=== PATIENT | male | born 1955 | race Caucasian/White ===

== ENCOUNTER 2019-11-08 21:25 | Emergency (ER) | payer MEDICARE, SELFPAY ==
--- NOTE | ~2019-11-08 | XR_ITS ---
EXAMINATION: XR chest 2V EXAM DATE: 11/08/2019 22:19 INDICATION: Cough, chest tightness. TECHNIQUE: Frontal and lateral projections of the chest obtained and reviewed. There is no prior larissa dy for comparison. FINDINGS: The lungs are clear. There are no pleural effusions. The cardiomediastinal silhouette is within normal limits. There is no pneumothorax suspected. The bones and soft tissues are unremarkab le. IMPRESSION: No acute cardiopulmonary findings. Reviewed, dictated and finalized at location A. FIC TECHNICIAN
[2019-11-08 21:45] VITALS: BP 116/72; PULSE 75; RESP 16; TEMP 36.3; O2SAT 95
[2019-11-08 21:51] VITALS: PULSE 75
--- NOTE | 2019-11-08 22:01 | ECG_ITS ---
Measurements Intervals [place] Rate: 62 P: 50 PA: 164 QRS: 27 QRSD: 79 T: 51 QT: 375 QTc: 381 Interpretive Statements SINUS RHYTHM RSR' IN V1 OR V2, PROBABLY NORMAL VARIANT BASELINE ARTIFACT- I, II, III, AVR, AVL, AVF BORDERLINE ECG Electronically Signed On 11-09-2019 7:05:02 SKATE MAKER by Tru Wood D.O.
--- NOTE | 2019-11-08 22:06 | ED.GENADULT ---
HPI - General Adult General Chief complaint: Chest Pain Stated complaint: tightness in chest and back Source: patient and family () Mode of arrival: ambulatory Limitations: no limitations History of Present Illness HPI narrative: CC: wants a CXR. All day has felt a moderate pressure sensation in his anterior chest, sternal and left parasternal area assoc. with achiness of his shoulders and back. The chest pain does not radiate. He has checked his blood pressure readings throughout the day which has shown pulse readings between 30 and 60. No obvious correlation between pulse and other symptoms. He has had minor SOB but denies wheezing. Today he has also felt clammy with no appetite. He does not use albuterol, but his does and has a nebulizer). He was treated by his PCP 10 days ago for a cold with an IM steroid followed by a tapering dose of prednisone x 5 days along with azithromycin x 5 days. Marko states his body and lungs felt much better on that regimen, which stopped 2 days before the onset of his current symptoms. He continues to have nasal congestion and minor sore throat residual from his previous cold symptoms. His states he was coughing a lot last PM. Relieving factors: none Exacerbating factors: none Related Data Home Medications Medication Instructions Recorded Confirmed amlodipine 10 mg PO DAILY 09/13/19 11/08/19 losartan 50 mg PO DAILY 09/13/19 11/08/19 omeprazole 40 mg PO DAILY 09/13/19 11/08/19 pregabalin [Lyrica] 150 mg PO TID 09/13/19 11/08/19 buspirone 15 mg tablet 15 mg PO BID 10/13/19 11/08/19 oxycodone-acetaminophen 10 mg-325 1 tablet PO QID PRN tablet 10/13/19 11/08/19 mg tablet Allergies Allergy/AdvReac Type Severity Reaction Status Date / Time No Known Allergies Allergy Unverified 10/13/19 13:36 Review of Systems Constitutional: Constitutional: Reports no additional constitutional complaints ENT: Reports system reviewed and no additional complaints, except as documented Cardiovascular: Cardiovascular: Reports no additional cardiovascular complaints Respiratory: Respiratory: Reports no additional respiratory complaints Gastrointestinal: Gastrointestinal: Denies no additional gastrointestinal complaints and Denies diarrhea Genitourinary: Genitourinary: Denies dysuria Musculoskeletal: Musculoskeletal: Reports myalgias and Reports joint swelling Integumentary/Breasts: Skin/Breast: Denies erythema Hematologic/Lymphatic: Hematologic/Lymphatic: Denies easy bleeding PMFSH Past Medical History Medical History Anxiety Appendicitis Arthritis Bladder malignancy Degenerative disc disease, cervical Degenerative disc disease, lumbar Depression Encephalitis Hx of hepatitis C Hyperlipidemia Hypertension Leg fracture, right repaired Migraine headache Surgical History Surgical History History of lumbar spinal fusion Social History Social History Smoking packs per day: 0.75 Smoking cigarettes per day: 15.0 Years smoked: 50 Smoking pack-years: 37.50 Smoking status: Current every day smoker Alcohol intake: never Exam Const: General: no acute distress Orientation/consciousness: patient oriented x3 HENMT: Head: normal to inspection Face and sinus: sinuses nontender Mouth: Yes moist mucous membranes Throat: posterior oropharynx normal Eyes: Conjunctivae: conjunctivae normal Neck: Neck: no lymphadenopathy Chest: Chest palpation & inspection: normal inspection of the chest Other: No chest wall tenderness. Resp: Auscultation: no rales, wheezes and diminished lung sounds Cardio: Rate: regular rate and not bradycardic Rhythm: regular rhythm GI: Inspection: non-distended GI Palp: Yes Soft to palpation, No Tenderness to palpation present (GI) and No Palpable mass present
[2019-11-08 22:20] VITALS: PULSE 71; RESP 15
[2019-11-08] MEDS: predniSONE 20 MG TABLET 60 MG PO (22:26)
[2019-11-08] MEDS: IPRATROPIUM 0.5 MG/ALBUTEROL SULFATE 2.5 MG AMPUL.NEB 3 ML INHALATION (22:26)
[2019-11-08 22:30] VITALS: PULSE 70; RESP 15
[2019-11-08 22:46] LABS: Anion Gap 13.3 mmol/L (7-16); Blood Urea Nitrogen 15 mg/dL (7-18); Calcium 8.5 mg/dL (8.5-10.1); Carbon Dioxide 28 mmol/L (21-32); Chloride 101 mmol/L (98-108); Estimated CRCL calculation 95 ml/min; Estimated Glomerular Filt Rate > 60; Glucose 96 mg/dL (70-99); Magnesium 2.2 mg/dL (1.8-2.4); Osmolality Calculated 286 mOsm/kg (285-295); Potassium 4.3 mmol/L (3.5-5.1); Sodium 138 mmol/L (136-145)
[2019-11-08 22:53] LABS: Troponin I < 0.02 ng/mL (0.00-0.056)
--- NOTE | 2019-11-08 22:58 | PC.NURSE ---
REPORT PROVIDED TO PERLA DOS SANTOS
[2019-11-08 23:40] VITALS: BP 106/67; PULSE 67; RESP 18; O2SAT 97
== END 2019-11-08 23:48 | disposition home or self-care (01) ==
PROVIDERS: Emergency Provider Family Medicine; PCP Nurse Practitioner Family
DX: R06.2 Wheezing (principal); J06.9 Acute upper respiratory infection, unspecified; F17.200 Nicotine dependence, unspecified, uncomplicated; E78.5 Hyperlipidemia, unspecified; I10 Essential (primary) hypertension
CPT/HCPCS: 36415; 71046; 80048; 83735; 84484; 93005; 94640; 99284; J7512

== ENCOUNTER 2020-06-18 10:25 | Outpatient (CLI) | payer MEDICARE, SELFPAY ==
--- NOTE | ~2020-06-18 | CT_ITS ---
EXAMINATION: CT lung screening DATE: 06/18/2020 11:15 INDICATION: Personal history of tobacco dependence, current smoker with 45 pack year history TECHNIQUE: Computed tomography (CT) of the chest was performed without intravenous contrast. The dose -length product (DLP) was 160.68 mGy-cm. Automated exposure control and iterative reconstruction tech [employer] were employed. COMPARISON: 08/09/2018 FINDINGS: There is mild emphysema. There is a 3 mm pleural-based nodule of the right upper lobe on im age 55. The lungs are free of acute opacities. There is no pleural effusion or pneumothorax. No patho logically enlarged thoracic lymph nodes are identified. The heart size is normal. Unchanged calcified nodules of the thyroid measure up to 12 mm on the left. Calcified coronary artery atherosclerosis is noted. Bilateral calcified hilar lymph nodes are consistent with old granulomatous disease. There is moderate thoracic spondylosis. IMPRESSION: 1. Lung-RADS category 2: Benign appearance or behavior. Continue annual screening with noncontrast lo w-dose chest CT in 12 months. Reviewed, dictated and finalized at location A. IMPRESSION: 1. Lung-RADS category 2: Benign appearance or behavior. Continue annual screeni ng with noncontrast low-dose chest CT in 12 months.
--- NOTE | ~2020-06-18 | CT_ITS ---
EXAMINATION: CT soft tissue neck w con DATE: 06/18/2020 11:15 INDICATION: Right-sided neck pain. TECHNIQUE: Computed tomography (CT) of the neck was performed with 75 mL Omnipaque-350 intravenous co ntrast. Automated exposure control and iterative reconstruction technique were employed. The dose-matt gth product was 452.49 mGy-cm. COMPARISON: Neck CT 03/28/2019 FINDINGS: There is plaque in the proximal internal carotid arteries with 0% stenosis relative to norm al distal artery lumen diameters. Left vertebral artery is enlarged. At C5, there is enlargement of f oramen transversarium. There is a group of vessels in this area with an enlarged draining vein with e ermias contrast opacification, consistent with an arteriovenous malformation. There are no pathological ly enlarged lymph nodes. There are nodules in the thyroid measuring up to 12 mm, likely not clinicall y significant. There is moderate cervical spondylosis. IMPRESSION: 1. 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 Reviewed, dictated and finalized at location A.
[2020-06-18 10:49] LABS: Estimated Glomerular Filt Rate > 60
== END 2020-06-18 10:26 | disposition home or self-care (01) ==
PROVIDERS: PCP Internal Medicine; Visit Provider Internal Medicine
DX: R07.0 Pain in throat (principal); R13.10 Dysphagia, unspecified; Z12.2 Encounter for screening for malignant neoplasm of respiratory organs; Z87.891 Personal history of nicotine dependence
CPT/HCPCS: 70491; G0297; Q9965

== ENCOUNTER 2020-11-12 13:50 | Outpatient (CLI) | payer MEDICARE, SELFPAY | END 2020-11-12 13:51 | disposition home or self-care (01) | LOC: ANHCOVIDVC 13:50 | PROVIDERS: PCP Internal Medicine; Visit Provider Internal Medicine | DX: Z23 Encounter for immunization (principal) | CPT/HCPCS: 0001A; 91300 ==

== ENCOUNTER 2020-11-15 08:58 | Outpatient (CLI) | payer MEDICARE, SELFPAY ==
--- NOTE | ~2020-11-15 | CT_ITS ---
EXAMINATION: CT abdomen pelvis w con EXAM DATE: 11/15/2020 09:56 INDICATION: Chronic abdominal pain, weight loss. Epigastric pain x1yr with N/D/C. TECHNIQUE: Spiral CT of the abdomen and pelvis was performed following intravenous injection of 100 m L Omnipaque 350. Axial, coronal and sagittal images were reviewed. The dose-length product (DLP) fo r this examination was 1086.87 mGy-cm. The exposure was tailored according to patient size (auto mA exposure control), and iterative reconstruction (ASIR) was used as additional dose reduction techniqu e. Comparison is made to prior examination from 08/09/2018. FINDINGS: Nodular cirrhotic liver. Spleen, adrenal glands, pancreas are unremarkable. There are gall stones within an otherwise unremarkable gallbladder. No evidence of obstructive biliary disease. Po rtal and splenic veins are patent. Kidneys enhance symmetrically. There is no hydronephrosis. The prostate is unremarkable. Mild diffuse bladder wall thickening anteriorly without focal nodularity. There is no retroperitoneal or pelvic lymphadenopathy. There is mild scattered arteriosclerotic d isease. Small umbilical fat-containing hernia. There are no findings to suggest appendicitis. The stomach and small bowel are unremarkable. There is expected amount of colonic stool. No free intraperitoneal gas. The heart is normal in size. T here are no pericardial or pleural effusions. The lung bases are unremarkable. There are no osteobl astic or osteolytic lesions identified. Posterior and interbody fusion L4-S1. L4 laminotomies, L5 martinez inectomies. IMPRESSION: 1. No acute intra-abdominal findings. 2. Mild bladder wall thickening, could indicate chronic cystitis. 3. Cirrhosis. 4. Cholelithiasis. Reviewed, dictated and finalized at location B. ER FEEDER
--- NOTE | ~2020-11-15 | XR_ITS ---
EXAMINATION: XR hand RT min 3V INDICATION: Right hand pain TECHNIQUE: Three views of the right hand are obtained. COMPARISON: 07/10/2017 FINDINGS: There is no acute fracture, dislocation, or subluxation. An old ulnar styloid fracture with nonunion is noted. There is mild osteoarthritis of the triscaphe and first carpometacarpal joint as well as in multiple interphalangeal joints. The soft tissues are unremarkable. IMPRESSION: 1. No acute osseous abnormality. 2. Chronic ulnar styloid fracture with nonunion. Reviewed, dictated and finalized at location A. AND [employer]INE F[employer]ER FR[employer]OPS
--- NOTE | ~2020-11-15 | XR_ITS ---
EXAMINATION: XR hand LT min 3V INDICATION: Left hand pain TECHNIQUE: Three views of the left hand are obtained. COMPARISON: 07/10/2017 FINDINGS: There is no fracture. Bone alignment is normal. The soft tissues are unremarkable. There is mild osteoarthritis at the triscaphe and first metacarpal joint as well as in multiple interphalange al joints. IMPRESSION: 1. Polyarticular osteoarthritis without acute findings. Reviewed, dictated and finalized at location A. NISTRATIVE ASSOCIATE
--- NOTE | ~2020-11-15 | XR_ITS ---
EXAMINATION: XR knee LT 3V DATE: 11/15/2020 09:46 INDICATION: Left knee pain. TECHNIQUE: 3 views of left knee were obtained. COMPARISON: None. FINDINGS: Bone alignment is normal. No fracture. There is mild osteoarthritis of medial and patellofe moral compartments characterized by tiny marginal osteophytes. No knee joint effusion. IMPRESSION: 1. Mild left knee osteoarthritis. Reviewed, dictated and finalized at location A. EAR MEDICINE CHIEF TECHNOLOGIST
--- NOTE | ~2020-11-15 | XR_ITS ---
EXAMINATION: XR knee RT 3V DATE: 11/15/2020 09:46 INDICATION: Right knee pain. TECHNIQUE: 3 views of right knee were obtained. COMPARISON: Right knee radiographs 07/09/2015 FINDINGS: Bone alignment is normal. No fracture. There is avila and screw fixation of the tibia. There is mild osteoarthritis of medial and patellofemoral compartments characterized by tiny marginal osteo phytes. No knee joint effusion. IMPRESSION: 1. Mild right knee osteoarthritis. Reviewed, dictated and finalized at location A. AL ASSISTED THERAPIST
[2020-11-15 09:32] LABS: Estimated Glomerular Filt Rate > 60
== END 2020-11-15 08:59 | disposition home or self-care (01) ==
LOC: CHSIMG 09:00
PROVIDERS: PCP Internal Medicine; Visit Provider Internal Medicine
DX: R10.9 Unspecified abdominal pain (principal); R63.4 Abnormal weight loss; M79.642 Pain in left hand; M79.641 Pain in right hand; M25.562 Pain in left knee; M25.561 Pain in right knee
CPT/HCPCS: 73130; 73562; 74177; Q9967

== ENCOUNTER 2020-12-03 13:42 | Outpatient (CLI) | payer MEDICARE, SELFPAY | END 2020-12-03 13:43 | disposition home or self-care (01) | LOC: ANHCOVIDVC 13:42 | PROVIDERS: PCP Internal Medicine; Visit Provider Internal Medicine | DX: Z23 Encounter for immunization (principal) | CPT/HCPCS: 0002A; 91300 ==

== ENCOUNTER 2021-05-27 15:35 | Outpatient (CLI) | payer MEDICARE, SELFPAY ==
[2021-05-27 16:38] LABS: SARS-CoV-2 RNA PCR Positive (Negative)
== END 2021-05-27 15:36 | disposition home or self-care (01) ==
LOC: CHSLAB 15:37
PROVIDERS: PCP Internal Medicine; Visit Provider Internal Medicine
DX: U07.1 COVID-19 (principal)
CPT/HCPCS: C9803; U0003; U0005

== ENCOUNTER 2021-05-29 09:59 | Outpatient (CLI) | payer MEDICARE, SELFPAY ==
--- NOTE | 2021-05-29 10:25 | PC.NURSE ---
Patient here for infusion of Casirivimab and Imdevimab. IV started in right hand. Patient tolerated well. Vital signs stable. Resting in bed with hob. Provided with call light and water. Denies any needs at this time.
[2021-05-29] MEDS: diphenhydrAMINE HCl CAP 25 MG CAPSULE PO (10:27)
[2021-05-29] MEDS: ACETAMINOPHEN 325 MG TABLET 650 MG PO (10:27)
[2021-05-29] MEDS: FAMOTIDINE 20 MG TABLET PO (10:28)
[2021-05-29 10:30] VITALS: BP 129/51; PULSE 58; RESP 18; TEMP 36.5; O2SAT 96
--- NOTE | 2021-05-29 11:40 | PC.NURSE ---
Patient tolerated infusion well. No s/s of adverse reactions noted. Patient resting in bed. Call light at side. Will cont. to observe patient for 1 hr.
[2021-05-29 11:45] VITALS: BP 156/81; PULSE 58; RESP 18; TEMP 36.1; O2SAT 96
--- NOTE | 2021-05-29 12:40 | PC.NURSE ---
Patient cont. to show no s/s of adverse reactions. Provided with information about infusion. Patient states understanding. IV site removed, tip intact. Dressing applied to site. Patient denies any questions at this time. Patient accompanied to front door by this nurse, patient left ambulatory.
== END 2021-05-29 10:00 | disposition home or self-care (01) ==
PROVIDERS: PCP Internal Medicine; Visit Provider Internal Medicine
DX: Z23 Encounter for immunization (principal); U07.1 COVID-19
CPT/HCPCS: 96365; A9270; J7050; M0243

== ENCOUNTER 2021-06-12 08:14 | Outpatient (CLI) | payer MEDICARE, SELFPAY ==
--- NOTE | ~2021-06-12 | MR_ITS ---
EXAMINATION: MR lumbar spine wo con DATE: 06/12/2021 09:06 INDICATION: Lumbar radiculopathy with low back pain radiating down both legs. TECHNIQUE: Magnetic resonance imaging (MRI) of the lumbar spine was performed without intravenous con trast. Sequences included sagittal T2-weighted FSE, sagittal T2-weighted FS FSE, sagittal fluid sensi tive FSE STIR, sagittal T1-weighted FSE, and axial T2-weighted FSE. COMPARISON: CT abdomen and pelvis dated 11/15/[address] dated 06/25/2017 FINDINGS: Again seen are postoperative change of L5 laminectomy and partial L4 laminectomy and combined anterio r and posterior spinal fusion at L4-S1 with interbody bone graft cages and bilateral vertical avila and pedicle screw fixations. Fibroma retrolisthesis L3 on L4. Vertebral body heights are normal. Normal marrow signal. Mild disc desiccation, annular fissure and mild disc height loss at L3-L4. T11-T12 th rough L2-L3 discs are normal. The conus medullaris terminates at L1. There is normal signal in the ca udal spinal cord. Bilateral T2 hyperintense renal cysts the largest measuring 1.5 cm at the left kidn ey. Fatty atrophy of the paraspinal musculature of the abdomen below the level of the postoperative c hanges. The following disc levels are specifically discussed: T12-L1: The disc does not extend beyond the endplate margin. There is mild right and mild to moderate left facet joint osteoarthritis. There is no neural foraminal stenosis. There is no central canal st enosis. L1-L2: The disc does not extend beyond the endplate margin. There is moderate bilateral facet joint o steoarthritis. There is mild bilateral neural foraminal stenosis. There is no central canal stenosis. L2-L3: Mild disc protrusions at the bilateral foraminal zones. There is mild hypertrophy of the ligam entum flavum. There is mild left and mild to moderate right facet joint osteoarthritis. There is mild to moderate bilateral neural foraminal stenosis. There is mild central canal stenosis. L3-L4: Annular fissure with broad-based disc extrusion extending from foraminal zone to foraminal zon e with disc material extending up to 3 mm caudal to the level of the superior endplate of L4. There i s mild hypertrophy of the ligamentum flavum. There is mild bilateral facet joint osteoarthritis. The re is moderate to severe bilateral neural foraminal stenosis. There is severe central canal stenosis which measures 5 mm AP in the mid sagittal plane. L4-L5: Instrumented anterior and posterior spinal fusion. There is mild left and minimal right neural foraminal stenosis. Posterior decompression with no central canal stenosis. L5-S1: The submitted anterior and posterior spinal fusion. There is mild bilateral neural foraminal s tenosis. Posterior decompression with no central canal stenosis. IMPRESSION: 1. 5 mm retrolisthesis L3 on L4 and associated annular fissure and disc extrusion which contributes t o moderate to severe bilateral neural foraminal and severe central canal stenosis at this level. 2. Otherwise mild lumbar spondylosis with change of prior laminectomies and its mid anterior and post erior spinal fusion at L4-L5 and L5-S1. Reviewed, dictated and finalized at location B. IMPRESSION: 1. 5 mm retrolisthesis L3 on L4 and associated annular fissure and disc extrusi on which contributes to moderate to severe bilateral neural foraminal and sever e central canal stenosis at this level. 2. Otherwise mild lumbar spondylosis with change of prior laminectomies and its mid anterior and posterior spinal fusion at L4-L5 and L5-S1.
== END 2021-06-12 08:15 | disposition home or self-care (01) ==
LOC: CHSIMG 08:16
PROVIDERS: PCP Internal Medicine; Visit Provider Internal Medicine
DX: M54.16 Radiculopathy, lumbar region (principal); M48.061 Spinal stenosis, lumbar region without neurogenic claudication
CPT/HCPCS: 72148

== ENCOUNTER 2021-06-26 10:48 | Outpatient (CLI) | payer MEDICARE, SELFPAY ==
--- NOTE | ~2021-06-26 | CT_ITS ---
EXAMINATION: CT lung screening DATE: 06/26/2021 11:02 INDICATION: Personal history of tobacco dependent TECHNIQUE: Computed tomography (CT) of the chest was performed without intravenous contrast. The dose -length product was 127.42 mGy-cm. Automated exposure control and iterative reconstruction technique were employed. COMPARISON: CT dated 06/18/2020 FINDINGS: Heart size is normal. No significant pleural or pericardial effusion. No thoracic lymphaden opathy. The upper abdomen is unremarkable. Stable pleural-based 3 mm right upper lobe nodule. Calcifi ed granuloma left upper lobe. No new pulmonary nodules or masses. No acute osseous abnormality. Mild thoracic spondylosis with accentuated kyphosis IMPRESSION: 1. Lung-RADS category 2: Benign appearance or behavior. Continue annual screening with noncontrast lo w-dose chest CT in 12 months. Reviewed, dictated and finalized at location B. IMPRESSION: 1. Lung-RADS category 2: Benign appearance or behavior. Continue annual screeni ng with noncontrast low-dose chest CT in 12 months.
== END 2021-06-26 10:49 | disposition home or self-care (01) ==
LOC: CHSIMG 10:50
PROVIDERS: PCP Internal Medicine; Visit Provider Internal Medicine
DX: Z12.2 Encounter for screening for malignant neoplasm of respiratory organs (principal); Z87.891 Personal history of nicotine dependence
CPT/HCPCS: 71271

== ENCOUNTER 2021-08-29 13:40 | Outpatient (CLI) | payer MEDICARE, SELFPAY ==
--- NOTE | ~2021-08-29 | XR_ITS ---
XR ankle RT min 3V DATE: 08/29/2021 14:03 INDICATION: Right ankle pain. 1998 surgery after accident. TECHNIQUE: 4 views COMPARISON: 07/09/2015 right ankle FINDINGS: Intramedullary pin is noted in the tibial shaft with 2 distal transverse interlocking screw s. There are old healed fracture deformities of the mid to distal tibial and fibular shafts. Normal alignment at the ankle joint. No recent fracture or dislocation of the ankle or disruption of the ankle mortise is detected. IMPRESSION: . Old healed fibular and internally fixated tibial shaft fractures Reviewed, dictated and finalized at location B. L ARMS REPAIRER
== END 2021-08-29 13:41 | disposition home or self-care (01) ==
PROVIDERS: PCP Internal Medicine; Visit Provider Nurse Practitioner Family
DX: M25.571 Pain in right ankle and joints of right foot (principal)
CPT/HCPCS: 73610

== ENCOUNTER 2021-09-23 14:12 | Outpatient (CLI) | payer MEDICARE, SELFPAY ==
--- NOTE | ~2021-09-23 | US_ITS ---
EXAMINATION: US venous doppler LE RT DATE: 09/23/2021 14:43 INDICATION: Right lower limb swelling TECHNIQUE: Grayscale ultrasound images without and with compression and Doppler ultrasound images of the right lower extremity veins were obtained. COMPARISON: None. FINDINGS: The visualized portions of right common femoral vein, profunda (deep) femoral vein, femoral vein, pop liteal vein, posterior tibial veins, peroneal veins, gastrocnemius vein and greater saphenous vein ou tflow are patent. IMPRESSION: 1. No deep venous thrombosis in the right lower limb. Reviewed, dictated and finalized at location A. SANDER OFFBEARER
--- NOTE | ~2021-09-23 | XR_ITS ---
XR ankle RT min 3V DATE: 09/23/2021 14:51 INDICATION: Pain and swelling of ankle TECHNIQUE: 4 views COMPARISON: 08/29/2021 right ankle FINDINGS: Again noted are old healed distal fibular shaft fracture and internally fixated mid to dist al tibial shaft fracture. No recent fracture or dislocation of the ankle or disruption of the ankle mortise is detected. Ankle joint space appears well preserved. No periosteal reaction or bone destruction is evident. There is slight plantar and posterior calcaneal enthesopathy. IMPRESSION: Old healed fibular and internally fixated tibial shaft fractures Reviewed, dictated and finalized at location A. E FABRICATOR
[2021-09-23 14:32] LABS: Hematocrit 36.5 % (40.0-54.0); Hemoglobin 12.1 g/dL (14.0-18.0); Mean Corpuscular HGB Conc 33.2 g/dL (32.0-36.0); Mean Corpuscular Volume 93.6 fL (78.0-102.0); Mean Platelet Volume 8.6 fl (8.7-11.0); Platelet Count Result 272 K/mm3 (150-420); Red Cell Distribution Width 12.8 % (11.6-14.4); White Blood Count 3.6 K/mm3 (4.8-10.8)
[2021-09-23 15:13] LABS: Alanine Aminotransferase 23 U/L (16-63); Alkaline Phosphatase 69 U/L (46-116); Anion Gap 7 mmol/L (8-16); Aspartate Amino Transferase 24 U/L (15-37); Bilirubin,Total 0.5 mg/dL (0.00-1.00); Blood Urea Nitrogen 8 mg/dL (7-18); CRP < 0.2 mg/dL (0.0-0.9); Calcium 8.9 mg/dL (8.5-10.1); Carbon Dioxide 32 mmol/L (21-32); Chloride 94 mmol/L (98-108); Estimated Glomerular Filt Rate > 60; Glucose 85 mg/dL (70-99); Osmolality Calculated 273 mOsm/kg (285-295); Potassium 4.7 mmol/L (3.5-5.1); Sodium 133 mmol/L (136-145); Total Protein 7.1 g/dL (6.4-8.2); Uric Acid 3.7 mg/dL (3.5-7.2)
[2021-09-23 15:25] LABS: Band Neutrophils Percent 0 % (0-6); Basophils Absolute Manual 0.03 K/mm3 (0-0.1); Basophils Percent Manual 1 % (0-1); Eosinophils Absolute Manual 0.03 K/mm3 (0.02-0.5); Eosinophils Percent Manual 1 % (1-6); Lymphocytes Absolute Manual 1.22 K/mm3 (1.1-4.5); Lymphocytes Percent Manual 34 % (18-44); Monocytes Absolute Manual 0.21 K/mm3 (0.1-0.90); Monocytes Percent Manual 6 % (3-9); Neutrophils Absolute Manual 2.08 K/mm3 (1.3-6.7); Neutrophils Percent Manual 58 % (46-73); Platelet Estimate Adequate (Adequate); Total Cells Counted 100
[2021-09-23 15:42] LABS: Erythrocyte Sedimentation Rate 19 mm/hr (0-20)
== END 2021-09-23 14:13 | disposition home or self-care (01) ==
PROVIDERS: PCP Internal Medicine; Visit Provider Internal Medicine
DX: M79.89 Other specified soft tissue disorders (principal); M25.571 Pain in right ankle and joints of right foot
CPT/HCPCS: 36415; 73610; 80053; 84550; 85025; 85652; 86140; 93971

== ENCOUNTER 2021-10-23 08:20 | Outpatient (CLI) | payer MEDICARE, SELFPAY ==
[2021-10-23 08:43] LABS: Basophils Absolute Auto 0.03 K/mm3 (0.00-0.10); Basophils Percent Auto 0.6 % (0.0-1.0); Eosinophils Absolute Auto 0.06 K/mm3 (0.02-0.50); Eosinophils Percent Auto 1.2 % (1.0-6.0); Hemoglobin 13.9 g/dL (14.0-18.0); Immature Granulocyte Absolute 0.01 K/mm3 (0.00-0.00); Immature Granulocyte Percent A 0.2 % (0.0-0.0); Lymphocytes Absolute Auto 1.06 K/mm3 (1.10-4.50); Lymphocytes Percent Auto 21.8 % (18.0-42.0); Mean Corpuscular HGB Conc 33.9 g/dL (32.0-36.0); Mean Corpuscular Volume 91.5 fL (78.0-102.0); Mean Platelet Volume 8.7 fl (8.7-11.0); Monocytes Absolute Auto 0.62 K/mm3 (0.10-0.90); Monocytes Percent Auto 12.7 % (2.0-11.0); Neutrophils Absolute Auto 3.1 K/mm3 (1.7-7.2); Neutrophils Percent Auto 63.5 % (50.0-70.0); Platelet Count Result 249 K/mm3 (150-420); Red Blood Count 4.48 M/mm3 (4.70-6.10); Red Cell Distribution Width 12.4 % (11.6-14.4); White Blood Count 4.9 K/mm3 (4.8-10.8)
[2021-10-23 08:44] LABS: Add Urine Microscopic? NO; Appearance Urine Clear (Clear); Bilirubin Urine Negative (Negative); Blood Urine Negative (Negative); Color Urine Yellow (Yellow); Glucose Urine UA Negative (Negative); Ketones Urine Negative (Negative); Leukocyte Esterase Ur Negative LEU/UL (Negative); Nitrate Urine Negative (Negative); Protein Urine Negative (Negative)
[2021-10-23 08:50] LABS: Hemoglobin A1C 5.4 % (<5.7)
[2021-10-23 09:08] LABS: Creatinine Urine 162.05 mg/dL (40-278); MALB Creatinine Ratio 8.8 mg/g (0-30); Microalbumin Urine Random 14.4 mg/L
[2021-10-23 11:14] LABS: Alanine Aminotransferase 23 U/L (16-63); Albumin Level 4.5 g/dL (3.4-5.0); Alkaline Phosphatase 79 U/L (46-116); Anion Gap 15 mmol/L (8-16); Aspartate Amino Transferase 24 U/L (15-37); Bilirubin,Total 0.8 mg/dL (0.00-1.00); Blood Urea Nitrogen 9 mg/dL (7-18); Calcium 9.2 mg/dL (8.5-10.1); Carbon Dioxide 25 mmol/L (21-32); Chloride 95 mmol/L (98-108); Cholesterol 182 mg/dL (0-200); Creatine Kinase 257 U/L (39-308); Estimated Glomerular Filt Rate > 60; Glucose 101 mg/dL (70-99); HDL Direct 73 mg/dL (40-60); LDL Cholesterol Calculated 98 mg/dL (<130); Osmolality Calculated 278 mOsm/kg (285-295); Potassium 4.6 mmol/L (3.5-5.1); Prostate Specific Antigen 0.6 ng/mL (< OR = 4.0); Sodium 135 mmol/L (136-145); Total Protein 7.5 g/dL (6.4-8.2); Triglycerides 55 mg/dL (0-150)
== END 2021-10-23 08:21 | disposition home or self-care (01) ==
LOC: CHSLAB 08:22
PROVIDERS: PCP Internal Medicine; Visit Provider Internal Medicine
DX: E78.2 Mixed hyperlipidemia (principal); I10 Essential (primary) hypertension; R73.01 Impaired fasting glucose; Z12.5 Encounter for screening for malignant neoplasm of prostate
CPT/HCPCS: 36415; 80053; 80061; 81003; 82043; 82550; 83036; 84153; 85025; G0103

== ENCOUNTER 2021-11-06 07:10 | Outpatient (CLI) | payer MEDICARE, SELFPAY ==
--- NOTE | ~2021-11-06 | CT_ITS ---
EXAMINATION: CT abdomen w con DATE: 11/06/2021 08:17 INDICATION: Cirrhosis of liver TECHNIQUE: Computed tomography (CT) of the abdomen was performed with 100 CC Omnipaque 350 intravenou s contrast. Automated exposure control and iterative reconstruction technique were employed. Exam dos e: 810.31 mGy-cm total exam DLP. COMPARISON: 11/15/2020 CT abdomen pelvis FINDINGS: The lung bases are clear. Normal heart size. No pericardial or pleural effusion. Multiple stones are noted are noted in the dependent aspect of the gallbladder. No gallbladder wall t hickening or pericholecystic fluid or fat stranding. There is surface nodularity of the liver consistent with report of cirrhosis. The liver, spleen, panc reas, bile ducts and pancreatic duct are resolving is otherwise unremarkable. Splenic size is within normal range. Normal morphology of the adrenal glands. 1 cm lower pole right renal cyst. 1.8 cm exophytic medial upper pole left renal cyst. There is posterior and interbody spinal fusion in the mid to lower lumbar area. Diffuse idiopathic skeletal hyperostosis of the thoracic spine. IMPRESSION: Hepatic surface nodularity consistent with clinical report of cirrhosis Cholelithiasis Renal cysts Reviewed, dictated and finalized at Location A. Reviewed, dictated and finalized at location A. BOTOMY SERVICES REPRESENTATIVE IMPRESSION: Hepatic surface nodularity consistent with clinical report of cirr hosis Cholelithiasis Renal cysts
== END 2021-11-06 07:11 | disposition home or self-care (01) ==
LOC: CHSIMG 07:11
PROVIDERS: PCP Internal Medicine; Visit Provider Internal Medicine
DX: K74.60 Unspecified cirrhosis of liver (principal)
CPT/HCPCS: 74160; Q9967

== ENCOUNTER 2021-11-22 14:57 | Outpatient (CLI) | payer MEDICARE, SELFPAY ==
--- NOTE | ~2021-11-22 | US_ITS ---
EXAMINATION: US venous doppler [facility] DATE: 11/22/2021 15:48 INDICATION: Lower limb pain and swelling TECHNIQUE: Grayscale ultrasound images without and with compression and Doppler ultrasound images of the bilateral lower extremity veins were obtained. COMPARISON: None. FINDINGS: The visualized portions of right common femoral vein, profunda (deep) femoral vein, femoral vein, pop liteal vein, posterior tibial veins, peroneal veins, gastrocnemius vein and greater saphenous vein ou tflow are patent. The visualized portions of left common femoral vein, profunda femoral vein, femoral vein, popliteal v ein, posterior tibial veins, peroneal veins, gastrocnemius vein and greater saphenous vein outflow ar e patent. IMPRESSION: 1. No deep venous thrombosis in either lower limb. Reviewed, dictated and finalized at location A.
--- NOTE | ~2021-11-22 | US_ITS ---
EXAMINATION: Additional imaging US EXAM DATE: 11/26/2021 09:55 INDICATION: Leg edema. TECHNIQUE: Additional ultrasound imaging of the lower extremity veins. Correlation is made to previo us exam from 11/12/2021. FINDINGS: Right Standing Venous Mapping: reflux seconds duration; vein size. Greater saphenous origin: 0 seconds; 5 mm. Greater saphenous mid thigh:------ 0 seconds; 4 mm. Greater saphenous below knee:--- 5 seconds; 3 mm. Lesser saphenous proximally:------ 0 seconds; 5 mm. Lesser saphenous distally: 0 seconds; 2 mm. Left Standing Venous Mapping: reflux seconds duration; vein size. Greater saphenous origin: 0 seconds; 5 mm. Greater saphenous mid thigh:------ 0 seconds; 4 mm. Greater saphenous below knee:--- 0 seconds; 3 mm. Lesser saphenous proximally:------ 0 seconds; 6 mm. Lesser saphenous distally: 0 seconds; 4 mm. IMPRESSION: Right leg below-knee greater saphenous venous reflux. Reviewed, dictated and finalized at location .
== END 2021-11-22 14:58 | disposition home or self-care (01) ==
LOC: ANHIMG 15:01
PROVIDERS: PCP Internal Medicine; Visit Provider Orthopaedic Surgery
DX: R60.0 Localized edema (principal)
CPT/HCPCS: 93970

== ENCOUNTER 2022-03-18 08:00 | Outpatient (CLI) | payer MEDICARE, SELFPAY ==
--- NOTE | ~2022-03-18 | MR_ITS ---
EXAMINATION: MR thoracic spine wo con DATE: 03/18/2022 09:19 INDICATION: Mid back pain. TECHNIQUE: Magnetic resonance imaging (MRI) of the thoracic spine was performed without intravenous c ontrast. Sagittal localizer T1-weighted FSE of the cervical spine was obtained. Thoracic spine sequen sadi included sagittal T2-weighted FSE, sagittal T1-weighted FSE, sagittal T2-weighted FS FSE, and axi al T2-weighted FSE. COMPARISON: Chest CT 06/26/2021 FINDINGS: There is 3 degrees dextrocurvature of thoracic spine. There is kyphosis of thoracic spine. The director of pharmacy images demonstrate severe cervical spondylosis. There is mild chronic height loss of T5-T9 vertebral bodies. There is mildly decreased disc height from T3-T4 through T10-T11. At T5-T6, there i s a central extrusion with mild central canal stenosis. At T7-T8, there is a right central extrusion with mild central canal stenosis. At T10-T11, there is a left foraminal protrusion. There is multilev el mild facet joint osteoarthritis. On the left, there is mild neural foraminal stenosis at T10-T11. The spinal cord signal intensity is normal. IMPRESSION: 1. Mild thoracic spondylosis. 2. Severe cervical spondylosis noted on the director of pharmacy images. Reviewed, dictated and finalized at location A.
== END 2022-03-18 08:01 | disposition home or self-care (01) ==
LOC: CHSIMG 08:04
PROVIDERS: PCP Internal Medicine; Visit Provider Orthopaedic Surgery Orthopaedic Surgery of the Spine
DX: Z98.1 Arthrodesis status (principal); M54.9 Dorsalgia, unspecified
CPT/HCPCS: 72146

== ENCOUNTER 2022-06-11 13:06 | Outpatient (RCR) | payer MEDICARE, SELFPAY ==
--- NOTE | 2022-06-11 12:47 | PTOPEVAL1 ---
Assessment and note entered by JT File, PT Evaluation Information Assessment Status Evaluation Diagnosis lumbar and mid back spine pain, new fusion and old hardware replacement Subjective Information patient reports he had a new fusion and old hardware replacement in the lower back in august of 2021. he reports he is now having middle/upper back pain. he reports it feel slike someone is stabbing. he reports he had xray and mri of the thoracic spine. he reports he has tried animal care provider with no alf relief. he reports he has increased pain in the back throughout the day. he reports sometimes it is brought on by shoulder and neck symptoms first. he reports he has neuropahty in his arms/hands. he reports he has ntb in throughout his entire arms/ hands and legs/feet. he reports it constantly feels like he is walking on rocks. Reported Pain Level Pain Score 4: Self Report Assessment PT Clinical Summary mr. woods presents to skilled PT services for evaluation and treatment of mid back pain. he presents this date with pain in the upper/middle thoracic spine that is increased with progressed time spent performing activities. he presents with decreased core and scapular strength, as well as some postrual deficits leading to increased pain. he would do well to attend and participate in skilled PT to improve his objective/functional deficits and progress towards a return to his prior level functional activity performance/ quality ol life. Plan of Care Treatment Frequency and 2x weekly for 8 visits Duration These treatments will address the objective and functional deficits as defined above. The patient will be advanced safely and appropriately in order for the patient to progress towards his/her prior level of function. Additional exercises will be introduced and as well as a comprehensive home exercise program upon discharge, if needed, ?to ensure carryover of functional gains achieved in the clinic. This treatment plan has been reviewed and agreement upon by the patient.
--- NOTE | 2022-07-01 13:44 | PCPTNOTE ---
patient called and left to cancel visit today and all visits going forward. follow up VM left at 13:36.
--- NOTE | 2022-09-29 13:23 | PCPTNOTE ---
Mr. Marti attended a total of 2 treatment sessions. He has failed to return to the clinic and will be discharged from our care at this time.
== END 2022-06-12 23:59 | disposition home or self-care (01) ==
LOC: CHSPT 13:06
PROVIDERS: PCP Internal Medicine; Visit Provider Orthopaedic Surgery Orthopaedic Surgery of the Spine
DX: M54.9 Dorsalgia, unspecified (principal); M54.50 Low back pain, unspecified
CPT/HCPCS: 97014; 97110; 97140; 97161; G0283

== ENCOUNTER 2022-08-19 08:44 | Outpatient (CLI) | payer MEDICARE, SELFPAY ==
[2022-08-19 08:59] LABS: Basophils Absolute Auto 0.02 K/mm3 (0.00-0.10); Basophils Percent Auto 0.4 % (0.0-1.0); Eosinophils Absolute Auto 0.14 K/mm3 (0.02-0.50); Eosinophils Percent Auto 3.1 % (1.0-6.0); Hemoglobin 13.1 g/dL (12.4-15.3); Immature Granulocyte Absolute 0.01 K/mm3 (0.00-0.00); Immature Granulocyte Percent A 0.2 % (0.0-0.0); Lymphocytes Absolute Auto 1.28 K/mm3 (1.10-4.50); Lymphocytes Percent Auto 28.2 % (18.0-42.0); Mean Corpuscular HGB Conc 35.4 g/dL (32.0-36.0); Mean Corpuscular Hemoglobin 31.6 pg (27.0-31.0); Mean Corpuscular Volume 89.2 fL (78.0-102.0); Mean Platelet Volume 8.5 fl (8.7-11.0); Monocytes Absolute Auto 0.54 K/mm3 (0.10-0.90); Monocytes Percent Auto 11.9 % (2.0-11.0); Neutrophils Absolute Auto 2.6 K/mm3 (1.7-7.2); Neutrophils Percent Auto 56.2 % (50.0-70.0); Platelet Count Result 192 K/mm3 (150-420); Red Blood Count 4.15 M/mm3 (4.70-6.10); Red Cell Distribution Width 12.5 % (11.6-14.4); White Blood Count 4.5 K/mm3 (4.8-10.8)
[2022-08-19 09:04] LABS: Add Urine Microscopic? NO; Appearance Urine Clear (Clear); Bilirubin Urine Negative (Negative); Blood Urine Negative (Negative); Color Urine Light Yellow (Yellow); Glucose Urine UA Negative (Negative); Ketones Urine Negative (Negative); Leukocyte Esterase Ur Negative (Negative); Nitrate Urine Negative (Negative); Protein Urine Negative (Negative); Specific Grav Ur <= 1.005 (1.010-1.020); Urobilinogen Urine 0.2 mg/dL (0.2-1.0)
[2022-08-19 09:36] LABS: Hemoglobin A1C 5.6 % (<5.7)
[2022-08-19 10:17] LABS: Alanine Aminotransferase 29 U/L (16-63); Alkaline Phosphatase 54 U/L (46-116); Anion Gap 5 mmol/L (8-16); Aspartate Amino Transferase 41 U/L (15-37); Bilirubin,Total 0.3 mg/dL (0.00-1.00); Blood Urea Nitrogen 12 mg/dL (7-18); Calcium 8.4 mg/dL (8.5-10.1); Carbon Dioxide 30 mmol/L (21-32); Chloride 95 mmol/L (98-108); Cholesterol 167 mg/dL (0-200); Creatine Kinase 1041 U/L (39-308); Estimated Glomerular Filt Rate > 60; Free T4 Free Thyroxine 0.79 ng/dL (0.76-1.46); Glucose 89 mg/dL (70-99); HDL Direct 58 mg/dL (40-60); LDL Cholesterol Calculated 85 mg/dL (<130); Osmolality Calculated 268 mOsm/kg (285-295); Potassium 4.8 mmol/L (3.5-5.1); Sodium 130 mmol/L (136-145); Thyroid Stimulating Hormone 0.84 uIU/mL (0.36-3.74); Total Protein 6.8 g/dL (6.4-8.2); Triglycerides 120 mg/dL (0-150); Vitamin B12 424 pg/mL (193-986)
== END 2022-08-19 08:45 | disposition home or self-care (01) ==
LOC: CHSLAB 08:47
PROVIDERS: PCP Internal Medicine; Visit Provider Internal Medicine
DX: R73.01 Impaired fasting glucose (principal); E78.2 Mixed hyperlipidemia; I10 Essential (primary) hypertension; G60.3 Idiopathic progressive neuropathy; K74.60 Unspecified cirrhosis of liver
CPT/HCPCS: 36415; 80053; 80061; 81003; 82550; 82607; 83036; 84439; 84443; 84481; 85025

== ENCOUNTER 2022-10-27 09:55 | Outpatient (CLI) | payer MEDICARE, SELFPAY ==
[2022-10-27 10:53] LABS: Creatine Kinase 443 U/L (39-308); Prostate Specific Antigen 1.1 ng/mL (< OR = 4.0)
[2022-10-27 15:02] LABS: Anion Gap 7 mmol/L (8-16); Blood Urea Nitrogen 8 mg/dL (7-18); Calcium 8.5 mg/dL (8.5-10.1); Carbon Dioxide 30 mmol/L (21-32); Chloride 97 mmol/L (98-108); Estimated Glomerular Filt Rate > 60; Glucose 86 mg/dL (70-99); Osmolality Calculated 275 mOsm/kg (285-295); Potassium 4.3 mmol/L (3.5-5.1); Sodium 134 mmol/L (136-145)
== END 2022-10-27 09:56 | disposition home or self-care (01) ==
LOC: CHSLAB 09:57
PROVIDERS: PCP Internal Medicine; Visit Provider Internal Medicine
DX: R79.89 Other specified abnormal findings of blood chemistry (principal); M60.9 Myositis, unspecified; Z12.5 Encounter for screening for malignant neoplasm of prostate
CPT/HCPCS: 36415; 80048; 82550; 84153; G0103

== ENCOUNTER 2023-01-01 08:21 | Outpatient (CLI) | payer MEDICARE, SELFPAY ==
--- NOTE | ~2023-01-01 | CT_ITS ---
EXAMINATION: CT abdomen w con INDICATION: Liver cirrhosis TECHNIQUE: Computed tomographic images of the abdomen were obtained after the administration of 100 c c of Omnipaque 350 intravenous contrast in the arterial and portal venous phases. The dose-length pro duct (DLP) was 1680.66 mGy-cm. Automated exposure control and iterative reconstruction technique were employed. COMPARISON: 11/06/2021, 11/15/2020, 08/09/2018 FINDINGS: The lung bases are clear. The heart size is normal. There is nodularity of the liver surfac e. No abnormal liver mass is identified. There is a stable, chronic area of low-attenuation in liver segment VIII which likely represents fibrosis. The spleen, pancreas,, and adrenal glands are normal. A stone is present in the nondistended gallbladder. Cysts of the kidneys measure up to 9 mm on the ri ght. There are no pathologically enlarged abdominal lymph nodes. No free intraperitoneal gas or evide nce of bowel obstruction. Surgical changes are noted in the lumbar spine. IMPRESSION: 1. Cirrhosis without suspicious liver mass identified. 2. Cholelithiasis. Reviewed, dictated and finalized at location L.
[2023-01-01 08:42] LABS: Estimated Glomerular Filt Rate > 60
== END 2023-01-01 08:22 | disposition home or self-care (01) ==
LOC: CHSIMG 08:23
PROVIDERS: PCP Internal Medicine; Visit Provider Internal Medicine
DX: K74.60 Unspecified cirrhosis of liver (principal); K80.50 Calculus of bile duct without cholangitis or cholecystitis without obstruction
CPT/HCPCS: 74160; Q9967

== ENCOUNTER 2023-01-28 08:22 | Outpatient (CLI) | payer MEDICARE, SELFPAY ==
[2023-01-28 09:26] LABS: Creatine Kinase 504 U/L (39-308)
== END 2023-01-28 08:23 | disposition home or self-care (01) ==
LOC: CHSLAB 08:24
PROVIDERS: PCP Internal Medicine; Visit Provider Internal Medicine
DX: R79.89 Other specified abnormal findings of blood chemistry (principal)
CPT/HCPCS: 36415; 82550

== ENCOUNTER 2023-02-17 07:01 | Outpatient (CLI) | payer MEDICARE, SELFPAY ==
[2023-02-17 07:20] LABS: Basophils Absolute Auto 0.03 K/mm3 (0.00-0.10); Basophils Percent Auto 0.7 % (0.0-1.0); Eosinophils Absolute Auto 0.14 K/mm3 (0.02-0.50); Eosinophils Percent Auto 3.4 % (1.0-6.0); Hematocrit 38.1 % (37.0-46.0); Hemoglobin 12.7 g/dL (12.4-15.3); Lymphocytes Percent Auto 29.3 % (18.0-42.0); Mean Corpuscular HGB Conc 33.3 g/dL (32.0-36.0); Mean Corpuscular Hemoglobin 30.5 pg (27.0-31.0); Mean Corpuscular Volume 91.6 fL (78.0-102.0); Mean Platelet Volume 9.1 fl (8.7-11.0); Monocytes Percent Auto 9.8 % (2.0-11.0); Neutrophils Absolute Auto 2.3 K/mm3 (1.7-7.2); Neutrophils Percent Auto 56.8 % (50.0-70.0); Platelet Count Result 202 K/mm3 (150-420); Red Blood Count 4.16 M/mm3 (4.70-6.10); Red Cell Distribution Width 12.6 % (11.6-14.4); White Blood Count 4.1 K/mm3 (4.8-10.8)
[2023-02-17 07:21] LABS: Appearance Urine Clear (Clear); Bilirubin Urine Negative (Negative); Blood Urine Negative (Negative); Color Urine Light Yellow (Yellow); Glucose Urine UA Negative (Negative); Ketones Urine Negative (Negative); Leukocyte Esterase Ur Negative LEU/UL (Negative); Nitrate Urine Negative (Negative); Protein Urine Negative (Negative); Specific Grav Ur <= 1.005 (1.010-1.020); Urobilinogen Urine 0.2 mg/dL (0.2-1.0)
[2023-02-17 07:46] LABS: Creatinine Urine 45.89 mg/dL (40-278); MALB Creatinine Ratio 28.3 mg/g (0-30); Microalbumin Urine Random < 13.0 mg/L
[2023-02-17 07:48] LABS: Hemoglobin A1C 5.3 % (<5.7)
[2023-02-17 07:55] LABS: Add Urine Microscopic? NO
[2023-02-17 08:36] LABS: Alanine Aminotransferase 26 U/L (16-63); Albumin Level 3.8 g/dL (3.4-5.0); Alkaline Phosphatase 58 U/L (46-116); Anion Gap 9 mmol/L (8-16); Aspartate Amino Transferase 30 U/L (15-37); Bilirubin,Total 0.6 mg/dL (0.00-1.00); Blood Urea Nitrogen 7 mg/dL (7-18); Calcium 8.6 mg/dL (8.5-10.1); Carbon Dioxide 26 mmol/L (21-32); Chloride 100 mmol/L (98-108); Cholesterol 165 mg/dL (0-200); Creatine Kinase 457 U/L (39-308); Estimated Glomerular Filt Rate > 60; Glucose 143 mg/dL (70-99); HDL Direct 54 mg/dL (40-60); LDL Cholesterol Calculated 93 mg/dL (<130); Osmolality Calculated 280 mOsm/kg (285-295); Potassium 4.6 mmol/L (3.5-5.1); Sodium 135 mmol/L (136-145); Total Protein 6.5 g/dL (6.4-8.2); Triglycerides 89 mg/dL (0-150)
== END 2023-02-17 07:02 | disposition home or self-care (01) ==
LOC: CHSLAB 07:03
PROVIDERS: PCP Internal Medicine; Visit Provider Internal Medicine
DX: I10 Essential (primary) hypertension (principal); E78.2 Mixed hyperlipidemia; R73.01 Impaired fasting glucose
CPT/HCPCS: 36415; 80053; 80061; 81003; 82043; 82550; 83036; 85025

== ENCOUNTER 2023-03-06 14:09 | Emergency (ER) | payer MEDICARE, SELFPAY ==
--- NOTE | ~2023-03-06 | XR_ITS ---
EXAM: XR hip LT 2V w AP pelvis DATE: 03/06/2023 17:22 HISTORY: Nontraumatic pain . COMPARISON: 08/03/2018. FINDINGS: Partially visualized lumbar fusion hardware. Normal mineralization. No fracture or dislocat ion. No lytic or blastic lesion. Mild bilateral hip osteoarthritis. No erosion or periosteal change. Soft tissues within normal limits. IMPRESSION: No acute osseous finding in the pelvis or left hip. Reviewed, dictated and finalized at location K.
--- NOTE | ~2023-03-06 | CT_ITS ---
EXAMINATION: CT lumbar spine wo con DATE: 03/06/2023 17:16 INDICATION: Chronic pain, flareup status post lumbar surgery 1 . TECHNIQUE: Computed tomography (CT) of the lumbar spine was performed without intravenous contrast. A utomated exposure control and iterative reconstruction technique were employed. The dose-length produ ct was 1540.59 mGy-cm. COMPARISON: 06/25/2017; MR lumbar spine 06/12/2021. FINDINGS: 5 nonrib-bearing lumbar-type vertebral bodies. Posterior fusion spanning L3-S1. Grade 1 ret rolisthesis at L3-4. Uncomplicated appearing fusion hardware. Interbody devices at L4-5 and L5-S1, in good position. L3-L5 laminectomies. Moderate bilateral neural foraminal narrowing at L3-4. Moderate central canal stenosis at L3, noting that the spinal canal is partially obscured by metal artifact. IMPRESSION: No acute fracture or traumatic malalignment in the lumbar spine. Reviewed, dictated and finalized at location K.
--- NOTE | ~2023-03-06 | XR_ITS ---
EXAMINATION: XR knee LT 3V DATE: 03/06/2023 17:22 INDICATION: Medial sided left knee pain TECHNIQUE: Anteroposterior, oblique and crosstable lateral views of the left knee were obtained COMPARISON: None FINDINGS: Alignment is normal. No fracture. Joint spaces appear normal on nonweightbearing imaging. No joint e ffusion/layering lipohemarthrosis. Soft tissues are unremarkable. IMPRESSION: 1. Negative left knee radiographs. Reviewed, dictated and finalized at location A.
[2023-03-06 14:14] VITALS: BP 133/68; PULSE 66; RESP 18; TEMP 36.1; O2SAT 98
--- NOTE | 2023-03-06 16:14 | ED.GENADULT ---
HPI - General Adult General Chief complaint: Unspecified Stated complaint: RLS- not sleeping, N/V, lethargic Time Seen by Provider: 03/06/23 16:09 Source: patient and family Mode of arrival: ambulatory Limitations: no limitations History of Present Illness HPI narrative: 68 years old white female came to the emergency room because had nausea and frequent vomiting for 30 minutes last night and was not able to sleep because his legs hurting. Patient was seen by his family physician 3 days ago, history of restless leg syndrome, and peripheral neuropathy bilaterally secondary to lower back surgery 1-1/2-year ago. The family physician increased his gabapentin and stopped ropinirole. called the family physician today and was told to go to the emergency room. Currently patient is a symptomatic, he denies any pain, fever, chills, nausea, vomiting, chest pain, shortness of breath, headache. He reports chronic lower back pain and left hip pain and left knee pain for over 1-1/2 years ago. Patient smokes marijuana daily Related Data Home Medications Medication Instructions Recorded Confirmed amlodipine 10 mg tablet 10 mg PO DAILY 09/13/19 12/16/21 losartan 50 mg tablet 50 mg PO DAILY 09/13/19 12/16/21 omeprazole 40 mg capsule,delayed 40 mg PO DAILY 09/13/19 12/16/21 release pregabalin 150 mg capsule (Lyrica) 150 mg PO TID 09/13/19 12/16/21 oxycodone-acetaminophen 10 mg-325 1 tablet PO QID PRN Pain 10/13/19 12/16/21 mg tablet Allergies Allergy/AdvReac Type Severity Reaction Status Date / Time No Known Allergies Allergy Verified 12/16/21 09:19 Review of Systems Review of Systems: All systems reviewed & are unremarkable except as noted in HPI and below PMFSH Past Medical History Medical History Anxiety Appendicitis Arthritis Bladder malignancy Degenerative disc disease, cervical Degenerative disc disease, lumbar Depression Encephalitis GERD (gastroesophageal reflux disease) Hearing loss Hx of hepatitis C Hyperlipidemia Hypertension Leg fracture, right repaired Migraine headache Painful orthopaedic hardware Peripheral neuropathy Traumatic arthritis of right ankle Urinary hesitancy Venous reflux Surgical History Surgical History History of lumbar spinal fusion 12/28/21 per patient questionnaire. Social History Social History Alcohol intake: former Substance use: current Substance use type: marijuana Occupation/Education: retired Gender identity (if verbalized by the patient): Male Exam Narrative: General appearance: Well-developed, well-nourished Skin: Normal color Head: Normocephalic, nontraumatic Eyes: Clear conjunctiva ENT: Oropharynx normal, ears normal, nose normal Neck: Supple, nontender Chest and respiratory: Airway patent, no respiratory distress, no accessory muscle use Heart: Regular rate/rhythm Abdomen: Soft, nontender, no organomegaly, quiet bowel sounds Vascular: Normal peripheral pulses, normal capillary refill. Slight limited range of motion of left hip and left knee, slight diffuse tenderness across the lumbar area, no bruises, no swelling or rash. The hip and knee exam showed no swelling, no rash, no warmth, no deformity. Musculoskeletal: Normal range of motion, nontender back Neurologic: Alert and oriented ?3, [employer] DEVELOPER is normal as tested, no gross motor deficit Course Vital Signs Vital signs: Vital Signs Temperature 36.1 C L 03/06/23 14:14 Pulse Rate 66 03/06/23 14:14 Respiratory Rate 18 03/06/23 14:14 Blood Pressu
--- NOTE | 2023-03-06 16:15 | ECG_ITS ---
Measurements Intervals [place] Rate: 53 P: 56 DC: 209 QRS: 37 QRSD: 88 T: 52 QT: 425 QTc: 401 Interpretive Statements SINUS BRADYCARDIA OTHERWISE NORMAL ECG COMPARED TO ECG 11/08/2019 22:09:33 HEART RATE REDUCED NO OTHER DIFFERENCE Electronically Signed On 03-06-2023 17:25:19 CDT by Benito Larson M.D.
[2023-03-06] MEDS: SODIUM CHLORIDE 0.9% IV 1,000 ML 999 ML IV CONT (16:44)
[2023-03-06] MEDS: KETOROLAC 30 MG/ML VIAL (*BKC) IV PUSH (16:51)
[2023-03-06 16:55] LABS: Basophils Percent Auto 0.2 % (0.2-1.2); Eosinophils Absolute Auto 0.1 K/mm3 (0-0.3); Eosinophils Percent Auto 1.4 % (0-4.4); Hematocrit 38.3 % (42.0-52.0); Hemoglobin 13.3 g/dL (14.0-18.0); Immature Granulocyte Absolute 0.01 K/mm3 (0.00-0.031); Immature Granulocyte Percent A 0.2 % (0-0.5); Lymphocytes Absolute Auto 0.85 K/mm3 (0.9-3.2); Lymphocytes Percent Auto 19.6 % (18.3-44.2); Mean Corpuscular HGB Conc 34.7 g/dl (32-36); Mean Corpuscular Hemoglobin 30.6 pg (26-34); Mean Corpuscular Volume 88.2 fl (80-100); Mean Platelet Volume 8.9 fl (7.4-10.4); Monocytes Absolute Auto 0.5 K/mm3 (0.1-0.6); Monocytes Percent Auto 10.6 % (2.6-8.5); Platelet Count Result 188 k/mm3 (150-375); Red Blood Count 4.34 M/mm3 (4.6-6.20); Red Cell Distribution Width 12.3 % (11.5-14.5); White Blood Count 4.3 K/mm3 (4.5-10.0)
[2023-03-06 17:06] LABS: Alanine Aminotransferase 23 U/L (6-50); Alkaline Phosphatase 55 U/L (38-126); Anion Gap 3 mmol/L (8-16); Aspartate Amino Transferase 40 U/L (17-59); Bilirubin,Total 0.7 mg/dL (0.2-1.3); Blood Urea Nitrogen 7 mg/dL (9-20); Calcium 8.1 mg/dL (8.4-10.2); Carbon Dioxide 29 mmol/L (22-30); Chloride 98 mmol/L (98-107); Estimated CRCL calculation 135 ml/min; Estimated Glomerular Filt Rate > 60; Glucose 105 mg/dL (65-110); Lipase 167 U/L (23-300); Potassium 4.2 mmol/L (3.4-5.0); Sodium 130 mmol/L (137-145)
[2023-03-06 17:17] LABS: Troponin I < 0.012 ng/mL (0.000-0.034)
[2023-03-06 17:41] LABS: Appearance Urine Clear (Clear); Bilirubin Urine Negative (Negative); Blood Urine Negative (Negative); Color Urine Yellow (Yellow); Glucose Urine UA Negative (Negative); Ketones Urine Negative (Negative); Leukocyte Esterase Ur Negative LEU/UL (Negative); Nitrate Urine Negative (Negative); Protein Urine Negative (Negative); Specific Grav Ur 1.006 (1.001-1.035)
[2023-03-06 17:44] LABS: Add Urine Microscopic? NO
== END 2023-03-06 18:36 | disposition home or self-care (01) ==
PROVIDERS: Emergency Provider Emergency Medicine; PCP Internal Medicine
DX: E87.1 Hypo-osmolality and hyponatremia (principal); G25.81 Restless legs syndrome; G62.9 Polyneuropathy, unspecified; M54.50 Low back pain, unspecified; E78.5 Hyperlipidemia, unspecified; I10 Essential (primary) hypertension
CPT/HCPCS: 36415; 72131; 73502; 73562; 80053; 81003; 83690; 84484; 85025; 93005; 96361; 96374; 99284; J1885; J7030

== ENCOUNTER 2023-07-13 12:59 | Outpatient (CLI) | payer MEDICARE, SELFPAY ==
--- NOTE | ~2023-07-13 | XR_ITS ---
Right Knee Technique: AP, lateral, and sunrise views were obtained. Clinical History: Pain Findings: No fracture or dislocation is seen. Osseous alignment is anatomic. Tibial intramedullary ro d partially imaged. Joint spaces are preserved without degenerative or erosive change. Soft tissues a re unremarkable. No joint effusion is seen. Impression: No significant abnormality seen. Reviewed, dictated and finalized at location . HANT BANKER Impression: No significant abnormality seen.
--- NOTE | ~2023-07-13 | XR_ITS ---
EXAM: XR ankle RT min 3V, XR tibia fibula RT 2V DATE: 07/13/2023 13:42 HISTORY: RIGHT LEG PAIN . COMPARISON: 09/23/2021. FINDINGS: Old fractures of the distal right tibia and fibula, healed in mild deformity. Uncomplicate d appearing intramedullary avila and interlocking screws in the tibia. Mild degenerative change at the tibiotalar joint. Achilles and plantar enthesopathy. Os cuboidium. IMPRESSION: No acute osseous finding in the right tibia, fibula, or ankle. No radiographic evidence o f hardware related complication. Mild degenerative change in the right ankle joint. Reviewed, dictated and finalized at location K. E MANAGER IMPRESSION: No acute osseous finding in the right tibia, fibula, or ankle. No r adiographic evidence of hardware related complication. Mild degenerative change in the right ankle joint.
--- NOTE | ~2023-07-13 | CT_ITS ---
CT Scan of the Chest without Contrast: Clinical Indication: Lung cancer screening, smoking history Technique: Contiguous sections were acquired throughout the chest without intravenous contrast. Dose reduction technique was used on this scan by utilizing automated exposure control and iterative recon struction technique. The dose-length product (DLP) was 140.36 mGy-cm. COMPARISON: 06/26/2021, 06/18/2020 Findings: There is no evidence of any significant mediastinal, hilar or axillary lymphadenopathy. Coronary dave ry calcifications are present. There is no evidence of pleural or pericardial effusion. The lungs are clear. No pulmonary nodules or infiltrates are noted. Images through the upper abdomen reveal no abnormalities. Impression: Lung RADS 1: Negative. 12 month follow-up screening CT advised. Reviewed, dictated and finalized at location . NER Impression: Lung RADS 1: Negative. 12 month follow-up screening CT advised.
== END 2023-07-13 13:00 | disposition home or self-care (01) ==
LOC: CHSIMG 13:00
PROVIDERS: PCP Internal Medicine; Visit Provider Internal Medicine
DX: M79.604 Pain in right leg (principal); Z12.2 Encounter for screening for malignant neoplasm of respiratory organs; Z87.891 Personal history of nicotine dependence
CPT/HCPCS: 71271; 73562; 73590; 73610

== ENCOUNTER 2023-08-17 07:50 | Outpatient (CLI) | payer MEDICARE, SELFPAY ==
[2023-08-17 08:09] LABS: Appearance Urine Clear (Clear); Basophils Absolute Auto 0.04 K/mm3 (0.00-0.10); Basophils Percent Auto 0.7 % (0.0-1.0); Bilirubin Urine Negative (Negative); Blood Urine Negative (Negative); Color Urine Light Yellow (Yellow); Eosinophils Absolute Auto 0.12 K/mm3 (0.02-0.50); Eosinophils Percent Auto 2.2 % (1.0-6.0); Glucose Urine UA Negative (Negative); Hematocrit 42.5 % (37.0-46.0); Hemoglobin 14.3 g/dL (12.4-15.3); Immature Granulocyte Absolute 0.01 K/mm3 (0.00-0.00); Immature Granulocyte Percent A 0.2 % (0.0-0.0); Ketones Urine Negative (Negative); Leukocyte Esterase Ur Negative (Negative); Lymphocytes Absolute Auto 1.26 K/mm3 (1.10-4.50); Lymphocytes Percent Auto 23.2 % (18.0-42.0); Mean Corpuscular HGB Conc 33.6 g/dL (32.0-36.0); Mean Corpuscular Hemoglobin 31.2 pg (27.0-31.0); Mean Corpuscular Volume 92.8 fL (78.0-102.0); Mean Platelet Volume 8.6 fl (8.7-11.0); Monocytes Absolute Auto 0.53 K/mm3 (0.10-0.90); Monocytes Percent Auto 9.8 % (2.0-11.0); Neutrophils Absolute Auto 3.5 K/mm3 (1.7-7.2); Neutrophils Percent Auto 63.9 % (50.0-70.0); Nitrate Urine Negative (Negative); Platelet Count Result 214 K/mm3 (150-420); Protein Urine Negative (Negative); Red Blood Count 4.58 M/mm3 (4.70-6.10); Red Cell Distribution Width 12.5 % (11.6-14.4); Urobilinogen Urine 0.2 mg/dL (0.2-1.0); White Blood Count 5.4 K/mm3 (4.8-10.8); pH Urine 7.5 (5.0-8.0)
[2023-08-17 08:14] LABS: Add Urine Microscopic? NO
[2023-08-17 08:20] LABS: Hemoglobin A1C 5.3 % (<5.7)
[2023-08-17 08:53] LABS: Alanine Aminotransferase 31 U/L (16-63); Alkaline Phosphatase 58 U/L (46-116); Anion Gap 5 mmol/L (8-16); Aspartate Amino Transferase 21 U/L (15-37); Bilirubin,Total 0.5 mg/dL (0.00-1.00); Blood Urea Nitrogen 8 mg/dL (7-18); Calcium 8.5 mg/dL (8.5-10.1); Carbon Dioxide 31 mmol/L (21-32); Chloride 98 mmol/L (98-108); Cholesterol 182 mg/dL (0-200); Creatine Kinase 258 U/L (39-308); Estimated Glomerular Filt Rate > 60; Free T4 Free Thyroxine 0.82 ng/dL (0.76-1.46); Glucose 121 mg/dL (70-99); HDL Direct 62 mg/dL (40-60); LDL Cholesterol Calculated 103 mg/dL (<130); Osmolality Calculated 277 mOsm/kg (285-295); Potassium 4.4 mmol/L (3.5-5.1); Sodium 134 mmol/L (136-145); Thyroid Stimulating Hormone 1.25 uIU/mL (0.36-3.74); Total Protein 6.7 g/dL (6.4-8.2); Triglycerides 83 mg/dL (0-150)
== END 2023-08-17 07:51 | disposition home or self-care (01) ==
LOC: CHSLAB 07:52
PROVIDERS: PCP Internal Medicine; Visit Provider Internal Medicine
DX: I10 Essential (primary) hypertension (principal); E78.2 Mixed hyperlipidemia; G60.3 Idiopathic progressive neuropathy; R73.01 Impaired fasting glucose; M60.9 Myositis, unspecified
CPT/HCPCS: 36415; 80053; 80061; 81003; 82550; 83036; 84439; 84443; 85025

== ENCOUNTER 2024-02-15 07:31 | Outpatient (CLI) | payer MEDICARE, SELFPAY ==
[2024-02-15 07:50] LABS: Basophils Absolute Auto 0.02 K/mm3 (0.00-0.10); Basophils Percent Auto 0.4 % (0.0-1.0); Eosinophils Absolute Auto 0.11 K/mm3 (0.02-0.50); Eosinophils Percent Auto 2.4 % (1.0-6.0); Hematocrit 41.9 % (37.0-46.0); Hemoglobin 13.8 g/dL (12.4-15.3); Immature Granulocyte Absolute 0.01 K/mm3 (0.00-0.00); Immature Granulocyte Percent A 0.2 % (0.0-0.0); Lymphocytes Absolute Auto 1.23 K/mm3 (1.10-4.50); Lymphocytes Percent Auto 26.9 % (18.0-42.0); Mean Corpuscular HGB Conc 32.9 g/dL (32-36); Mean Corpuscular Hemoglobin 30.5 pg (27.0-31.0); Mean Corpuscular Volume 92.5 fL (78.0-102.0); Mean Platelet Volume 8.8 fl (8.7-11.0); Monocytes Absolute Auto 0.49 K/mm3 (0.10-0.90); Monocytes Percent Auto 10.7 % (2.0-11.0); Neutrophils Absolute Auto 2.72 K/mm3 (1.70-7.20); Neutrophils Percent Auto 59.4 % (50.0-70.0); Platelet Count Result 208 K/mm3 (150-420); Red Blood Count 4.53 M/mm3 (4.70-6.10); Red Cell Distribution Width 12.7 % (11.6-14.4); White Blood Count 4.6 K/mm3 (4.8-10.8)
[2024-02-15 07:54] LABS: Appearance Urine Clear (Clear); Bilirubin Urine Negative (Negative); Blood Urine Negative (Negative); Color Urine Light Yellow (Yellow); Glucose Urine UA Negative (Negative); Ketones Urine Negative (Negative); Leukocyte Esterase Ur 1+ (Negative); Nitrate Urine Negative (Negative); Protein Urine Negative (Negative); Urobilinogen Urine 0.2 mg/dL (0.2-1.0); pH Urine 6.5 (5.0-8.0)
[2024-02-15 08:18] LABS: Add Urine Microscopic? YES; RBC Urine None seen /hpf (0-2)
[2024-02-15 08:19] LABS: Mucus Urine Few /lpf; Squamous Epithelial Cell Urine Few /hpf (Few); WBC Urine 0-3 /hpf (0-3)
[2024-02-15 08:51] LABS: Alanine Aminotransferase 31 U/L (16-63); Albumin Level 3.8 g/dL (3.4-5.0); Alkaline Phosphatase 57 U/L (46-116); Anion Gap 9 mmol/L (4-12); Aspartate Amino Transferase 38 U/L (15-37); Bilirubin,Total 0.4 mg/dL (0.00-1.00); Blood Urea Nitrogen 11 mg/dL (7-18); Calcium 8.6 mg/dL (8.5-10.1); Carbon Dioxide 28 mmol/L (21-32); Chloride 102 mmol/L (98-108); Cholesterol 178 mg/dL (0-200); Creatine Kinase 481 U/L (39-308); Estimated Glomerular Filt Rate > 60; Free T4 Free Thyroxine 0.82 ng/dL (0.76-1.46); Glucose 103 mg/dL (70-99); HDL Direct 67 mg/dL (40-60); LDL Cholesterol Calculated 98 mg/dL (<130); Osmolality Calculated 287 mOsm/kg (285-295); Potassium 4.6 mmol/L (3.5-5.1); Prostate Specific Antigen 0.6 ng/mL (< OR = 4.0); Sodium 139 mmol/L (136-145); Thyroid Stimulating Hormone 1.31 uIU/mL (0.36-3.74); Total Protein 6.7 g/dL (6.4-8.2); Triglycerides 64 mg/dL (0-150); Vitamin B12 380 pg/mL (193-986)
== END 2024-02-15 07:32 | disposition home or self-care (01) ==
LOC: CHSLAB 07:33
PROVIDERS: PCP Internal Medicine; Visit Provider Internal Medicine
DX: I10 Essential (primary) hypertension (principal); E78.2 Mixed hyperlipidemia; M60.9 Myositis, unspecified; G60.3 Idiopathic progressive neuropathy; Z12.5 Encounter for screening for malignant neoplasm of prostate
CPT/HCPCS: 36415; 80053; 80061; 81001; 82550; 82607; 84153; 84439; 84443; 85025; G0103

== ENCOUNTER 2024-04-05 12:12 | Outpatient (CLI) | payer MEDICARE, SELFPAY ==
--- NOTE | ~2024-04-05 | US_ITS ---
Procedure: Duplex Doppler examination of the bilateral carotids. Indication: Bilateral carotid bruits Technique: Real time, color-flow and pulse wave Doppler examination of the bilateral carotids was performed. Findings: León scale ultrasonography of the right neck demonstrated no significant plaque. There was demonstrat ion of normal color-flow and Doppler waveforms within the right common, internal and external carotid arteries. The peak systolic velocities in the right common, internal and external carotid arteries w ere demonstrated to be 142 cm/sec, 67 cm/sec and 105 cm/sec respectively. The right ICA/CCA ratio was 0.5.The proximal right internal carotid artery demonstrates 0% stenosis relative to the normal dista l artery lumen diameter. León scale sonography of the left neck demonstrated small to moderate calcified plaques in the left i nternal carotid artery. There was demonstration of normal color-flow and wave forms within the left c ommon, internal and external carotid arteries. The peak systolic velocities in the left common, inter nal and external carotid arteries were demonstrated to be 154cm/sec, 63 cm/sec and 119 cm/sec respect ively. The left ICA/CCA ratio was 0.4. The proximal left internal carotid artery demonstrates 0% sten osis relative to the normal distal artery lumen diameter. There is a 3.6 cm lobulated vascular lesion, which appears to extend from the region of the left vert ebral artery, with apparent to and fro flow on color imaging, suggestive of possible large pseudoaneu rysm versus other vascular lesion. Impression: No hemodynamically significant stenosis of the bilateral internal carotid arteries. 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 CT angiogram of the neck recommended for further evaluation. Case discussed with Dr. Lewis at the time of this reading. Note: The methodology used is an indirect measurement validated against a direct method (such as the NASCET criteria) that compares diameters at the stenosis to the distal ICA. Reviewed, dictated and finalized at location . Impression: No hemodynamically significant stenosis of the bilateral internal carotid arter ies. 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 CT angiogram of the neck recommende d for further evaluation. Case discussed with Dr. Lewis at the time of this reading. Note: The methodology used is an indirect measurement validated against a direct meth od (such as the NASCET criteria) that compares diameters at the stenosis to the distal ICA.
== END 2024-04-05 12:13 | disposition home or self-care (01) ==
LOC: CHSIMG 12:14
PROVIDERS: PCP Internal Medicine; Visit Provider Internal Medicine
DX: R09.89 Other specified symptoms and signs involving the circulatory and respiratory systems (principal)
CPT/HCPCS: 93880

== ENCOUNTER 2024-04-15 07:05 | Outpatient (CLI) | payer MEDICARE, SELFPAY ==
--- NOTE | ~2024-04-15 | CT_ITS ---
EXAMINATION: CTA brain carotid DATE: 04/15/2024 08:26 INDICATION: Vertebral artery aneurysm. Subclavian bruits. TECHNIQUE: Computed tomographic angiography (CTA) of the head was performed without and with 100 mL O mnipaque-350 intravenous contrast. CTA of the neck was performed with intravenous contrast. Automated exposure control and iterative reconstruction technique were employed. The dose-length product was 1 838.45 mGy-cm. Maximum intensity projection and volume rendered 3D-reconstructions were created by crow watkins technologist on a separate workstation. COMPARISON: Head CT 09/13/2019, neck CT 06/18/2020 FINDINGS: HEAD CTA: There is no intracranial hemorrhage, acute infarction, or abnormal intracranial mass lesion . The ventricles are normal in size. There is mild mucosal thickening in the paranasal sinuses. There are old healed blowout fractures of the medial perry of the orbits. The mastoid air cells are normal . Right vertebral artery is dominant. There is no significant stenosis of basilar artery or the poste rior cerebral arteries. There is no significant stenosis of the intracranial internal carotid arterie s or anterior or middle cerebral arteries. The posterior communicating arteries are normal. Anterior communicating artery is normal. There is no aneurysm. NECK CTA: There are nodules in the thyroid measuring up to 12 mm, likely not clinically significant. There are no pathologically enlarged lymph nodes. There is a 2.2 cm arteriovenous malformation of lef t vertebral artery at C5. There is plaque in the proximal internal carotid arteries. There is 0% sten osis of the proximal right internal carotid artery relative to normal distal artery lumen diameter (N ASCET criteria). There is 0% stenosis of the proximal left internal carotid artery relative to normal distal artery lumen diameter. There is severe spondylosis at C5-C6 and mild spondylosis at other lev els. IMPRESSION: 1. Normal brain. No aneurysm or significant intracranial arterial stenosis. 2. 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 3. 0% stenosis of the proximal internal carotid arteries relative to normal distal artery lumen diame ters (NASCET criteria). Reviewed, dictated and finalized at location A. IMPRESSION: 1. Normal brain. No aneurysm or significant intracranial arterial stenosis. 2. 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 3. 0% stenosis of the proximal internal carotid arteries relative to normal dis jason artery lumen diameters (NASCET criteria).
[2024-04-15 07:34] LABS: Estimated Glomerular Filt Rate > 60
== END 2024-04-15 07:06 | disposition home or self-care (01) ==
LOC: CHSIMG 07:07
PROVIDERS: PCP Internal Medicine; Visit Provider Internal Medicine
DX: I72.6 Aneurysm of vertebral artery (principal)
CPT/HCPCS: 70496; 70498; Q9967

== ENCOUNTER 2024-06-21 00:53 | Day surgery (SDC) | payer MEDICARE, SELFPAY ==
[2024-06-02 10:21] VITALS: BMI 29.5
[2024-06-21 07:27] VITALS: BP 124/77; PULSE 56; RESP 16; TEMP 36.1; O2SAT 95
[2024-06-21] MEDS: LACTATED RINGERS 1,000 ML 150 ML IV CONT (07:31)
--- NOTE | 2024-06-21 07:40 | WPDANESEPPF ---
Anes - Initial Pre Proc Eval Procedure: Operation Date: 06/21/24 08:30 Proposed Procedures p Screening Colonoscopy - Peter Garcia DO Date/Time: 06/21/24 07:40 Surgeon: Peter Garcia DO Pre Op Diagnosis: Screening for malignant neoplasm of colon Patient Data Age: 69 Gender: M Height: 1.88 m Weight: 106.7 kg Last Vital Signs Temp 36.1 C L 06/21/24 07:27 Pulse 56 L 06/21/24 07:27 Resp 16 06/21/24 07:27 BP 124/77 06/21/24 07:27 Pulse Ox 95 06/21/24 07:27 O2 Del Method Room Air 06/21/24 07:27 Allergies Allergy/AdvReac Type Severity Reaction Status Date / Time No Known Allergies Allergy Verified 06/21/24 07:15 Home Medications Medication Instructions Recorded Confirmed Type amlodipine 10 mg tablet 10 mg PO DAILY 09/13/19 06/21/24 History losartan 50 mg tablet 50 mg PO DAILY 09/13/19 06/21/24 History omeprazole 40 mg capsule,delayed 40 mg PO DAILY 09/13/19 06/21/24 History release citalopram 10 mg tablet 10 mg PO DAILY #90 tabs 08/07/20 06/21/24 Rx Claritin 10 mg PO DAILY 06/21/24 06/21/24 History bupropion HCl 300 mg 24 hr tablet, 300 mg PO DAILY 06/21/24 06/21/24 History extended release clonazepam 1 mg tablet 1 mg PO DAILY 06/21/24 06/21/24 History gabapentin 300 mg capsule 300 mg PO DAILY 06/21/24 06/21/24 History ropinirole 4 mg tablet 4 mg PO BID 06/21/24 06/21/24 History tamsulosin 0.4 mg capsule 0.4 mg PO DAILY 06/21/24 06/21/24 History Patient hx anesthesia problems: none Family hx anesthesia problems: none Results Review: All pre-operative results and documents have been reviewed as part of the pre-operative evaluation. COUNT INCLUDES THE [facility] Past Medical History Medical History Anxiety Appendicitis Arthritis Bladder malignancy Degenerative disc disease, cervical Degenerative disc disease, lumbar Depression Encephalitis GERD (gastroesophageal reflux disease) Hearing loss Hx of hepatitis C Hyperlipidemia Hypertension Leg fracture, right repaired Migraine headache Painful orthopaedic hardware Peripheral neuropathy Traumatic arthritis of right ankle Urinary hesitancy Venous reflux Surgical History Surgical History History of lumbar spinal fusion 09/03/21 per patient questionnaire. Social History Social History Smoking packs per day: 1 Smoking cigarettes per day: 20.0 Years smoked: 55 Smoking pack-years: 55.00 Smoking status: Former smoker Tobacco type: cigarettes Alcohol intake: former Substance use: current Substance use type: marijuana Other substance usage details: daily use, medical use Living arrangements: with family Occupation/Education: retired Gender identity (if verbalized by the patient): Male Spiritual care concerns: No Anes - Eval Final PreProcedure Day of Procedure 06/21/24 07:40 Patient weight: obese Heart: regular rate and rhythm Lungs: clear to auscultation Airway: Mallampati scale class II Neurological: alert and oriented Last oral intake: >/= 8 hours ASA classification: III Emergent: no Anesthetic plan: proceed Anesthesia type and monitoring: general GIVS and standard monitoring Results Review: All pre-operative results and documents have been reviewed as part of the pre-operative evaluation. Informed Consent: The patient's anesthetic plan and its attendant risks and benefits were discussed with the patient/family/POA. Questions were solicited and answers provided to the satisfaction of the patient/family/POA.
--- NOTE | 2024-06-21 08:15 | PM.IMHP ---
H&P: HPI History of Present Illness Date/Time: 06/21/24 08:15 Chief Complaint: screening for colorectal cancer Narrative: this is a 69-year-old man who presents for colonoscopy. His last colonoscopy was 11 years ago. He denies any hematochezia or melena. He denies any family history of colon cancer. Review of Systems Review of Systems: All systems reviewed & are unremarkable except as noted in HPI and below Constitutional: Constitutional: Denies chills, Denies fever(s), Denies headache(s) and Denies weight loss Eyes: Eyes: Denies change in vision ENT: Denies dizziness, Denies headache(s), Denies neck mass and Denies throat swelling Cardiovascular: Cardiovascular: Denies chest pain, Denies lightheadedness and Denies dyspnea Respiratory: Respiratory: Denies cough, Denies dyspnea and Denies wheezing Gastrointestinal: Gastrointestinal: Denies abdominal pain, Denies change in bowel habits, Denies nausea and Denies vomiting Genitourinary: Genitourinary: Denies hematuria and Denies dysuria Musculoskeletal: Musculoskeletal: Reports as per HPI Integumentary/Breasts: Skin/Breast: Reports as per HPI Neurologic: Denies dizziness and Denies headache(s) Allergic/Immunologic: Allergic/Immunologic: Denies throat swelling and Denies wheezing PMF Past Medical History Medical History Anxiety Appendicitis Arthritis Bladder malignancy Degenerative disc disease, cervical Degenerative disc disease, lumbar Depression Encephalitis GERD (gastroesophageal reflux disease) Hearing loss Hx of hepatitis C Hyperlipidemia Hypertension Leg fracture, right repaired Migraine headache Painful orthopaedic hardware Peripheral neuropathy Traumatic arthritis of right ankle Urinary hesitancy Venous reflux Surgical History Surgical History History of lumbar spinal fusion 09/03/21 per patient questionnaire. Social History Social History Smoking packs per day: 1 Smoking cigarettes per day: 20.0 Years smoked: 55 Smoking pack-years: 55.00 Smoking status: Former smoker Tobacco type: cigarettes Alcohol intake: former Substance use: current Substance use type: marijuana Other substance usage details: daily use, medical use Living arrangements: with family Occupation/Education: retired Gender identity (if verbalized by the patient): Male Spiritual care concerns: No Meds Home Medications and Allergies Home Medications Medication Instructions Recorded Confirmed Type amlodipine 10 mg tablet 10 mg PO DAILY 09/13/19 06/21/24 History losartan 50 mg tablet 50 mg PO DAILY 09/13/19 06/21/24 History omeprazole 40 mg capsule,delayed 40 mg PO DAILY 09/13/19 06/21/24 History release citalopram 10 mg tablet 10 mg PO DAILY #90 tabs 08/07/20 06/21/24 Rx Claritin 10 mg PO DAILY 06/21/24 06/21/24 History bupropion HCl 300 mg 24 hr tablet, 300 mg PO DAILY 06/21/24 06/21/24 History extended release clonazepam 1 mg tablet 1 mg PO DAILY 06/21/24 06/21/24 History gabapentin 300 mg capsule 300 mg PO DAILY 06/21/24 06/21/24 History ropinirole 4 mg tablet 4 mg PO BID 06/21/24 06/21/24 History tamsulosin 0.4 mg capsule 0.4 mg PO DAILY 06/21/24 06/21/24 History Allergies Allergy/AdvReac Type Severity Reaction Status Date / Time No Known Allergies Allergy Verified 06/21/24 07:15 Vital Signs Vital Signs - 24 hr 06/21/24 07:27 Temperature 97 F L Pulse Rate 56 L Respiratory Rate 16 Blood Pressure 124/77 Pulse Oximetry 95 Oxygen Delivery Room Air Exam Const: General: no acute distress and alert Orientation/consciousness: patient oriented x3 HENMT: Head: normocephalic and atraumatic Ears: hearing grossly normal bilaterally Face/Nose/Sinus: Normal nares present Mouth: Yes Normal oral and palatal mucosa present Eyes: Periorbital: perio
[2024-06-21 08:50] VITALS: BP 125/72; PULSE 51; RESP 18; O2SAT 96
[2024-06-21 09:00] VITALS: BP 126/75; PULSE 52; RESP 18; O2SAT 98
[2024-06-21 09:10] VITALS: BP 139/91; PULSE 52; RESP 18; O2SAT 100
== END 2024-06-21 09:18 | disposition home or self-care (01) ==
PROVIDERS: PCP Internal Medicine; Visit Provider Surgery
PROC: 0DJD8ZZ Inspection of Lower Intestinal Tract, Via Natural or Artificial Opening Endoscopic (ICD-10-PCS; CPT 45378; principal; 2024-06-21 08:30)
DX: Z12.11 Encounter for screening for malignant neoplasm of colon (principal); E78.5 Hyperlipidemia, unspecified; I10 Essential (primary) hypertension; K21.9 Gastro-esophageal reflux disease without esophagitis; F32.A Depression, unspecified; F41.9 Anxiety disorder, unspecified; M50.30 Other cervical disc degeneration, unspecified cervical region; M51.369 Other intervertebral disc degeneration, lumbar region without mention of lumbar back pain or lower extremity pain; R39.11 Hesitancy of micturition; M19.071 Primary osteoarthritis, right ankle and foot; F12.90 Cannabis use, unspecified, uncomplicated; E66.9 Obesity, unspecified; Z68.30 Body mass index [BMI] 30.0-30.9, adult; Z98.890 Other specified postprocedural states; Z98.1 Arthrodesis status; Z87.891 Personal history of nicotine dependence; Z85.51 Personal history of malignant neoplasm of bladder
CPT/HCPCS: G0105; J2003; J2704; J7120

== ENCOUNTER 2024-07-13 15:54 | Outpatient (CLI) | payer MEDICARE, SELFPAY ==
--- NOTE | ~2024-07-13 | CT_ITS ---
EXAMINATION: CT lumbar spine wo con DATE: 07/13/2024 16:21 INDICATION: Lumbar spine fusion follow-up. TECHNIQUE: Computed tomography (CT) of the lumbar spine was performed without intravenous contrast. A utomated exposure control and iterative reconstruction technique were employed. The dose-length produ ct was 1253.15 mGy-cm. COMPARISON: CT lumbar spine 03/06/2023 FINDINGS: Alignment is normal. There are changes of anterior fusion procedures at L4-L5 and L5-S1 wit h interbody devices. There are changes of posterior fusion procedure from L3 to S1 with pedicle screw s. Vertebral body heights are normal. There is mildly decreased disc height at L2-L3 and moderately d ecreased disc height at L3-L4. The following disc levels are specifically discussed: L1-L2: The disc is bulging. There is mild bilateral facet joint osteoarthritis. There is mild bilater al neural foraminal stenosis. There is mild central canal stenosis. L2-L3: The disc is bulging. There is moderate bilateral facet joint osteoarthritis. There is moderate bilateral neural foraminal stenosis. There is moderate central canal stenosis. L3-L4: The disc is bulging. There is mild bilateral facet joint hypertrophy. There is moderate bilate ral neural foraminal stenosis. There is mild central canal stenosis with posterior decompression. L4-L5: There is mild bilateral facet joint hypertrophy. There is mild bilateral neural foraminal sten osis. There is mild central canal stenosis with posterior decompression. L5-S1: There is moderate bilateral facet joint hypertrophy. There is mild bilateral neural foraminal stenosis. There is mild central canal stenosis with posterior hypertrophy. IMPRESSION: 1. Moderate lumbar spondylosis, stable from 03/06/2023. 2. Anterior fusion procedures from L4 to S1 and posterior fusion procedure from L3 to S1. Reviewed, dictated and finalized at location A. [facility] [employer]
== END 2024-07-13 15:55 | disposition home or self-care (01) ==
PROVIDERS: PCP Internal Medicine; Visit Provider Orthopaedic Surgery Orthopaedic Surgery of the Spine
DX: Z98.1 Arthrodesis status (principal); Z09 Encounter for follow-up examination after completed treatment for conditions other than malignant neoplasm
CPT/HCPCS: 72131

== ENCOUNTER 2024-08-08 13:11 | Outpatient (CLI) | payer MEDICARE, SELFPAY ==
--- NOTE | ~2024-08-08 | US_ITS ---
EXAMINATION: US venous doppler LE RT DATE: 08/08/2024 13:43 INDICATION: Right lower limb swelling. Palpable lump. TECHNIQUE: Grayscale ultrasound images without and with compression and Doppler ultrasound images of the right lower extremity veins were obtained. COMPARISON: None. FINDINGS: The visualized portions of right common femoral vein, profunda (deep) femoral vein, femoral vein, pop liteal vein, peroneal trunk, posterior tibial veins, peroneal veins, gastrocnemius vein and greater s aphenous vein outflow are patent. 6.3 x 3.6 x 2.2 cm anechoic Farrell's cyst at the right popliteal fos sa. There is a 3.2 x 2.2 x 1.3 cm complex cystic lesion in the subcutaneous tissues overlying the rig ht tibia at the region of the palpable abnormality. The lesion is predominantly anechoic internal ech ogenic foci which appear to represent partially visualized internal septations. No evident internal v ascular flow or surrounding hyperemia on color Doppler. IMPRESSION: 1. No deep venous thrombosis in the right lower limb. 2. 6.3 x 3.6 x 2.2 cm Farrell's cyst at the right popliteal fossa. 3. Nonspecific 3.2 cm complex cystic lesion at the region of concern at the right johnson. Differential would include epidermoid/sebaceous cyst, hematoma or abscess in the appropriate clinical setting. Reviewed, dictated and finalized at location A. ET MANAGER IMPRESSION: 1. No deep venous thrombosis in the right lower limb. 2. 6.3 x 3.6 x 2.2 cm Farrell's cyst at the right popliteal fossa. 3. Nonspecific 3.2 cm complex cystic lesion at the region of concern at the rig ht johnson. Differential would include epidermoid/sebaceous cyst, hematoma or absc ess in the appropriate clinical setting.
== END 2024-08-08 13:12 | disposition home or self-care (01) ==
LOC: CHSIMG 13:12
PROVIDERS: PCP Internal Medicine; Visit Provider Internal Medicine
DX: M79.89 Other specified soft tissue disorders (principal)
CPT/HCPCS: 93971

== ENCOUNTER 2024-08-10 12:26 | Outpatient (CLI) | payer MEDICARE, SELFPAY ==
--- NOTE | ~2024-08-10 | US_ITS ---
EXAMINATION: US arterial ankle brachial ind DATE: 08/10/2024 12:59 INDICATION: Peripheral arterial occlusive disease to bilateral lower limbs with claudication TECHNIQUE: Segmental pressures and plethysmographic and Doppler waveforms of the brachial and lower e xtremity arteries were obtained. COMPARISON: None. FINDINGS: Right and left brachial artery pressures of 133 mm Hg and 134 mm Hg, respectively, are concordant (no rmal difference <= 30 mmHg). The right ankle-brachial index (JAKI) is 1.34 (normal >= 0.9-1.0). The right great toe-brachial index (TBI) is 1.06 (normal >= 0.65). Arterial Doppler waveforms are triphasic with brisk systolic upstroke s at both right posterior tibial and dorsalis pedis arteries. The left JAKI is 1.43. The left TBI is 1.19. Arterial Doppler waveforms are triphasic with brisk systo lic upstrokes at both left posterior tibial and dorsalis pedis arteries. IMPRESSION: 1. No significant arterial occlusive disease with normal bilateral ABIs and TBIs. Reviewed, dictated and finalized at location A. OBIOLOGY LAB MANAGER IMPRESSION: 1. No significant arterial occlusive disease with normal bilateral ABIs and TBI s.
== END 2024-08-10 12:27 | disposition home or self-care (01) ==
LOC: CHSIMG 12:28
PROVIDERS: PCP Internal Medicine; Visit Provider Internal Medicine
DX: M79.89 Other specified soft tissue disorders (principal); I73.9 Peripheral vascular disease, unspecified
CPT/HCPCS: 93922

== ENCOUNTER 2024-10-14 08:53 | Outpatient (CLI) | payer MEDICARE, SELFPAY ==
[2024-10-14 09:46] LABS: Add Urine Microscopic? NO; Appearance Urine Clear (Clear); Bilirubin Urine Negative (Negative); Blood Urine Negative (Negative); Color Urine Light Yellow (Yellow); Glucose Urine UA Negative (Negative); Hematocrit 41.9 % (37.0-46.0); Ketones Urine Negative (Negative); Leukocyte Esterase Ur Negative (Negative); Mean Corpuscular HGB Conc 33.4 g/dL (32-36); Mean Corpuscular Hemoglobin 30.4 pg (27.0-31.0); Mean Corpuscular Volume 90.9 fL (78.0-102.0); Mean Platelet Volume 9.1 fl (8.7-11.0); Nitrate Urine Negative (Negative); Platelet Count Result 210 K/mm3 (150-420); Protein Urine Negative (Negative); Red Blood Count 4.61 M/mm3 (4.70-6.10)
[2024-10-14 09:55] LABS: Hemoglobin A1C 5.5 % (<5.7)
[2024-10-14 10:40] LABS: Alanine Aminotransferase 37 U/L (16-63); Albumin Level 4.3 g/dL (3.4-5.0); Alkaline Phosphatase 51 U/L (46-116); Anion Gap 9 mmol/L (4-12); Aspartate Amino Transferase 33 U/L (15-37); Bilirubin,Total 0.8 mg/dL (0.00-1.00); Blood Urea Nitrogen 8 mg/dL (7-18); Calcium 8.9 mg/dL (8.5-10.1); Carbon Dioxide 29 mmol/L (21-32); Chloride 101 mmol/L (98-108); Cholesterol 194 mg/dL (0-200); Creatine Kinase 647 U/L (39-308); Estimated Glomerular Filt Rate > 60; Free T4 Free Thyroxine 0.97 ng/dL (0.76-1.46); Glucose 112 mg/dL (70-99); HDL Direct 83 mg/dL (40-60); LDL Cholesterol Calculated 99 mg/dL (<130); Osmolality Calculated 287 mOsm/kg (285-295); Potassium 4.3 mmol/L (3.5-5.1); Sodium 139 mmol/L (136-145); Thyroid Stimulating Hormone 1.14 uIU/mL (0.36-3.74); Triglycerides 58 mg/dL (0-150); Vitamin B12 667 pg/mL (193-986)
== END 2024-10-14 08:54 | disposition home or self-care (01) ==
LOC: CHSLAB 08:55
PROVIDERS: PCP Internal Medicine; Visit Provider Internal Medicine
DX: E78.2 Mixed hyperlipidemia (principal); I10 Essential (primary) hypertension; R73.01 Impaired fasting glucose; G60.3 Idiopathic progressive neuropathy
CPT/HCPCS: 36415; 80053; 80061; 81003; 82550; 82607; 83036; 84439; 84443; 85027

== ENCOUNTER 2024-10-25 08:50 | Outpatient (CLI) | payer MEDICARE, SELFPAY ==
--- NOTE | ~2024-10-25 | CT_ITS ---
EXAMINATION:CT lung screening DATE: 10/25/2024 09:40 INDICATION: Personal history of nicotine dependence. Smoker who quit 3 years ago with 45 pack year hi story. TECHNIQUE: Computed tomography (CT) of the chest was performed without intravenous contrast. Automate d exposure control and iterative reconstruction technique were employed. The dose-length product (DLP ) was 154.08 mGy-cm. COMPARISON: Chest CT 07/13/2023, abdomen CT 01/01/2023 FINDINGS: There is mild emphysema. There is a 2 mm nodule in left upper lobe. A calcified left lung n odule and calcified left hilar lymph node are consistent with old granulomatous disease. No pleural e ffusion. There are nodules in the thyroid measuring up to 12 mm, likely not clinically significant. T he heart size is normal. There are coronary artery calcifications. No pericardial effusion. There is bilateral gynecomastia. The liver demonstrates surface nodularity, consistent with cirrhosis. There a re gallstones in the gallbladder, which is normal in size. There is a 2.0 cm mass hemorrhagic cyst in left kidney. There is mild thoracic spondylosis. IMPRESSION: 1. Lung-RADS category 2S: Benign appearance or behavior. Continue annual screening with noncontrast l ow-dose chest CT in 12 months. 2. Cirrhosis of the liver. Reviewed, dictated and finalized at location A. SUPERVISOR IMPRESSION: 1. Lung-RADS category 2S: Benign appearance or behavior. Continue annual screen ing with noncontrast low-dose chest CT in 12 months. 2. Cirrhosis of the liver.
--- NOTE | ~2024-10-25 | CT_ITS ---
EXAMINATION: CT abdomen pelvis w con DATE: 10/25/2024 09:41 INDICATION: Cirrhosis of the liver. TECHNIQUE: Computed tomography (CT) of the abdomen and pelvis was performed with 100 mL Omnipaque 350 intravenous contrast. Automated exposure control and iterative reconstruction technique were employe d. The dose-length product was 1530.57 mGy-cm. COMPARISON: CT abdomen 01/01/2023 FINDINGS: The visualized portions of the lung bases are clear without pneumonia or pleural effusion. The heart size is normal. No pericardial effusion. The liver demonstrates surface nodularity, consist ent with cirrhosis. There are gallstones in the gallbladder which is normal in size. The spleen is no rmal in size. The pancreas and adrenal glands are normal. There is a 2.2 cm hemorrhagic cyst in left kidney. There are simple cysts in the kidneys measuring up to 8 mm on the right. The prostate is mild ly enlarged. There are no dilated loops of bowel. There are changes of partial appendectomy. There ar e no pathologically enlarged lymph nodes. There is no free intraperitoneal fluid. There is a 7 mm sub cutaneous radiopaque foreign body in right anterior abdominal wall. There are changes of anterior fus ion procedures at L4-L5 and L5-S1 and posterior fusion procedure from L3 to S1. There is mild thoraci c and lumbar spondylosis. IMPRESSION: 1. Cirrhosis of the liver. 2. Cholelithiasis. Reviewed, dictated and finalized at location A. NGUAL ADMINISTRATIVE ASSISTANT
--- OUTSIDE RECORDS SUMMARY | 2024-10-25 08:57 | XMS_ITS | Clinical Summary ---
Author Organization [facility] Address [address] [place] [address] Phone Care Team Providers Care Auto Service Writer Name Role Phone Rico Lewis MD Primary Care Provider + Allergies No known active allergies Medications omeprazole (PriLOSEC) 40 mg Capsule, Delayed Release(E.C.) Take 40 mg by mouth. 01/07/2018 Active tamsulosin (FLOMAX) 0.4 mg capsule Take 0.4 mg by mouth. Active amLODIPine (NORVASC) 10 mg tablet Take 10 mg by mouth. Active losartan (COZAAR) 50 mg tablet Take 50 mg by mouth. Active pregabalin (LYRICA) 150 mg Capsule Take 150 mg by mouth. 08/10/2019 Active POTASSIUM ORAL Take by mouth daily. Active citalopram (CeleXA) 10 mg tablet Take 10 mg by mouth daily. Active Active Problems No known active problems Family History Medical History Relation Name Comments Colon Cancer Neg Hx Social History Tobacco Use Types Packs/Day Years Used Date Smoking Tobacco: Every Day Cigarettes Smokeless Tobacco: Never Alcohol Use Standard Drinks/Week Comments Not Currently 0 (1 standard drink = 0.6 oz pur e alcohol) Sex and Gender Information Value Date Recorded Sex Assigned at Not on file Legal Sex Male 10:11 PM CDT Gender Identity Not on file Sexual Orientation Not on file Last Filed Vital Signs Vital Sign Reading Time Taken Comments Blood Pressure 110/66 09/14/2020 10:37 AM SOCIAL WORKER AIDE Pulse 60 09/14/2020 10:37 AM SOCIAL WORKER AIDE Temperature 36.1 C (97 F) 08/06/2020 9:00 AM SOCIAL WORKER AIDE Respiratory Rate 14 08/06/2020 9:15 AM SOCIAL WORKER AIDE Oxygen Saturation 98% 08/06/2020 9:15 AM SOCIAL WORKER AIDE Inhaled Oxygen Concentration - - Weight 100.2 kg (221 lb) 09/14/2020 10:37 AM SOCIAL WORKER AIDE Height 188 cm (6' 2 ) 09/14/2020 10:37 AM SOCIAL WORKER AIDE Body Mass Index 28.37 09/14/2020 10:37 AM SOCIAL WORKER AIDE Plan of Treatment Health Maintenance Due Date Last Done Comments DTAP/TDAP/TD VACCINES (1 - Tdap) 01/16/1976 PNEUMOCOCCAL VACCINE 65+ YEA RS (1 of 2 - PCV) 01/16/1976 FIT-DNA Q 3 years 2002 FIT/FOBT Q 1 year 2002 Flex Sig/CT Colonography Q 5 years 2002 ZOSTER VACCINE (1 of 2) 2007 RSV VACCINE (60+ or ) (1 - Risk 60-74 years 1-dose series) 2017 UPPER GI ENDOSCOPY 08/06/2023 08/06/2020 INFLUENZA VACCINE (#1) 2024 COLORECTAL SCREENING 08/06/2027 08/06/2020, 08/06/20 20 Colorectal Cancer Screening 08/06/2027 Procedures Procedure Name Priority Date/Time Associated Diagnosis Comments COLONOSCOPY REPORT 08/06/2020 9: 12 AM SOCIAL WORKER AIDE from Last 3 Months or Most Recently Relevant to Health Maintenance Results * COLONOSCOPY REPORT (08/06/2020 9:12 AM SOCIAL WORKER AIDE) Narrative Procedure Note Benito Pablo MD - 08/06/2020 9:11 AM CST [facility] Endoscopy Patient Name: Marko Marti Procedure Date: 08/06/2020 Date of : 1955 Admit Type: Outpatient Attending MD: Benito Pablo MD Procedure: Colonoscopy Indications: Screening for colorectal malignant neoplasm, Last colonoscopy greater than 10 years ago Patient Profile: Patient with recent weight loss. No bowel symptoms. Providers: Benito Pablo MD Referring MD: Rico Lewis MD Medicines: Monitored Anesthesia Care Complications: No immediate complications. Procedure: Informed consent was obtained for the procedure, including moderate sedation after risks were discussed. Based on the pre-procedure assessment, including review of the patient's medical history, medications, allergies, and review of systems, the patient was deemed to be an appropriate candidate for sedation. A timeout was performed. Continuous ECG monitoring, pulse oximetry, blood pressure monitoring, and direct observation were performed. The Colonoscope was introduced through the anus and advanced to the terminal ileum. The quality of the bowel preparation was excellent. Estimated Blood Loss: Estimated blood loss: none. Findings: A 4 mm polyp was found in the ascending colon. The polyp was sessile. The polyp was removed with a cold snare. Resection and retrieval were complete. Scattered small-mouthed diverticula were found in the sigmoid colon. Moderate external and mild internal hemorrhoids were found during retroflexion and during perianal exam. The terminal ileum appeared normal. Impression: - One 4 mm polyp in the ascending colon, removed with a cold snare. Resected and retrieved. - Diverticulosis in the sigmoid colon. - External and internal hemorrhoids. - The examined portion of the ileum was normal. Recommendation: - Await pathology results. - Repeat colonoscopy in 7-10 years for surveillance if polyp adenoma or 10 years if hyperplastic. - See diverticulosis and hemorrhoid handouts. - Complete CT scan. - Check hepatitis labs, b12, folate and iron. Benito Pablo MD 08/06/2020 9:11:12 AM This report has been signed electronically. Number of Addenda: [address]; [place] [address] Benito Pablo MD GI PROCEDURE ORDERABLES Final Result from Last 3 Months or Most Recently Relevant to Health Maintenance Insurance [facility] [id number] Care Teams Auto Service Writer Relationship Specialty Start Date End Date Rico Lewis MD [address] [place] [address] PCP - General Internal Medicine 06/21/20
--- OUTSIDE RECORDS SUMMARY | 2024-10-25 08:57 | XMS_ITS | Referral Summary ---
Author Organization [facility] Address [address] [place] [address] Care Team Providers Care Retail Merchandiser Name Role Phone Rico Lewis MD Primary Care Provider [phone] Source Comments [facility],non-owned Affiliates and Associated Physician Practices is amultiple site organization consisting of ambulatory clinics and hospital sitesin [place] and [place]. This disclosure is being madepursuant to the Care Everywhere program and may not contain all information available regarding this patient. Last updated 18.[email or web address] [facility] Allergies No known active allergies Medications * Be aware that medications may not be up to date on this document. Alwaysverify current medications with the patient. Medication Sig Dispensed Refills Start Date End Date Status LOSARTAN POTASSIUM PO Take 50 mg by mouth every morning Active SUMAtriptan (IMITREX) 25 MG tablet Take 25 mg by mouth daily as needed - may repeat one time Maximum daily dose: 200 mg/24 hours Active omeprazole (PRILOSEC) 40 MG capsule Take 40 mg by mouth at bedtime Active traZODone (DESYREL) 100 MG tablet Take 100 mg by mouth at bedtime Active tamsulosin (FLOMAX) 0.4 MG capsule Take 0.4 mg by mouth at bedtime At the same time every day after a meal. Active amLODIPine (NORVASC) 10 MG tablet Take 10 mg by mouth every morning Active FLUoxetine (PROZAC) 40 MG capsule Take 40 mg by mouth every morning Active pregabalin (LYRICA) 150 MG capsule Take 150 mg by mouth 3 times daily Active cyclobenzaprine (FLEXERIL) 10 MG tablet Take 10 mg by mouth 3 times daily as needed for Muscle Spasms Active acetaminophen (TYLENOL) 500 MG tablet Take 1,000 mg by mouth as needed for Fever or Pain Maximum allowable Acetaminophen amount = 4 Grams (4000 mg) / 24 hours. Active oxyCODONE-acetamin ophen (PERCOCET) 10-325 MG tablet Take 1 tablet by mouth every 6 hours as needed for Pain Earliest Fill Date: 03/21/19 60 tablet 03/21/2019 Active Social History Tobacco Use Types Packs/Day Years Used Date Smoking Tobacco: Every Day Cigarettes Smokeless Tobacco: Never Tobacco Cessation:Ready to Q uit: No; Counseling Given: No Comments:5-10 cigarettes per day now Alcohol Use Standard Drinks/Week Comments Yes 0 (1 standard drink = 0.6 oz pur e alcohol) rarely Sex and Gender Information Value Date Recorded Sex Assigned at Not on file Gender Identity Not on file Sexual Orientation Not on file Last Filed Vital Signs Vital Sign Reading Time Taken Comments Blood Pressure 106/65 03/30/2019 9:27 AM CDT Pulse 67 03/30/2019 9:27 AM CDT Temperature 36 C (96.8 F) 03/21/2019 9:25 AM CDT Respiratory Rate 13 03/21/2019 10:30 AM CDT Oxygen Saturation 93% 03/21/2019 10:30 AM CDT Inhaled Oxygen Concentration - - Weight 107 kg (236 lb) 03/30/2019 9:27 AM CDT Height 188 cm (6' 2 ) 03/30/2019 9:27 AM CDT Body Mass Index 30.3 03/30/2019 9:27 AM CDT Functional Status Functional Status Response Date of Assess ment Is person deaf or have serious hearing difficult y? No 03/21/2019 Is person blind or have serious difficulty seein g? No 03/21/2019 Does person have serious dif ficulty walking/climbing stairs? No 03/21/2019 Does person have difficulty dressing/bathing? No 03/21/2019 Does person have difficulty doing errands alone? No 03/21/2019 Cognitive Status Response Date of Assessm ent Does person have difficulty concentrating/remembering/making decisions? No 03/21/2019 Plan of Treatment Not on file Procedures Procedure Name Priority Date/Time Associated Diagnosis Comments BASIC METABOLIC PANEL (CALCIUM TOTAL) Routine 02/28/2019 10:42 AM CDT Pre-op testing from Last 3 Months or Most Recently Relevant to Health Maintenance Results * BASIC METABOLIC PANEL (CALCIUM TOTAL) (02/28/2019 10:42 AM CDT) BUN 9 7 - 26 mg/dL 02/28/2019 11:20 AM [facility] Creatinine 1.0 0.6 - 1.2 mg/dL 02/28/2019 11:20 AM [facility] Sodium 136 136 - 145 mmol/L 02/28/2019 11:20 AM [facility] Potassium 4.5 3.5 - 4.5 mmol/L 02/28/2019 11:20 AM [facility] Chloride 100 98 - 107 mmol/L 02/28/2019 11:20 AM [facility] CO2 25 22 - 29 mmol/L 02/28/2019 11:20 AM [facility] Glucose 85 70 - 115 mg/dL 02/28/2019 11:20 AM [facility] Calcium 9.4 8.4 - 10.2 mg/dL 02/28/2019 11:20 AM [facility] Anion Gap 16 8 - 18 02/28/2019 11:20 AM [facility] BUN/Creatinine Ratio 9 7 - 23 02/28/2019 11:20 AM [facility] Osmolality Calculated 280 270 - 300 mOsm/kg 02/28/2019 11:20 AM [facility] eGFR >60 >60 mL/min/1.7 3 m2 02/28/2019 11:20 AM [facility] Blood BLOOD SPECIMEN / Unknown Lab Venipuncture / Unknown 02/28/2019 10:42 AM CDT 02/28/2019 11:03 AM T Jacob Zaidi MD LAB - CHEMISTRY SULEIMAN GRAY [facility] Organization Address City/State/ZIP Co de Phone Number [facility] [address] [place] [address] from Last 3 Months or Most Recently Relevant to Health Maintenance Care Teams Retail Merchandiser Relationship Specialty Start Date End Date Rico Lewis MD PCP - General 12/15/18
--- OUTSIDE RECORDS SUMMARY | 2024-10-25 08:57 | XMS_ITS | Referral Summary ---
Author Organization [facility] Medical Office Building [address] Address [address] [place] [address] Care Team Providers Care Pipeline Inspector Name Role Phone Rico Lewis MD Primary Care Provider [phone] Winter Sanchez RN Unavailable Jv Agrawal MD Unavailable [phone] Encounters Date Type Department Care Team Description 10/14/[address] [facility] Orthopaedic Surgery [address] [place] [address] Office Building [address] [place] [phone] Erich Kern MD 10/03/[address] [facility] Orthopaedic Surgery [address] [place] [address] [address] [place] [phone] Erich Kern MD 09/28/2024 7:13 PM MOBILE LOUNGE DRIVER - 09/28/2024 11:59 PM MOBILE LOUNGE DRIVER Hospital Encounter [facility] [address] [place] [address] Discharge Disposition: Discharge to home or self care 09/28/2024 12:40 PM MOBILE LOUNGE DRIVER Lab [facility] [address] [address] [place] [address] Degeneration of intervertebral disc of lumbar region with discogenic back pain and lower extremity pain; Spinal stenosis, lumbar region, with neurogenic claudication; Other abnormal glucose; Vitamin D deficiency 09/28/2024 1:00 PM MOBILE LOUNGE DRIVER Pre-Admission Testing [facility] Pre-Anesthesia Testing [address] [address] [place] [address] Preoperative testing (Primary Dx) 09/28/2024 5:15 AM MOBILE LOUNGE DRIVER - 09/28/2024 11:59 PM MOBILE LOUNGE DRIVER Hospital Encounter [address] [address] Preoperative testing Discharge Disposition: Discharge to home or self care 09/16/[address] [facility] Orthopaedic Surgery [address] [facility] Medical Office Building 4 [address] [place] [phone] Erich Kern MD 09/05/[address] [facility] Orthopaedic Surgery [address] [facility] 6th [place] [address] [place] [phone] Erich Kern MD 09/02/[address] [facility] Orthopaedic Surgery [address] [place] [address] 6th [place] [address] [place] [phone] rEich Kern MD 08/22/2024 11:57 AM MOBILE LOUNGE DRIVER - 08/22/2024 11:59 PM MOBILE LOUNGE DRIVER Hospital Encounter [facility] [address] [place] [address] S/P spinal fusion Discharge Disposition: Discharge to home or self care 08/22/2024 11:57 AM MOBILE LOUNGE DRIVER - 08/22/2024 11:59 PM MOBILE LOUNGE DRIVER Hospital Encounter [facility] [address] [place] [phone] Benito Garvey MD Degenerative cervical spinal stenosis; Other spondylosis with radiculopathy, cervical region Discharge Disposition: Discharge to home or self care 08/08/[address] [facility] Orthopaedic Surgery [address] [place] [phone] Erich Kern MD S/P spinal fusion 08/03/2024 12:10 PM MOBILE LOUNGE DRIVER Office Visit [facility] Orthopaedic Surgery [address] [facility] Medical Office Building [address] [place] [phone] Erich Kern MD S/P spinal fusion (Primary Dx); Degenerative cervical spinal stenosis; Other spondylosis with radiculopathy, cervical region from Last 3 Months Allergies No known active allergies Medications tamsulosin (FLOMAX) 0.4 mg extended release capsuleIndications :benign prostatic hyperplasia with lower urinary tract sx Take 2 capsules (0.8 mg total) by mouth every morning Active omeprazole (PriLOSEC) 40 mg capsuleIndications :Treatment of Non-Bleeding Gastric Disorder Take 1 capsule (40 mg total) by mouth every morning 01/08/20 18 Active buPROPion XL (WELLBUTRIN XL) 300 mg 24 hr tabletIndications: Anxiety with Depression Take 1 tablet (300 mg total) by mouth every morning 06/07/20 21 Active citalopram (CeleXA) 20 mg tabletIndications: Anxiety with Depression Take 1 tablet (20 mg total) by mouth every morning 08/18/20 22 Active losartan (COZAAR) 100 mg tabletIndications: hypertension Take 1 tablet (100 mg total) by mouth every morning 09/15/19 23 Active gabapentin (NEURONTIN) 300 mg capsule TAKE ONE CAPSULE BY MOUTH EVERY MORNING, ONE CAPSULE AT NOON, AND TAKE TWO CAPSULES AT NIGHT 120 capsule 1 10/17/19 23 Active Additional Information Patient taking differently: 300 mg oral 2 times daily, (No instructions reported), Indications: Restless Legs Syndrome, Informant: Self, Reported on 09/28/2024 clonazePAM (KlonoPIN) 1 mg tabletIndications: anxiety Take 1 tablet (1 mg total) by mouth as needed for anxiety 07/19/20 23 Active amLODIPine (NORVASC) 5 mg tabletIndications: hypertension Take 1 tablet (5 mg total) by mouth every morning 08/04/20 23 Active rOPINIRole (REQUIP) 4 mg tabletIndications: Restless Legs Syndrome Take 1 tablet (4 mg total) by mouth 2 (two) times a day 03/09/20 24 Active coenzyme Q10 100 mg capsuleIndications :supplement Take 1 capsule (100 mg total) by mouth every morning Active fexofenadine (ANDREW) 180 mg tabletIndications: Allergic Rhinitis Take 1 tablet (180 mg total) by mouth every morning Active cyanocobalamin (Vitamin B-12) 500 mcg tabletIndications: Prevention of Vitamin B12 Deficiency Take 1 tablet (500 mcg total) by mouth every morning Active nystatin powder Apply 1 Application topically as needed (rash) 04/19/20 24 Active acetaminophen (TYLENOL) 500 mg tablet Take 1 tablet (500 mg total) by mouth every 6 (six) hours as needed for pain Active ibuprofen 200 mg tab/cap Take 1 tablet/capsule (200 mg total) by mouth every 6 (six) hours as needed for pain Active cholecalciferol, vitamin D3, 1,000 unit tablet,chewableInd ications:Vitamin D Deficiency Take 1 tablet/chew tab by mouth every morning Active mupirocin (BACTROBAN) 2 % ointmentIndication s:Degeneration of intervertebral disc of lumbar region with discogenic back pain and lower extremity pain Apply topically 2 (two) times a day for 5 days APPLY TO NOSTRILS TWICE A DAY FOR 5 DAYS PRIOR TO SURGERY. 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 12/07 DDD (degenerative disc disease), lumbar 01/04/20 20 Degenerative lumbar spinal stenosis 01/04/2020 Insomnia secondary to chronic pain 01/04/2020 Fibromyalgia 08/10/2019 Cervical radiculopathy - Left 10/14/2018 Degenerative disc disease, cervical 10/14/2018 Degenerative cervical spinal stenosis 10/14/2018 Chronic bilateral low back p ain with left-sided sciatica-L3/L4 distribution 08/11/2018 Cervicalgia 06/22/2018 Numbness and tingling 06/01/2018 Lumbar post-laminectomy synd roque-L4,L5,sacrum pedicle fusion with L4-5 and L5-S1disc spacers 05/14/2018 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 07/09/2017 Polyneuropathy 07/09/2017 Biceps tendinitis 07/09/2017 Immunizations Immunization Administration Dates Next Due Influenza, Quadrivalent, Spl it, Intramuscular 06/29/2015 Influenza, Quadrivalent, Spl it, Preservative Free, Intramuscular 04/25/2021,06/13/2020,09/02/2019,05/19,05/29/2017 Influenza, Unspecified 07/08/2021 Pneumococcal Conjugate PCV 13 06/29/2015 Pneumococcal Polysaccharide PPV23 09/02/2019 Social History Tobacco Use Types Packs/Day Years Used Date Smoking Tobacco: Former Cigarettes 0 01/03/1971 - 01/03/2021 Smokeless Tobacco: Never Tobacco Cessation:Counseling Given: Not Answered Alcohol Use Standard Drinks/Week Comments No 0 (1 standard drink = 0.6 oz pur e alcohol) AUDIT-C Answer Date Recorded Q1: How often do you have a drink containing alcohol? Never 09/28/2024 Q2: How many drinks containi ng alcohol do you have on a typical day when you are drinking? Patient does not drink Q3: How often do you have si x or more drinks on one occasion? Never 09/28/2024 PHQ-2 Answer Date Recorded PHQ-2 Total Score (If total score is 3 or more points, staff should administer the PHQ-9) 2 01/21/2023 Personal Safety Answer Date Recorded Have you ever been in or are you currently in a harmful physical or emotional relationship or is someone making you feel afraid or unsafe? Denies 09/28/2024 Sex and Gender Information Value Date Recorded Sex Assigned at Not on file Legal Sex Male 11:10 PM MOBILE LOUNGE DRIVER Gender Identity Male 01/23/2021 2:22 PM CDT Sexual Orientation Straight 01/23/2021 2: 22 PM CDT Occupation Industry Job Start Date Job End Date disability Not on file Not on file Not on file Last Filed Vital Signs Vital Sign Reading Time Taken Comments Blood Pressure 132/73 09/28/2024 12:58 PM MOBILE LOUNGE DRIVER Pulse 73 09/28/2024 12:55 PM MOBILE LOUNGE DRIVER Temperature 36.8 C (98.3 F) 09/15/2023 12:42 PM MOBILE LOUNGE DRIVER Respiratory Rate 18 09/28/2024 12:55 PM MOBILE LOUNGE DRIVER Oxygen Saturation 99% 09/28/2024 12:55 PM MOBILE LOUNGE DRIVER Inhaled Oxygen Concentration - - Weight 104.8 kg (231 lb) 09/28/2024 12:54 PM MOBILE LOUNGE DRIVER Height 188 cm (6' 2 ) 09/28/2024 12:54 PM MOBILE LOUNGE DRIVER Body Mass Index 29.66 09/28/2024 12:54 PM MOBILE LOUNGE DRIVER Plan of Treatment Upcoming Encounters Date Type Department Care Team (Latest Contact Info) Description 11/22/2024 7:30 AM CDT Hospital Encounter [facility] Operating Room [address] [place] [phone] Erich Kern MD [address] [place] [address] 11/22/2024 7:30 AM CDT Anesthesia Event [facility] Operating Room [address] [place] [address] Buddy Jordan NP [phone] [place] [address] 11/22/2024 7:30 AM CDT - 11/22/2024 1:45 PM CDT Surgery [facility] Operating Room [address] [place] [address] Erich Kern MD [address] [place] [address] FUSION DECOMPRESSION LAMINECTOMY WITH INSTRUMENTATION - [employer]TRON[employer] SOLERA, L2-3 posterior decompression laminectomy/foraminoto my with posterior spinal instrumented fusion,revision posterior instrumentation L2-S1, allograft, autograft, spinal cord monitoring, bone morphogenetic protein, cut to close: 240 mins. 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 Author [facility] Worsening( 2:10 PM CDT) No Zuleika George, RN Note: Patient will establish a comfort-function goal and identify the pain level that will allow the patient to perform desired activities and achieve an acceptable quality of life. <enter goal here> General On track( 019 1:14 PM MOBILE LOUNGE DRIVER) Yes Vivian De La Vega, RAYA Note: Fishing Walking dogs Working around house Medical Devices Implanted Type Area Rn Plastic Surgery Device Identifier Shelf Expiration Date Model / Serial / Lot Hardware Right: Leg Medtronic Inc [id number] Cd Horizon 6mm 500mm Line Straight Diego Spinal Titanium Nonsterile - [id number] Implanted:Qty: 1 on 09/03/2021 by Erich Kern MD at [facility] N/A: Spine Lumbar Medtronic Inc [id number] / / Allosource [id number] Crushed Chip Frozen Graft 30ml Bone Cancellous - [id number] Implanted:Qty: 1 on 09/03/2021 by Erich Kern MD at [facility] N/A: Spine Lumbar Allosource 05/10/2026 [id number] / / [id number] Allosource [id number] Crushed Chip Frozen Graft 30ml Bone Cancellous - [id number] Implanted:Qty: 1 on 09/03/2021 by Erich Kern MD at [facility] N/A: Spine Lumbar Allosource 05/11/2026 [id number] / / [id number] Medtronic Sofamor Danek [id number] Infuse 20ga 2x1in Vial Absorbable Syringe Needle Medium Graft 5.6 - [id number] Implanted:Qty: 1 on 09/03/2021 by Erich Kern MD at [facility] N/A: Spine Lumbar Medtronic Inc [id number] / / Medtronic Sofamor Danek [id number] Solera Cd Horizon 7.5mm 50mm Multiaxial Spine Screw Bone Cocr - [id number] Implanted:Qty: 2 on 09/03/2021 by Erich Kern MD at [facility] N/A: Spine Lumbar Medtronic Inc [id number] / / Medtronic Sofamor Danek [id number] Solera Cd Horizon 7.5mm 55mm Multiaxial Spine Screw Bone Cocr - [id number] Implanted:Qty: 4 on 09/03/2021 by Erich Kern MD at [facility] N/A: Spine Lumbar Medtronic Inc [id number] / / Medtronic Sofamor Danek [id number] Solera Cd Horizon 7.5mm 60mm Multiaxial Spine Screw Bone Cocr - [id number] Implanted:Qty: 2 on 09/03/2021 by Erich Kern MD at [facility] N/A: Spine Lumbar Medtronic Inc [id number] / / Medtronic Sofamor Danek [id number] Cd Horizon Break Off Spinal Screw Set Titanium Nonsterile 5.5 Mm - [id number] Implanted:Qty: 8 on 09/03/2021 by Erich Kern MD at [facility] N/A: Spine Lumbar Medtronic Inc [id number] / / Explanted Type Area Rn Plastic Surgery Device Identifier Shelf Expiration Date Model / Serial / Lot Spinal Cord Stimulator-2007 Implanted:2007 (Quantity not on file) Explanted:2018 by Unknown, Notinfile (Quantity not on file) Back [id number] / [id number] / Description:Explanted by Dr. Jaime Wick Implanted by Heather Staples DO Physician's phone number [phone] ID Number [id number] ANS [facility] Procedures Procedure Name Priority Date/Time Associated Diagnosis Comments US OUTSIDE CONSULT Routine 09/28/2024 7: 13 PM MOBILE LOUNGE DRIVER EGFR Routine 09/28/2024 1:54 PM MOBILE LOUNGE DRIVER Degeneration of intervertebral disc of lumbar region with discogenic back pain and lower extremity pain Spinal stenosis, lumbar region, with neurogenic claudication DIFFERENTIAL AUTO Routine 09/28/2024 1:5 4 PM MOBILE LOUNGE DRIVER Degeneration of intervertebral disc of lumbar region with discogenic back pain and lower extremity pain Spinal stenosis, lumbar region, with neurogenic claudication TYPE AND SCREEN 14 DAY Routine 09/28/2024 1:54 PM MOBILE LOUNGE DRIVER Preoperative testing NICOTINE METABOLITE SCREEN, URINE Routine 09/28/2024 1:54 PM MOBILE LOUNGE DRIVER Degeneration of intervertebral disc of lumbar region with discogenic back pain and lower extremity pain Spinal stenosis, lumbar region, with neurogenic claudication ERYTHROCYTE SEDIMENTATION RATE Routine 09/28/2024 1:54 PM MOBILE LOUNGE DRIVER Degeneration of intervertebral disc of lumbar region with discogenic back pain and lower extremity pain Spinal stenosis, lumbar region, with neurogenic claudication VITAMIN D 25 HYDROXY Routine 09/28/2024 1:54 PM MOBILE LOUNGE DRIVER Degeneration of intervertebral disc of lumbar region with discogenic back pain and lower extremity pain Spinal stenosis, lumbar region, with neurogenic claudication Vitamin D deficiency HEMOGLOBIN A1C Routine 09/28/2024 1:54 PM MOBILE LOUNGE DRIVER Degeneration of intervertebral disc of lumbar region with discogenic back pain and lower extremity pain Spinal stenosis, lumbar region, with neurogenic claudication Other abnormal glucose CRP (ACUTE PHASE) Routine 09/28/2024 1:5 4 PM MOBILE LOUNGE DRIVER Degeneration of intervertebral disc of lumbar region with discogenic back pain and lower extremity pain Spinal stenosis, lumbar region, with neurogenic claudication CBC WITH AUTO DIFFERENTIAL Routine 09/28/2024 1:54 PM MOBILE LOUNGE DRIVER Degeneration of intervertebral disc of lumbar region with discogenic back pain and lower extremity pain Spinal stenosis, lumbar region, with neurogenic claudication COMPREHENSIVE METABOLIC PANEL Routine 09/28/2024 1:54 PM MOBILE LOUNGE DRIVER Degeneration of intervertebral disc of lumbar region with discogenic back pain and lower extremity pain Spinal stenosis, lumbar region, with neurogenic claudication URINALYSIS AND REFLEX TO MICROSCOPIC AND CULTURE Routine 09/28/2024 1:54 PM MOBILE LOUNGE DRIVER Degeneration of intervertebral disc of lumbar region with discogenic back pain and lower extremity pain Spinal stenosis, lumbar region, with neurogenic claudication IR EPIDURAL INJECTION CERVICAL W GUIDANCE Schedule Routine, Read Routine (OP Routine) 08/22/2024 1:55 PM MOBILE LOUNGE DRIVER Degenerative cervical spinal stenosis Other spondylosis with radiculopathy, cervical region MRI LUMBAR SPINE WO CONTRAST Schedule Routine, Read Routine (OP Routine) 08/22/2024 12:58 PM MOBILE LOUNGE DRIVER S/P spinal fusion CT LUMBAR SPINE WO CONTRAST Schedule Routine, Read Routine (OP Routine) 08/08/2024 1:51 PM MOBILE LOUNGE DRIVER S/P spinal fusion from Last 3 Months Results * US Outside Consult (09/28/2024 7:13 PM MOBILE LOUNGE DRIVER) Anatomical Region Laterality Modality Ultrasound 09/29/2024 6:47 AM MOBILE LOUNGE DRIVER Impressions 09/29/2024 6:47 AM MOBILE LOUNGE DRIVER 1. No demonstrated deep vein thrombosis. 2. Popliteal fossa cyst of unclear etiology given lack of localizing information. If indicated, dedicated ultrasound evaluation of this lesion could be performed for further evaluation. 3. Palpable lesion in the johnson corresponds to a complex fluid collection. This is nonspecific but most likely a hematoma. Recommend clinical correlation for helpful history, such as prior trauma . The findings and impression are based on the available images, which may not be workforce services representative of the entire organ or disease entity. Also note that ultrasound image acquisition is sewing machine operator dependent, and that the study was performed outside our facility with no control over image acquisition. In addition, the provided images may or may not represent the [place] source data set and thus may contain changes that may lower the accuracy of this second-opinion interpretation. The findings, conclusions and recommendations within this report do not replace the initial findings, conclusions and recommendations made at the facility where the study was performed based upon the imaging and clinical condition at that time. Comparison with the prior report and clinical history is necessary. Electronically signed by: Darrion Bean M.D. Narrative 09/29/2024 6:47 AM MOBILE LOUNGE DRIVER EXAMINATION: RADIOLOGY CONSULTATION ON OUTSIDE IMAGING STUDY STUDY INITIALLY PERFORMED: 08/08/2024 at institution name [facility]. TYPE OF STUDY: Multiple ultrasound images with cine clip of the right lower extremity veins are provided at the time of this interpretation. TYPE OF CONSULTATION: Consult on outside imaging study with images submitted through Outside Image Sharing Service DATE OF CONSULTATION: 09/29/2024 6:42 AM HISTORY: None provided COMPARISON: None available. FINDINGS: The veins of the right lower extremity are normally compressible and where it evaluated augment normally. There is a cystic lesion documented in the popliteal fossa that is measured at a maximum diameter of 6.3 cm. There is also a complex cystic lesion in the area of palpable abnormality in the right johnson measuring a maximum of 3.2 cm. Procedure Note Darrion Bean MD - 09/29/2024 EXAMINATION: RADIOLOGY CONSULTATION ON OUTSIDE IMAGING STUDY STUDY INITIALLY PERFORMED: 08/08/2024 at institution name [facility]. TYPE OF STUDY: Multiple ultrasound images with cine clip of the right lower extremity veins are provided at the time of this interpretation. TYPE OF CONSULTATION: Consult on outside imaging study with images submitted through Outside Image Sharing Service DATE OF CONSULTATION: 09/29/2024 6:42 AM HISTORY: None provided COMPARISON: None available. FINDINGS: The veins of the right lower extremity are normally compressible and where it evaluated augment normally. There is a cystic lesion documented in the popliteal fossa that is measured at a maximum diameter of 6.3 cm. There is also a complex cystic lesion in the area of palpable abnormality in the right johnson measuring a maximum of 3.2 cm. IMPRESSION: 1. No demonstrated deep vein thrombosis. 2. Popliteal fossa cyst of unclear etiology given lack of localizing information. If indicated, dedicated ultrasound evaluation of this lesion could be performed for further evaluation. 3. Palpable lesion in the johnson corresponds to a complex fluid collection. This is nonspecific but most likely a hematoma. Recommend clinical correlation for helpful history, such as prior trauma . The findings and impression are based on the available images, which may not be workforce services representative of the entire organ or disease entity. Also note that ultrasound image acquisition is sewing machine operator dependent, and that the study was performed outside our facility with no control over image acquisition. In addition, the provided images may or may not represent the [place] source data set and thus may contain changes that may lower the accuracy of this second-opinion interpretation. The findings, conclusions and recommendations within this report do not replace the initial findings, conclusions and recommendations made at the facility where the study was performed based upon the imaging and clinical condition at that time. Comparison with the prior report and clinical history is necessary. Electronically signed by: Darrion Bean M.D. Erich Kern MD IMG US PROCEDURES Fi nal Result * TYPE AND SCREEN 14 DAY (09/28/2024 1:54 PM MOBILE LOUNGE DRIVER) Davi, indirect Negative ABO Rh A Negative [facility] Blood 09/28/2024 1:54 PM MOBILE LOUNGE DRIVER 09/28/2024 6:53 PM MOBILE LOUNGE DRIVER Narrative [facility] - 09/28/2024 8:00 PM MOBILE LOUNGE DRIVER Is this test being ordered in advance for a procedure?->Yes Expected date of procedure:->10/18/24 Has the patient been transfused in the past 3 months?->No us Buddy Jordan TOOLING MECHANIC LAB BLOOD BANK TEST ORDE MARINA Final Result [facility] [place] [address] * eGFR (09/28/2024 1:54 PM MOBILE LOUNGE DRIVER) eGFR >90 >=60 mL/min/1. 73 m2 Comment: Interpretive Data Reference Interval Normal >/= 90 mL/min/1.73m2 Mildly decreased* 60 - 89 mL/min/1.73m2 Mildly to moderately decreased 45 - 59 mL/min/1.73m2 Moderately to severely decreased 30 - 44 mL/min/1.73m2 Severely decreased 15 - 29 mL/min/1.73m2 Kidney Failure < 15 mL/min/1.73m2 *Relative to young adult level Estimated glomerular filtration rate is determined by the 2020 CKD-EPI equation recommended by the National Kidney Foundation (A Unifying Approach to GFR Estimation: Recommendations of the NKF-ASK Task Force on Reassessing the Inclusion of Race in Diagnosing Kidney Disease, JASN 2020). The CKD-EPI equation should not be used for patients with unstable renal function and has not been validated in children and those over 70. Current interpretive data was last reviewed 2021. Blood 09/28/2024 1:54 PM MOBILE LOUNGE DRIVER 09/28/2024 2:51 PM MOBILE LOUNGE DRIVER us Erich Kern MD LAB BLOOD ORDERABLES Final Result [facility] [id number] [facility]. [place] [address] * Differential, auto (09/28/2024 1:54 PM MOBILE LOUNGE DRIVER) Neutrophil abs 2.7 1.5 - 6.5 K/cumm Imm gran abs 0.0 0.0 - 0.1 K/cumm [facility] Lymphocyte abs 1.4 0.8 - 3.3 K/cumm [facility] Monocyte abs 0.5 0.2 - 0.8 K/cumm [facility] Eosinophil abs 0.1 0.0 - 0.5 K/cumm [facility] Basophil abs 0.0 0.0 - 0.1 K/cumm [facility] Neutrophil pct 57.8 % [facility] Comment: Interpretive Data Percent cell count reference ranges are not reported, since discordance with absolute values may lead to misinterpretation of CBC data. Current Interpretive Data was last revised on 2017. Imm gran pct 0.2 % [facility] Comment: Interpretive Data Percent cell count reference ranges are not reported, since discordance with absolute values may lead to misinterpretation of CBC data. Current Interpretive Data was last revised on 2017. Lymphocyte pct 29.2 % [facility] Comment: Interpretive Data Percent cell count reference ranges are not reported, since discordance with absolute values may lead to misinterpretation of CBC data. Current Interpretive Data was last revised on 2017. Monocyte pct 10.8 % [facility] Comment: Interpretive Data Percent cell count reference ranges are not reported, since discordance with absolute values may lead to misinterpretation of CBC data. Current Interpretive Data was last revised on 2017. Eosinophil pct 1.1 % [facility] Comment: Interpretive Data Percent cell count reference ranges are not reported, since discordance with absolute values may lead to misinterpretation of CBC data. Current Interpretive Data was last revised on 2017. Basophil pct 0.9 % [facility] Comment: Interpretive Data Percent cell count reference ranges are not reported, since discordance with absolute values may lead to misinterpretation of CBC data. Current Interpretive Data was last revised on 2017. Blood 09/28/2024 1:54 PM MOBILE LOUNGE DRIVER 09/28/2024 2:51 PM MOBILE LOUNGE DRIVER us Erich Kern MD LAB BLOOD ORDERABLES Final Result [facility] [id number] [facility]. Department of [facility] [place] [address] * Urinalysis reflex to microscopic and culture Urine, clean voided (09/28/2024 1:54 PM MOBILE LOUNGE DRIVER) Color, ur Straw Yellow Clarity, ur Clear Clear [facility] Specific gravity, ur 1.007 1.003 - 1.030 [facility] pH, urine 7.0 [facility] Comment: Interpretive Data U rine pH is affected by diet, medications, systemic acid-base disturbances, and renal tubular function. pH may affect urinary stone formation. For example, urine pH below 6.0 may help reduce the tendency for calcium phosphate stones and pH greater than 6.0 may reduce the tendency for uric acid stone formation. Source: [facility] Current Interpretive Data was last revised on 2017 Protein, ur ql Negative Negative [facility] Glucose, ur ql Negative Negative [facility] Ketones, ur Negative Negative [facility] Bilirubin, ur Negative Negative [facility] Blood, ur Negative Negative [facility] Urobilinogen, ur <2.0 <2.0 mg/dL [facility] Nitrite, ur Negative Negative [facility] Leukocyte esterase, ur Negative Negative [facility] UA reflex comment Reflex conditions for microscopic UA and culture not met. [facility] Urine, clean voided 09/28/2024 1:54 PM MOBILE LOUNGE DRIVER 09/28/2024 2:52 PM MOBILE LOUNGE DRIVER Erich Kern MD LAB MICROBIOLOGY - G ENERAL ORDERABLES Final Result Performing Organization Address City/[facility]/ZIP Co de Phone Number [facility] MARKS [address] [employer] [place], [place] [id number] * CBC with auto differential (09/28/2024 1:54 PM MOBILE LOUNGE DRIVER) WBC 4.6 3.8 - 9.9 K/cumm Hgb 14.5 13.0 - 17.5 g/dL [facility] Hct 42.7 38.9 - 50.3 % [facility] Plt 188 150 - 400 K/cumm [facility] MPV 9.3 9.1 - 12.3 fL [facility] RBC 4.64 4.30 - 5.80 M/cumm [facility] MCV 92.0 81.3 - 96.4 fL [facility] MCH 31.3 27.1 - 33.3 pg [facility] MCHC 34.0 32.3 - 35.7 g/dL [facility] RDW CV 13.2 11.1 - 14.9 % [facility] RDW SD 45.0 35.7 - 48.1 fL [facility] NRBC abs 0.00 0.00 - 0.01 K/cumm [facility] Blood 09/28/2024 1:54 PM MOBILE LOUNGE DRIVER 09/28/2024 2:51 PM MOBILE LOUNGE DRIVER Erich Kren MD LAB BLOOD ORDERABLES Final Result [facility] [address] [facility] [employer] [place], [place] [id number] * (ABNORMAL) Nicotine metabolite screen, urine (09/28/2024 1:54 PM MOBILE LOUNGE DRIVER) [facility] Nicotine, ur <5.0 <5.0 ng/mL [facility] Cotinine, ur 44(H) <5.0 ng/mL [facility] Anabasine ur <2.0 <2.0 ng/mL [facility] Comment: ADDITIONAL INFORMATION This test was developed and its performance characteristics determined by [facility] in a manner consistent with CLIA requirements. This test has not been cleared or approved by the U.S. Food and Drug Administration. Test Performed by: [facility] [place] [address] Wheel Loader Operator: Mohamud Shelby Ph.D.; CLIA# [id number] Nornicotine, ur <2.0 <2.0 ng/mL [facility] Urine 09/28/2024 1:54 PM MOBILE LOUNGE DRIVER 09/28/2024 2:52 PM MOBILE LOUNGE DRIVER Erich Kern MD LAB URINE ORDERABLES Final Result Performing Organization Address City/[facility] Co de Phone Number [facility] [address] [employer] [place], [place] [id number] [facility] * (ABNORMAL) Vitamin D 25 hydroxy (09/28/2024 1:54 PM MOBILE LOUNGE DRIVER) [facility] Vitamin D 25-OH 29(L) 30 - 80 ng/mL Blood 09/28/2024 1:54 PM MOBILE LOUNGE DRIVER 09/28/2024 2:51 PM MOBILE LOUNGE DRIVER Erich Kern MD LAB BLOOD ORDERABLES Final Result Performing Organization Address [facility] Co de Phone Number [facility] [address] [facility] [employer] [place], [place] [phone] * Erythrocyte sedimentation rate (09/28/2024 1:54 PM MOBILE LOUNGE DRIVER) [facility] Erythrocyte sedimentation rate 8 1 - 20 mm/hr Blood 09/28/2024 1:54 PM MOBILE LOUNGE DRIVER 09/28/2024 2:51 PM MOBILE LOUNGE DRIVER Result [facility] Erich Kern MD LAB BLOOD ORDERABLES Final Result Performing Organization Address [facility] Phone Number [facility] [address] [employer] [facility] [place] [address] * CRP (acute phase) (09/28/2024 1:54 PM MOBILE LOUNGE DRIVER) [facility] CRP <3.0 <=10.0 mg/L Blood 09/28/2024 1:54 PM MOBILE LOUNGE DRIVER 09/28/2024 2:51 PM MOBILE LOUNGE DRIVER Result [facility] Erich Kern MD LAB BLOOD ORDERABLES Final Result Performing Organization Address [facility] Phone Number [facility] [address] [employer]. [facility] [place] [address] * Hemoglobin A1c (09/28/2024 1:54 PM MOBILE LOUNGE DRIVER) [facility] Hgb A1C 5.2 4.0 - 5.6 % Estimated Average Glucose 103 mg/dL [facility] Comment: The ADA recommends reporting an estimated Average Glucose (eAG) with all Hemoglobin A1c results using the equation derived from a study of 507 normal and diabetic adults. Minority populations were underrepresented and children were not included. (Diabetes Care 31:0540-5179, 2008). The eAG is not equivalent to a fasting glucose. Blood 09/28/2024 1:54 PM MOBILE LOUNGE DRIVER 09/28/2024 2:51 PM MOBILE LOUNGE DRIVER Result [facility] Erich Kern MD LAB BLOOD ORDERABLES Final Result Performing Organization Address [facility] Phone Number [facility] [address] [employer] [facility] [place] [address] * (ABNORMAL) Comprehensive metabolic panel (09/28/2024 1:54 PM MOBILE LOUNGE DRIVER) Sodium 137 135 - 145 mmol/L Potassium, pl 4.5 3.3 - 4.9 mmol/L [facility] Chloride 97 97 - 110 mmol/L [facility] CO2 28 22 - 32 mmol/L [facility] Anion gap 12 2 - 15 mmol/L [facility] BUN 9 6 - 25 mg/dL [facility] Creatinine 0.78(L) 0.80 - 1.30 mg/dL [facility] Glucose 101 70 - 199 mg/dL [facility] Comment: Interpretive Data Fasting glucose >/= 126 mg/dl is diagnostic for diabetes. Fasting is defined as no caloric intake for at least 8 hours. Fasting glucose between 100 mg/dl to 125 mg/dl is diagnostic of prediabetes. In a patient with classic symptoms of hyperglycemia or hyperglycemic crisis, a random glucose >/= 200 mg/dl is diagnostic for diabetes. In the absence of unequivocal hyperglycemia, results should be confirmed by repeat testing. The classification and Diagnosis of Diabetes Diabetes Care 2021; 46: S19-S40. Current interpretive data was last revised 2022. Calcium 9.3 8.5 - 10.3 mg/dL [facility] Bilirubin, total 0.5 0.1 - 1.2 mg/dL [facility] Protein, pl 7.2 6.5 - 8.5 g/dL [facility] Albumin 4.3 3.5 - 5.0 g/dL [facility] Alk phos 55 40 - 130 Units/L [facility] ALT 24 7 - 55 Units/L [facility] AST 33 10 - 50 Units/L [facility] Blood 09/28/2024 1:54 PM MOBILE LOUNGE DRIVER 09/28/2024 2:51 PM MOBILE LOUNGE DRIVER us Erich Kern MD LAB BLOOD ORDERABLES Final Result [facility] [address] [facility]. [facility] [place] [facility] [place] [address] * IR Epidural Injection Cervical W Guidance (Interlaminar) (08/22/2024 1:55 PM MOBILE LOUNGE DRIVER) Narrative [facility] - 08/22/2024 1:55 PM MOBILE LOUNGE DRIVER The images from this study are not interpreted by Radiology. Please refer to the physician's procedure / OR operative note. us Erich Kern MD IMG IR PROCEDURES Fi nal Result [facility] * MRI Lumbar Spine WO Contrast (08/22/2024 12:58 PM MOBILE LOUNGE DRIVER) Anatomical Region Laterality Modality Spine N/A Magnetic Resonan ce 08/22/2024 1:22 PM MOBILE LOUNGE DRIVER Impressions 08/22/2024 4:30 PM MOBILE LOUNGE DRIVER 1. Posterior instrumented fusion and decompression from L3-S1 with L4-S1 interbody fusion. 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 2. Unchanged chronic adhesive arachnoiditis at L4-L5. 3. 2.7 cm fluid collection in the left L3-L4 decompression space most likely chronic seroma. Dictated by: Erich Thao M.D. The radiology attending physician has personally reviewed this study, and had reviewed and/or edited this written report and agrees with it. Electronically signed by: Radha Corado M.D. Narrative 08/22/2024 4:30 PM MOBILE LOUNGE DRIVER EXAMINATION: Magnetic resonance imaging (MRI) of the lumbar spine without contrast HISTORY: Back pain TECHNIQUE: Multiplanar multi-weighted MRI of the lumbar spine was performed without intravenous contrast using the standard protocol. COMPARISON: 07/13/2024, 11/15/2019 FINDINGS: Trace retrolisthesis L2 on L3 and L3 on L4. The lumbar vertebral body heights are normal without compression fracture. Schmorl's node changes present in the T12 superior endplate with trace degenerative endplate center edema in the L3 anterior superior endplate. Conus medullaris terminates at L1. Posterior spinal fusion and decompression from L3-S1 with L4-S1 interbody fusion. Edema within the posterior decompression space and a 2.7 cm fluid collection seen series 4 image 10, most likely chronic seroma. Severe lower lumbar paraspinal muscle atrophy. No significant soft tissue abnormality in the imaged retroperitoneum or pelvis. Empty thecal sac is present at L4-L5 seen series 10 image 19, unchanged since 2020. L1-L2: The disc is normal in configuration. There is mild bilateral facet arthropathy. There is no neuroforaminal stenosis. There is no spinal canal stenosis. L2-L3: Diffuse disc bulge. There is moderate bilateral facet arthropathy with ligamentum flavum hypertrophy. There is severe left and moderate right neuroforaminal stenosis. There is severe spinal canal stenosis. This level has progressed since 2020. L3-L4: Posterior instrumented fusion and decompression. Diffuse disc bulge which narrows the lateral recesses bilaterally and contributes to severe left and moderate right neural foraminal stenosis. Severe bilateral facet arthropathy. Spinal canal is decompressed. L4-L5: Combined anterior and posterior instrumented fusion. No spinal canal stenosis. Mild left neural foraminal stenosis. L5-S1: Combined anterior and posterior instrumented fusion. No spinal canal stenosis. Mild left neural foraminal stenosis. Procedure Note VoRadha MD - 08/22/2024 EXAMINATION: Magnetic resonance imaging (MRI) of the lumbar spine without contrast HISTORY: Back pain TECHNIQUE: Multiplanar multi-weighted MRI of the lumbar spine was performed without intravenous contrast using the standard protocol. COMPARISON: 07/13/2024, 11/15/2019 FINDINGS: Trace retrolisthesis L2 on L3 and L3 on L4. The lumbar vertebral body heights are normal without compression fracture. Schmorl's node changes present in the T12 superior endplate with trace degenerative endplate center edema in the L3 anterior superior endplate. Conus medullaris terminates at L1. Posterior spinal fusion and decompression from L3-S1 with L4-S1 interbody fusion. Edema within the posterior decompression space and a 2.7 cm fluid collection seen series 4 image 10, most likely chronic seroma. Severe lower lumbar paraspinal muscle atrophy. No significant soft tissue abnormality in the imaged retroperitoneum or pelvis. Empty thecal sac is present at L4-L5 seen series 10 image 19, unchanged since 2020. L1-L2: The disc is normal in configuration. There is mild bilateral facet arthropathy. There is no neuroforaminal stenosis. There is no spinal canal stenosis. L2-L3: Diffuse disc bulge. There is moderate bilateral facet arthropathy with ligamentum flavum hypertrophy. There is severe left and moderate right neuroforaminal stenosis. There is severe spinal canal stenosis. This level has progressed since 2020. L3-L4: Posterior instrumented fusion and decompression. Diffuse disc bulge which narrows the lateral recesses bilaterally and contributes to severe left and moderate right neural foraminal stenosis. Severe bilateral facet arthropathy. Spinal canal is decompressed. L4-L5: Combined anterior and posterior instrumented fusion. No spinal canal stenosis. Mild left neural foraminal stenosis. L5-S1: Combined anterior and posterior instrumented fusion. No spinal canal stenosis. Mild left neural foraminal stenosis. IMPRESSION: 1. Posterior instrumented fusion and decompression from L3-S1 with L4-S1 interbody fusion. 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 2. Unchanged chronic adhesive arachnoiditis at L4-L5. 3. 2.7 cm fluid collection in the left L3-L4 decompression space most likely chronic seroma. Dictated by: Erich Thao M.D. The radiology attending physician has personally reviewed this study, and had reviewed and/or edited this written report and agrees with it. Electronically signed by: Radha Corado M.D. Erich Kern MD IMG MRI PROCEDURES F inal Result * CT Lumbar Spine WO Contrast (08/08/2024 1:51 PM MOBILE LOUNGE DRIVER) Anatomical Region Laterality Modality Spine N/A Computed Tomogra phy Erich Kern MD IMG CT PROCEDURES Fi nal Result from Last 3 Months Insurance MEDICARE MEDICARE [employer] MEDICARE [employer] MED[employer] Advance Directives For more information, please contact: [phone] * Full Code (Latest Code Status on File) Date Activated Date Inactivated Comments 09/03/2021 6:51 PM 09/06/2021 5:05 PM * Full Code Date Activated Date Inactivated Comments 12/29/2017 10:54 AM 12/30/2017 2:41 AM Care Teams Pipeline Inspector Relationship Specialty Start Date End Date Rico Lewis MD [address] [place] [address] PCP - General 02/09/18 Winter Sanchez, RN Registered Nurse 02/10/18 Jv Mathis MD [address] [place] [address] [address] Anesthesiologist Pain Management 07/17/22
--- OUTSIDE RECORDS SUMMARY | 2024-10-25 08:57 | XMS_ITS | Encounter Summary ---
Author Organization [facility] Address [address] [place] [address] Phone Care Team Providers Care Supervisor Border Department Name Role Phone Rico Lewis MD Primary Care Provider [phone] Winter Sanchez RN Unavailable [facility] Jv Bowden MD Unavailable [phone] Encounter Details Date Type Department Care Team (Latest Contact Info) Description 05/16/2022 Orders Only [facility] Scanning, Provider Social History Tobacco Use Types Packs/Day Years Used Date Smoking Tobacco: Former Cigarettes 0 01/03/1971 - 01/03/2021 Smokeless Tobacco: Never Alcohol Use Standard Drinks/Week Comments No 0 (1 standard drink = 0.6 oz pur e alcohol) AUDIT-C Answer Date Recorded Q1: How often do you have a drink containing alc ohol? Never 08/15/2021 Average Number of Drinks Not on file 021 Q3: How often do you have si x or more drinks on one occasion? Never 08/15/2021 PHQ-2 Answer Date Recorded PHQ-2 Total Score (If total score is 3 or more points, staff should administer the PHQ-9) 1 05/14/2022 Sex and Gender Information Value Date Recorded Sex Assigned at Not on file Legal Sex Male 11:10 PM PARCEL POST ORDER CLERK Gender Identity Male 01/23/2021 2:22 PM CDT Sexual Orientation Straight 01/23/2021 2: 22 PM CDT Occupation Industry Job Start Date Job End Date disability Not on file Not on file Not on file documented as of this encounter Plan of Treatment Upcoming Encounters Date Type Department Care Team (Latest Contact Info) Description 11/22/2024 7:30 AM CDT Hospital Encounter [facility] [address] [place] [address] Erich Kern MD [address] [place] [address] 11/22/2024 7:30 AM CDT Anesthesia Event [facility] [address] [place] [address] Buddy Jordan NP [phone] [place] [address] 11/22/2024 7:30 AM CDT - 11/22/2024 1:45 PM CDT Surgery [facility] Operating [address] [place] [address] Erich Kern MD [address] [place] [address] FUSION DECOMPRESSION LAMINECTOMY WITH INSTRUMENTATION - [employer] [...] with neurogenic claudication 11/22/2024 7:30 AM CDT documented as of this encounter Goals Goal Patient Goal Type Associated Problems Recent Progress Patient-Stated? Author BH-Pain Behavioral Health Worsening( 2:10 PM CDT) No Zuleika George, RN Note: Patient will establish a comfort-function goal and identify the pain level that will allow the patient to perform desired activities and achieve an acceptable quality of life. <enter goal here> General On track( 019 1:14 PM PARCEL POST ORDER CLERK) Yes Vivian De La Vega, RAYA Note: Fishing Walking dogs Working around house documented as of this encounter Procedures Procedure Name Priority Date/Time Associated Diagnosis Comments SCAN - RADIOLOGY/IMAGING 05/16/2022 documented in this encounter Results * SCAN - RADIOLOGY/IMAGING (05/16/2022) Anatomical Region Laterality Modality Other us Provider Scanning Edited Result - Final documented in this encounter Visit Diagnoses Not on filedocumented in this encounter Care Teams Supervisor Border Department Relationship Specialty Start Date End Date Rico Lewis MD [address] [place] [address] PCP - General 02/09/18 Winter Sanchez, RAYA Registered Nurse 02/10/18 Jv Mathis MD [address] [place] [address] [address] Anesthesiologist Pain Management 07/17/22 documented as of this encounter
--- OUTSIDE RECORDS SUMMARY | 2024-10-25 08:57 | XMS_ITS | Patient Health Summary ---
Author Organization [facility] [employer] Address [address] [place] [address] Care Team Providers Care Copy Reader Name Role Phone Rico Lewis MD Primary Care Provider [phone] Note from [facility],non-owned Affiliates and Associated Physician Practices is amultiple site organization consisting of ambulatory clinics and hospital sitesin [place], [place], [place] and [place]. This disclosure is being madepursuant to the Care Everywhere program and may not contain all information available regarding this patient. Last updated 18.[facility] [employer] Allergies No known active allergies Medications * Be aware that medications may not be up to date on this document. Alwaysverify current medications with the patient. * LOSARTAN POTASSIUM PO Take 50 mg by mouth every morning * SUMAtriptan (IMITREX) 25 MG tablet Take 25 mg by mouth daily as needed - may repeat one time Maximum daily dose: 200 mg/24 hours * omeprazole (PRILOSEC) 40 MG capsule Take 40 mg by mouth at bedtime * traZODone (DESYREL) 100 MG tablet Take 100 mg by mouth at bedtime * tamsulosin (FLOMAX) 0.4 MG capsule Take 0.4 mg by mouth at bedtime At the same time every day after a meal. * amLODIPine (NORVASC) 10 MG tablet Take 10 mg by mouth every morning * FLUoxetine (PROZAC) 40 MG capsule Take 40 mg by mouth every morning * pregabalin (LYRICA) 150 MG capsule Take 150 mg by mouth 3 times daily * cyclobenzaprine (FLEXERIL) 10 MG tablet Take 10 mg by mouth 3 times daily as needed for Muscle Spasms * acetaminophen (TYLENOL) 500 MG tablet Take 1,000 mg by mouth as needed for Fever or Pain Maximum allowable Acetaminophen amount = 4 Grams(4000 mg) / 24 hours. * oxyCODONE-acetaminophen (PERCOCET) 10-325 MG tablet(Started 03/21/2019) Take 1 tablet by mouth every 6 hours as needed for Pain Earliest Fill Date: 03/21/19 Social History Tobacco Use Types Packs/Day Years [...] Mass Index 30.3 03/30/2019 9:27 AM CDT Procedures * CARDIAC EKG ORDER(Performed 04/07/2019) * CARDIAC EKG ORDER(Performed 03/22/2019) * FL DESIREE SURGERY LESS 60 MIN(Performed 03/21/2019) Performed for Low back pain, unspecified back pain laterality, unspecified chronicity, with sciatica presence unspecified * ENDOTRACHEAL TUBE NOTE(Performed 03/21/2019) * PATHOLOGY TISSUE(Performed 03/21/2019) Performed for Failure of spinal cord stimulator, initial encounter ([facility]) * REVISION/REMOVAL SPINAL CORD NEUROSTIMULATOR(Performed 03/21/2019) Performed for Failure of spinal cord stimulator, initial encounter ([facility]) * XR SPINE ENTIRE 2 OR 3VW(Performed 02/28/2019) Performed for Failure of spinal cord stimulator, initial encounter (HCC) * XR CHEST 2VW(Performed 02/28/2019) Performed for Pre-op testing * PT-INR [facility](Performed 02/28/2019) Performed for Pre-op testing * PTT [facility](Performed 02/28/2019) Performed for Pre-op testing * CBC W AUTO DIFFERENTIAL(Performed 02/28/2019) Performed for Pre-op testing * BASIC METABOLIC PANEL (CALCIUM TOTAL)(Performed 02/28/2019) Performed for Pre-op testing * EKG 12-LEAD(Performed 02/28/2019) Performed for Pre-op testing Results * CARDIAC EKG ORDER (04/07/2019 7:38 AM CDT) Only the most recent of2 resultswithin the time period is included. Narrative 04/07/2019 7:38 AM CDT Ordered by an unspecified provider. Scanned Document CARDIAC SERVICES ORD ERABLES * FL DESIREE SURGERY LESS 60 MIN (03/21/2019 8:30 AM CDT) Narrative [facility] - 03/21/2019 8:56 AM CDT Fluoroscopy was used for this exam in the OR. Please see the Operative report. 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 03/23/2019 8:03 PM [facility] PATH[facility] LAB Gross Description The requisition and specimen label(s) are identified with the patient name, Marko Marti Received fresh, specimen A, spinal nerve stimulator , is a foreign object measuring 5.8 x 5.5 x 1.6 cm. There are two wires protruding from the foreign object measuring 57 cm in length, with a diameter of 0.1 cm and 28 cm with a diameter of 0.1 cm. On the metal device it reads: 916 18 ION WITH [employer] S/N.[id number] ANS 3716. No sections are taken as the specimen is submitted for gross examination only. ED/met 03/23/2019 8:03 PM [facility] PATHOLOG[facility] Disclaimer The performance characteristics of all immunohistochemical and indirect immunofluorescence stains (if any) cited in this report were determined by the Histopathology Laboratory of [facility]. Some of these tests were developed by our own laboratory and have not been cleared or approved by the US Food and Drug Administration. The FDA does not require this test to go through premarket FDA review. These tests are used for clinical purposes. They should not be regarded as investigational or for research. This laboratory is certified under the Clinical Laboratory Improvement Amendments (CLIA) as qualified to perform high complexity clinical laboratory testing. This case has been personally reviewed and interpreted by the attending (teaching) pathologist. 03/23/2019 8:03 PM T [facility] PATHOLOGY LAB Embedded Images 03/23/2019 8:03 PM T [facility] PATHOLOG[facility] LAB Gross only MISCELLANEOUS SAMPLES / Unknown 03/21/2019 8:27 AM CDT 03/21/2019 12:14 PM CDT Jacob Zaidi MD LAB - PATHOLOGY/CYTO LOGY ORDERABLES [facility] LAB [address] [place] [address], [facility] [phone] * XR SPINE ENTIRE 2 OR 3VW (02/28/2019 11:14 AM CDT) Anatomical Region Laterality Modality Radiographic Jeanne ging 02/28/2019 3:09 PM CDT Impressions 02/28/2019 3:34 PM CDT Impression: 1. No significant scoliosis. Dictated by Ben Lazar MD (Resident) IDr. ERNST MD have personally reviewed and interpreted this examination/study. This report was electronically signed by ERNST KUMAR MD on 02/28/2019 3:34 PM . Narrative 02/28/2019 3:34 PM CDT Exam: XR SPINE ENTIRE kidneys Date: 02/28/2019 11:14 AM History: pre op for spinal cord stimulator removal Comparison: None. Findings: The images are not labeled with respect to laterality. There is no significant scoliosis. Postoperative appearance of instrumented fusion of the lumbar spine from L4 to S1 is present. A stimulator generator is present in the flank region. One lead is seen extending into the thoracic spinal canal. Another lead extends to the soft tissues at the posterior cervical region. There is no coronal plane imbalance. There is positive sagittal plane imbalance estimated about 3.5 cm. Degenerative changes are present. Procedure Note Ernst Kumar MD - 02/28/2019 Exam: XR SPINE ENTIRE kidneys Date: 02/28/2019 11:14 AM History: pre op for spinal cord stimulator removal Comparison: None. Findings: The images are not labeled with respect to laterality. There is no significant scoliosis. Postoperative appearance of instrumented fusionof the lumbar spine from L4 to S1 is present. A stimulator generator is present in the flank region. One lead is seen extending into thethoracic spinal canal. Another lead extends to the soft tissues at the posterior cervical region. There is no coronal plane imbalance. There is positive sagittal plane imbalance estimated about 3.5 cm. Degenerative changesare present. Impression: 1. No significant scoliosis. Dictated by Ben Lazar MD (Resident) Dr. ERNST De Paz MD have personally reviewed and interpreted this examination/study. This report was electronically signed by ERNST KUMAR MD on02/28/2019 3:34 PM . Jacob Zaidi MD DIAGNOSTIC IMAGING O RDERABLES * XR CHEST 2VW (02/28/2019 11:14 AM CDT) Anatomical Region Laterality Modality Chest Radiographic Jeanne ging 02/28/2019 11:2 7 AM CDT Impressions 02/28/2019 12:02 PM CDT IMPRESSION: No acute pulmonary process. Dictated by Catarina May MD (residential remodeling subcontractor). Dr. EUGENIO De Paz have personally reviewed and interpreted this examination/study. This report was electronically signed by EUGENIO SCHMITT on 02/28/2019 12:02 PM . Narrative 02/28/2019 12:02 PM CDT EXAMINATION: XR CHEST 2VW HISTORY: Z01.818: Pre-op testing COMPARISON: None FINDINGS: A dislodged spinal cord stimulator terminates in the soft tissues of the left neck. A second spinal minor overlies the thoracic spine. There is no focal consolidation, pleural effusion, or pneumothorax. The cardiomediastinal silhouette is normal. Degenerative changes are noted in the thoracic spine. Procedure Note Eugenio Schmitt MD - 02/28/2019 EXAMINATION: XR CHEST 2VW HISTORY: Z01.818: Pre-op testing COMPARISON: None FINDINGS: A dislodged spinal cord stimulator terminates in the soft tissues of the left neck. A second spinal minor overlies the thoracic spine. There is no focal consolidation, pleural effusion, or pneumothorax. The cardiomediastinal silhouette is normal. Degenerative changes are notedin the thoracic spine. IMPRESSION: No acute pulmonary process. Dictated by Catarina May MD (residential remodeling subcontractor). Dr. EUGENIO De Paz have personally reviewed and interpreted this examination/study. This report was electronically signed by EUGENIO SCHMITT on 02/28/201912:02 PM . Jacob Zaidi MD DIAGNOSTIC IMAGING O RDERABLES * PTT [facility] (02/28/2019 10:42 AM CDT) APTT 34.7 23.0 - 38.4 Seconds 02/28/2019 11:46 AM CDT [facility] Comment: * Please Note: New therapeutic range for heparin therapy. * Suggested therapeutic range for full dose I.V. heparin therapy for venous thromboembolism is 65 to 103 seconds. Blood BLOOD SPECIMEN / Unknown Lab Venipuncture / Unknown 02/28/2019 10:42 AM CDT 02/28/2019 11:03 AM CDT Jacob Zaidi MD LAB - COAGULATION OR DERABLES Performing Organization Address [facility] Co de Phone Number [address] [phone] * PT-INR [facility] (02/28/2019 10:42 AM CDT) PT 13.1 12.1 - 14.8 Seconds 02/28/2019 11:45 AM CDT [facility] INR 1.0 See Comment 02/28/2019 11:45 AM T [facility] Comment: The suggested therapeutic range for standard coumadin (warfarin) therapy is an INR of 2.0-3.0. For high-risk patients (Mechanical Mitral Valve Prosthesis, etc.), the suggested prophylactic therapeutic range is an INR of 2.5-3.5. Blood BLOOD SPECIMEN / Unknown Lab Venipuncture / Unknown 02/28/2019 10:42 AM CDT 02/28/2019 11:03 AM CDT Jacob Zaidi MD LAB - COAGULATION OR DERABLES Performing Organization Address [facility]/ZIP Co de Phone Number [address] [phone] * (ABNORMAL) CBC WITH DIFFERENTIAL (02/28/2019 10:42 AM CDT) WBC 6.8 3.5 - 10.5 10 3/uL 02/28/2019 11:07 AM [facility] RBC 4.97 4.30 - 5.70 10 6/uL 02/28/2019 11:07 AM [facility] Hemoglobin 15.1 13.5 - 17.5 g/dL 02/28/2019 11:07 AM [facility] Hematocrit 43.4 39.0 - 50.0 % 02/28/2019 11:07 AM [facility] MCV 87.3 81.0 - 97.0 fL 02/28/2019 11:07 AM [facility] MCH 30.4 28.0 - 34.0 pg 02/28/2019 11:07 AM [facility] MCHC 34.8 32.0 - 36.0 g/dL 02/28/2019 11:07 AM [facility] Platelet Count 235 150 - 400 10 3/uL 02/28/2019 11:07 AM [facility] RDW-SD 42.3 36.0 - 50.0 fL 02/28/2019 11:07 AM [facility] RDW-CV 13.1 11.2 - 14.8 % 02/28/2019 11:07 AM [facility] MPV 9.5 9.3 - 12.8 fL 02/28/2019 11:07 AM [facility] nRBC Absolute 0.00 0 10 3/uL 02/28/2019 11:07 AM [facility] nRBC Auto 0.0 0 /100 WBC 02/28/2019 11:07 AM [facility] Neutrophils % 52.0 35.0 - 70.0 % 02/28/2019 11:07 AM [facility] Lymphocytes % 34.6 19.7 - 55.1 % 02/28/2019 11:07 AM [facility] Monocytes % 11.4 3.0 - 15.0 % 02/28/2019 11:07 AM [facility] Eosinophils % 1.3 0.0 - 6.0 % 02/28/2019 11:07 AM [facility] Basophil % 0.6 0.0 - 1.5 % 02/28/2019 11:07 AM [facility] Neutrophils Absolute 3.6 1.6 - 7.0 10 3/uL 02/28/2019 11:07 AM [facility] Lymphocyte Absolute 2.4 0.8 - 2.9 10 3/uL 02/28/2019 11:07 AM [facility] Monocytes Absolute 0.78(H) 0.14 - 0.66 10 3/uL 02/28/2019 11:07 AM [facility] Eosinophils Absolute 0.09 0.00 - 0.45 10 3/uL 02/28/2019 11:07 AM [facility] Basophils Absolute 0.04 0.00 - 0.06 10 3/uL 02/28/2019 11:07 AM [facility] Immature Granulocytes % 0.1 0.0 - 1.0 % 02/28/2019 11:07 AM [facility] Blood BLOOD SPECIMEN / Unknown Lab Venipuncture / Unknown 02/28/2019 10:42 AM CDT 02/28/2019 11:03 AM T Jacob Zaidi MD LAB - HEMATOLOGY ORD ERABLES [address] [phone] * BASIC METABOLIC PANEL (CALCIUM TOTAL) (02/28/2019 10:42 AM CDT) BUN 9 7 - 26 mg/dL 02/28/2019 11:20 AM [facility] Creatinine 1.0 0.6 - 1.2 mg/dL 02/28/2019 11:20 AM [facility] Sodium 136 136 - 145 mmol/L 02/28/2019 11:20 AM [facility] Potassium 4.5 3.5 - 4.5 mmol/L 02/28/2019 11:20 AM [facility] Chloride 100 98 - 107 mmol/L 02/28/2019 11:20 AM [facility] CO2 25 22 - 29 mmol/L 02/28/2019 11:20 AM [facility] Glucose 85 70 - 115 mg/dL 02/28/2019 11:20 AM [facility] Calcium 9.4 8.4 - 10.2 mg/dL 02/28/2019 11:20 AM [facility] Anion Gap 16 8 - 18 02/28/2019 11:20 AM CDT [facility] BUN/Creatinine Ratio 9 7 - 23 02/28/2019 11:20 AM CDT [facility] Osmolality Calculated 280 270 - 300 mOsm/kg 02/28/2019 11:20 AM CDT [facility] eGFR >60 >60 mL/min/1.7 3 m2 02/28/2019 11:20 AM CDT [facility] Blood BLOOD SPECIMEN / Unknown Lab Venipuncture / Unknown 02/28/2019 10:42 AM CDT 02/28/2019 11:03 AM CDT Jacob Zaidi MD LAB - CHEMISTRY SULEIMAN GRAY Performing Organization Address City/[facility]/ZIP Co de Phone Number [address] [phone] * EKG 12-LEAD (02/28/2019 8:37 AM CDT) Ventricular Rate 61 BPM [facility] Atrial Rate 61 BPM [facility] P-R Interval 180 ms [facility] QRS Duration ms 86 ms [facility] Q-T Interval ms 400 ms [facility] QTC Calculation (Bezet) 402 ms [facility] Calculated P [place] 52 degrees [facility] Calculated R [place] 42 degrees [facility] Calculated T [place] 60 degrees [facility] Interpretation EKG NORMAL SINUS RHYTHM NORMAL ECG NO PREVIOUS ECGS AVAILABLE Confirmed by Karsten Amos, Steele ([id number]), news video editor HUGO VERNON ([id number]) on 03/09/2019 12:11:12 PM [facility] 02/28/2019 8:37 AM CDT 03/09/2019 12:11 PM CDT Jacob Zaidi MD ECG ORDERABLES [facility] Care Teams Copy Reader Relationship Specialty Start Date End Date Rico Lewis MD PCP - General 12/15/18
--- OUTSIDE RECORDS SUMMARY | 2024-10-25 08:57 | XMS_ITS | Encounter Summary ---
Author Organization [facility] Healthcare Address [address] [place] [address] Care Team Providers Care Blanking Press Operator Name Role Phone Rico Lewis MD Primary Care Provider [phone] Winter Sanchez RN Unavailable Unavailabl e Jv Mathis MD Unavailable [phone] Encounter Details Date Type Department Care Team (Late st Contact Info) Description 04/10/2020 Telephone [facility] [address] [facility] [address], [address] [place] [address] Jv Mathis MD [address] [place] [address] [address] [place] [address] Social History Tobacco Use Types Packs/Day Years Used Date Smoking Tobacco: Every Day Cigarettes Smokeless Tobacco: Former Alcohol Use Standard Drinks/Week Comments No 0 (1 standard drink = 0.6 oz pur e alcohol) PHQ-2 Answer Date Recorded PHQ-2 Score 2 01/04/2020 Sex and Gender Information Value Date Recorded Sex Assigned at Not on file Legal Sex Male 11:10 PM CUT OUT PRESS OPERATOR Gender Identity Male 01/23/2021 2:22 PM CDT Sexual Orientation Straight 01/23/2021 2: 22 PM CDT Occupation Industry Job Start Date Job End Date disability Not on file Not on file Not on file documented as of this encounter Plan of Treatment Upcoming Encounters Date Type Department Care Team (Latest Contact Info) Description 11/22/2024 7:30 AM CDT Hospital Encounter [facility] Operating Room [address] [place] [id number] Erich Kern MD [address] [place] [address] 11/22/2024 7:30 AM CDT Anesthesia Event [facility] Operating Room [address] [place] [address] Buddy Jordan NP [address] [facility] [phone] [place] [address] 11/22/2024 7:30 AM CDT - 11/22/2024 1:45 PM CDT Surgery [facility] Operating Room [address] [place] [phone] Erich Kern MD [address] [facility] [place] [address] FUSION DECOMPRESSION LAMINECTOMY WITH INSTRUMENTATION - MEDTRONIC [...] here> General On track( 019 1:14 PM CUT OUT PRESS OPERATOR) Yes Vivian De La Vega, RAYA Note: Fishing Walking dogs Working around house documented as of this encounter Visit Diagnoses Not on filedocumented in this encounter Additional Health Concerns Infection Onset Date Last Indicated Resolved Time COVID: Recovered Comment:Pt tested COVID+ 05/27/21. Pt has been afebrile off antipyretics >24hrs. Results in media section Mini Angela 08/20/2021 06/06/2021 08/20/2021 09/26/2021 3:[address] documented as of this encounter Care Teams Blanking Press Operator Relationship Specialty Start Date End Date Rico Lewis MD [address] [place] [address] PCP - General 02/09/18 Winter Sanchez, RN Registered Nurse 02/10/18 Jv Mathis MD [address] [place] [address] [address] Anesthesiologist Pain Management 07/17/22 documented as of this encounter
--- OUTSIDE RECORDS SUMMARY | 2024-10-25 08:57 | XMS_ITS | Clinical Summary ---
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 resonance imaging [...] it. Electronically signed by: Radha Corado M.D. us Erich Kern MD IMG MRI PROCEDURES F inal Result * CT Lumbar Spine WO Contrast (08/08/2024 1:51 PM SIENE MAKER) Anatomical Region Laterality Modality Spine N/A Computed Tomogra phy Erich Kern MD IMG CT PROCEDURES Fi nal Result from Last 3 Months Insurance MEDICARE MEDICARE [employer] [facility] MEDICARE Address: [address] [address] [place] [address] MEDICARE SOLUTIONS MEDICARE SOLUTIONS [facility] MEDICARE Address: [facility] [address] [place] [address] Advance Directives For more information, please contact: [phone] * Full Code (Latest Code Status on File) Date Activated Date Inactivated Comments 09/03/2021 6:51 PM 09/06/2021 5:05 PM * Full Code Date Activated Date Inactivated Comments 12/29/2017 10:54 AM 12/30/2017 2:41 AM Care Teams Fashion Artist Relationship Specialty Start Date End Date Rico Lewis MD [address] [place] [address] PCP - General 02/09/18 Winter Sanchez, RN Registered Nurse 02/10/18 Jv Mathis MD [address] [place] [address] DR ZUNIGA [address] [place] [address] Anesthesiologist Pain Management 07/17/22
--- OUTSIDE RECORDS SUMMARY | 2024-10-25 08:57 | XMS_ITS | Clinical Summary ---
Author Organization [facility] [employer] Address [address] [facility] [place] [address] Care Team Providers Care Educational Psychology Teacher Name Role Phone Rico Lewis MD Primary Care Provider [phone] Source Comments [facility] [employer],non-owned Affiliates and Associated Physician Practices is amultiple site organization consisting of ambulatory clinics and hospital sitesin [place], [place], [place] and [place]. This disclosure is being madepursuant to the Care Everywhere program and may not contain all information available regarding this patient. Last updated 18.[facility] Allergies No known active allergies Medications * [...] Mass Index 30.3 03/30/2019 9:27 AM CDT Plan of Treatment Health Maintenance Due Date Last Done Comments COLOGUARD (AGES 45-75) - COL ON CA SCREENING 1957 COLON MONITORING 1957 COLONOSCOPY - COLON CA SCREENING 1957 CT COLONOGRAPHY - COLON CA SCREENING 1957 Colorectal Cancer Screening 1957 FIT - COLON CA SCREENING 1957 FLEX SIG - COLON CA SCREENING 1957 LIPID TESTING 1957 MEDICARE AWV 12 MONTHS 1957 HEPATITIS C SCREENING 01/11/1975 DTAP/TDAP/TD VACCINES (1 - Tdap) 01/16/1976 PNEUMOCOCCAL VACCINE 50+ (1 of 2 - PCV) 01/16/1976 ZOSTER VACCINE (1 of 2) 2007 AAA SCREENING 2022 SCREENING FOR DIABETES 02/28/2022 02/28/2019 COVID-19 VACCINE (1 - 2023-2 5 season) 2024 INFLUENZA VACCINE (#1) 2024 DEPRESSION SCREENING 09/07/2024 Respiratory Syncytial Virus (RSV) Vaccine Pt: or over 60 yrs (1 - 1-dose 75+ series) 01/16/2032 HEPATITIS B VACCINE Aged Out No longe r eligible based on patient's age to complete this topic HIB VACCINE Aged Out No longer eligi ble based on patient's age to complete this topic HPV VACCINE Aged Out No longer eligi ble based on patient's age to complete this topic MENINGOCOCCAL (Group B) VACCINE Aged Out No longer eligible based on patient's age to complete this topic MENINGOCOCCAL VACCINE Aged Out No umberto nani eligible based on patient's age to complete this topic Procedures Procedure Name Priority Date/Time Associated Diagnosis Comments BASIC METABOLIC PANEL (CALCIUM TOTAL) Routine 02/28/2019 10:42 AM CDT Pre-op testing from Last 3 Months or Most Recently Relevant to Health Maintenance Results * BASIC METABOLIC PANEL (CALCIUM TOTAL) (02/28/2019 10:42 AM CDT) BUN 9 7 - 26 mg/dL 02/28/2019 11:20 AM [facility] Creatinine 1.0 0.6 - 1.2 mg/dL 02/28/2019 11:20 AM [facility] Sodium 136 136 - 145 mmol/L 02/28/2019 11:20 AM [facility] Potassium 4.5 3.5 - 4.5 mmol/L 02/28/2019 11:20 AM [facility] Chloride 100 98 - 107 mmol/L 02/28/2019 11:20 AM [facility] CO2 25 22 - 29 mmol/L 02/28/2019 11:20 AM [facility] Glucose 85 70 - 115 mg/dL 02/28/2019 11:20 AM [facility] Calcium 9.4 8.4 - 10.2 mg/dL 02/28/2019 11:20 AM [facility] Anion Gap 16 8 - 18 02/28/2019 11:20 AM [facility] BUN/Creatinine Ratio 9 7 - 23 02/28/2019 11:20 AM [facility] Osmolality Calculated 280 270 - 300 mOsm/kg 02/28/2019 11:20 AM [facility] eGFR >60 >60 mL/min/1.7 3 m2 02/28/2019 11:20 AM [facility] Blood BLOOD SPECIMEN / Unknown Lab Venipuncture / Unknown 02/28/2019 10:42 AM CDT 02/28/2019 11:03 AM T Jacob Zaidi MD LAB - CHEMISTRY SULEIMAN GRAY [facility] Organization Address City/State/ZIP Co de Phone Number [facility] [address] [phone] from Last 3 Months or Most Recently Relevant to Health Maintenance Care Teams Educational Psychology Teacher Relationship Specialty Start Date End Date Rico Lewis MD PCP - General 12/15/18
== END 2024-10-25 08:51 | disposition home or self-care (01) ==
LOC: CHSIMG 08:52
PROVIDERS: PCP Internal Medicine; Visit Provider Internal Medicine
DX: Z12.2 Encounter for screening for malignant neoplasm of respiratory organs (principal); Z87.891 Personal history of nicotine dependence; K74.60 Unspecified cirrhosis of liver; K80.20 Calculus of gallbladder without cholecystitis without obstruction
CPT/HCPCS: 71271; 74177; Q9967

== ENCOUNTER 2025-02-16 13:19 | Outpatient (CLI) | payer MEDICARE, SELFPAY ==
--- NOTE | ~2025-02-16 | MR_ITS ---
MRI of the cervical spine Clinical History: Spinal stenosis Technique: Axial T2-weighted and gradient images, and sagittal T1-weighted, T2-weighted, and STIR alvin ges were acquired. Findings: There is no fracture in the cervical spine. There is 3 mm retrolisthesis of C5 over C6. The re is type I Modic signal changes about the C6-C7 disc space. No suspicious bone marrow signal abnorm ality seen. At C2-C3, there is disc bulge with mild to moderate canal stenosis and mild flattening the ventral co rd. There is probable preservation of bilateral neural foramina. At C3-C4, there is disc osteophyte complex with moderate canal stenosis and mild ventral cord flatten ing. Probable minimal bilateral neural foraminal narrowing. At C4-C5, there is disc osteophyte complex with severe canal stenosis and moderate to severe cord com pression. There is advanced bilateral neural foraminal narrowing. At C5-C6, there is severe degenerative disc narrowing. There is mild disc ossify complexes with moder ate to severe canal stenosis and mild cord compression. There is severe bilateral neural foraminal na rrowing. At C6-C7, there is disc osteophyte complex with moderate to severe canal stenosis and moderate cord c ompression. There is severe bilateral neural foraminal narrowing. No abnormal signal evident in the spinal cord. Paravertebral soft tissues are unremarkable. Impression: Severe degenerative spondylosis, with multilevel significant canal stenosis and cord compression, as well as multilevel neural foraminal narrowing. Please see details above. Reviewed, dictated and finalized at [facility]. Impression: Severe degenerative spondylosis, with multilevel significant canal stenosis and cord compression, as well as multilevel neural foraminal narrowing. Please see details above.
--- OUTSIDE RECORDS SUMMARY | 2025-02-16 13:57 | XMS_ITS | Clinical Summary ---
Author Organization [facility] [employer] Address [address] [facility] [place] [address] Care Team Providers Care Product Demonstrator Name Role Phone Rico Lewis MD Primary Care Provider [phone] Source Comments [facility] [employer],non-owned Affiliates and Associated Physician Practices is amultiple site organization consisting of ambulatory clinics and hospital sitesin [place], [place], [place] and [place]. This disclosure is being madepursuant to the Care Everywhere program and may not contain all information available regarding this patient. Last updated 18.[facility] [employer] Allergies No known active allergies Medications * Be aware that medications may not be up to date on this document. Alwaysverify current medications with the patient. LOSARTAN POTASSIUM PO Take 50 mg by [...] mg by mouth 3 times daily Active cyclobenzaprin e (FLEXERIL) 10 MG tablet Take 10 mg by mouth 3 times daily as needed for Muscle Spasms Active acetaminophen (TYLENOL) 500 MG tablet Take 1,000 mg by mouth as needed for Fever or Pain Maximum allowable Acetaminophen amount = 4 Grams (4000 mg) / 24 hours. Active oxyCODONE-acet aminophen (PERCOCET) 10-325 MG tablet Take 1 tablet by mouth every 6 hours as needed for Pain Earliest Fill Date: 03/21/19 60 tablet 9 Active Social History Tobacco Use Types Packs/Day [...] at Not on file Legal Sex Male 9:36 AM CDT Gender Identity Not on file Sexual [...] 9:27 AM CDT Height 188 cm (6' 2) 03/30/2019 9:27 AM CDT Body Mass Index [...] COLON CA SCREENING 1957 LIPID TESTING 1957 HEPATITIS C SCREENING 01/11/1975 DTAP/TDAP/TD VACCINES (1 - Tdap) 01/16/1976 PNEUMOCOCCAL VACCINE 50+ (1 of 2 - PCV) 01/16/1976 ZOSTER VACCINE (1 of 2) 2007 AAA SCREENING 2022 SCREENING FOR DIABETES 02/28/2022 02/28/2019 COVID-19 VACCINE (1 - 2023-2 5 season) 2024 DEPRESSION SCREENING 09/07/2024 INFLUENZA VACCINE (Season Ended) 2025 Respiratory Syncytial Virus (RSV) Vaccine Pt: or [...] to complete this topic MENINGOCOCCAL (Group B) VACC INE SHARED DECISION-MAKING Aged Out No longer eligibl e based on patient's age to complete this topic MENINGOCOCCAL GROUPS A/C/Y/W VACCINE Aged Out No longer eligible b ased on patient's age to complete this topic Procedures Procedure Name Priority Date/Time Associated Diagnosis Comments BASIC METABOLIC PANEL (CALCIUM TOTAL) Routine 02/28/2019 10:42 AM CDT Pre-op testing from Last 3 Months or Most Recently Relevant to Health Maintenance Results * BASIC METABOLIC PANEL (CALCIUM TOTAL) (02/28/2019 10:42 AM CDT) BUN 9 7 - 26 mg/dL 02/28/2019 11:20 AM [facility] Creatinine 1.0 0.6 - 1.2 mg/dL 02/28/2019 11:20 AM [facility] Sodium 136 136 - 145 mmol/L 02/28/2019 11:20 AM [facility] Potassium 4.5 3.5 - 4.5 mmol/L 02/28/2019 11:20 AM [facility] Chloride 100 98 - 107 mmol/L 02/28/2019 11:20 AM [facility] CO2 25 22 - 29 mmol/L 02/28/2019 11:20 AM [facility] Glucose 85 70 - 115 mg/dL 02/28/2019 11:20 AM [facility] Calcium 9.4 8.4 - 10.2 mg/dL 02/28/2019 11:20 AM [facility] Anion Gap 16 8 - 18 02/28/2019 11:20 AM [facility] BUN/Creatinine Ratio 9 7 - 23 02/28/2019 11:20 AM [facility] Osmolality Calculated 280 270 - 300 mOsm/kg 02/28/2019 11:20 AM [facility] eGFR >60 >60 mL/min/1.7 3 m2 02/28/2019 11:20 AM [facility] Blood BLOOD SPECIMEN / Unknown Lab Venipuncture / Unknown 02/28/2019 10:42 AM CDT 02/28/2019 11:03 AM [facility] us Jacob Zaidi MD LAB - CHEMISTRY ORDERABLES F inal Result Performing Organization Address City/State/[facility] Co de Phone Number [address] [phone] from Last 3 Months or Most Recently Relevant to Health Maintenance Insurance MEDICARE MEDICARE Care Teams Product Demonstrator Relationship Specialty Start Date End Date Rico Lewis MD PCP - General 12/15/18
--- OUTSIDE RECORDS SUMMARY | 2025-02-16 13:57 | XMS_ITS | Encounter Summary ---
Author Organization [facility] Address [address] [place] [address] Care Team Providers Care Granite Sandblaster Apprentice Name Role Phone Rico Lewis MD Primary Care Provider [phone] Winter Sanchez RN Unavailable Unavailabl e Jv Mathis MD Unavailable [phone] Alea Wing RN Unavailable [phone] Encounter Details Date Type Department Care Team (Late st Contact Info) Description 04/10/2020 Telephone [facility] [address] [facility] A, [facility] [address] [place] [address] Jv Mathis MD [address] [place] [address] [address] [place] [address] Social History Tobacco Use Types Packs/Day Years Used Date Smoking Tobacco: Every Day Cigarettes Smokeless Tobacco: Former Alcohol Use Standard Drinks/Week Comments No 0 (1 standard drink = 0.6 oz pur e alcohol) PHQ-2 Answer Date Recorded PHQ-2 Score 2 01/04/2020 Sex and Gender Information Value Date Recorded Sex Assigned at Not on file Legal Sex Male 11:10 PM LASTING MACHINE OPERATOR BED Gender Identity Male 01/23/2021 2:22 PM CDT Sexual Orientation Straight 01/23/2021 2: 22 PM CDT Occupation Industry Job Start Date Job End Date disability Not on file Not on file Not on file documented as of this encounter Plan of Treatment Not on file documented as of this encounter Goals Goal [...] here> General On track( 019 1:14 PM LASTING MACHINE OPERATOR BED) Yes Vivian De La Vega, RAYA Note: Fishing Walking dogs Working around house documented as of this encounter Visit Diagnoses Not on filedocumented in this encounter Additional Health Concerns Infection Onset Date Last Indicated Resolved Time COVID: Recovered Comment:Pt tested COVID+ 05/27/21. Pt has been afebrile off antipyretics >24hrs. Results in media section Mini Miller 08/20/2021 06/06/2021 08/20/2021 09/26/2021 3:[address] documented as of this encounter Care Teams Granite Sandblaster Apprentice Relationship Specialty Start Date End Date Rico Lewis MD [address] [place] [address] PCP - General 02/09/18 Winter Sanchez, RN Registered Nurse 02/10/18 Jv Mathis MD [address] [place] [address] Anesthesiologist Pain Management 07/17/22 Alea Wing, RAYA [address] [facility] [address] [place] [address] [facility] Outpatient Fern Gatherer 11/28/24 12/08/24 documented as of this encounter
--- OUTSIDE RECORDS SUMMARY | 2025-02-16 13:57 | XMS_ITS | Encounter Summary ---
Author Organization [facility] Address [address] [place] [address] Phone Care Team Providers Care Classification Inspector Name Role Phone Rico Lewis MD Primary Care Provider [phone] Winter Sanchez RN Unavailable Unavailabl Jv Bowden MD Unavailable [phone] Alea Wing RN Unavailable [phone] Encounter Details Date Type Department Care Team [...] on file Legal Sex Male 11:10 PM EMERGENCY MEDICAL SERVICE COORDINATOR Gender Identity Male 01/23/2021 2:22 PM CDT [...] here> General On track( 019 1:14 PM EMERGENCY MEDICAL SERVICE COORDINATOR) Yes Vivian De La Vega, RAYA Note: [...] on filedocumented in this encounter Care Teams Classification Inspector Relationship Specialty Start Date End Date Rico Lewis MD [address] [place] [address] PCP - General 02/09/18 Winter Sanchez, RAYA Registered Nurse 02/10/18 Jv Mathis MD [address] [place] [address] [address] Anesthesiologist Pain Management 07/17/22 Alea Wing, RAYA [address] [facility] [address] [place] [address] SHOP Outpatient Fitter Type Bar And Segment 11/28/24 12/08/24 documented as of this encounter
--- OUTSIDE RECORDS SUMMARY | 2025-02-16 13:58 | XMS_ITS | Encounter Summary ---
Author Organization [facility] Healthcare Address [address] [place] [address] Care Team Providers Care Oil Plant Operator Name Role Phone Rico Lewis MD Primary Care Provider + [phone] Winter Sanchez RN Un[facility] Jv Bowden MD Unavailable [phone] Encounter Details Date Type Department Care Team (Latest Contact Info) Description 02/15/2025 11:00 AM CDT - 02/15/2025 11:59 PM CDT Hospital Encounter [id number] Radiology [address] [place] [address] S/P spinal fusion Discharge Disposition: Discharge to home or self care Social History Tobacco Use Types Packs/Day Years Used Date Smoking Tobacco: Former Cigarettes 0 01/03/1971 - 01/03/2021 Smokeless Tobacco: Never Alcohol Use Standard Drinks/Week Comments No 0 (1 standard drink = 0.6 oz pur e alcohol) [facility] Utilities Answer Date Recorded In the past 12 months has [employer], gas, oil, or water [employer] threatened to shut off services in your home? No 11/28/2024 Social Connection and Isolat ion Panel [NHANES] Answer Date Recorded In a typical week, how many times do you talk on the phone with family, friends, or neighbors? More than three times a week 11/28/2024 How often do you get togethe r with friends or relatives? More than three times a week 11/28/2024 How often do you attend chur or presybeterian services? Never 11/28/2024 Do you belong to any clubs o r organizations such as tenriism groups, unions, fraternal or athletic groups, or school groups? No 11/28/2024 How often do you attend meet ings of the clubs or organizations you belong to? Never 11/28/2024 Are you , , di vorced, , never , or living with a partner? 11/28/2024 AUDIT-C Answer Date Recorded Q1: How often do you have a drink containing alcohol? Never 09/28/2024 Q2: How many drinks containi ng alcohol do you have on a typical day when you are drinking? Patient does not drink Q3: How often do you have si x or more drinks on one occasion? Never 09/28/2024 Overall Financial Resource Strain (CARDIA) Answe r Date Recorded How hard is it for you to pa y for the very basics like food, housing, medical care, and heating? Not hard at all 11/28/2024 PHQ-2 Answer Date Recorded PHQ-2 Total Score (If total score is 3 or more points, staff should administer the PHQ-9) 2 01/21/2023 Hunger Vital Sign Answer Date Recorded Within the past 12 months, y ou worried that your food would run out before you got the money to buy more. Never true 11/29/19 25 Within the past 12 months, t he food you bought just didn't last and you didn't have money to get more. Never true 11/28/2024 PRAPARE - Transportation Answer Date Re corded In the past 12 months, has l ack of transportation kept you from medical appointments or from getting medications? No 11/06 In the past 12 months, has l ack of transportation kept you from meetings, work, or from getting things needed for daily living? No 11/28/2024 Housing Stability Vital Sign Answer Aravind e Recorded In the last 12 months, was t here a time when you were not able to pay the mortgage or rent on time? No 11/28/2024 In the past 12 months, how m any times have you moved where you were living? 0 11/28/2024 At any time in the past 12 m [facility], were you homeless or living in a jail (including now)? No 11/28/2024 Personal Safety Answer Date Recorded Have you ever been in or are you currently in a harmful physical or emotional relationship or is someone making you feel afraid or unsafe? Denies 11/22/2024 Sex and Gender Information Value Date Recorded Sex Assigned at Not on file Legal Sex Male 11:10 PM NUCLEAR MEDICINE SPECIALIST Gender Identity Male 01/23/2021 2:22 PM CDT Sexual Orientation Straight 01/23/2021 2: 22 PM CDT Occupation Industry Job Start Date Job End Date disability Not on file Not on file Not on file documented as of this encounter Medications at Time of Discharge acetaminophen (TYLENOL) 500 mg tablet Take 1 tablet (500 mg total) by mouth every 6 (six) hours as needed for pain amLODIPine (NORVASC) 5 mg tablet Take 1 tablet (5 mg total) by mouth every morning 08/04/2023 buPROPion XL (WELLBUTRIN XL) 300 mg 24 hr tablet Take 1 tablet (300 mg total) by mouth every morning 06/07/2021 cholecalciferol, vitamin D3, 1,000 unit tablet,chewable Take 1 tablet/chew tab by mouth every morning citalopram (CeleXA) 20 mg tablet Take 1 tablet (20 mg total) by mouth every morning 08/18/2022 clonazePAM (KlonoPIN) 1 mg tabletIndication s:anxiety Take 1 tablet (1 mg total) by mouth as needed for anxiety 07/19/2023 coenzyme Q10 100 mg capsule Take 1 capsule (100 mg total) by mouth every morning cyanocobalamin (Vitamin B-12) 500 mcg tablet Take 1 tablet (500 mcg total) by mouth every morning fexofenadine (ANDREW) 180 mg tablet Take 1 tablet (180 mg total) by mouth every morning gabapentin (NEURONTIN) 300 mg capsule TAKE ONE CAPSULE BY MOUTH EVERY MORNING, ONE CAPSULE AT NOON, AND TAKE TWO CAPSULES AT NIGHT 120 capsule 1 10/17/2022 losartan (COZAAR) 100 mg tablet Take 1 tablet (100 mg total) by mouth every morning 09/15/2022 nystatin powder Apply 1 Application topically as needed (rash) 04/19/2024 omeprazole (PriLOSEC) 40 mg capsule Take 1 capsule (40 mg total) by mouth every morning 01/07/2018 oxyCODONE (ROXICODONE) 5 mg immediate release tablet Take 1 tablet (5 mg total) by mouth every 6 (six) hours as needed for pain 28 tablet 02/15/2025 rOPINIRole (REQUIP) 4 mg tablet Take 1 tablet (4 mg total) by mouth 2 (two) times a day 03/09/2024 tamsulosin (FLOMAX) 0.4 mg extended release capsule Take 2 capsules (0.8 mg total) by mouth every morning documented as of this encounter Discharge Disposition Disposition Code Departure Means Destination Discharge to home or self care documented in this encounter Plan of Treatment Not on [...] here> General On track( 019 1:14 PM NUCLEAR MEDICINE SPECIALIST) Yes Vivian De La Vega, RAYA Note: Fishing Walking dogs Working around house documented as of this encounter Procedures Procedure Name Priority Date/Time Associated Diagnosis Comments XR SCOLIOSIS AP LAT Schedule Routine, Read Routine (OP Routine) 02/15/2025 11:23 AM CDT S/P spinal fusion documented in this encounter Results * XR Scoliosis Ap and Lateral (02/15/2025 11:23 AM CDT) Anatomical Region Laterality Modality Spine N/A Computed Radiogr aphy 02/15/2025 12:2 0 PM CDT Impressions 02/15/2025 12:20 PM CDT Posterior instrumented fusion L2-S1 combined anteriorly L4-S1. Electronically signed by: Jaret Caraballo M.D. Narrative 02/15/2025 12:20 PM CDT EXAMINATION: XR SCOLIOSIS AP AND LATERAL HISTORY: Back pain FINDINGS: AP and lateral standing images of the entire spine were performed with comparison made to 12/19/2024. Intramedullary nailing of the right tibia is noted. There is no significant scoliosis. There is no coronal imbalance or pelvic obliquity. There is no sagittal imbalance. There is posterior instrumented fusion L2-S1 combined anteriorly L4-S1. Instrumentation appears intact. Procedure Note Jaret Caraballo MD PhD - 02/15/2025 EXAMINATION: XR SCOLIOSIS AP AND LATERAL HISTORY: Back pain FINDINGS: AP and lateral standing images of the entire spine were performed with comparison made to 12/19/2024. Intramedullary nailing of the right tibia is noted. There is no significant scoliosis. There is no coronal imbalance or pelvic obliquity. There is no sagittal imbalance. There is posterior instrumented fusion L2-S1 combined anteriorly L4-S1. Instrumentation appears intact. IMPRESSION: Posterior instrumented fusion L2-S1 combined anteriorly L4-S1. Electronically signed by: Jaret Caraballo M.D. Erich Kern MD IMG XR PROCEDURES Fi nal Result documented in this encounter Visit Diagnoses Diagnosis S/P spinal fusion Arthrodesis status documented in this encounter Care Teams Oil Plant Operator Relationship Specialty Start Date End Date Rico Lewis MD [address] [place] [address] PCP - General 02/09/18 Winter Sanchez, RN Registered Nurse 02/10/18 Jv Mathis MD [address] [place] [address] [address] Anesthesiologist Pain Management 07/17/22 documented as of this encounter
--- OUTSIDE RECORDS SUMMARY | 2025-02-16 13:58 | XMS_ITS | Clinical Summary ---
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 2:43 PM CDT) Anatomical Region Laterality Modality Body, Abdomen N/A Computed Radiogr aphy 11/24/2024 2:51 PM CDT Impressions 11/24/2024 3:59 PM CDT Surgical drain overlies the lumbar spine. Postsurgical changes from instrumented lumbar spinal fusion. Mild gaseous distention of small bowel in the central abdomen suspicious for postoperative ileus. Dictated by: Sukumar Valenzuela MD The radiology attending physician has personally reviewed this study, and had reviewed and/or edited this written report and agrees with it. Electronically signed by: Geeta Nuñez M.D. Narrative 11/24/2024 3:59 PM CDT EXAMINATION: Abdomen, one view. HISTORY: Abdominal distension. Status post spinal fusion 11/22/2024 COMPARISON: None Procedure Note Geeta Nuñez MD - 11/24/2024 EXAMINATION: Abdomen, one view. HISTORY: Abdominal distension. Status post spinal fusion 11/22/2024 COMPARISON: None IMPRESSION: Surgical drain overlies the lumbar spine. Postsurgical changes from instrumented lumbar spinal fusion. Mild gaseous distention of small bowel in the central abdomen suspicious for postoperative ileus. Dictated by: Sukumar Valenzuela MD The radiology attending physician has personally reviewed this study, and had reviewed and/or edited this written report and agrees with it. Electronically signed by: Geeta Nuñez M.D. Britni Ricardo [employer] IMG XR PROCEDURES Final Result * eGFR (11/24/2024 4:33 AM CDT) eGFR 88 >=60 mL/min/1. 73 m2 Comment: Interpretive Data [...] interpretive data was last reviewed 2021. Blood 11/24/2024 4:33 AM CDT 11/24/2024 5:20 AM CDT us Heather Ricks NP LAB BLOOD ORDERABLES Enma scott Result [facility] [place] [address] * (ABNORMAL) CBC without differential (11/24/2024 4:33 AM CDT) WBC 8.4 3.8 - 9.9 K/cumm Hgb 10.5(L) 13.0 - 17.5 g/dL [facility] Hct 31.4(L) 38.9 - 50.3 % [facility] Plt 146(L) 150 - 400 K/cumm [facility] MPV 9.4 9.1 - 12.3 fL [facility] RBC 3.37(L) 4.30 - 5.80 M/cumm [facility] MCV 93.2 81.3 - 96.4 fL [facility] MCH 31.2 27.1 - 33.3 pg [facility] MCHC 33.4 32.3 - 35.7 g/dL [facility] RDW CV 13.5 11.1 - 14.9 % [facility] RDW SD 45.8 35.7 - 48.1 fL [facility] NRBC abs 0.00 0.00 - 0.01 K/cumm [facility] Blood 11/24/2024 4:33 AM CDT 11/24/2024 5:18 AM CDT us Heather Ricks [employer] LAB BLOOD ORDERABLES Enma l Result Performing Organization Address City/[facility] Co de Phone Number [facility] [place] [address] * Phosphorus (11/24/2024 4:33 AM CDT) Pathologist [facility] Phosphorus, pl 2.8 2.3 - 4.5 mg/dL Blood 11/24/2024 4:33 AM CDT 11/24/2024 5:20 AM CDT us Erich Kern MD LAB BLOOD ORDERABLES Final Result Performing Organization Address [facility] Co de Phone Number [facility] [place] [address] * Magnesium (11/24/2024 4:33 AM CDT) [facility] Magnesium 2.1 1.4 - 2.5 mg/dL Blood 11/24/2024 4:33 AM CDT 11/24/2024 5:20 AM CDT Erich Kern MD LAB BLOOD ORDERABLES Final Result Performing Organization Address [facility] Co de Phone Number [facility] Department [place] [address] * (ABNORMAL) Basic metabolic panel (11/24/2024 4:33 AM CDT) Pathologist [facility] Sodium 137 135 - 145 mmol/L Potassium, pl 4.5 3.3 - 4.9 mmol/L [facility] Chloride 104 97 - 110 mmol/L [facility] CO2 27 22 - 32 mmol/L [facility] Anion gap 6 2 - 15 mmol/L [facility] BUN 13 6 - 25 mg/dL [facility] Creatinine 0.95 0.80 - 1.30 mg/dL [facility] Glucose 119 70 - 199 mg/dL [facility] Comment: Interpretive Data Fasting glucose >/= 126 [...] classification and Diagnosis of Diabetes Diabetes Care 202; 46: S19-S40. Current interpretive data was last revised 2022. Calcium 8.1(L) 8.5 - 10.3 mg/dL [facility] Blood 11/24/2024 4:33 AM CDT 11/24/2024 5:20 AM CDT us Heather Ricks NP LAB BLOOD ORDERABLES Enma scott Result [facility] [place] [address] * eGFR (11/22/2024 10:33 PM CDT) eGFR 88 >=60 mL/min/1. 73 m2 Comment: Interpretive Data [...] interpretive data was last reviewed 2021. Blood 11/22/2024 10:3 3 PM CDT 11/22/2024 10:54 PM CDT Heather Nguyen [facility] LAB BLOOD ORDERABLES Enma l Result Performing Organization Address [facility] Co de Phone Number [facility] [place] [place] [address] * aPTT (11/22/2024 10:33 PM CDT) aPTT 33 28 - 38 sec Comment: Interpretive Data Heparin therapeutic range: 66.0 - 100.0 seconds. Range based on correlation with therapeutic heparin activity range of 0.3 - 0.7 Units/mL. Current interpretive data was last revised on 2023. Blood 11/22/2024 10:3 3 PM CDT 11/22/2024 10:57 PM CDT Result [facility] LAB BLOOD ORDERABLES Enma l Result Performing Organization Address [facility] de Phone Number [facility] [place] [place] [address] * Protime-INR (11/22/2024 10:33 PM CDT) PT 11.5 9.7 - 13.0 sec INR 1.06 0.90 - 1.20 [facility] Comment: Interpretive data Oral anticoagulant therapeutic ranges: Venous thromboembolism prophylaxis or treatment: 2.0-3.0 CARDIOLOGY Standard range: 2.0-3.0 High-intensity range: 2.5-3.5 Refer to indication-specific guidelines for appropriate target ranges for prosthetic heart valve replacement. Current interpretive data was last revised on 2019. Blood 11/22/2024 10:3 3 PM CDT 11/22/2024 10:57 PM CDT Result [facility] LAB BLOOD ORDERABLES Enma l Result Performing Organization Address [facility] de Phone Number [facility] Department [place] [address] * (ABNORMAL) CBC without differential (11/22/2024 10:33 PM CDT) [facility] WBC 7.4 3.8 - 9.9 K/cumm Hgb 10.8(L) 13.0 - 17.5 g/dL [facility] Hct 33.6(L) 38.9 - 50.3 % [facility] Plt 170 150 - 400 K/cumm [facility] MPV 9.1 9.1 - 12.3 fL [facility] RBC 3.50(L) 4.30 - 5.80 M/cumm [facility] MCV 96.0 81.3 - 96.4 fL [facility] MCH 30.9 27.1 - 33.3 pg [facility] MCHC 32.1(L) 32.3 - 35.7 g/dL [facility] RDW CV 13.9 11.1 - 14.9 % [facility] RDW SD 49.1(H) 35.7 - 48.1 fL [facility] NRBC abs 0.00 0.00 - 0.01 K/cumm [facility] Blood 11/22/2024 10:3 3 PM CDT 11/22/2024 10:54 PM CDT Heather Ricks [employer] LAB BLOOD ORDERABLES Enma l Result Performing Organization Address [facility] Co de Phone Number [facility] Department [place] [address] * (ABNORMAL) Basic metabolic panel (11/22/2024 10:33 PM CDT) [facility] Sodium 138 135 - 145 mmol/L Potassium, pl 4.7 3.3 - 4.9 mmol/L [facility] Chloride 104 97 - 110 mmol/L [facility] CO2 28 22 - 32 mmol/L [facility] Anion gap 6 2 - 15 mmol/L [facility] BUN 12 6 - 25 mg/dL [facility] Creatinine 0.95 0.80 - 1.30 mg/dL [facility] Glucose 117 70 - 199 mg/dL [facility] Comment: Interpretive Data Fasting glucose >/= 126 [...] interpretive data was last revised 2022. Calcium 8.2(L) 8.5 - 10.3 mg/dL [facility] Blood 11/22/2024 10:3 3 PM CDT 11/22/2024 10:54 PM CDT Heather Ricks NP LAB BLOOD ORDERABLES Enma l Result [facility] [place] [address] * eGFR (11/22/2024 2:02 PM CDT) eGFR >90 >=60 mL/min/1. 73 m2 Comment: [...] interpretive data was last reviewed 2021. Blood 11/22/2024 2:02 PM CDT 11/22/2024 2:54 PM CDT Result [facility] Heather Ricks [employer] LAB BLOOD ORDERABLES Enma l Result Performing Organization Address [facility] Co de Phone Number [facility] [place] [place] [address] * (ABNORMAL) CBC without differential (11/22/2024 2:02 PM CDT) [facility] WBC 4.2 3.8 - 9.9 K/cumm Hgb 12.0(L) 13.0 - 17.5 g/dL [facility] Hct 34.7(L) 38.9 - 50.3 % [facility] Plt 172 150 - 400 K/cumm [facility] MPV 9.4 9.1 - 12.3 fL [facility] RBC 3.69(L) 4.30 - 5.80 M/cumm [facility] MCV 94.0 81.3 - 96.4 fL [facility] MCH 32.5 27.1 - 33.3 pg [facility] MCHC 34.6 32.3 - 35.7 g/dL [facility] RDW CV 13.5 11.1 - 14.9 % [facility] RDW SD 46.2 35.7 - 48.1 fL [facility] NRBC abs 0.00 0.00 - 0.01 K/cumm [facility] Blood 11/22/2024 2:02 PM CDT 11/22/2024 2:54 PM CDT Heather Rikcs [employer] LAB BLOOD ORDERABLES Enma l Result Performing Organization Address [facility]/ZIP Co de Phone Number [facility] [place] [address] * (ABNORMAL) Basic metabolic panel (11/22/2024 2:02 PM CDT) Sodium 141 135 - 145 mmol/L Potassium, pl 4.4 3.3 - 4.9 mmol/L [facility] Chloride 107 97 - 110 mmol/L [facility] CO2 27 22 - 32 mmol/L [facility] Anion gap 7 2 - 15 mmol/L [facility] BUN 12 6 - 25 mg/dL [facility] Creatinine 0.81 0.80 - 1.30 mg/dL [facility] Glucose 124 70 - 199 mg/dL [facility] Comment: Interpretive Data Fasting glucose >/= 126 [...] interpretive data was last revised 2022. Calcium 7.9(L) 8.5 - 10.3 mg/dL [facility] Blood 11/22/2024 2:02 PM CDT 11/22/2024 2:54 PM CDT us Heather Ricks [employer] LAB BLOOD ORDERABLES Enma l Result [facility] [place] [address] * [place] Fluoroscopy < 1 Hour (11/22/2024 12:42 PM CDT) Narrative [facility] - 11/22/2024 12:42 PM CDT The images from this study are not interpreted by Radiology. Please refer to the physician's procedure / OR operative note. us Erich Kern MD IMG FLUOROSCOPY PROC EDURES Final Result [facility] * (ABNORMAL) POC Blood Gas and Chemistries, Arterial - (11/22/2024 11:48 AM CDT) pH, Art POC 7.36 7.35 - 7.45 pCO2, Art POC 47(H) 35 - 45 mmHg [facility] pO2, Art POC 216(H) 83 - 108 mmHg [facility] Na, POC 139 135 - 145 mmol/L [facility] K POC 3.9 3.3 - 4.9 mmol/L [facility] Comment: Interpretive Data Not all point of care methods assess for hemolysis. Confirm with instrument and retest K+ if not consistent with clinical signs and symptoms. Current Interpretive Data was last revised on 2023. Cl, POC 106 97 - 110 mmol/L [facility] Ionized Ca, POC 4.64 4.50 - 5.10 mg/dL [facility] Glucose, POC 107 70 - 199 mg/dL [facility] Lactate POC 0.8 0.7 - 2.0 mmol/L [facility] SO2 (yadiel) arterial 100(H) 90 - 95 % [facility] Base excess, POC 0.7 mmol/L [facility] Hct, POC 37.0(L) 41.4 - 51.6 % [facility] Total Hb, POC 12.2(L) 13.8 - 17.2 g/dL [facility] Blood 11/22/2024 11:4 8 AM CDT 11/22/2024 11:48 AM CDT us Erich Kern MD LAB POCT ORDERABLES - DEVICE Final Result [facility] Department of [place] [address] * Arterial Line (11/22/2024 10:38 AM CDT) Narrative Kelsey Longo MD - 11/22/2024 10:38 AM CDT Kelsey Longo MD 11/22/2024 11:29 AM Arterial Line Patient location: OR Indication: continuous blood pressure monitoring and blood sampling needed Ultrasound assisted: yes Staff: Supervising provider: Latoya Stokes MD Placed by: Resident: Kelsey Longo MD Procedure prep: Prep solution: chlorhexadine/alcohol Prep: provider hat/mask, sterile gloves, sterile drape and sterile probe cover Skin infiltrated with lidocaine 1%: yes Arterial line: Catheter size: 20 gauge Catheter length: 1 and 3/4 inch Catheter type: angiocath Seldinger technique: yes Laterality: right Site: radial artery Line secured: Tegaderm Results: good waveform and good blood return Number of attempts: 1 Assessment: Events: patient tolerated procedure well with no complications Latoya Stokes MD ANESTHESIA ORDERABLES Final Resu lt * Airway (11/22/2024 10:32 AM CDT) Narrative Kelsey Longo MD - 11/22/2024 10:32 AM CDT Kelsey Longo MD 11/22/2024 11:23 AM Airway Patient location: OR Urgency: elective Indications for airway management: anesthesia Difficult airway: no Staff: Supervising provider: Latoya Stokes MD Placed by: Resident: Kelsey Longo MD Emergent airway documentation: Risks and benefits discussed: yes Consent obtained: yes Consent given by: patient Airway prep: Preoxygenated: yes Patient position: sniffing Mask difficulty assessment: 1 - vent by mask Sedation level during airway: GA Final airway details: Final airway type: endotracheal airway Tube type: ETT ETT size: 8.0 mm Technique used for successful ETT placement: video laryngoscopy Devices/Methods used in placement: stylet Insertion site: oral Blade type: John Video blade type: Amor Blade size: 4 Cormack-Lehane (video): grade I - full view of glottis ETT to teeth: 24 cm Placement verified by: auscultation and CO2 detection Airway secured with: silk tape Number of attempts: 1 Planned trial extubation: yes Latoya Stokes MD ANESTHESIA ORDERABLES Final Resu lt * Peripheral IV Catheter (11/22/2024 10:29 AM CDT) Narrative Kelsey Longo MD - 11/22/2024 10:29 AM CDT Kelsey Longo MD 11/22/2024 11:29 AM Peripheral IV Catheter Patient location: OR Staff: Placed by: Resident: Kelsey Longo MD Preprocedure prep: Prep solution: alcohol PPE: gloves and provider hat/mask PIV line: Laterality: right Site: hand Catheter size: 16 g Technique: direct visualization and palpatation Number of attempts: 1 Assessment: Events: patient tolerated procedure well with no complications us Latoya Stokes MD ANESTHESIA ORDERABLES Final Resu lt * Type and screen (11/22/2024 9:17 AM CDT) Davi, indirect Negative ABO Rh A Negative [facility] Blood 11/22/2024 9:17 AM CDT 11/22/2024 9:27 AM CDT [facility]ative [facility] - 11/22/2024 10:25 AM CDT Has the patient had Daratumumab or Isatuximab in the past 6 months?->Unknown us Heather Ricks NP LAB BLOOD BANK TEST ORDER FRANCESCO Final Result [facility] Department of [place] [address] from Last 3 Months Insurance MEDICARE [facility] MEDICARE ADVANTAGE Advance Directives For more information, please contact: [phone] * Full Code (Latest Code Status on File) Date Activated Date Inactivated Comments 11/22/2024 6:34 PM 11/25/2024 8:45 PM * Full Code Date Activated Date Inactivated Comments 09/03/2021 6:51 PM 09/06/2021 5:05 PM * Full Code Date Activated Date Inactivated Comments 12/29/2017 10:54 AM 12/30/2017 2:41 AM Care Teams Termite Exterminator Helper Relationship Specialty Start Date End Date Rico Lewis MD [address] [place] [address] PCP - General 02/09/18 Winter Sanchez, RN Registered Nurse 02/10/18 Jv Mathis MD [address] [place] [address] [address] Anesthesiologist Pain Management 07/17/22
--- OUTSIDE RECORDS SUMMARY | 2025-02-16 13:58 | XMS_ITS | Patient Health Record ---
Author Organization [facility] Address [address] [place] [address] Care Team Providers Care Leaflet Distributor Name Role Phone Fritz Barry Unavailable [phone] FRITZ BARRY MD Unavailable Unavailable Medications Medication SIG (Take, Route, Frequency, Duration) Notes Start Date End Date Status HYDROcodone-Acetaminophen 10-325 MG 1/2 --1 tablet as needed Orally every 6 hrs 06/09/2013 Active Citalopram Hydrobromide 40 MG 1 tablet O rally Once a day 11/28/2011 Active traMADol HCl 50 MG 1 tablet as needed Orally every 6 hrs 12/20/2013 Active Medrol (Kerwin) 4 MG as directed Orally a s directed 12/20/2013 Active Gabapentin 400mg TAKE 1 CAPSULE 4 EMANUEL ES A DAY BY MOUTH for 30 Active Cyclobenzaprine HCl 10 MG 1 tablet Orall y Three times a day for 90 days 05/28/2012 Active Social History Tobacco Use/Smoking Question Answer Notes Are you a former smoker How long has it been since you last smoked? 1-5 years Problems Problem Type SNOMED Code ICD Code Onset Dates Problem Status W/U Status Risk Notes Problem Depressive disorder, not elsewhere classified (311) Active confirmed Problem Thoracic and lumbosacral neuritis (153183256) Thoracic or lumbosacral neuritis or radiculitis, unspecified (724.4) Active confirmed Problem Lumbago (626467077) Lumbago (724.2) Active confirmed Problem Cervicalgia (67067180) Cervicalgia (723.1) Active confirmed Problem Long-term current use of drug therapy (059437164) Encounter for long-term (current) use of other medications (V58.69) Active confirmed Plan Of Treatment Pending Test Test Name Order Date Testosterone,Free and Total 11/25/2013 PSA Total+ Free 11/25/2013 Inj Sing Cer/Thor 05/28/2012 Inj Sing Cer/Thor 02/27/2012 Urine Drug Screen- Medicare 05/28/2012 1_Custom Profile 06/09/2013 Insurance Providers Payer Name Payer Address Payer Phone Subscriber Number Group Number Insured Name Patient Relationship to Insured Coverage Start Date Coverage End Date Medicare Part B [address] [place] [phone] [id number] FRITZ TIDWELL Self - patient is the insured Medical (General) History Medical History History ICD Code brain encephalitis Surgical History Surgery Date(Month/Year) Back 1999 Hospitalization History Reason Date(Month/Year) Encephalitis of the brain - Admitted to [facility] and transferred [facility] in [place] -08/06/13 Oral surgery 10/17/13
--- OUTSIDE RECORDS SUMMARY | 2025-02-16 13:58 | XMS_ITS | Encounter Summary ---
Author Organization [facility] Address [address] [place] [address] Phone Care Team Providers Care Candy Cutter Machine Name Role Phone Rico Lewis MD Primary Care Provider [phone] Winter Sanchez RN Unavailable Jv Agrawal MD Unavailable [phone] Reason for Referral * Consultation (Routine) - Pending Review Specialty Diagnoses / Procedures Referred By Lluvia t Referred To Contact Physical Therapy Diagnoses S/P spinal fusion Degenerative cervical spinal stenosis Erich Kern MD [address] [facility] [place] [address] Phone: tel: fax: External Order Referral ID Status Reason Start Date Expiration Date Visits Requested Visits Authorized [id number] Pending Review Evaluate and Treat 02/15/2025 03/17/2026 24 24 Question Answer PTRFR PT Evaluate and Treat Reason for Visit Evaluate and treat for low back pain. Please work on balance and core strength. Modalities PRN. NO range of motion exercises. Please include HEP. Therapy options discussed with patient? Yes Location provided for therapy services is: Patient requested/Patient preferred Please select the performing region: External Order [[id number]] # of visits: 24 Comments [facility] . * MRI/CAT/PET Scan (Routine) - Authorized Specialty Diagnoses / Procedures Referred By Contac t Referred To Contact Diagnoses Degenerative cervical spinal stenosis Procedures MRI Cervical Spine WO Contrast Erich Kern MD [address] [facility] [place] [address] Phone: tel: fax: External Order Referral ID Status Reason Start Date Expiration Date V isits Requested Visits Authorized [id number] Authorized 02/15/2025 03/17/2026 1 1 * MRI/CAT/PET Scan (Routine) - Authorized Specialty Diagnoses / Procedures Referred By Contac t Referred To Contact Diagnoses Degenerative cervical spinal stenosis Procedures CT Cervical Spine WO Contrast Erich Kern MD [address] [employer] [facility] [place] [address] Phone: tel: fax: External Order Referral ID Status Reason Start Date Expiration Date V isits Requested Visits Authorized [id number] Authorized 02/15/2025 03/17/2026 1 1 Reason for Visit * Reason Comments Post-op Encounter Details Date Type Department Care Team (Late st Contact Info) Description 02/15/2025 11:20 AM CDT Office Visit [facility] Orthopaedic Surgery [address] [place] [address] Medical Office Building [address] [place] [id number] Erich Kern MD [address] [facility] [place] [address] S/P spinal fusion (Primary Dx); Degenerative cervical spinal stenosis Social History Tobacco Use Types Packs/Day Years Used Date Smoking Tobacco: Former Cigarettes 0 01/03/1971 - 01/03/2021 Smokeless Tobacco: Never Alcohol Use Standard Drinks/Week Comments No 0 (1 standard drink = 0.6 oz pur e alcohol) [facility] Utilities Answer Date Recorded In the past 12 months has th e electric, gas, oil, or water company threatened to shut off services in your [...] 11/28/2024 How often do you attend chur ch or episcopal services? Never 11/28/2024 Do you belong to any clubs o r organizations such as mormonism groups, unions, fraternal or athletic groups, or [...] any time in the past 12 m [facility], were you homeless or living in a detention (including now)? No 11/28/2024 Personal Safety Answer Date Recorded Have you ever been in or are you currently in a harmful physical or emotional relationship or is someone making you feel afraid or unsafe? Denies 11/22/2024 Sex and Gender Information Value Date Recorded Sex Assigned at Not on file Legal Sex Male 11:10 PM ROLL ICER MACHINE Gender Identity Male 01/23/2021 2:22 PM CDT Sexual Orientation Straight 01/23/2021 2: 22 PM CDT Occupation Industry Job Start Date Job End Date disability Not on file Not on file Not on file documented as of this encounter Patient Instructions * Patient Instructions* Serene Hernandez MS - 02/15/2025 11:20 AM CDT Thank you for your visit today. Dr. Kern has recommended the following treatment: Start physical therapy for the lumbar spine. MRI and CT scan of the cervical spine. The orders and authorization will be sent to [facility] and you will be contacted to schedule an appointment. Please update our office once tests have been scheduled. Follow up in 6 weeks. Please let us know if you have any questions. Serene Hernandez MA, ATC Singer Songwriter to Dr. Erich Kern Department of Orthopedic Spine Surgery Bisi Bartlett, RAYA Clinical Nurse Coordinator to Dr. Erich Kern documented in this encounter Plan of Treatment Scheduled Orders Name Type Priority Associated Diagnoses Orde r Schedule CT Cervical Spine WO Contrast Imaging Schedule Routine, Read Routine (OP Routine) Degenerative cervical spinal stenosis Expected: 02/15/2025, Expires: 02/15/2026 MRI Cervical Spine WO Contrast Imaging Schedule Routine, Read Routine (OP Routine) Degenerative cervical spinal stenosis Expected: 02/15/2025, Expires: 02/15/2026 Scheduled Referrals Name Type Priority Associated Diagnoses Order Schedule Ambulatory referral order to Physical Therapy - Outpatient Referral Routine S/P spinal fusion Degenerative cervical spinal stenosis 1 Occurrences starting 02/15/2025 until 02/15/2026 documented as of this encounter Goals Goal [...] here> General On track( 019 1:14 PM ROLL ICER MACHINE) Yes Vivian De La Vega, RAYA Note: Fishing Walking dogs Working around house documented as of this encounter Results * XR Scoliosis Ap [...] this encounter Visit Diagnoses Diagnosis S/P spinal fusion- Primary Arthrodesis status Degenerative cervical spinal stenosis Spinal stenosis in cervical region S/P spinal fusion Arthrodesis status documented in this encounter Care Teams Candy Cutter Machine Relationship Specialty Start Date End Date Rico Lewis MD [address] [place] [address] PCP - General 02/09/18 Winter Sanchez, RN Registered Nurse 02/10/18 Jv Mathis MD [address] [place] [address] [address] Anesthesiologist Pain Management 07/17/22 documented as of this encounter
--- OUTSIDE RECORDS SUMMARY | 2025-02-16 13:59 | XMS_ITS | Clinical Summary ---
Author Organization [facility] Address [address] [place] [address] Phone Care Team Providers Care Tonnage Compilation Clerk Name Role Phone Rico Lewis MD Primary [...] Comments Blood Pressure 110/66 09/14/2020 10:37 AM INSULATION SUPERVISOR Pulse 60 09/14/2020 10:37 AM INSULATION SUPERVISOR Temperature 36.1 C (97 F) 08/06/2020 9:00 AM INSULATION SUPERVISOR Respiratory Rate 14 08/06/2020 9:15 AM INSULATION SUPERVISOR Oxygen Saturation 98% 08/06/2020 9:15 AM INSULATION SUPERVISOR Inhaled Oxygen Concentration - - Weight 100.2 kg (221 lb) 09/14/2020 10:37 AM INSULATION SUPERVISOR Height 188 cm (6' 2) 09/14/2020 10:37 AM INSULATION SUPERVISOR Body Mass Index 28.37 09/14/2020 10:37 AM INSULATION SUPERVISOR Plan of Treatment Health Maintenance Due Date Last Done Comments DTAP/TDAP/TD VACCINES (1 - Tdap) 01/16/1976 PNEUMOCOCCAL VACCINE 50+ YEA RS (1 of 2 - PCV) [...] Comments COLONOSCOPY REPORT 08/06/2020 9: 12 AM INSULATION SUPERVISOR from Last 3 Months or Most Recently Relevant to Health Maintenance Results * COLONOSCOPY REPORT (08/06/2020 9:12 AM INSULATION SUPERVISOR) Narrative Procedure Note Benito Pablo MD - 08/06/2020 9:11 AM CST [facility] Endoscopy Patient Name: Marko Marti Procedure Date: [...] of Addenda: [address]; [place] [address] Benito Pablo MD GI PROCEDURE ORDERABLES Final Result from Last 3 Months or Most Recently Relevant to Health Maintenance Insurance [facility] [id number] Care Teams Tonnage Compilation Clerk Relationship Specialty Start Date End Date Rico Lewis MD [address] [place] [address] PCP - General Internal Medicine 06/21/20
--- OUTSIDE RECORDS SUMMARY | 2025-02-16 13:59 | XMS_ITS | Referral Summary ---
Author Organization [facility] [address] Address [address] [place] [address] Care Team Providers Care Broke Beater Operator Name Role Phone Rico Lewis MD Primary Care Provider + [phone] Winter Sanchez RN Unavailable Jv Agrawal MD Unavailable [phone] Encounters Date Type Department Care Team Description 02/15/2025 11:00 AM CDT - 02/15/2025 11:59 PM CDT Hospital Encounter [id number] [address] [place] [address] [address] [place] [address] S/P spinal fusion Discharge Disposition: Discharge to home or self care 02/15/2025 11:20 AM CDT Office Visit [facility] Orthopaedic Surgery [address] [place] [address] Office [facility] [address] [place] [phone] Erich Kern MD S/P spinal fusion (Primary Dx); Degenerative cervical spinal stenosis 12/27/2024 Telephone [facility] Orthopaedic Surgery [address] [place] [address] Office [facility] [address] [place] [address] Erich Kern MD 12/19/2024 11:26 AM CDT - 12/19/2024 11:59 PM CDT Hospital Encounter [id number] [address] [place] [address] [address] [place] [address] S/P spinal fusion Discharge Disposition: Discharge to home or self care 12/19/2024 11:20 AM CDT Office Visit [facility] Orthopaedic Surgery [address] [place] [address] Medical Office Building [address] [place] [address] Erich Kern MD S/P spinal fusion (Primary Dx) 12/09/2024 SHOP/CHAP Subsequent Outreach [facility] OP CASE MANAGEMENT [address] [place] [address] Alea Wing, RAYA 12/02/2024 SHOP/CHAP Subsequent Outreach [facility] OP CASE MANAGEMENT [address] [place] [address] Alea Wing, RAYA 12/02/2024 Telephone [facility] Orthopaedic Surgery [address] [facility] Office Building [address] [place] [address] Erich Kern MD 11/29/2024 9:00 AM CDT Office Visit [facility] Urology [address] [facility] Building [address] [place] [phone] Tierra Bocanegra NP Urinary retention (Primary Dx) 11/28/2024 SHOP/CHAP Initial Outreach [facility] OP CASE MANAGEMENT [address] [place] [address] Alea Wing, RAYA 11/28/2024 SHOP/CHAP Initial Eligibility Review [facility] OP CASE MANAGEMENT [address] [place] [address] Alea Wing, RAYA 11/22/2024 8:37 AM CDT - 11/25/2024 4:40 PM CDT Hospital Encounter [facility] 1 [place] [address] Erich Kern MD Martinez Rivera, Arnaldo, MD Spinal stenosis, lumbar region, with neurogenic claudication (Primary Dx) Discharge Disposition: Discharge to home or self care 11/22/2024 10:20 AM CDT - 11/22/2024 4:35 PM CDT Surgery [facility] Operating Room 1 [place] [address] Erich Kern MD FUSION DECOMPRESSION LAMINECTOMY WITH INSTRUMENTATION - MEDTRONIC SOLERA, L2-3 posterior decompression laminectomy/foraminot george with posterior spinal instrumented fusion,revision posterior instrumentation L2-S1, allograft, autograft, spinal cord monitoring, bone morphogenetic protein, cut to close: 240 mins. 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 Never 11/28/2024 Do you belong to any clubs o r organizations such as sikh groups, unions, fraternal or athletic groups, or [...] any time in the past 12 m [facility], were you homeless or living in a senior care (including now)? No 11/28/2024 Personal Safety Answer Date Recorded Have you ever been in or are you currently in a harmful physical or emotional relationship or is someone making you feel afraid or unsafe? Denies 11/22/2024 Sex and Gender Information Value Date Recorded Sex Assigned at Not on file Legal Sex Male 11:10 PM PASSENGER SOLICITOR Gender Identity Male 01/23/2021 2:22 PM CDT [...] 11/22/2024 7:50 PM CDT Plan of Treatment Not on file Goals Goal Patient Goal Type Associated Problems Recent Progress Patient-Stated? Author [facility]al [facility] Worsening( 2:10 PM CDT) No Zuleika George, RAYA Note: Patient will establish a comfort-function goal and identify the pain level that will allow the patient to perform desired activities and achieve an acceptable quality of life. <enter goal here> General On track( 019 1:14 PM PASSENGER SOLICITOR) Yes Vivian De La Vega, RAYA Note: Fishing Walking dogs Working around house Medical Devices Implanted Type Area Employee Benefits Manager Device Identifier Shelf Expiration Date Model / Serial / Lot Hardware Right: Leg Medtronic Inc [id number] Cd Horizon 6mm 500mm Line Straight Diego Spinal Titanium Nonsterile - [id number] Implanted:Qty: 1 on 09/03/2021 by Erich Kern MD at [facility] N/A: Spine Lumbar Medtronic Inc [id number] / / Allosource [id number] Crushed Chip Frozen Graft 30ml Bone Cancellous - [id number] Implanted:Qty: 1 on 09/03/2021 by Erich Kern MD at [facility] N/A: Spine Lumbar Allosource 05/10/2026 [id number] / / [id number] Allosource [id number] Crushed Chip Frozen Graft 30ml Bone Cancellous - [id number] Implanted:Qty: 1 on 09/03/2021 by Erich Kern MD at [facility] N/A: Spine Lumbar Allosource 05/11/2026 [id number] / / [id number] Medtronic Sofamor Danek [id number] Infuse 20ga 2x1in Vial Absorbable Syringe Needle Medium Graft 5.6 - [id number] Implanted:Qty: 1 on 09/03/2021 by Erich Kern MD at [facility] N/A: Spine Lumbar Medtronic Inc [id number] / / Medtronic Sofamor Danek [id number] Solera Cd Horizon 7.5mm 50mm Multiaxial Spine Screw Bone Cocr - [id number] Implanted:Qty: 2 on 09/03/2021 by Erich Kern MD at [facility] N/A: Spine Lumbar Medtronic Inc [id number] / / Medtronic Sofamor Danek [id number] Solera Cd Horizon 7.5mm 55mm Multiaxial Spine Screw Bone Cocr - [id number] Implanted:Qty: 4 on 09/03/2021 by Erich Kern MD at [facility] N/A: Spine Lumbar Medtronic Inc [id number] / / Medtronic Sofamor Danek [id number] Solera Cd Horizon 7.5mm 60mm Multiaxial Spine Screw Bone Cocr - [id number] Implanted:Qty: 2 on 09/03/2021 by Erich Kern MD at [facility] N/A: Spine Lumbar Medtronic Inc [id number] / / Medtronic Sofamor Danek [id number] Cd Horizon Break Off Spinal Screw Set Titanium Nonsterile 5.5 Mm - [id number] Implanted:Qty: 8 on 09/03/2021 by Erich Kern MD at [facility] N/A: Spine Lumbar Medtronic Inc [id number] / / Medtronic Inc Kit Graft Bone Sponge Xlg Infuse 8cc Granules [id number] - [id number] Implanted:Qty: 1 on 11/22/2024 by Erich Kern MD at [facility] Medtronic Inc [id number] 01/05/2026 [id number] / / [id number] Sandgap Spine Graft Bone Filler Gel Bio Dbm 10cc [id number] - [id number] Implanted:Qty: 1 on 11/22/2024 by Erich Kern MD at [facility] N/A: Spine Lumbar Marcus Spine [id number] 03/26/2027 [id number] / / [id number] Allosource Crushed Chip Frozen Graft 30ml Bone Cancellous [id number] - [id number] Implanted:Qty: 1 on 11/22/2024 by Erich Kern MD at [facility] N/A: Spine Lumbar Allosource 01/12/2029 [id number] / / [id number] Medtronic Inc Solera Cd Horizon 6.5mm 60mm Multiaxial Spine Screw Bone Cocr [id number] - [id number] Implanted:Qty: 2 on 11/22/2024 by Erich Kern MD at [facility] N/A: Spine Lumbar Medtronic Inc [id number] / / Medtronic Inc Cd Horizon Break Off Spinal Screw Set Titanium Nonsterile 5.5 Mm [id number] - [id number] Implanted:Qty: 10 on 11/22/2024 by Erich Kern MD at [facility] N/A: Spine Lumbar Medtronic Inc [id number] / / Medtronic Inc Unid Exp [id number] 6.0 Ti Diego 4up L [id number] - [id number] Implanted:Qty: 2 on 11/22/2024 by Erich Kern MD at [facility] N/A: Spine Lumbar Medtronic Inc [id number] / / Medtronic Inc Screw Mod Assy Mas 5.5/6.0mm Sterile 2pk [id number] - [id number] Implanted:Qty: 1 on 11/22/2024 by Erich Kern MD at [facility] N/A: Spine Lumbar Medtronic Inc [id number] / / Medtronic Inc Screw Spinal 8.5x55mm Cd Horizon Osteogrip Thread Nonstrl [id number] - [id number] Implanted:Qty: 1 on 11/22/2024 by Erich Kern MD at [facility] Med[employer]onic Inc [id number] / / Explanted Type Area Employee Benefits Manager Device Identifier Shelf Expiration Date Model / Serial / Lot Spinal Cord Stimulator-2007 Implanted:2007 (Quantity not on file) Explanted:2018 by Unknown, Notinfile (Quantity not on file) Back [id number] / [id number] / Description:Explanted by Dr. Jaime Wick Implanted by Heather Staples DO Physician's phone number [phone] ID Number [id number] ANS - A Viraliti Procedures Procedure Name Priority Date/Time Associated Diagnosis [...] for 11/22 from 10/18.- DMF 10/06@1229- Pro Sullivan Table conflict sent - DMF 10/06@645089/30@1136- Per Bisi via staff msg - Can you please move this case to the depot for updating- DMF 01/14@1507- Per Bisi via staff msg- Can I move Marko to 10/18 please? 0730 start time?- DMF 09/16@1122- Per Bisi via case msg cell saver is not needed for this case - DMF 09/16@1042- Case msg sent to [facility] to verify if cell saver needed or not for this case per audit- DMF 09/14@1320- Email sent re: Pro Sullivan Table conflict- DMF Special Needs Medtronic Solera, [...] for 11/22 from 10/18.- DMF 10/06@1229- Pro Sullivan Table conflict sent - DMF 10/06@287334/30@1136- Per Bisi via staff msg - Can you please move this case to the [facility] for updating- DMF 09/20@1507- Per Bisi via staff msg- Can I move Sargent to 10/18 please? 0730 start time?- DMF 09/16@1122- Per Bisi via case msg cell saver is not needed for this case - DMF 09/16@1042- Case msg sent to [facility] to verify if cell saver needed or not for this case per audit- DMF 09/14@1320- Email sent re: Pro Sullivan Table conflict- DMF Special Needs Medtronic Solera, [...] for 11/22 from 10/18.- DMF 10/06@1229- Pro Sullivan Table conflict sent - DMF 10/06@840829/30@1136- Per Bisi via staff msg - Can you please move this case to the depot for updating- DMF 09/20@1507- Per Bisi via staff msg- Can I move Marko to 10/18 please? 0730 start time?- DMF 09/16@1122- Per Bisi via case msg cell saver is not needed for this case - DMF 09/16@1042- Case msg sent to [facility] to verify if cell saver needed or not for this case per audit- DMF 09/14@1320- Email sent re: Pro Sullivan Table conflict- DMF Special Needs Medtronic Solera, [...] for 11/22 from 10/18.- DMF 10/06@1229- Pro Sullivan Table conflict sent - DMF 10/06@850692/30@1136- Per Bisi via staff msg - Can you please move this case to the depot for updating- DMF 09/20@1507- Per Bisi via staff msg- Can I move Marko to 10/18 please? 0730 start time?- DMF 09/16@1122- Per Bisi via case msg cell saver is not needed for this case - DMF 09/16@1042- Case msg sent to [facility] to verify if cell saver needed or not for this case per audit- DMF 09/14@1320- Email sent re: Pro Sullivan Table conflict- DMF Special Needs Medtronic Solera, [...] spine, greatest at C5-C6. Procedure Note Benito Julian DO - 11/25/2024 EXAMINATION: XR SCOLIOSIS AP [...] it. Electronically signed by: Geeta Nuñez M.D. us Britni Ricardo AGRICULTURAL EDUCATION PROFESSOR IMG XR PROCEDURES Final Result * eGFR [...] NP LAB BLOOD ORDERABLES Enma scott Result [facility] [place] [address] * (ABNORMAL) CBC without differential (11/24/2024 4:33 AM CDT) [facility] WBC 8.4 3.8 - 9.9 K/cumm Hgb 10.5(L) 13.0 - 17.5 g/dL [facility] Hct 31.4(L) 38.9 - 50.3 % [facility] Plt 146(L) 150 - 400 K/cumm [facility] MPV 9.4 9.1 - 12.3 fL [facility] RBC 3.37(L) 4.30 - 5.80 M/cumm [facility] MCV 93.2 81.3 - 96.4 fL [facility] MCH 31.2 27.1 - 33.3 pg [facility] MCHC 33.4 32.3 - 35.7 g/dL [facility] RDW CV 13.5 11.1 - 14.9 % [facility] RDW SD 45.8 35.7 - 48.1 fL [facility] NRBC abs 0.00 0.00 - 0.01 K/cumm [facility] Blood 11/24/2024 4:33 AM CDT 11/24/2024 5:18 AM CDT us Heather Ricks NP LAB BLOOD ORDERABLES Enma l Result Performing Organization Address City/[facility] Co de Phone Number [facility] [place] [address] * Phosphorus (11/24/2024 4:33 AM CDT) [facility] Phosphorus, pl 2.8 2.3 - 4.5 mg/dL Blood 11/24/2024 4:33 AM CDT 11/24/2024 5:20 AM CDT us Erich Kern MD LAB BLOOD ORDERABLES Final Result Performing Organization Address City/[facility]/ZIP Co de Phone Number [facility] [place] [address] * Magnesium (11/24/2024 4:33 AM CDT) Pathologist [facility] Magnesium 2.1 1.4 - 2.5 mg/dL Blood 11/24/2024 4:33 AM CDT 11/24/2024 5:20 AM CDT Erich Kern MD LAB BLOOD ORDERABLES Final Result [facility] [place] [address] * (ABNORMAL) Basic metabolic panel (11/24/2024 4:33 AM CDT) Pathologist [facility] Sodium 137 135 - 145 mmol/L Potassium, pl 4.5 3.3 - 4.9 mmol/L [facility] Chloride 104 97 - 110 mmol/L [facility] CO2 27 22 - 32 mmol/L [facility] Anion gap 6 2 - 15 mmol/L [facility] BUN 13 6 - 25 mg/dL [facility] Creatinine 0.95 0.80 - 1.30 mg/dL [facility] Glucose 119 70 - 199 mg/dL [facility] Comment: Interpretive Data Fasting glucose >/= [...] Calcium 8.1(L) 8.5 - 10.3 mg/dL [facility] Blood 11/24/2024 4:33 AM CDT 11/24/2024 5:20 AM CDT us Heather Wendy Hopper AGRICULTURAL EDUCATION PROFESSOR LAB BLOOD ORDERABLES Enma l Result Performing Organization Address [facility] Co de Phone Number [facility] [place] [address] * eGFR (11/22/2024 10:33 PM CDT) eGFR [...] NP LAB BLOOD ORDERABLES Enma l Result Performing Organization Address [facility] Co de Phone Number [facility] [place] [address] * aPTT (11/22/2024 10:33 PM CDT) aPTT 33 28 - 38 sec Comment: Interpretive Data Heparin therapeutic range: 66.0 - 100.0 seconds. Range based on correlation with therapeutic heparin activity range of 0.3 - 0.7 Units/mL. Current interpretive data was last revised on 2023. Blood 11/22/2024 10:3 3 PM CDT 11/22/2024 10:57 PM CDT Heather Ricks AGRICULTURAL EDUCATION PROFESSOR LAB BLOOD ORDERABLES Enma l Result Performing Organization Address [facility] de Phone Number [facility] [place] [address] * Protime-INR (11/22/2024 10:33 PM CDT) [facility] PT 11.5 9.7 - 13.0 sec INR 1.06 0.90 - 1.20 [facility] Comment: Interpretive data Oral anticoagulant therapeutic ranges: Venous thromboembolism prophylaxis or treatment: 2.0-3.0 CARDIOLOGY Standard range: 2.0-3.0 High-intensity range: 2.5-3.5 Refer to indication-specific guidelines for appropriate target ranges for prosthetic heart valve replacement. Current interpretive data was last revised on 2019. Blood 11/22/2024 10:3 3 PM CDT 11/22/2024 10:57 PM CDT Heather Ricks NP LAB BLOOD ORDERABLES Enma l Result Performing Organization Address [facility] de Phone Number [facility] [place] [address] * (ABNORMAL) CBC without differential (11/22/2024 10:33 PM CDT) [facility] WBC 7.4 3.8 - 9.9 K/cumm Hgb 10.8(L) 13.0 - 17.5 g/dL [facility] Hct 33.6(L) 38.9 - 50.3 % [facility] Plt 170 150 - 400 K/cumm [facility] MPV 9.1 9.1 - 12.3 fL [facility] RBC 3.50(L) 4.30 - 5.80 M/cumm [facility] MCV 96.0 81.3 - 96.4 fL [facility] MCH 30.9 27.1 - 33.3 pg [facility] MCHC 32.1(L) 32.3 - 35.7 g/dL [facility] RDW CV 13.9 11.1 - 14.9 % [facility] RDW SD 49.1(H) 35.7 - 48.1 fL [facility] NRBC abs 0.00 0.00 - 0.01 K/cumm [facility] Blood 11/22/2024 10:3 3 PM CDT 11/22/2024 10:54 PM CDT us Heather Ricks AGRICULTURAL EDUCATION PROFESSOR LAB BLOOD ORDERABLES Enma l Result [facility] [place] [address] * (ABNORMAL) Basic metabolic panel (11/22/2024 10:33 PM CDT) [facility] Sodium 138 135 - 145 mmol/L Potassium, pl 4.7 3.3 - 4.9 mmol/L [facility] Chloride 104 97 - 110 mmol/L [facility] CO2 28 22 - 32 mmol/L [facility] Anion gap 6 2 - 15 mmol/L [facility] BUN 12 6 - 25 mg/dL [facility] Creatinine 0.95 0.80 - 1.30 mg/dL [facility] Glucose 117 70 - 199 mg/dL [facility] Comment: Interpretive Data Fasting glucose >/= [...] Calcium 8.2(L) 8.5 - 10.3 mg/dL [facility] Blood 11/22/2024 10:3 3 PM CDT 11/22/2024 10:54 PM CDT Heather Ricks AGRICULTURAL EDUCATION PROFESSOR LAB BLOOD ORDERABLES Enma l Result Performing Organization Address [facility] Co de Phone Number [facility] [place] [address] * eGFR (11/22/2024 2:02 PM CDT) Pathologist [facility] eGFR >90 >=60 mL/min/1. 73 m2 Comment: [...] PM CDT 11/22/2024 2:54 PM CDT Heather Ricks NP LAB BLOOD ORDERABLES Enma l Result Performing Organization Address City/[facility]/ZIP Co de Phone Number [facility] [place] [address] * (ABNORMAL) CBC without differential (11/22/2024 2:02 PM CDT) [facility] WBC 4.2 3.8 - 9.9 K/cumm Hgb 12.0(L) 13.0 - 17.5 g/dL [facility] Hct 34.7(L) 38.9 - 50.3 % [facility] Plt 172 150 - 400 K/cumm [facility] MPV 9.4 9.1 - 12.3 fL [facility] RBC 3.69(L) 4.30 - 5.80 M/cumm [facility] MCV 94.0 81.3 - 96.4 fL [facility] MCH 32.5 27.1 - 33.3 pg [facility] MCHC 34.6 32.3 - 35.7 g/dL [facility] RDW CV 13.5 11.1 - 14.9 % [facility] RDW SD 46.2 35.7 - 48.1 fL [facility] NRBC abs 0.00 0.00 - 0.01 K/cumm [facility] Blood 11/22/2024 2:02 PM CDT 11/22/2024 2:54 PM CDT Heather Ricks AGRICULTURAL EDUCATION PROFESSOR LAB BLOOD ORDERABLES Enma scott Result [facility] [place] [address] * (ABNORMAL) Basic metabolic panel (11/22/2024 2:02 PM CDT) Sodium 141 135 - 145 mmol/L Potassium, pl 4.4 3.3 - 4.9 mmol/L [facility] Chloride 107 97 - 110 mmol/L [facility] CO2 27 22 - 32 mmol/L [facility] Anion gap 7 2 - 15 mmol/L [facility] BUN 12 6 - 25 mg/dL [facility] Creatinine 0.81 0.80 - 1.30 mg/dL [facility] Glucose 124 70 - 199 mg/dL [facility] Comment: Interpretive Data Fasting glucose >/= [...] Calcium 7.9(L) 8.5 - 10.3 mg/dL [facility] Blood 11/22/2024 2:02 PM CDT 11/22/2024 2:54 PM CDT us Heather Ricks AGRICULTURAL EDUCATION PROFESSOR LAB BLOOD ORDERABLES Enma l Result Performing Organization Address City/[facility]/ZIP Co de Phone Number [facility] [place] [address] * [place] Fluoroscopy < 1 Hour (11/22/2024 12:42 PM CDT) Narrative [email or web address] - 11/22/2024 12:42 PM CDT The images from this study are not interpreted by Radiology. Please refer to the physician's procedure / OR operative note. us Erich Kern MD IMG FLUOROSCOPY PROC EDURES Final Result Performing Organization Address [facility]/ZIP Co de Phone Number [email or web address] * (ABNORMAL) POC Blood Gas and Chemistries, Arterial - (11/22/2024 11:48 AM CDT) pH, Art POC 7.36 7.35 - 7.45 pCO2, Art POC 47(H) 35 - 45 mmHg [facility] pO2, Art POC 216(H) 83 - 108 mmHg [facility] Na, POC 139 135 - 145 mmol/L [facility] K POC 3.9 3.3 - 4.9 mmol/L [facility] Comment: Interpretive Data Not all point of care methods assess for hemolysis. Confirm with instrument and retest K+ if not consistent with clinical signs and symptoms. Current Interpretive Data was last revised on 2023. Cl, POC 106 97 - 110 mmol/L [facility] Ionized Ca, POC 4.64 4.50 - 5.10 mg/dL [facility] Glucose, POC 107 70 - 199 mg/dL [facility] Lactate POC 0.8 0.7 - 2.0 mmol/L [facility] SO2 (yadiel) arterial 100(H) 90 - 95 % [facility] Base excess, POC 0.7 mmol/L [facility] Hct, POC 37.0(L) 41.4 - 51.6 % [facility] Total Hb, POC 12.2(L) 13.8 - 17.2 g/dL [facility] Blood 11/22/2024 11:4 8 AM CDT 11/22/2024 11:48 AM CDT us Erich Kern MD LAB POCT ORDERABLES - DEVICE Final Result Performing Organization Address City/State/[facility] Co de Phone Number [facility] [place] [address] * Arterial Line (11/22/2024 10:38 AM CDT) [...] Davi, indirect Negative ABO Rh A Negative [facility] Blood 11/22/2024 9:17 AM CDT 11/22/2024 9:27 AM CDT Teodoro MCCLURE [facility] - 11/22/2024 10:25 AM CDT Has the patient had Daratumumab or Isatuximab in the past 6 months?->Unknown Heather Ricks NP LAB BLOOD BANK TEST ORDER FRANCESCO Final Result Performing Organization Address City/State/[facility] Co de Phone Number [facility] NETWORK [facility] [place] [address] from Last 3 Months Insurance MEDICARE [facility] MEDICARE [facility] MED[facility] Address: [address] [address] [place] [address] [facility] MEDICARE ADVANTAGE [facility] MEDICARE [facility] Address: [address] [address] [place] [address] Advance Directives For more information, please contact: [phone] * Full Code (Latest Code Status on File) Date Activated Date Inactivated Comments 11/22/2024 6:34 PM 11/25/2024 8:45 PM * Full Code Date Activated Date Inactivated Comments 09/03/2021 6:51 PM 09/06/2021 5:05 PM * Full Code Date Activated Date Inactivated Comments 12/29/2017 10:54 AM 12/30/2017 2:41 AM Care Teams Broke Beater Operator Relationship Specialty Start Date End Date Rico Lewis MD [address] [place] [address] PCP - General 02/09/18 Winter Sanchez, RN Registered Nurse 02/10/18 Jv Mathis MD [address] [place] [address] [address] Anesthesiologist Pain Management 07/17/22
== END 2025-02-16 13:20 | disposition home or self-care (01) ==
LOC: CHSIMG 13:20
PROVIDERS: PCP Internal Medicine; Visit Provider Orthopaedic Surgery Orthopaedic Surgery of the Spine
DX: M48.02 Spinal stenosis, cervical region (principal); M43.02 Spondylolysis, cervical region
CPT/HCPCS: 72141

== ENCOUNTER 2025-02-17 13:45 | Outpatient (CLI) | payer MEDICARE, SELFPAY ==
--- NOTE | ~2025-02-17 | CT_ITS ---
History: Radiculopathy PROCEDURE: CT cervical spine without intravenous contrast. COMPARISON: None. Reference is made to an MRI examination of the cervical spine performed approximate ly 24 hours earlier TECHNIQUE: Multiple contiguous axial images of the cervical spine were performed without the administration of i ntravenous contrast. DLP: 402 mGy-cm FINDINGS: Preservation of the normal curvature of the cervical spine is identified. Significant degenerative disease is noted, with osteophyte formation, disc space narrowing, endplate changes and facet arthropathy. 5.2 mm of retrolisthesis of C5 over C6 is noted. No acute fractures are present. The bilateral lung apices are unremarkable. No soft tissue abnormality is present. The airway is patent. Impression: Degenerative disease, without acute fracture. Reviewed, dictated and finalized at location A. Impression: Degenerative disease, without acute fracture.
--- OUTSIDE RECORDS SUMMARY | 2025-02-17 13:49 | XMS_ITS | Encounter Summary ---
Author Organization [facility] Healthcare Address [address] [place] [address] Care Team Providers Care Senior Oracle Database Administrator Name Role Phone Rico Lewis MD Primary Care Provider + [phone] Winter Sanchez RN Un[facility] Jv Bowden MD Unavailable [phone] Encounter Details Date Type Department Care Team (Latest Contact Info) Description 02/15/2025 11:00 AM CDT - 02/15/2025 11:59 PM CDT Hospital Encounter [id number] [address] [place] [id number] S/P spinal fusion Discharge Disposition: Discharge to home or self care Social History Tobacco Use Types Packs/Day Years Used Date Smoking Tobacco: Former Cigarettes 0 01/03/1971 - 01/03/2021 Smokeless Tobacco: Never Alcohol Use Standard Drinks/Week Comments No 0 (1 standard drink = 0.6 oz pur e alcohol) [facility] Utilities Answer Date Recorded In the past 12 months has [email or web address], gas, oil, or water [employer] threatened to shut off services in your [...] How often do you attend chur or moravian services? Never 11/28/2024 Do you belong to any clubs o r organizations such as voodoo groups, unions, fraternal or athletic groups, or [...] any time in the past [facility], were you homeless or living in a senior living (including now)? No 11/28/2024 Personal Safety Answer Date Recorded Have you ever been in or are you currently in a harmful physical or emotional relationship or is someone making you feel afraid or unsafe? Denies 11/22/2024 Sex and Gender Information Value Date Recorded Sex Assigned at Not on file Legal Sex Male 11:10 PM [employer] Gender Identity Male 01/23/2021 2:22 PM CDT [...] (180 mg total) by mouth every morning losartan (COZAAR) 100 mg tablet Take 1 [...] (0.8 mg total) by mouth every morning gabapentin (NEURONTIN) 300 mg capsule TAKE ONE CAPSULE BY MOUTH EVERY MORNING, ONE CAPSULE AT NOON, AND TAKE TWO CAPSULES AT NIGHT 120 capsule 1 10/17/2022 documented as of this encounter Discharge Disposition [...] here> General On track( 019 1:14 PM [employer]) Yes Vivian De La Vega, RAYA Note: [...] status documented in this encounter Care Teams Senior Oracle Database Administrator Relationship Specialty Start Date End Date Rico Lewis MD [address] [place] [address] PCP - General 02/09/18 Winter Sanchez, RN Registered Nurse 02/10/18 Jv Mathis MD [address] [place] [address] [address] Anesthesiologist Pain Management 07/17/22 documented as of this encounter
--- OUTSIDE RECORDS SUMMARY | 2025-02-17 13:49 | XMS_ITS | Referral Summary ---
Author Organization [facility] Medical Office Building B Address [address] [place] [address] Care Team Providers Care Deputy Sheriff Lieutenant Name Role Phone Rico Lewis MD Primary Care Provider + [phone] Winter Sanchez RN Unavailable Jv Agrawal MD Unavailable [phone] Encounters Date Type Department Care Team Description 02/15/2025 11:00 AM CDT - 02/15/2025 11:59 PM CDT Hospital Encounter [id number] [address] [place] [address] [address] [place] [address] S/P spinal fusion Discharge Disposition: Discharge to home or self care 02/15/2025 11:20 AM CDT Office Visit [facility] [address] [place] [address] Office [facility] [address] [place] [phone] Erich Kern MD S/P spinal fusion (Primary Dx); Degenerative cervical spinal stenosis 12/27/2024 Telephone [facility] [address] [place] [address] Office [facility] [address] [place] [address] Erich Kern MD 12/19/2024 11:26 AM CDT - 12/19/2024 11:59 PM CDT Hospital Encounter [id number] [address] [place] [address] [address] [place] [address] S/P spinal fusion Discharge Disposition: Discharge to home or self care 12/19/2024 11:20 AM CDT Office Visit [facility] [address] [place] [address] Medical Office Building 4 [address] [place] [address] Erich Kern MD S/P spinal fusion (Primary Dx) 12/09/2024 SHOP/CHAP Subsequent Outreach [facility] OP CASE MANAGEMENT [address] [place] [address] Alea Wing, RAYA 12/02/2024 SHOP/CHAP Subsequent Outreach [facility] OP CASE MANAGEMENT [address] [place] [address] Alea Wing, RAYA 12/02/2024 Telephone [facility] [address] [facility] Office Building [address] [place] [address] Erich Kern MD 11/29/2024 9:00 AM CDT Office Visit [facility] Urology [address] [facility] Medical Office Building 4 [address] [place] [phone] Tierra Bocanegra NP Urinary retention (Primary Dx) 11/28/2024 SHOP/CHAP Initial Outreach [facility] OP CASE MANAGEMENT [address] [place] [address] Alea Wing, RAYA 11/28/2024 SHOP/CHAP Initial Eligibility Review [facility] OP CASE MANAGEMENT [address] [place] [address] Alea Wing, RAYA 11/22/2024 8:37 AM CDT - 11/25/2024 4:40 PM CDT Hospital Encounter [facility] [address] [place] [address] Erich Kern MD Martinez Rivera, Arnaldo, MD Spinal stenosis, lumbar region, with neurogenic claudication (Primary Dx) Discharge Disposition: Discharge to home or self care 11/22/2024 10:20 AM CDT - 11/22/2024 4:35 PM CDT Surgery [facility] Operating Room [address] [place] [address] Erich Kern MD FUSION DECOMPRESSION LAMINECTOMY WITH INSTRUMENTATION - MEDTRONIC SOLERA, L2-3 posterior decompression laminectomy/foraminot george with posterior spinal instrumented fusion,revision posterior instrumentation L2-S1, allograft, autograft, spinal cord monitoring, bone morphogenetic protein, cut to close: 240 mins. 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 [email or web address] Answer Date Recorded In the past 12 months has [employer], gas, oil, or water [employer] threatened to shut off services in your [...] often do you attend chur ch or methodist services? Never 11/28/2024 Do you belong to any clubs o r organizations such as jain groups, unions, fraternal or athletic groups, or [...] any time in the past 12 m [facility], were you homeless or living in a prison (including now)? No 11/28/2024 Personal Safety Answer Date Recorded Have you ever been in or are you currently in a harmful physical or emotional relationship or is someone making you feel afraid or unsafe? 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 Gender Identity Male 01/23/2021 2:22 PM CDT [...] here> General On track( 019 1:14 PM MORTGAGE LOAN ASSISTANT) Yes Vivian De La Vega, RAYA Note: Fishing Walking dogs Working around house Medical Devices Implanted Type Area Victim Advocate Device Identifier Shelf Expiration Date Model / Serial / Lot Hardware Right: Leg Medtronic Inc [id number] Cd Horizon 6mm 500mm Line Straight Diego Spinal Titanium Nonsterile - [id number] Implanted:Qty: 1 on 09/03/2021 by Erich Kern MD at [facility] N/A: Spine Lumbar Medtronic Inc [id number] / / Allosource [id number] Crushed Chip Frozen Graft 30ml Bone Cancellous - [id number] Implanted:Qty: 1 on 09/03/2021 by Erich Kren MD at [facility] N/A: Spine Lumbar Allosource 05/10/2026 [id number] / / [id number] Allosource [id number] Crushed Chip Frozen Graft 30ml Bone Cancellous - [id number] Implanted:Qty: 1 on 09/03/2021 by Erich Kern MD at [facility] N/A: Spine Lumbar Allosource 05/11/2026 [id number] / / [id number] Medtronic Sofamor Danek [id number] Infuse 20ga 2x1in Vial Absorbable Syringe Needle Medium Graft 5.6 - [id number] Implanted:Qty: 1 on 09/03/2021 by Erich Kern MD at [facility] N/A: Spine Lumbar Medtronic Inc [id number] / / Medtronic Sofamor Danek [id number] Solera Cd Horizon 7.5mm 50mm Multiaxial Spine Screw Bone Cocr - [id number] Implanted:Qty: 2 on 09/03/2021 by Erich Kern MD at [facility] N/A: Spine Lumbar Medtronic Inc [id number] / / Medtronic Sofamor Danek [id number] Solera Cd Horizon 7.5mm 55mm Multiaxial Spine Screw Bone Cocr - [id number] Implanted:Qty: 4 on 09/03/2021 by Erich Kern MD at [facility] N/A: Spine Lumbar Medtronic Inc [id number] / / Medtronic Sofamor Danek [id number] Solera Cd Horizon 7.5mm 60mm Multiaxial Spine Screw Bone Cocr - [id number] Implanted:Qty: 2 on 09/03/2021 by Erich Kern MD at [facility] N/A: Spine Lumbar Medtronic Inc [id number] / / Medtronic Sofamor Danek [id number] Cd Horizon Break Off Spinal Screw Set Titanium Nonsterile 5.5 Mm - [id number] Implanted:Qty: 8 on 09/03/2021 by Erich Kern MD at [facility] N/A: Spine Lumbar Medtronic Inc [id number] / / Medtronic Inc Kit Graft Bone Sponge Xlg Infuse 8cc Granules [id number] - [id number] Implanted:Qty: 1 on 11/22/2024 by Erich Kern MD at [facility] Medtronic Inc [id number] 01/05/2026 [id number] / / [id number] [place] Spine Graft Bone Filler Gel Bio Dbm 10cc [id number] - [id number] Implanted:Qty: 1 on 11/22/2024 by Erich Kern MD at [facility] N/A: Spine Lumbar Marcus Spine [id number] 03/26/2027 [id number] / / [id number] Allosource Crushed Chip Frozen Graft 30ml Bone Cancellous [id number] - [id number] Implanted:Qty: 1 on 11/22/2024 by Erich Kern MD at [facility] N/A: Spine Lumbar Allosource 01/12/2029 [id number] / / [id number] Medtronic Inc Solera Cd Horizon 6.5mm 60mm Multiaxial Spine Screw Bone Cocr [id number] - [id number] Implanted:Qty: 2 on 11/22/2024 by Erich Kern MD at [facility] N/A: Spine Lumbar Medtronic Inc [id number] / / Medtronic Inc Cd Horizon Break Off Spinal Screw Set Titanium Nonsterile 5.5 Mm [id number] - [id number] Implanted:Qty: 10 on 11/22/2024 by Erich Kern MD at [facility] N/A: Spine Lumbar Medtronic Inc [id number] / / Medtronic Inc Unid Exp [id number] 6.0 Ti Diego 4up L [id number] - [id number] Implanted:Qty: 2 on 11/22/2024 by Erich Kern MD at [facility] N/A: Spine Lumbar Medtronic Inc [id number] / / Medtronic Inc Screw Mod Assy Mas 5.5/6.0mm Sterile 2pk [id number] - [id number] Implanted:Qty: 1 on 11/22/2024 by Erich Kern MD at [facility] N/A: Spine Lumbar Medtronic Inc [id number] / / Medtronic Inc Screw Spinal 8.5x55mm Cd Horizon Osteogrip Thread Nonstrl [id number] - [id number] Implanted:Qty: 1 on 11/22/2024 by Erich Kern MD at [facility] Med[employer]onic Inc [id number] / / Explanted Type Area Victim Advocate Device Identifier Shelf Expiration Date Model / Serial / Lot Spinal Cord Stimulator-2007 Implanted:2007 (Quantity not on file) Explanted:2018 by Unknown, Notinfile (Quantity not on file) Back [id number] / [id number] / Description:Explanted by Dr. Jaime Wick Implanted by Heather Staples DO Physician's phone number [phone] ID Number [id number] ANS - A VIOSO Procedures Procedure Name Priority Date/Time Associated Diagnosis [...] for 11/22 from 10/18.- DMF 10/06@1229- Pro [place] Table conflict sent - DMF 10/06@535589/30@1136- Per Bisi via staff msg - Can you please move this case to the [facility]ot for updating- DMF 01/14@1507- Per Bisi via staff msg- Can I move Mark[place] to 10/18 please? 0730 start time?- DMF 09/16@1122- Per Bisi via case msg cell saver is not needed for this case - DMF 09/16@1042- Case msg sent to [facility] to verify if cell saver needed or not for this case per audit- DMF 09/14@1320- Email sent re: Pro [place] Table conflict- DMF Special Needs Medtronic Solera, [...] for 11/22 from 10/18.- DMF 10/06@1229- Pro [place] Table conflict sent - DMF 10/06@056137/30@1136- Per Bisi via staff msg - Can you please move this case to the [facility] for updating- DMF 09/20@1507- Per Bisi via staff msg- Can I move [place] to 10/18 please? 0730 start time?- DMF 09/16@1122- Per Bisi via case msg cell saver is not needed for this case - DMF 09/16@1042- Case msg sent to [facility] to verify if cell saver needed or not for this case per audit- DMF 09/14@1320- Email sent re: Pro [place] Table conflict- DMF Special Needs Medtronic Solera, [...] for 11/22 from 10/18.- DMF 10/06@1229- Pro [place] Table conflict sent - DMF 10/06@513500/30@1136- Per Bisi via staff msg - Can you please move this case to the depot for updating- DMF 09/20@1507- Per Bisi via staff msg- Can I move Mark[place] to 10/18 please? 0730 start time?- DMF 09/16@1122- Per Bisi via case msg cell saver is not needed for this case - DMF 09/16@1042- Case msg sent to [facility] to verify if cell saver needed or not for this case per audit- DMF 09/14@1320- Email sent re: Pro [place] Table conflict- DMF Special Needs Medtronic Solera, [...] for 11/22 from 10/18.- DMF 10/06@1229- Pro [place] Table conflict sent - DMF 10/06@094612/30@1136- Per Bisi via staff msg - Can you please move this case to the dep[facility] for updating- DMF 09/20@1507- Per Bisi via staff msg- Can I move Marko to 10/18 please? 0730 start time?- DMF 09/16@1122- Per Bisi via case msg cell saver is not needed for this case - DMF 09/16@1042- Case msg sent to [facility] to verify if cell saver needed or not for this case per audit- DMF 09/14@1320- Email sent re: Pro [place] Table conflict- DMF Special Needs Medtronic Solera, [...] by: Geeta Nuñez M.D. us Britni Ricardo CLIP WRAPPER IMG XR PROCEDURES Final Result * eGFR [...] NP LAB BLOOD ORDERABLES Enma scott Result [facility] One [facility] Department [place] [address] * (ABNORMAL) CBC without differential (11/24/2024 4:33 AM CDT) [facility] WBC 8.4 3.8 - 9.9 K/cumm Hgb 10.5(L) 13.0 - 17.5 g/dL [facility] Hct 31.4(L) 38.9 - 50.3 % [facility] Plt 146(L) 150 - 400 K/cumm [facility] MPV 9.4 9.1 - 12.3 fL [facility] RBC 3.37(L) 4.30 - 5.80 M/cumm [facility] MCV 93.2 81.3 - 96.4 fL [facility] MCH 31.2 27.1 - 33.3 pg [facility] MCHC 33.4 32.3 - 35.7 g/dL [facility] RDW CV 13.5 11.1 - 14.9 % [facility] RDW SD 45.8 35.7 - 48.1 fL [facility] NRBC abs 0.00 0.00 - 0.01 K/cumm [facility] Blood 11/24/2024 4:33 AM CDT 11/24/2024 5:18 AM CDT us Heather Ricks NP LAB BLOOD ORDERABLES Enma l Result Performing Organization Address City/[facility] Co de Phone Number [facility] Department [place] [address] * Phosphorus (11/24/2024 4:33 AM CDT) [facility] Phosphorus, pl 2.8 2.3 - 4.5 mg/dL Blood 11/24/2024 4:33 AM CDT 11/24/2024 5:20 AM CDT us Erich Kern MD LAB BLOOD ORDERABLES Final Result Performing Organization Address City/[facility]/ZIP Co de Phone Number [facility] Department [place] [address] * Magnesium (11/24/2024 4:33 AM CDT) Pathologist [facility] Magnesium 2.1 1.4 - 2.5 mg/dL Blood 11/24/2024 4:33 AM CDT 11/24/2024 5:20 AM CDT Erich Kern MD LAB BLOOD ORDERABLES Final Result [facility] One [facility] [place] [address] * (ABNORMAL) Basic metabolic panel (11/24/2024 4:33 AM CDT) Pathologist [facility] Sodium 137 135 - 145 mmol/L Potassium, pl 4.5 3.3 - 4.9 mmol/L [facility] Chloride 104 97 - 110 mmol/L [facility] CO2 27 22 - 32 mmol/L [facility] Anion gap 6 2 - 15 mmol/L [facility] BUN 13 6 - 25 mg/dL [facility] Creatinine 0.95 0.80 - 1.30 mg/dL [facility] Glucose 119 70 - 199 mg/dL [facility] Comment: Interpretive Data Fasting glucose >/= 126 [...] 2022. Calcium 8.1(L) 8.5 - 10.3 mg/dL [facility] Blood 11/24/2024 4:33 AM CDT 11/24/2024 5:20 AM CDT us Heather Wendy Hopper CLIP WRAPPER LAB BLOOD ORDERABLES Enma l Result Performing Organization Address [facility] Co de Phone Number [facility] Department [place] [address] * eGFR (11/22/2024 10:33 PM CDT) eGFR [...] ORDERABLES Enma l Result Performing Organization Address [facility] Co de Phone Number [facility] [place] [address] * aPTT (11/22/2024 10:33 PM CDT) aPTT 33 28 - 38 sec Comment: Interpretive Data Heparin therapeutic range: 66.0 - 100.0 seconds. Range based on correlation with therapeutic heparin activity range of 0.3 - 0.7 Units/mL. Current interpretive data was last revised on 2023. Blood 11/22/2024 10:3 3 PM CDT 11/22/2024 10:57 PM CDT Heather Ricks CLIP WRAPPER LAB BLOOD ORDERABLES Enma l Result Performing Organization Address [facility] de Phone Number [facility] Department [place] [address] * Protime-INR (11/22/2024 10:33 PM CDT) [facility] PT 11.5 9.7 - 13.0 sec INR 1.06 0.90 - 1.20 [facility] Comment: Interpretive data Oral anticoagulant therapeutic ranges: Venous thromboembolism prophylaxis or treatment: 2.0-3.0 CARDIOLOGY Standard range: 2.0-3.0 High-intensity range: 2.5-3.5 Refer to indication-specific guidelines for appropriate target ranges for prosthetic heart valve replacement. Current interpretive data was last revised on 2019. Blood 11/22/2024 10:3 3 PM CDT 11/22/2024 10:57 PM CDT Heather Ricks NP LAB BLOOD ORDERABLES Enma l Result Performing Organization Address [facility] de Phone Number [facility] Department [place] [address] * (ABNORMAL) CBC without differential (11/22/2024 10:33 PM CDT) [facility] WBC 7.4 3.8 - 9.9 K/cumm Hgb 10.8(L) 13.0 - 17.5 g/dL [facility] Hct 33.6(L) 38.9 - 50.3 % [facility] Plt 170 150 - 400 K/cumm [facility] MPV 9.1 9.1 - 12.3 fL [facility] RBC 3.50(L) 4.30 - 5.80 M/cumm [facility] MCV 96.0 81.3 - 96.4 fL [facility] MCH 30.9 27.1 - 33.3 pg [facility] MCHC 32.1(L) 32.3 - 35.7 g/dL [facility] RDW CV 13.9 11.1 - 14.9 % [facility] RDW SD 49.1(H) 35.7 - 48.1 fL [facility] NRBC abs 0.00 0.00 - 0.01 K/cumm [facility] Blood 11/22/2024 10:3 3 PM CDT 11/22/2024 10:54 PM CDT us Heather Ricks CLIP WRAPPER LAB BLOOD ORDERABLES Enma l Result [facility] One [facility] Department [place] [address] * (ABNORMAL) Basic metabolic panel (11/22/2024 10:33 PM CDT) [facility] Sodium 138 135 - 145 mmol/L Potassium, pl 4.7 3.3 - 4.9 mmol/L [facility] Chloride 104 97 - 110 mmol/L [facility] CO2 28 22 - 32 mmol/L [facility] Anion gap 6 2 - 15 mmol/L [facility] BUN 12 6 - 25 mg/dL [facility] Creatinine 0.95 0.80 - 1.30 mg/dL [facility] Glucose 117 70 - 199 mg/dL [facility] Comment: Interpretive Data Fasting glucose >/= 126 [...] 2022. Calcium 8.2(L) 8.5 - 10.3 mg/dL [facility] Blood 11/22/2024 10:3 3 PM CDT 11/22/2024 10:54 PM CDT Heather Ricks CLIP WRAPPER LAB BLOOD ORDERABLES Enma l Result Performing Organization Address [facility] Co de Phone Number [facility] Department [place] [address] * eGFR (11/22/2024 2:02 PM CDT) Pathologist [facility] eGFR >90 >=60 mL/min/1. 73 m2 Comment: [...] Performing Organization Address City/[facility]/ZIP Co de Phone Number [facility] Department [place] [address] * (ABNORMAL) CBC without differential (11/22/2024 2:02 PM CDT) [facility] WBC 4.2 3.8 - 9.9 K/cumm Hgb 12.0(L) 13.0 - 17.5 g/dL [facility] Hct 34.7(L) 38.9 - 50.3 % [facility] Plt 172 150 - 400 K/cumm [facility] MPV 9.4 9.1 - 12.3 fL [facility] RBC 3.69(L) 4.30 - 5.80 M/cumm [facility] MCV 94.0 81.3 - 96.4 fL [facility] MCH 32.5 27.1 - 33.3 pg [facility] MCHC 34.6 32.3 - 35.7 g/dL [facility] RDW CV 13.5 11.1 - 14.9 % [facility] RDW SD 46.2 35.7 - 48.1 fL [facility] NRBC abs 0.00 0.00 - 0.01 K/cumm [facility] Blood 11/22/2024 2:02 PM CDT 11/22/2024 2:54 PM CDT Heather Ricks CLIP WRAPPER LAB BLOOD ORDERABLES Enma scott Result [facility] One [facility] Department [place] [address] * (ABNORMAL) Basic metabolic panel (11/22/2024 2:02 PM CDT) Sodium 141 135 - 145 mmol/L Potassium, pl 4.4 3.3 - 4.9 mmol/L [facility] Chloride 107 97 - 110 mmol/L [facility] CO2 27 22 - 32 mmol/L [facility] Anion gap 7 2 - 15 mmol/L [facility] BUN 12 6 - 25 mg/dL [facility] Creatinine 0.81 0.80 - 1.30 mg/dL [facility] Glucose 124 70 - 199 mg/dL [facility] Comment: Interpretive Data Fasting glucose >/= 126 [...] 2022. Calcium 7.9(L) 8.5 - 10.3 mg/dL [facility] Blood 11/22/2024 2:02 PM CDT 11/22/2024 2:54 PM CDT us Heather Ricks CLIP WRAPPER LAB BLOOD ORDERABLES Enma l Result Performing Organization Address City/[facility]/ZIP Co de Phone Number [facility] One [facility] Department [place] [address] * FL Fluoroscopy < 1 Hour (11/22/2024 12:42 PM CDT) Narrative [email or web address] - 11/22/2024 12:42 PM CDT The images from this study are not interpreted by Radiology. Please refer to the physician's procedure / OR operative note. us Erich Kern MD IMG FLUOROSCOPY PROC EDURES Final Result Performing Organization Address [facility]/ZIP Co de Phone Number [email or web address] * (ABNORMAL) POC Blood Gas and Chemistries, Arterial - (11/22/2024 11:48 AM CDT) pH, Art POC 7.36 7.35 - 7.45 pCO2, Art POC 47(H) 35 - 45 mmHg [facility] pO2, Art POC 216(H) 83 - 108 mmHg [facility] Na, POC 139 135 - 145 mmol/L [facility] K POC 3.9 3.3 - 4.9 mmol/L [facility] Comment: Interpretive Data Not all point of care methods assess for hemolysis. Confirm with instrument and retest K+ if not consistent with clinical signs and symptoms. Current Interpretive Data was last revised on 2023. Cl, POC 106 97 - 110 mmol/L [facility] Ionized Ca, POC 4.64 4.50 - 5.10 mg/dL [facility] Glucose, POC 107 70 - 199 mg/dL [facility] Lactate POC 0.8 0.7 - 2.0 mmol/L [facility] SO2 (yadiel) arterial 100(H) 90 - 95 % [facility] Base excess, POC 0.7 mmol/L [facility] Hct, POC 37.0(L) 41.4 - 51.6 % [facility] Total Hb, POC 12.2(L) 13.8 - 17.2 g/dL [facility] Blood 11/22/2024 11:4 8 AM CDT 11/22/2024 11:48 AM CDT us Erich Kern MD LAB POCT ORDERABLES - DEVICE Final Result Performing Organization Address City/State/[facility] Co de Phone Number [facility] One [facility] [place] [address] * Arterial Line (11/22/2024 10:38 AM CDT) [...] CDT 11/22/2024 9:27 AM CDT Teodoro MCCLURE [facility] - 11/22/2024 10:25 AM CDT Has the patient had Daratumumab or Isatuximab in the past 6 months?->Unknown Heather Ricks NP LAB BLOOD BANK TEST ORDER FRANCESCO Final Result Performing Organization Address City/State/[facility] Co de Phone Number KAMI [facility] [place] [address] from Last 3 Months Insurance MEDICARE [facility] MEDICARE ADVANTAGE [facility] MEDICARE ADVANTAGE [facility] MEDICARE ADVANTAGE Advance Directives For more information, please contact: [phone] * Full Code (Latest Code Status on File) Date Activated Date Inactivated Comments 11/22/2024 6:34 PM 11/25/2024 8:45 PM * Full Code Date Activated Date Inactivated Comments 09/03/2021 6:51 PM 09/06/2021 5:05 PM * Full Code Date Activated Date Inactivated Comments 12/29/2017 10:54 AM 12/30/2017 2:41 AM Care Teams Deputy Sheriff Lieutenant Relationship Specialty Start Date End Date Rico Lewis MD [address] [place] [address] PCP - General 02/09/18 Winter Sanchez, RN Registered Nurse 02/10/18 Jv Mathis MD [address] [place] [address] [address] Anesthesiologist Pain Management 07/17/22
--- OUTSIDE RECORDS SUMMARY | 2025-02-17 13:49 | XMS_ITS | Clinical Summary ---
Author Organization [facility] Medical Office Building B Address [address] [place] [address] Care Team Providers Care Pan Operator Name Role Phone Rico Lewis MD Primary Care Provider + [phone] Winter Sanchez RN Unavailable UnavailJv Hardy MD Unavailable [phone] Allergies No known active allergies Medications tamsulosin [...] nosis 04/20/2023 Sacroiliitis 04/10/2020 Lumbar radiculopathy 01/04/2020 prison (current) use of opiate analgesic 12/07 DDD [...] Description 02/15/2025 11:20 AM CDT Office Visit [facility] Orthopaedic Surgery [address] [place] [address] [phone] Erich Kern MD S/P spinal fusion (Primary Dx); Degenerative cervical spinal stenosis 02/15/2025 11:00 AM CDT - 02/15/2025 11:59 PM CDT Hospital Encounter [id number] [address] [place] [phone] S/P spinal fusion Discharge Disposition: Discharge to home or self care 12/27/2024 Telephone [facility] Orthopaedic Surgery [address] [place] [address] [phone] Erich Kern MD 12/19/2024 11:26 AM CDT - 12/19/2024 11:59 PM CDT Hospital Encounter [facility] [address] [place] [address] [address] [place] [address] S/P spinal fusion Discharge Disposition: Discharge to home or self care 12/19/2024 11:20 AM CDT Office Visit [facility] Orthopaedic Surgery [address] [place] [address] [phone] Erich Kern MD S/P spinal fusion (Primary Dx) 12/09/2024 SHOP/CHAP Subsequent Outreach [facility] [address] [place] [id number] Alea Wing RN 12/02/2024 SHOP/CHAP Subsequent Outreach [facility] [address] [place] [address] Alea Wing RN 12/02/2024 Telephone [facility] Orthopaedic Surgery [address] [facility] Medical Office Building 4 [address] [place] [phone] Erich Kern MD 11/29/2024 9:00 AM CDT Office Visit [facility] Urology [address] [facility] Medical Office Building 4 [address] [place] [address] Tierra Bocanegra NP Urinary retention (Primary Dx) 11/28/2024 SHOP/CHAP Initial Outreach [facility] [address] [place] [phone] Alea Wing RN 11/28/2024 SHOP/CHAP Initial Eligibility Review [facility] [address] [place] [phone] Alea Wing, RAYA 11/22/2024 10:20 AM CDT - 11/22/2024 4:35 PM CDT Surgery [facility] Operating Room [address] [place] [address] Erich Kern MD FUSION DECOMPRESSION LAMINECTOMY WITH INSTRUMENTATION - MEDTRONIC SOLERA, L2-3 posterior decompression laminectomy/foraminot george with posterior spinal instrumented fusion,revision posterior instrumentation L2-S1, allograft, autograft, spinal cord monitoring, bone morphogenetic protein, cut to close: 240 mins. 11/22/2024 10:10 AM CDT Anesthesia Event [facility] Operating Room [address] [place] [phone] Latoya Stokes MD Maue, Kyara King NP 11/22/2024 8:37 AM CDT - 11/25/2024 4:40 PM CDT Hospital Encounter [facility] [address] [place] [address] Erich Kern MD Martinez Rivera, Arnaldo, MD Spinal stenosis, lumbar region, with neurogenic claudication (Primary Dx) Discharge Disposition: Discharge to home or self care 11/17/2024 Documentation [facility] Orthopaedic Surgery [address] [facility] Medical Office Building 4 [address] [place] [phone] Bisi Bartlett RN from Last 3 Months [...] drink = 0.6 oz pur e alcohol) [employer] Util[employer] Answer Date Recorded In the past 12 months has [employer], gas, oil, or water [employer] threatened to shut off services in your [...] week 11/28/2024 How often do you attend [facility] or protestant services? Never 11/28/2024 Do you belong to any clubs o r organizations such as mosque groups, unions, fraternal or athletic groups, or [...] any time in the past 12 [facility], were you homeless or living in a fci (including now)? No 11/28/2024 Personal Safety Answer Date Recorded Have you ever been in or are you currently in a harmful physical or emotional relationship or is someone making you feel afraid or unsafe? Denies 11/22/2024 Sex and Gender Information Value Date Recorded Sex Assigned at Not on file Legal Sex Male 11:10 PM APPLICATIONS SUPPORT ANALYST Gender Identity Male 01/23/2021 2:22 PM CDT [...] here> General On track( 019 1:14 PM APPLICATIONS SUPPORT ANALYST) Yes Vivian De La Vega RN Note: Fishing Walking dogs Working around house Medical Devices Implanted Type Area Resident Medical Officer Device Identifier Shelf Expiration Date Model / Serial / Lot Hardware Right: Leg Medtronic Inc [id number] Cd Horizon 6mm 500mm Line Straight Diego Spinal Titanium Nonsterile - [id number] Implanted:Qty: 1 on 09/03/2021 by Erich Kern MD at [facility] N/A: Spine Lumbar Medtronic Inc [id number] / / Allosource [id number] Crushed Chip Frozen Graft 30ml Bone Cancellous - [id number] Implanted:Qty: 1 on 09/03/2021 by Erich Kern MD at [facility] N/A: Spine Lumbar Allosource 05/10/2026 [id number] / / [id number] Allosource [id number] Crushed Chip Frozen Graft 30ml Bone Cancellous - [id number] Implanted:Qty: 1 on 09/03/2021 by Erich Kern MD at [facility] N/A: Spine Lumbar Allosource 05/11/2026 [id number] / / [id number] Medtronic Sofamor [place] [id number] Infuse 20ga 2x1in Vial Absorbable Syringe Needle Medium Graft 5.6 - [id number] Implanted:Qty: 1 on 09/03/2021 by Erich Kern MD at [facility] N/A: Spine Lumbar Medtronic Inc [id number] / / Medtronic Sofamor [place] [id number] Solera Cd Horizon 7.5mm 50mm Multiaxial Spine Screw Bone Cocr - [id number] Implanted:Qty: 2 on 09/03/2021 by Erich Kern MD at [facility] N/A: Spine Lumbar Medtronic Inc [id number] / / Medtronic Sofamor Danek [id number] Solera Cd Horizon 7.5mm 55mm Multiaxial Spine Screw Bone Cocr - [id number] Implanted:Qty: 4 on 09/03/2021 by Erich Kern MD at [facility] N/A: Spine Lumbar Medtronic Inc [id number] / / Medtronic Sofamor [place] [id number] Solera Cd Horizon 7.5mm 60mm Multiaxial Spine Screw Bone Cocr - [id number] Implanted:Qty: 2 on 09/03/2021 by Erich Kern MD at [facility] N/A: Spine Lumbar Medtronic Inc [id number] / / Medtronic Sofamor Danek [id number] Cd Horizon Break Off Spinal Screw Set Titanium Nonsterile 5.5 Mm - [id number] Implanted:Qty: 8 on 09/03/2021 by Erich Kern MD at [facility] N/A: Spine Lumbar Medtronic Inc [id number] / / Medtronic Inc Kit Graft Bone Sponge Xlg Infuse 8cc Granules [id number] - [id number] Implanted:Qty: 1 on 11/22/2024 by Erich Kern MD at [facility] Medtronic Inc [id number] 01/05/2026 [id number] / / [id number] [place] Spine Graft Bone Filler Gel Bio Dbm 10cc [id number] - [id number] Implanted:Qty: 1 on 11/22/2024 by Erich Kern MD at [facility] N/A: Spine Lumbar Hill[place] Spine [id number] 03/26/2027 [id number] / / [id number] Allosource Crushed Chip Frozen Graft 30ml Bone Cancellous [id number] - [id number] Implanted:Qty: 1 on 11/22/2024 by Erich Kern MD at [facility] N/A: Spine Lumbar Allosource 01/12/2029 [id number] / / [id number] Medtronic Inc Solera Cd Horizon 6.5mm 60mm Multiaxial Spine Screw Bone Cocr [id number] - [id number] Implanted:Qty: 2 on 11/22/2024 by Erich Kern MD at [facility] N/A: Spine Lumbar Medtronic Inc [id number] / / Medtronic Inc Cd Horizon Break Off Spinal Screw Set Titanium Nonsterile 5.5 Mm [id number] - [id number] Implanted:Qty: 10 on 11/22/2024 by Erich Kern MD at [facility] N/A: Spine Lumbar Medtronic Inc [id number] / / Medtronic Inc Unid Exp [id number] 6.0 Ti Diego 4up L [id number] - [id number] Implanted:Qty: 2 on 11/22/2024 by Erich Kern MD at [facility] N/A: Spine Lumbar Medtronic Inc [id number] / / Medtronic Inc Screw Mod Assy Mas 5.5/6.0mm Sterile 2pk [id number] - [id number] Implanted:Qty: 1 on 11/22/2024 by Erich Kern MD at [facility] N/A: Spine Lumbar Medtronic Inc [id number] / / Medtronic Inc Screw Spinal 8.5x55mm Cd Horizon Osteogrip Thread Nonstrl [id number] - [id number] Implanted:Qty: 1 on 11/22/2024 by Erich Kern MD at [facility] Medtronic Inc [id number] / / Explanted Type Area Resident Medical Officer Device Identifier Shelf Expiration Date Model / Serial / Lot Spinal Cord Stimulator-2007 Implanted:2007 (Quantity not on file) Explanted:2018 by Jared aLke (Quantity not on file) Back [id number] / [id number] / Description:Explanted by Dr. Jaime Wick Implanted by Heather Staples DO Physician's phone number [phone] ID Number [id number] ANS - A [employer] Procedures Procedure Name Priority Date/Time Associated Diagnosis [...] for 11/22 from 10/18.- DMF 10/06@1229- Pro Wellington Table conflict sent - DMF 10/06@436359/30@1136- Per Bisi via staff msg - Can you please move this case to the depot for updating- DMF 09/20@1507- Per Bisi via staff msg- Can I move Marko to 10/18 please? 0730 start time?- DMF 09/16@1122- Per Bisi via case msg cell saver is not needed for this case - DMF 09/16@1042- Case msg sent to [facility] to verify if cell saver needed or not for this case per audit- DMF 09/14@1320- Email sent re: Pro Wellington Table conflict- DMF Special Needs Medtronic Solera, [...] for 11/22 from 10/18.- DMF 10/06@1229- Pro Wellington Table conflict sent - DMF 10/06@866660/30@1136- Per Bisi via staff msg - Can you please move this case to the depot for updating- DMF 09/20@1507- Per Bisi via staff msg- Can I move Marko to 10/18 please? 0730 start time?- DMF 09/16@1122- Per Bisi via case msg cell saver is not needed for this case - DMF 09/16@1042- Case msg sent to [facility] to verify if cell saver needed or not for this case per audit- DMF 09/14@1320- Email sent re: Pro Wellington Table conflict- DMF Special Needs Medtronic Solera, [...] for 11/22 from 10/18.- DMF 10/06@1229- Pro Wellington Table conflict sent - DMF 10/06@271268/30@1136- Per Bisi via staff msg - Can you please move this case to the [facility] for updating- DMF 09/20@1507- Per Bisi via staff msg- Can I move Marko to 10/18 please? 0730 start time?- DMF 09/16@1122- Per Bisi via case msg cell saver is not needed for this case - DMF 09/16@1042- Case msg sent to [facility] to verify if cell saver needed or not for this case per audit- DMF 09/14@1320- Email sent re: Pro Wellington Table conflict- DMF Special Needs Medtronic Solera, [...] for 11/22 from 10/18.- DMF 10/06@1229- Pro Wellington Table conflict sent - DMF 10/06@493057/30@1136- Per Bisi via staff msg - Can you please move this case to the depot for updating- DMF 09/20@1507- Per Bisi via staff msg- Can I move Marko to 10/18 please? 0730 start time?- DMF 09/16@1122- Per Bisi via case msg cell saver is not needed for this case - DMF 09/16@1042- Case msg sent to [facility] to verify if cell saver needed or not for this case per audit- [facility] 09/14@1320- Email sent re: Pro Wellington Table conflict- DMF Special Needs Medtronic Solera, [...] signed by: Geeta Nuñez M.D. Britni Ricardo APPRAISAL SPECIALIST IMG XR PROCEDURES Final Result * eGFR [...] NP LAB BLOOD ORDERABLES Enma scott Result [facility] Department [place] [address] * (ABNORMAL) CBC without differential (11/24/2024 4:33 AM CDT) WBC 8.4 3.8 - 9.9 K/cumm Hgb 10.5(L) 13.0 - 17.5 g/dL [facility] Hct 31.4(L) 38.9 - 50.3 % [facility] Plt 146(L) 150 - 400 K/cumm [facility] MPV 9.4 9.1 - 12.3 fL [facility] RBC 3.37(L) 4.30 - 5.80 M/cumm [facility] MCV 93.2 81.3 - 96.4 fL [facility] MCH 31.2 27.1 - 33.3 pg [facility] MCHC 33.4 32.3 - 35.7 g/dL [facility] RDW CV 13.5 11.1 - 14.9 % [facility] RDW SD 45.8 35.7 - 48.1 fL [facility] NRBC abs 0.00 0.00 - 0.01 K/cumm [facility] Blood 11/24/2024 4:33 AM CDT 11/24/2024 5:18 AM CDT us Heather Ricks APPRAISAL SPECIALIST LAB BLOOD ORDERABLES Enma l Result Performing Organization Address City/[facility] Co de Phone Number [facility] [place] [address] * Phosphorus (11/24/2024 4:33 AM CDT) Pathologist [facility] Phosphorus, pl 2.8 2.3 - 4.5 mg/dL Blood 11/24/2024 4:33 AM CDT 11/24/2024 5:20 AM CDT us Erich Kern MD LAB BLOOD ORDERABLES Final Result Performing Organization Address [facility] Co de Phone Number [facility] [place] [address] * Magnesium (11/24/2024 4:33 AM CDT) [facility] Magnesium 2.1 1.4 - 2.5 mg/dL Blood 11/24/2024 4:33 AM CDT 11/24/2024 5:20 AM CDT Erich Kern MD LAB BLOOD ORDERABLES Final Result Performing Organization Address [facility] Co de Phone Number [facility] Department [place] [address] * (ABNORMAL) Basic metabolic panel (11/24/2024 4:33 AM CDT) Pathologist [facility] Sodium 137 135 - 145 mmol/L Potassium, pl 4.5 3.3 - 4.9 mmol/L [facility] Chloride 104 97 - 110 mmol/L [facility] CO2 27 22 - 32 mmol/L [facility] Anion gap 6 2 - 15 mmol/L [facility] BUN 13 6 - 25 mg/dL [facility] Creatinine 0.95 0.80 - 1.30 mg/dL [facility] Glucose 119 70 - 199 mg/dL [facility] Comment: Interpretive Data Fasting glucose >/= [...] 2022. Calcium 8.1(L) 8.5 - 10.3 mg/dL [facility] Blood 11/24/2024 4:33 AM CDT 11/24/2024 5:20 AM CDT us Heather Ricks NP LAB BLOOD ORDERABLES Enma scott Result [facility] Department [place] [address] * eGFR (11/22/2024 10:33 PM CDT) eGFR [...] CDT 11/22/2024 10:54 PM CDT Heather Nguyen [facility] LAB BLOOD ORDERABLES Enma l Result Performing Organization Address [facility] Co de Phone Number [facility] [address] [place] [address] * aPTT (11/22/2024 10:33 PM CDT) aPTT 33 28 - 38 sec Comment: Interpretive Data Heparin therapeutic range: 66.0 - 100.0 seconds. Range based on correlation with therapeutic heparin activity range of 0.3 - 0.7 Units/mL. Current interpretive data was last revised on 2023. Blood 11/22/2024 10:3 3 PM CDT 11/22/2024 10:57 PM CDT [facility] LAB BLOOD ORDERABLES Enma l Result Performing Organization Address [facility] de Phone Number [facility] Hemp [address] [place] [address] * Protime-INR (11/22/2024 10:33 PM CDT) PT 11.5 9.7 - 13.0 sec INR 1.06 0.90 - 1.20 [facility] Comment: Interpretive data Oral anticoagulant therapeutic ranges: Venous thromboembolism prophylaxis or treatment: 2.0-3.0 CARDIOLOGY Standard range: 2.0-3.0 High-intensity range: 2.5-3.5 Refer to indication-specific guidelines for appropriate target ranges for prosthetic heart valve replacement. Current interpretive data was last revised on 2019. Blood 11/22/2024 10:3 3 PM CDT 11/22/2024 10:57 PM CDT [facility] LAB BLOOD ORDERABLES Enma l Result Performing Organization Address [facility] de Phone Number [facility] Department [place] [address] * (ABNORMAL) CBC without differential (11/22/2024 10:33 PM CDT) [facility] WBC 7.4 3.8 - 9.9 K/cumm Hgb 10.8(L) 13.0 - 17.5 g/dL [facility] Hct 33.6(L) 38.9 - 50.3 % [facility] Plt 170 150 - 400 K/cumm [facility] MPV 9.1 9.1 - 12.3 fL [facility] RBC 3.50(L) 4.30 - 5.80 M/cumm [facility] MCV 96.0 81.3 - 96.4 fL [facility] MCH 30.9 27.1 - 33.3 pg [facility] MCHC 32.1(L) 32.3 - 35.7 g/dL [facility] RDW CV 13.9 11.1 - 14.9 % [facility] RDW SD 49.1(H) 35.7 - 48.1 fL [facility] NRBC abs 0.00 0.00 - 0.01 K/cumm [facility] Blood 11/22/2024 10:3 3 PM CDT 11/22/2024 10:54 PM CDT Heather Ricks APPRAISAL SPECIALIST LAB BLOOD ORDERABLES Enma l Result Performing Organization Address [facility] Co de Phone Number [facility] Department [place] [address] * (ABNORMAL) Basic metabolic panel (11/22/2024 10:33 PM CDT) [facility] Sodium 138 135 - 145 mmol/L Potassium, pl 4.7 3.3 - 4.9 mmol/L [facility] Chloride 104 97 - 110 mmol/L [facility] CO2 28 22 - 32 mmol/L [facility] Anion gap 6 2 - 15 mmol/L [facility] BUN 12 6 - 25 mg/dL [facility] Creatinine 0.95 0.80 - 1.30 mg/dL [facility] Glucose 117 70 - 199 mg/dL [facility] Comment: Interpretive Data Fasting glucose >/= [...] 2022. Calcium 8.2(L) 8.5 - 10.3 mg/dL [facility] Blood 11/22/2024 10:3 3 PM CDT 11/22/2024 10:54 PM CDT Heather Ricks NP LAB BLOOD ORDERABLES Enma l Result [facility] Department [place] [address] * eGFR (11/22/2024 2:02 PM CDT) eGFR [...] PM CDT 11/22/2024 2:54 PM CDT Result [facility] Heather Ricks APPRAISAL SPECIALIST LAB BLOOD ORDERABLES Enma l Result Performing Organization Address [facility] Co de Phone Number [facility] Department of Hemp [address] [place] [address] * (ABNORMAL) CBC without differential (11/22/2024 2:02 PM CDT) [facility] WBC 4.2 3.8 - 9.9 K/cumm Hgb 12.0(L) 13.0 - 17.5 g/dL [facility] Hct 34.7(L) 38.9 - 50.3 % [facility] Plt 172 150 - 400 K/cumm [facility] MPV 9.4 9.1 - 12.3 fL [facility] RBC 3.69(L) 4.30 - 5.80 M/cumm [facility] MCV 94.0 81.3 - 96.4 fL [facility] MCH 32.5 27.1 - 33.3 pg [facility] MCHC 34.6 32.3 - 35.7 g/dL [facility] RDW CV 13.5 11.1 - 14.9 % [facility] RDW SD 46.2 35.7 - 48.1 fL [facility] NRBC abs 0.00 0.00 - 0.01 K/cumm [facility] Blood 11/22/2024 2:02 PM CDT 11/22/2024 2:54 PM CDT Heather Ricks APPRAISAL SPECIALIST LAB BLOOD ORDERABLES Enma l Result Performing Organization Address [facility]/ZIP Co de Phone Number [facility] Department [place] [address] * (ABNORMAL) Basic metabolic panel (11/22/2024 2:02 PM CDT) Sodium 141 135 - 145 mmol/L Potassium, pl 4.4 3.3 - 4.9 mmol/L [facility] Chloride 107 97 - 110 mmol/L [facility] CO2 27 22 - 32 mmol/L [facility] Anion gap 7 2 - 15 mmol/L [facility] BUN 12 6 - 25 mg/dL [facility] Creatinine 0.81 0.80 - 1.30 mg/dL [facility] Glucose 124 70 - 199 mg/dL [facility] Comment: Interpretive Data Fasting glucose >/= [...] 2022. Calcium 7.9(L) 8.5 - 10.3 mg/dL [facility] Blood 11/22/2024 2:02 PM CDT 11/22/2024 2:54 PM CDT us Heather Ricks APPRAISAL SPECIALIST LAB BLOOD ORDERABLES Enma l Result [facility] [place] [address] * [place] Fluoroscopy < 1 Hour (11/22/2024 12:42 PM CDT) Narrative [facility] - 11/22/2024 12:42 PM CDT The images [...] POC 47(H) 35 - 45 mmHg [facility] pO2, Art POC 216(H) 83 - 108 mmHg [facility] Na, POC 139 135 - 145 mmol/L [facility] K POC 3.9 3.3 - 4.9 mmol/L [facility] Comment: Interpretive Data Not all point of care methods assess for hemolysis. Confirm with instrument and retest K+ if not consistent with clinical signs and symptoms. Current Interpretive Data was last revised on 2023. Cl, POC 106 97 - 110 mmol/L [facility] Ionized Ca, POC 4.64 4.50 - 5.10 mg/dL [facility] Glucose, POC 107 70 - 199 mg/dL [facility] Lactate POC 0.8 0.7 - 2.0 mmol/L [facility] SO2 (yadiel) arterial 100(H) 90 - 95 % [facility] Base excess, POC 0.7 mmol/L [facility] Hct, POC 37.0(L) 41.4 - 51.6 % [facility] Total Hb, POC 12.2(L) 13.8 - 17.2 g/dL [facility] Blood 11/22/2024 11:4 8 AM CDT 11/22/2024 11:48 AM CDT us Erich Kern MD LAB POCT ORDERABLES - DEVICE Final Result [facility] Department [place] [address] * Arterial Line (11/22/2024 10:38 AM CDT) [...] Davi, indirect Negative ABO Rh A Negative [facility] Blood 11/22/2024 9:17 AM CDT 11/22/2024 9:27 AM CDT [facility]ative [facility] - 11/22/2024 10:25 AM CDT Has the patient had Daratumumab or Isatuximab in the past 6 months?->Unknown us Heather Ricks NP LAB BLOOD BANK TEST ORDER FRANCESCO Final Result [facility] Department [place] [address] from Last 3 Months Insurance MEDICARE [facility] MEDICARE ADVANTAGE Advance Directives For more information, please contact: [phone] * Full Code (Latest Code Status on File) Date Activated Date Inactivated Comments 11/22/2024 6:34 PM 11/25/2024 8:45 PM * Full Code Date Activated Date Inactivated Comments 09/03/2021 6:51 PM 09/06/2021 5:05 PM * Full Code Date Activated Date Inactivated Comments 12/29/2017 10:54 AM 12/30/2017 2:41 AM Care Teams Pan Operator Relationship Specialty Start Date End Date Rico Lewis MD [address] [place] [address] PCP - General 02/09/18 Winter Sanchez, RN Registered Nurse 02/10/18 Jv Mathis MD [address] [place] [address] [address] Anesthesiologist Pain Management 07/17/22
--- OUTSIDE RECORDS SUMMARY | 2025-02-17 13:49 | XMS_ITS | Clinical Summary ---
Author Organization [facility] Address [address] [place] [address] Phone Care Team Providers Care Mophead Sewer Name Role Phone Rico Lewis MD Primary [...] Comments Blood Pressure 110/66 09/14/2020 10:37 AM LAND ACQUISITION MANAGER Pulse 60 09/14/2020 10:37 AM LAND ACQUISITION MANAGER Temperature 36.1 C (97 F) 08/06/2020 9:00 AM LAND ACQUISITION MANAGER Respiratory Rate 14 08/06/2020 9:15 AM LAND ACQUISITION MANAGER Oxygen Saturation 98% 08/06/2020 9:15 AM LAND ACQUISITION MANAGER Inhaled Oxygen Concentration - - Weight 100.2 kg (221 lb) 09/14/2020 10:37 AM LAND ACQUISITION MANAGER Height 188 cm (6' 2) 09/14/2020 10:37 AM LAND ACQUISITION MANAGER Body Mass Index 28.37 09/14/2020 10:37 AM LAND ACQUISITION MANAGER Plan of Treatment Health Maintenance Due Date [...] Comments COLONOSCOPY REPORT 08/06/2020 9: 12 AM LAND ACQUISITION MANAGER from Last 3 Months or Most Recently Relevant to Health Maintenance Results * COLONOSCOPY REPORT (08/06/2020 9:12 AM LAND ACQUISITION MANAGER) Narrative Procedure Note Benito Pablo MD - 08/06/2020 9:11 AM CST [facility] Endoscopy Patient Name: Marko Marti Procedure Date: [...] of Addenda: [address]; [place] [address] Benito Pablo MD GI PROCEDURE ORDERABLES Final Result from Last 3 Months or Most Recently Relevant to Health Maintenance Insurance [facility] [id number] Care Teams Mophead Sewer Relationship Specialty Start Date End Date Rico Lewis MD [address] [place] [address] PCP - General Internal Medicine 06/21/20
--- OUTSIDE RECORDS SUMMARY | 2025-02-17 13:49 | XMS_ITS | Encounter Summary ---
Author Organization [facility] Healthcare Address [address] [place] [address] Care Team Providers Care Upholstery Estimator Name Role Phone Rico Lewis MD Primary Care Provider + [phone] Winter Sanchez RN Unavailable Unavailabl e Jv Mathis MD Unavailable [phone] Alea Wing RN Unavailable [phone] Encounter Details Date Type Department Care Team (Late st Contact Info) Description 04/10/2020 Telephone [facility] 2 [facility] A, [facility] [address] [place] [address] Jv Mathis MD [address] [place] [address] [address] [place] [address] Social History Tobacco Use Types Packs/Day Years Used Date Smoking Tobacco: Every Day Cigarettes Smokeless Tobacco: Former Alcohol Use Standard Drinks/Week Comments No 0 (1 standard drink = 0.6 oz pur e alcohol) PHQ-2 Answer Date Recorded PHQ-2 Score 2 01/04/2020 Sex and Gender Information Value Date Recorded Sex Assigned at Not on file Legal Sex Male 11:10 PM BRANCH EXAMINER Gender Identity Male 01/23/2021 2:22 PM CDT [...] here> General On track( 019 1:14 PM BRANCH EXAMINER) Yes Vivian De La Vega, RAYA Note: [...] documented as of this encounter Care Teams Upholstery Estimator Relationship Specialty Start Date End Date Rico Lewis MD [address] [place] [address] PCP - General 02/09/18 Winter Sanchez, RN Registered Nurse 02/10/18 Jv Mathis MD [address] [place] [address] Anesthesiologist Pain Management 07/17/22 Alea Wing, RAYA [address] [facility] [address] [place] [address] [facility] Outpatient Migratory Game Bird Biologist 11/28/24 12/08/24 documented as of this encounter
--- OUTSIDE RECORDS SUMMARY | 2025-02-17 13:49 | XMS_ITS | Encounter Summary ---
Author Organization [facility] Address [address] [place] [address] Phone Care Team Providers Care Bonderizer Operator Name Role Phone Rico Lewis MD Primary Care Provider + [phone] Winter Sanchez RN Unavailable Unavailabl Jv Bowden MD Unavailable [phone] Alea Wing RN Unavailable [phone] Encounter Details Date Type Department Care Team [...] on file Legal Sex Male 11:10 PM CORONER TRANSPORT TECHNICIAN Gender Identity Male 01/23/2021 2:22 PM CDT [...] here> General On track( 019 1:14 PM CORONER TRANSPORT TECHNICIAN) Yes Vivian De La Vega, RAYA Note: [...] on filedocumented in this encounter Care Teams Bonderizer Operator Relationship Specialty Start Date End Date Rico Lewis MD [address] [place] [address] PCP - General 02/09/18 Winter Sanchez, RAYA Registered Nurse 02/10/18 Jv Mathis MD [address] [place] [address] [address] Anesthesiologist Pain Management 07/17/22 Alea Wing, RAYA [address] [facility] [address] [place] [address] SHOP Outpatient Door Attendant 11/28/24 12/08/24 documented as of this encounter
--- OUTSIDE RECORDS SUMMARY | 2025-02-17 13:49 | XMS_ITS | Clinical Summary ---
Author Organization [facility] [employer] IQ (Social Influence [employer]) Address [address] [place] [address] Care Team Providers Care Retail Cashier Associate Name Role Phone Rico Lewis MD Primary Care Provider [phone] Source Comments [facility] [employer] (Social Influence [employer]),non-owned Affiliates and Associated Physician Practices is amultiple site organization consisting of ambulatory clinics and hospital sitesin [place], [place], [place] and [place]. This disclosure is being madepursuant to the Care Everywhere program and may not contain all information available regarding this patient. Last updated 18.[facility] Social [employer] (Social Influence Quot[employer]) Allergies No known active allergies Medications * [...] 7 - 26 mg/dL 02/28/2019 11:20 AM [facility] Creatinine 1.0 0.6 - 1.2 mg/dL 02/28/2019 11:20 AM [facility] Sodium 136 136 - 145 mmol/L 02/28/2019 11:20 AM [facility] Potassium 4.5 3.5 - 4.5 mmol/L 02/28/2019 11:20 AM [facility] Chloride 100 98 - 107 mmol/L 02/28/2019 11:20 AM [facility] CO2 25 22 - 29 mmol/L 02/28/2019 11:20 AM [facility] Glucose 85 70 - 115 mg/dL 02/28/2019 11:20 AM [facility] Calcium 9.4 8.4 - 10.2 mg/dL 02/28/2019 11:20 AM [facility] Anion Gap 16 8 - 18 02/28/2019 11:20 AM [facility] BUN/Creatinine Ratio 9 7 - 23 02/28/2019 11:20 AM [facility] Osmolality Calculated 280 270 - 300 mOsm/kg 02/28/2019 11:20 AM [facility] eGFR >60 >60 mL/min/1.7 3 m2 02/28/2019 11:20 AM [facility] Blood BLOOD SPECIMEN / Unknown Lab Venipuncture / Unknown 02/28/2019 10:42 AM CDT 02/28/2019 11:03 AM [facility] us Jacob Zaidi MD LAB - CHEMISTRY ORDERABLES F inal Result Performing Organization Address City/State/[facility] Co de Phone Number [address] [phone] from Last 3 Months or Most Recently Relevant to Health Maintenance Insurance MEDICARE MEDICARE Care Teams Retail Cashier Associate Relationship Specialty Start Date End Date Rico Lewis MD PCP - General 12/15/18
--- OUTSIDE RECORDS SUMMARY | 2025-02-17 13:49 | XMS_ITS | Patient Health Record ---
Author Organization [facility] Address [address] [place] [address] Care Team Providers Care Custom Framing Specialist Name Role Phone Marko Barry Unavailable [phone] MARKO BARRY MD Unavailable Unavailable Medications Medication SIG [...] Status W/U Status Risk Notes Problem Depressive disorder (31933573) Depressive disorder, not elsewhere classified (311) Active confirmed Problem Thoracic and lumbosacral neuritis (607528754) Thoracic or lumbosacral neuritis or radiculitis, unspecified (724.4) Active confirmed Problem Lumbago (693208611) Lumbago (724.2) Active confirmed Problem Cervicalgia (65236865) Cervicalgia (723.1) Active confirmed Problem Long-term current use of drug therapy (329322130) Encounter for long-term (current) use of other [...] Date Medicare Part B [address] [place] [address] [id number] MARKO TIDWELL Self - patient is the insured Medical (General) History Medical History History ICD Code brain encephalitis Surgical History Surgery Date(Month/Year) Back 1999 Hospitalization History Reason Date(Month/Year) Encephalitis of the brain - Admitted to [facility] and transferred [facility] in [place] -08/06/13 Oral surgery 10/17/13
== END 2025-02-17 13:46 | disposition home or self-care (01) ==
LOC: CHSIMG 13:47
PROVIDERS: PCP Internal Medicine; Visit Provider Orthopaedic Surgery Orthopaedic Surgery of the Spine
DX: M48.02 Spinal stenosis, cervical region (principal)
CPT/HCPCS: 72125

== ENCOUNTER 2025-02-21 08:44 | Outpatient (RCR) | payer MEDICARE, SELFPAY ==
--- NOTE | 2025-02-21 10:31 | PTOPEVAL1 ---
Assessment and note entered by Paige Atwood DPT Evaluation Information Assessment Status Evaluation Diagnosis poor balance Other ICD-10 Condition Codes ( Z98.1, M48.02 PT) Onset 02/15/25 Subjective Information Patient reports he had a spinal fusion on 11/29/24 and will be having a neck surgery in the future due to stenosis. He report prior to surgery he has 1/2 dozen falls. He has not had any falls since but feels off balance. He reports balance is worse in the mornings and carries a STC in case. He also reports difficulty getting out of a chair and getting into and out of the car. Goal is to improve balance Reported Pain Level Pain Score 4: Self Report Assessment PT Clinical Summary Mr. Marti is a 70 year old male who presents to PT with poor balance and weakness s/p lumbar fusion. He demonstrates impaired balance testing, decreased LE strength and impaired gait limiting his ability to get out of a chair, ambulate at home and in the community and complete house hold tasks. He would benefit from skilled PT to address impairments and return to PLOF. Plan of Care Interventions Electrical Stimulation,Gait Training,Hot Pack/Cold Pack,Manual Therapy,Neuro Re-education,Patient/ Caregiver Education,Therapeutic Activities, Therapeutic Exercise PT Services Indicated Yes Treatment Frequency and 1x weekly for 8 weeks Duration These treatments will address the objective and functional deficits as defined above. The patient will be advanced safely and appropriately in order for the patient to progress towards his/her prior level of function. Additional exercises will be introduced and as well as a comprehensive home exercise program upon discharge, if needed, ?to ensure carryover of functional gains achieved in the clinic. This treatment plan has been reviewed and agreement upon by the patient.
--- NOTE | 2025-05-25 07:28 | PCPTNOTE ---
pt attends 2 visits of skilled PT for balance. Called pt, but have not heard back. pt's auth on 04/25/25.
== END 2025-05-22 23:59 | disposition home or self-care (01) ==
LOC: CHSPT 08:44
PROVIDERS: PCP Internal Medicine; Visit Provider Orthopaedic Surgery Orthopaedic Surgery of the Spine
DX: M48.02 Spinal stenosis, cervical region (principal); Z98.1 Arthrodesis status
CPT/HCPCS: 97014; 97110; 97112; 97161; 97530; G0283

== ENCOUNTER 2025-03-16 12:55 | Outpatient (CLI) | payer MEDICARE, SELFPAY ==
--- NOTE | ~2025-03-16 | CT_ITS ---
Noncontrast CT scan of the lumbar spine CLINICAL HISTORY: Lumbar radiculopathy TECHNIQUE: Axial noncontrast imaging of the lumbar spine was performed. Sagittal and coronal reformat harsha images were constructed. Dose reduction technique was used on this scan by utilizing automated ex posure control and iterative reconstruction technique. The dose-length product (DLP) was 1338.92 mGy- cm. FINDINGS: Posterior fusion from L2 through S1, bilateral rods and transpedicular screws present. Ther e are disc fusion cages at the L4-L5 and L5-S1 disc spaces. There are laminectomy defects at L3, L4, L5. No acute fracture or subluxation seen. At L1-L2, there is minimal disc bulge. No spinal canal stenosis. Probable mild to moderate bilateral neural foraminal narrowing. At L2-L3, there is disc bulge with facet arthropathy. There is probable moderate central canal stenos is. There is severe bilateral neural foraminal narrowing. At L3-L4, there is suboptimal evaluation due to extensive streak artifact. No definite canal stenosis . Probable moderate to advanced bilateral neural foraminal narrowing. At L4-L5, there is posterior decompression. No definite canal stenosis. Probable mild bilateral neura l foraminal narrowing. At L5-S1, there is no definite canal stenosis. There is posterior decompression. There is mild bilate ral neural foraminal narrowing. Probable postoperative seroma in the posterior paravertebral soft tissues at the L4 level measuring 5 .3 x 2.4 cm in transverse dimensions. Impression: Postoperative changes of the lumbar spine, as detailed above. Advanced degenerative spondylosis at L2-L3, as detailed above. Mild to moderate degenerative spondylo sis in the remainder of the lumbar spine, as above. Separate seroma at the L4 level posteriorly, as detailed above. Reviewed, dictated and finalized at [facility]. Impression: Postoperative changes of the lumbar spine, as detailed above. Advanced degenerative spondylosis at L2-L3, as detailed above. Mild to moderate degenerative spondylosis in the remainder of the lumbar spine, as above. Separate seroma at the L4 level posteriorly, as detailed above.
--- OUTSIDE RECORDS SUMMARY | 2025-03-16 12:59 | XMS_ITS | Encounter Summary ---
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 Gender Identity Male 01/23/2021 2:22 PM CDT Sexual Orientation Straight 01/23/2021 2: 22 PM CDT Occupation Industry Job Start Date Job End Date disability Not on file Not on file Not on file documented as of this encounter Plan of Treatment Upcoming Encounters Date Type Department Care Team (Latest Contact Info) Description 03/28/2025 7:30 AM CDT Hospital Encounter [facility] Operating Room [address] [place] [address] Erich Kern MD [address] [place] [address] 03/28/2025 7:30 AM CDT Anesthesia Event [facility] Operating Room [address] [place] [address] Gayle Boykin NP [phone] [place] [address] 03/28/2025 7:30 AM CDT - 03/28/2025 12:25 PM CDT Surgery [facility] Operating Room [address] [place] [address] Erich Kern MD [address] [place] [address] FUSION CERVICAL ANTERIOR DISCECTOMY WITH INSTRUMENTATION- C4-7 anterior cervical discectomy and fusion with cage, autograft and spinal cord monitoring. Cut to close 180 minutes. Scheduled Procedures Name Priority Associated Diagnoses Date/Ti me FUSION CERVICAL ANTERIOR DISCECTOMY WITH INSTRUMENTATION Spinal stenosis in cervical region 03/28/2025 7:30 AM CDT SPINAL CORD MONITORING Spinal stenosis in cervical region 03/28/2025 7:30 AM CDT documented as of this encounter Goals Goal Patient Goal Type Associated Problems Recent Progress Patient-Stated? Author [facility] Worsening( 2:10 PM CDT) Zuleika Brand, RN Note: Patient will establish a comfort-function goal and identify the pain level that will allow the patient to perform desired activities and achieve an acceptable quality of life. <enter goal here> General On track( 019 1:14 PM FURRIER DESIGNER) Yes Vivian De La Vega, RN Note: Fishing Walking dogs Working around house documented as of this encounter Procedures Procedure Name Priority Date/Time Associated Diagnosis Comments SCAN - RADIOLOGY/IMAGING 05/16/2022 documented in this encounter Results * SCAN - RADIOLOGY/IMAGING (05/16/2022) Anatomical Region Laterality Modality Other us Provider Scanning Edited Result - Final documented in this encounter Visit Diagnoses Not on filedocumented in this encounter Care Teams Spinning Bath Person Relationship Specialty Start Date End Date Rico Lewis MD [address] [place] [address] PCP - General 02/09/18 Winter Sanchez, RN Registered Nurse 02/10/18 Jv Mathis MD [address] [place] [address] Anesthesiologist Pain Management 07/17/22 Alea Wing, RAYA [address] [facility] [address] [place] [address] SHOP Outpatient Information Technology Security Analyst 11/28/24 12/08/24 documented as of this encounter
--- OUTSIDE RECORDS SUMMARY | 2025-03-16 12:59 | XMS_ITS | Clinical Summary ---
Author Organization [facility] Address [address] [facility] [place] [address] Care Team Providers Care On Site Property Manager Name Role Phone Rico Lewis MD Primary Care Provider [phone] Source Comments [facility],non-owned Affiliates and Associated Physician Practices is amultiple site organization consisting of ambulatory clinics and hospital sitesin [place], [place], [place] and [place]. This disclosure is being madepursuant to the Care Everywhere program and may not contain all information available regarding this patient. Last updated 18.[facility] Allergies No known active allergies Medications * [...] season) 2024 DEPRESSION SCREENING 09/07/2024 INFLUENZA VACCINE (#1) 2025 Respiratory Syncytial Virus (RSV) Vaccine Pt: [...] 7 - 26 mg/dL 02/28/2019 11:20 AM [facility] Creatinine 1.0 0.6 - 1.2 mg/dL 02/28/2019 11:20 AM [facility] Sodium 136 136 - 145 mmol/L 02/28/2019 11:20 AM [facility] Potassium 4.5 3.5 - 4.5 mmol/L 02/28/2019 11:20 AM [facility] Chloride 100 98 - 107 mmol/L 02/28/2019 11:20 AM [facility] CO2 25 22 - 29 mmol/L 02/28/2019 11:20 AM [facility] Glucose 85 70 - 115 mg/dL [...] 02/28/2019 10:42 AM CDT 02/28/2019 11:03 AM [facility] us Jacob Zaidi MD LAB - CHEMISTRY ORDERABLES F inal Result Performing Organization Address City/State/[facility] Co de Phone Number [address] [phone] from Last 3 Months or Most Recently Relevant to Health Maintenance Insurance MEDICARE MEDICARE Care Teams On Site Property Manager Relationship Specialty Start Date End Date Rico Lewis MD PCP - General 12/15/18
--- OUTSIDE RECORDS SUMMARY | 2025-03-16 12:59 | XMS_ITS | Encounter Summary ---
Author Organization [facility] Healthcare Address [address] [place] [address] Care Team Providers Care Industrial Aerial Installer Name Role Phone Rico Lewis MD Primary Care Provider + [phone] Winter Sanchez RN Unavailable Unavailabl e Jv Mathis MD Unavailable [phone] Alea Wing RN Unavailable [phone] Encounter Details Date Type Department Care Team (Late st Contact Info) Description 04/10/2020 Telephone [facility] 2 [facility] A, [facility] [address] [place] [address] Jv Mathis MD [address] [place] [address] [address] [place] [address] Social History Tobacco Use Types Packs/Day Years Used Date Smoking Tobacco: Every Day Cigarettes Smokeless Tobacco: Former Alcohol Use Standard Drinks/Week Comments No 0 (1 standard drink = 0.6 oz pur e alcohol) PHQ-2 Answer Date Recorded PHQ-2 Score 2 01/04/2020 Sex and Gender Information Value Date Recorded Sex Assigned at Not on file 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 [place] [address] 03/28/2025 7:30 AM CDT Anesthesia Event [facility] Operating Room [address] [place] [address] Gayle Boykin NP [phone] [place] [address] 03/28/2025 7:30 AM CDT - 03/28/2025 12:25 PM CDT Surgery [facility] Operating Room [address] [place] [address] Erich eKrn MD [address] [facility] [place] [address] FUSION CERVICAL ANTERIOR DISCECTOMY WITH INSTRUMENTATION- C4-7 [...] here> General On track( 019 1:14 PM MACHINE CLOTHING MAN) Yes Vivian De La Vega, RAYA Note: [...] documented as of this encounter Care Teams Industrial Aerial Installer Relationship Specialty Start Date End Date Rico Lewis MD [address] [place] [address] PCP - General 02/09/18 Winter Sanchez, RN Registered Nurse 02/10/18 Jv Mathis MD [address] [address] Anesthesiologist Pain Management 07/17/22 Alea Wing, RAYA [address] [facility] [address] [place] [address] SHOP Outpatient Wireless Network Engineer 11/28/24 12/08/24 documented as of this encounter
--- OUTSIDE RECORDS SUMMARY | 2025-03-16 13:00 | XMS_ITS | Referral Summary ---
Author Organization [facility] Medical Office Building B Address [address] [place] [address] Care Team Providers Care Grain Sacker Name Role Phone Rico Lewis MD Primary Care Provider [phone] Winter Sanchez RN Unavailable Jv Agrawal MD Unavailable [phone] Encounters Date Type Department Care Team Description 03/13/2025 11:45 AM CDT Lab [facility] [id number] [place] [id number] Preoperative testing; Hepatic cirrhosis, unspecified hepatic cirrhosis type, unspecified whether ascites present (HCC); Spinal stenosis in cervical region; Vitamin D deficiency; Other specified disorders of carbohydrate metabolism 03/13/2025 Documentation [facility] Orthopaedic Surgery [address] [place] [address] 4 [address] [place] [address] Bisi Bartlett RN 03/13/2025 11:30 AM CDT Pre-Admission Testing [facility] Pre-Anesthesia Testing [address] [place] [address] Preoperative testing (Primary Dx); Hepatic cirrhosis, unspecified hepatic cirrhosis type, unspecified whether ascites present (HCC) 03/13/2025 6:22 AM CDT - 03/13/2025 11:59 PM CDT Hospital Encounter [facility] [address] [place] [address] Preoperative testing Discharge Disposition: Discharge to home or self care 02/28/2025 Telephone [facility] Orthopaedic Surgery [address] [place] [address] Office Building [address] [place] [phone] Erich Kern MD 02/22/2025 Telephone [facility] Orthopaedic Surgery [address] [place] [address] [address] [place] [address] Erich Kern MD 02/20/2025 11:18 AM CDT - 02/20/2025 11:59 PM CDT Hospital Encounter [facility] [address] [place] [address] Discharge Disposition: Discharge to home or self care 02/20/2025 11:17 AM CDT - 02/20/2025 11:59 PM CDT Hospital Encounter [facility] ([facility]) [address] [place] [address] Discharge Disposition: Discharge to home or self care 02/20/2025 Orders Only [facility] Erich Kern MD Degenerative cervical spinal stenosis 02/15/2025 11:00 AM CDT - 02/15/2025 11:59 PM CDT Hospital Encounter [facility] [address] [place] [address] [address] [place] [address] S/P spinal fusion Discharge Disposition: Discharge to home or self care 02/15/2025 11:20 AM CDT Office Visit [facility] [address] [place] [address] [address] [place] [address] Erich Kern MD S/P spinal fusion (Primary Dx); Degenerative cervical spinal stenosis 12/27/2024 Telephone [facility] Orthopaedic Surgery [address] [place] [address] [address] Erich Kern MD 12/19/2024 11:26 AM CDT - 12/19/2024 11:59 PM CDT Hospital Encounter [facility] [address] [place] [address] [address] [place] [address] S/P spinal fusion Discharge Disposition: Discharge to home or self care 12/19/2024 11:20 AM CDT Office Visit [facility] Orthopaedic Surgery [address] [facility] Medical Office Building [address] [place] [address] Erich Kern MD S/P spinal fusion (Primary Dx) from Last 3 Months Allergies No known active allergies Medications tamsulosin (FLOMAX) 0.4 mg extended release capsuleIndicati ons:benign prostatic hyperplasia with lower urinary tract sx Take 2 capsules (0.8 mg total) by mouth every morning Active omeprazole (PriLOSEC) 40 mg capsuleIndicati ons:GERD Take 1 capsule (40 mg total) by mouth every morning 8 Active buPROPion XL (WELLBUTRIN XL) 300 mg 24 hr tabletIndicatio ns:Anxiety with Depression Take 1 tablet (300 mg total) by mouth every morning 1 Active citalopram (CeleXA) 20 mg tabletIndicatio ns:Anxiety with Depression Take 1 tablet (20 mg total) by mouth every morning 2 Active losartan (COZAAR) 100 mg tabletIndicatio ns:hypertension Take 1 tablet (100 mg total) by mouth every morning 3 Active clonazePAM (KlonoPIN) 1 mg tabletIndicatio ns:anxiety Take 1 tablet (1 mg total) by mouth as needed for anxiety 3 Active amLODIPine (NORVASC) 5 mg tabletIndicatio ns:hypertension Take 1 tablet (5 mg total) by mouth every morning 3 Active rOPINIRole (REQUIP) 4 mg tabletIndicatio ns:Restless Legs Syndrome Take 1 tablet (4 mg total) by mouth 2 (two) times a day 4 Active coenzyme Q10 100 mg capsuleIndicati ons:supplement Take 1 capsule (100 mg total) by mouth every morning Active fexofenadine (ANDREW) 180 mg tabletIndicatio ns:supplement Take 1 tablet (180 mg total) by mouth daily as needed Active cyanocobalamin (Vitamin B-12) 500 mcg tabletIndicatio ns:supplement Take 1 tablet (500 mcg total) by mouth every morning Active nystatin powder Apply 1 Application topically as needed (rash) 4 Active acetaminophen (TYLENOL) 500 mg tablet Take 1 tablet (500 mg total) by mouth every 6 (six) hours as needed for pain Active cholecalciferol , vitamin D3, 1,000 unit tablet,chewable Indications:sup plement Take 1 tablet/chew tab by mouth every morning Active gabapentin (NEURONTIN) 300 mg capsuleIndicati ons:Neuropathic Pain Take 1 capsule (300 mg total) by mouth 4 (four) times a day Active gabapentin (NEURONTIN) 300 mg capsule TAKE ONE CAPSULE BY MOUTH EVERY MORNING, ONE CAPSULE AT NOON, AND TAKE TWO CAPSULES AT NIGHT 120 capsule 1 3 025 Discontin ued(Eb nt Reported) senna-docusate (PERICOLACE) 8.6-50 mgIndications:c onstipation Take 2 tablets by mouth 2 (two) times a day 120 tablet 5 025 Discontin ued(Thera py completed ) oxyCODONE (ROXICODONE) 5 mg immediate release tablet Take 1 tablet (5 mg total) by mouth every 6 (six) hours as needed for pain 28 tablet 5 025 Discontin ued(Reord er) oxyCODONE (ROXICODONE) 5 mg immediate release tablet Take 1 tablet (5 mg total) by mouth every 6 (six) hours as needed for pain 28 tablet 5 025 Discontin ued(Thera py completed ) Active Problems Problem Noted Date Diagnosed Date Spinal stenosis in cervical region 02/23/2025 Ileus, postoperative 11/24/2024 Assessment & Plan (11/25/2024 [...] nosis 04/20/2023 Sacroiliitis 04/10/2020 Lumbar radiculopathy 01/04/2020 retirement (current) use of opiate analgesic 12/07 DDD [...] drink = 0.6 oz pur e alcohol) [employer] Answer Date Recorded In the past 12 months has [employer] gas, oil, or water [facility] threatened to shut off services in your [...] week 11/28/2024 How often do you attend [facility] or sabianism services? Never 11/28/2024 Do you belong to any clubs o r organizations such as moravian groups, unions, fraternal or athletic groups, or school groups? No 11/28/2024 How often do you attend meet ings of the clubs or organizations you belong to? Never 11/28/2024 Are you , , di vorced, , never , or living with a partner? 11/28/2024 AUDIT-C Answer Date Recorded Q1: How often do you have a drink containing alc ohol? Monthly or less 03/13/2025 Q2: How many drinks containi ng alcohol do you have on a typical day when you are drinking? 1 or 2 03/13/2025 Q3: How often do you have si x or more drinks on one occasion? Never 03/13/2025 Overall Financial Resource Strain (CARDIA) Answe r [...] any time in the past 12 m [facility], were you homeless or living in a senior living (including now)? No 11/28/2024 Personal Safety Answer Date Recorded Have you ever been in or are you currently in a harmful physical or emotional relationship or is someone making you feel afraid or unsafe? Denies 03/13/2025 Sex and Gender Information Value Date Recorded Sex Assigned at Not on file Legal Sex Male 11:10 PM JOB LITHOGRAPHER Gender Identity Male 01/23/2021 2:22 PM CDT Sexual Orientation Straight 01/23/2021 2: 22 PM CDT Occupation Industry Job Start Date Job End Date disability Not on file Not on file Not on file Last Filed Vital Signs Vital Sign Reading Time Taken Comments Blood Pressure 123/70 03/13/2025 11:40 AM CDT Pulse 61 03/13/2025 11:35 AM CDT Temperature 36.9 C (98.5 F) 11/29/2024 9:19 AM CDT Respiratory Rate 18 03/13/2025 11:35 AM CDT Oxygen Saturation 98% 03/13/2025 11:35 AM CDT Inhaled Oxygen Concentration - - Weight 110 kg (242 lb 6.4 oz) 03/13/2025 11:35 A M CDT Height 188 cm (6' 2) 03/13/2025 11:35 AM CDT Body Mass Index 31.12 03/13/2025 11:35 AM CDT Plan of Treatment Upcoming Encounters Date Type Department Care Team (Latest Contact Info) Description 03/28/2025 7:30 AM CDT Hospital Encounter [facility] Operating Room [address] [place] [address] Erich Kern MD [address] [place] [address] 03/28/2025 7:30 AM CDT Anesthesia Event [facility] Operating Room [address] [place] [address] Gayle Boykin NP [phone] [place] [address] 03/28/2025 7:30 AM CDT - 03/28/2025 12:25 PM CDT Surgery [facility] Operating Room [address] [place] [address] Erich Kern MD [address] [place] [address] FUSION CERVICAL ANTERIOR DISCECTOMY WITH INSTRUMENTATION- C4-7 anterior cervical discectomy and fusion with cage, autograft and spinal cord monitoring. Cut to close 180 minutes. Scheduled Procedures Name Priority Associated Diagnoses Date/Ti me FUSION CERVICAL ANTERIOR DISCECTOMY WITH INSTRUMENTATION Spinal stenosis in cervical region 03/28/2025 7:30 AM CDT SPINAL CORD MONITORING Spinal stenosis in cervical region 03/28/2025 7:30 AM CDT Goals Goal Patient Goal Type Associated Problems Recent Progress Patient-Stated? Author BH-Pain Behavioral Health Worsening( 2:10 PM CDT) No Zuleika George, RN Note: Patient will establish a comfort-function goal and identify the pain level that will allow the patient to perform desired activities and achieve an acceptable quality of life. <enter goal here> General On track(2018 1:14 PM JOB LITHOGRAPHER) Yes Vivian De La Vega, RAYA Note: Fishing Walking dogs Working around house Autogenerated Goal Care Plan Autogenerated Problem No Carli Hays, A Medical Devices Implanted Type Area Redrying Machine Operator Device Identifier Shelf Expiration Date Model / Serial / Lot Hardware Right: Leg Medtronic Inc [id number] Cd Horizon 6mm 500mm Line Straight Diego Spinal Titanium Nonsterile - [id number] Implanted:Qty: 1 on 09/03/2021 by Erich Kern MD at [facility] N/A: Spine Lumbar Medtronic Inc [id number] / / Allosource [id number] Crushed Chip Frozen Graft 30ml Bone Cancellous - [id number] Implanted:Qty: 1 on 09/03/2021 by Erich Kern MD at [facility] N/A: Spine Lumbar [employer]ource 05/10/2026 [id number] / / [id number] Allosource [id number] Crushed Chip Frozen Graft 30ml Bone Cancellous - [id number] Implanted:Qty: 1 on 09/03/2021 by Erich Kern MD at [facility] N/A: Spine Lumbar Allosource 05/11/2026 [id number] / / [id number] Medtronic Sofamor Danek [id number] Infuse 20ga 2x1in Vial Absorbable Syringe Needle Medium Graft 5.6 - [id number] Implanted:Qty: 1 on 09/03/2021 by Erich Kern MD at [facility] N/A: Spine Lumbar Medtronic Inc [id number] / / Medtronic Sofamor Danek [id number] Solera Cd Horizon 7.5mm 50mm Multiaxial Spine Screw Bone Cocr - [id number] Implanted:Qty: 2 on 09/03/2021 by Erich Kern MD at [facility] N/A: Spine Lumbar Medtronic Inc [id number] / / Medtronic Sofamor Danek [id number] Solera Cd Horizon 7.5mm 55mm Multiaxial Spine Screw Bone Cocr - [id number] Implanted:Qty: 4 on 09/03/2021 by Erich Kern MD at [facility] N/A: Spine Lumbar Medtronic Inc [id number] / / Medtronic Sofamor Danek [id number] Solera Cd Horizon 7.5mm 60mm Multiaxial Spine Screw Bone Cocr - [id number] Implanted:Qty: 2 on 09/03/2021 by Erich Kern MD at [facility] N/A: Spine Lumbar Medtronic Inc [id number] / / Medtronic Sofamor Danek [id number] Cd Horizon Break Off Spinal Screw Set Titanium Nonsterile 5.5 Mm - [id number] Implanted:Qty: 8 on 09/03/2021 by Erich Kern MD at [facility] N/A: Spine Lumbar Medtronic Inc [id number] / / Medtronic Inc Kit Graft Bone Sponge Xlg Infuse 8cc Granules [id number] - [id number] Implanted:Qty: 1 on 11/22/2024 by Erich Kern MD at [facility] Med[employer]onic Inc [id number] 01/05/2026 [id number] / / [id number] Marcus Spine Graft Bone Filler Gel Bio Dbm 10cc [id number] - [id number] Implanted:Qty: 1 on 11/22/2024 by Erich Kern MD at [facility] N/A: Spine Lumbar Marcus Spine [id number] 03/26/2027 [id number] / / [id number] Allosource Crushed Chip Frozen Graft 30ml Bone Cancellous [id number] - [id number] Implanted:Qty: 1 on 11/22/2024 by Erich Kern MD at [facility] N/A: Spine Lumbar Allosource 01/12/2029 [id number] / / [id number] Medtronic Inc Solera Cd Horizon 6.5mm 60mm Multiaxial Spine Screw Bone Cocr [id number] - [id number] Implanted:Qty: 2 on 11/22/2024 by Erich Kern MD at [facility] N/A: Spine Lumbar Medtronic Inc [id number] / / Medtronic Inc Cd Horizon Break Off Spinal Screw Set Titanium Nonsterile 5.5 Mm [id number] - [id number] Implanted:Qty: 10 on 11/22/2024 by Erich Kern MD at [facility] N/A: Spine Lumbar Medtronic Inc [id number] / / Medtronic Inc Unid Exp [id number] 6.0 Ti Diego 4up L [id number] - [id number] Implanted:Qty: 2 on 11/22/2024 by Erich Kern MD at [facility] N/A: Spine Lumbar Medtronic Inc [id number] / / Medtronic Inc Screw Mod Assy Mas 5.5/6.0mm Sterile 2pk [id number] - [id number] Implanted:Qty: 1 on 11/22/2024 by Erich Kern MD at [facility] N/A: Spine Lumbar Medtronic Inc [id number] / / Medtronic Inc Screw Spinal 8.5x55mm Cd Horizon Osteogrip Thread Nonstrl [id number] - [id number] Implanted:Qty: 1 on 11/22/2024 by Erich Kern MD at [facility] Medtronic Inc [id number] / / Explanted Type Area Redrying Machine Operator Device Identifier Shelf Expiration Date Model / Serial / Lot Spinal Cord Stimulator-2007 Implanted:2007 (Quantity not on file) Explanted:2018 by Unknown, Lindaile (Quantity not on file) Back [id number] / [id number] / Description:Explanted by Dr. Jaime Wick Implanted by Heather Staples DO Physician's phone number [phone] ID Number [id number] ANS - A [facility] [employer] Procedures Procedure Name Priority Date/Time Associated Diagnosis Comments EGFR Routine 03/13/2025 1:00 PM CDT Spinal stenosis in cervical region DIFFERENTIAL AUTO Routine 03/13/2025 1:0 0 PM CDT Spinal stenosis in cervical region TYPE AND SCREEN 14 DAY Routine 03/13/2025 1:00 PM CDT Preoperative testing APTT Routine 03/13/2025 1:00 PM CDT Preoperative testing Hepatic cirrhosis, unspecified hepatic cirrhosis type, unspecified whether ascites present (HCC) ERYTHROCYTE SEDIMENTATION RATE Routine 03/13/2025 1:00 PM CDT Spinal stenosis in cervical region HEMOGLOBIN A1C Routine 03/13/2025 1:00 PM CDT Spinal stenosis in cervical region Other specified disorders of carbohydrate metabolism CRP (ACUTE PHASE) Routine 03/13/2025 1:0 0 PM CDT Spinal stenosis in cervical region CBC WITH AUTO DIFFERENTIAL Routine 03/13/2025 1:00 PM CDT Spinal stenosis in cervical region COMPREHENSIVE METABOLIC PANEL Routine 03/13/2025 1:00 PM CDT Spinal stenosis in cervical region VITAMIN D 25 HYDROXY Routine 03/13/2025 1:00 PM CDT Spinal stenosis in cervical region Vitamin D deficiency PROTIME-INR Routine 03/13/2025 1:00 PM CDT Preoperative testing Hepatic cirrhosis, unspecified hepatic cirrhosis type, unspecified whether ascites present (HCC) URINALYSIS AND REFLEX TO MICROSCOPIC AND CULTURE Routine 03/13/2025 1:00 PM CDT Spinal stenosis in cervical region NEURO MR OUTSIDE REFERENCE Routine 02/20/2025 11:[address] OUTSIDE REFERENCE Routine 02/20/2025 11:17 AM CDT MRI CERVICAL SPINE WO CONTRAST Schedule Routine, Read Routine (OP Routine) 02/20/2025 10:54 AM CDT Degenerative cervical spinal stenosis CT CERVICAL SPINE WO CONTRAST Schedule Routine, Read Routine (OP Routine) 02/20/2025 10:00 AM CDT Degenerative cervical spinal stenosis XR SCOLIOSIS AP LAT Schedule Routine, Read Routine (OP Routine) 02/15/2025 11:23 AM CDT S/P spinal fusion XR SCOLIOSIS AP LAT Schedule Routine, Read Routine (OP Routine) 12/19/2024 11:51 AM CDT S/P spinal fusion from Last 3 Months Results * TYPE AND SCREEN 14 DAY (03/13/2025 1:00 PM CDT) ABO Rh A Negative Davi, indirect Negative [facility] X[facility]IER Blood 03/13/2025 1:00 PM CDT 03/13/2025 4:29 PM CDT Narrative KAMI XAVIER - 03/13/2025 5:27 PM CDT Has the patient had Daratumumab or Isatuximab in the past 6 months?->Unknown Is this test being ordered in advance for a procedure?->Yes Expected date of procedure:->03/28/25 Has the patient been transfused in the past 3 months?->No us Gayle Boykin CONTINGENTS SUPERVISOR LAB BLOOD BANK TEST ORDERABLE S Final Result KAMI XAVIER [facility] [place] [address] * eGFR (03/13/2025 1:00 PM CDT) eGFR >90 >=60 mL/min/1. 73 [...] interpretive data was last reviewed 2021. Blood 03/13/2025 1:00 PM CDT 03/13/2025 1:38 PM CDT us Erich Kern MD LAB BLOOD ORDERABLES Final Result [facility] [address] [facility]. [place] [address] * Differential, auto (03/13/2025 1:00 PM CDT) Pathologist [facility] Neutrophil abs 3.21 1.50 - 6.50 K/cumm Imm gran abs 0.01 0.00 - 0.10 K/cumm [facility] Lymphocyte abs 1.41 0.80 - 3.30 K/cumm [facility] Monocyte abs 0.59 0.20 - 0.80 K/cumm [facility] Eosinophil abs 0.08 0.00 - 0.50 K/cumm [facility] Basophil abs 0.02 0.00 - 0.10 K/cumm [facility] W Neutrophil pct 60.3 % [facility] Comment: Interpretive Data Percent cell count reference [...] was last revised on 2017. Lymphocyte pct 26.5 % K[facility]I MARKS Comment: Interpretive Data Percent cell count reference ranges are not reported, since discordance with absolute values may lead to misinterpretation of CBC data. Current Interpretive Data was last revised on 2017. Monocyte pct 11.1 % [facility] MAR[facility] Comment: Interpretive Data Percent cell count reference ranges are not reported, since discordance with absolute values may lead to misinterpretation of CBC data. Current Interpretive Data was last revised on 2017. Eosinophil pct 1.5 % [facility] MAR[facility] Comment: Interpretive Data Percent cell count reference ranges are not reported, since discordance with absolute values may lead to misinterpretation of CBC data. Current Interpretive Data was last revised on 2017. Basophil pct 0.4 % [facility] MAR[facility] Comment: Interpretive Data Percent cell count reference ranges are not reported, since discordance with absolute values may lead to misinterpretation of CBC data. Current Interpretive Data was last revised on 2017. Blood 03/13/2025 1:00 PM CDT 03/13/2025 1:38 PM CDT Erich Kern MD LAB BLOOD ORDERABLES Final Result [facility] [address] [facility]. [place] [address] * Urinalysis reflex to microscopic and culture Urine, clean voided (03/13/2025 1:00 PM CDT) Color, ur Straw Yellow Clarity, ur Clear Clear K[facility]I MARKS Specific gravity, ur 1.008 1.003 - 1.030 K[facility]I MARKS pH, urine 7.0 K[facility]I MARKS Comment: Interpretive Data U rine pH is affected by diet, medications, systemic acid-base disturbances, and renal tubular function. pH may affect urinary stone formation. For example, urine pH below 6.0 may help reduce the tendency for calcium phosphate stones and pH greater than 6.0 may reduce the tendency for uric acid stone formation. Source: [facility] Laboratories Current Interpretive Data was last revised [...] for microscopic UA and culture not met. [facility] Urine, clean voided 03/13/2025 1:00 PM CDT 03/13/2025 1:38 PM CDT Erich Kern MD LAB [facility] ORDERABLES Final Result [facility] [address] [facility]. Department of Laboratories [place], [place] [id number] * CBC with auto differential (03/13/2025 1:00 PM CDT) WBC 5.32 3.80 - 9.90 K/cumm Hgb 14.2 13.0 - 17.5 g/dL [facility] Hct 41.5 38.9 - 50.3 % [facility] Plt 218 150 - 400 K/cumm [facility] MPV 9.6 9.1 - 12.3 fL [facility] RBC 4.74 4.30 - 5.80 M/cumm [facility] MCV 87.6 81.3 - 96.4 fL [facility] MCH 30.0 27.1 - 33.3 pg [facility] MCHC 34.2 32.3 - 35.7 g/dL [facility] RDW CV 14.6 11.1 - 14.9 % [facility] RDW SD 47.0 35.7 - 48.1 fL [facility] NRBC abs 0.00 0.00 - 0.01 K/cumm [facility] Blood 03/13/2025 1:00 PM CDT 03/13/2025 1:38 PM CDT Erich Kern MD LAB BLOOD ORDERABLES Final Result Performing Organization Address [facility] Co de Phone Number [facility] [address] [place] [employer]. [facility] [employer] [place], [place] [id number] * Vitamin D 25 hydroxy (03/13/2025 1:00 PM CDT) Vitamin D 25-OH 39 30 - 80 ng/mL Blood 03/13/2025 1:00 PM CDT 03/13/2025 1:38 PM CDT Erich Kern MD LAB BLOOD ORDERABLES Final Result Performing Organization Address [facility] de Phone Number [facility] [address] [employer]. [facility] [place] [address] * aPTT (03/13/2025 1:00 PM CDT) aPTT 35 28 - 38 sec Comment: Interpretive Data Heparin therapeutic range: 66.0 - 100.0 seconds. Range based on correlation with therapeutic heparin activity range of 0.3 - 0.7 Units/mL. Current interpretive data was last revised on 2023. Blood 03/13/2025 1:00 PM CDT 03/13/2025 1:38 PM CDT Gayle Boykin NP LAB BLOOD ORDERABLES Final Re sult Performing Organization Address [facility] Co de Phone Number K[facility]I [facility] [address] [employer] [facility] [place] [address] * Erythrocyte sedimentation rate (03/13/2025 1:00 PM CDT) Erythrocyte sedimentation rate 14 1 - 20 mm/hr Blood 03/13/2025 1:00 PM CDT 03/13/2025 1:38 PM CDT Erich Kern MD LAB BLOOD ORDERABLES Final Result Performing Organization Address [facility] Co de Phone Number [facility] [address] [employer] [facility] [place] [address] * Protime-INR (03/13/2025 1:00 PM CDT) PT 10.2 9.7 - 13.0 sec INR 0.95 0.90 - 1.20 [facility] Comment: Interpretive data Oral anticoagulant therapeutic ranges: Venous thromboembolism prophylaxis or treatment: 2.0-3.0 CARDIOLOGY Standard range: 2.0-3.0 High-intensity range: 2.5-3.5 Refer to indication-specific guidelines for appropriate target ranges for prosthetic heart valve replacement. Current interpretive data was last revised on 2019. Blood 03/13/2025 1:00 PM CDT 03/13/2025 1:38 PM CDT Gayle Boykin NP LAB BLOOD ORDERABLES Final Re sult Performing Organization Address [facility] de Phone Number [facility] [address] [employer]. [facility] [place] [address] * CRP (acute phase) (03/13/2025 1:00 PM CDT) CRP <3.0 <=10.0 mg/L Blood 03/13/2025 1:00 PM CDT 03/13/2025 1:38 PM CDT Erich Kern MD LAB BLOOD ORDERABLES Final Result Performing Organization Address [facility] de Phone Number [facility] [address] [facility] [place] [address] * (ABNORMAL) Hemoglobin A1c (03/13/2025 1:00 PM CDT) Pathologist [facility] Hgb A1C 5.7(H) 4.0 - 5.6 % Estimated Average Glucose 117 mg/dL [facility] AND CLINICS Comment: The ADA recommends reporting an estimated Average Glucose (eAG) with all Hemoglobin A1c results using the equation derived from a study of 507 normal and diabetic adults. Minority populations were underrepresented and children were not included. (Diabetes Care 31:6194-2411, 2008). The eAG is not equivalent to a fasting glucose. Blood 03/13/2025 1:00 PM CDT 03/13/2025 1:38 PM CDT Erich Kern MD LAB BLOOD ORDERABLES Final Result [facility] [address] [facility] [place] [address] * Comprehensive metabolic panel (03/13/2025 1:00 PM CDT) [facility] Sodium 136 135 - 145 mmol/L Potassium, pl 4.4 3.3 - 4.9 mmol/L [facility] Chloride 98 97 - 110 mmol/L [facility] CO2 24 22 - 32 mmol/L [facility] Anion gap 14 2 - 15 mmol/L [facility] BUN 8 6 - 25 mg/dL [facility] Creatinine 0.82 0.80 - 1.30 mg/dL [facility] Glucose 88 70 - 199 mg/dL [facility] Comment: Interpretive Data Fasting glucose >/= [...] interpretive data was last revised 2022. Calcium 9.4 8.5 - 10.3 mg/dL [facility] Bilirubin, total 0.3 0.1 - 1.2 mg/dL [facility] Protein, pl 7.3 6.5 - 8.5 g/dL [facility] Albumin 4.6 3.5 - 5.0 g/dL [facility] Alk phos 86 40 - 130 Units/L [facility] ALT 28 7 - 55 Units/L [facility] AST 40 10 - 50 Units/L [facility] Blood 03/13/2025 1:00 PM CDT 03/13/2025 1:38 PM CDT Erich Kern MD LAB BLOOD ORDERABLES Final Result Performing Organization Address City/[facility] Co de Phone Number [facility] [address] [facility] [place] [address] * Neuro MR Outside Reference (02/20/2025 11:18 AM CDT) Impressions [facility] - 02/20/2025 11:18 AM CDT These images are for Reference purposes only and have not been reviewed by [facility]. There will be no report generated by a [facility] Radiologist. Narrative [facility] - 02/20/2025 11:18 AM CDT EXAMINATION: Images For Reference Purposes Only Erich Kern MD IMG MRI PROCEDURES F inal Result Performing Organization Address City/[facility]/ZIP Co de Phone Number [email or web address] * Neuro CT Outside Reference (02/20/2025 11:17 AM CDT) Impressions [facility] - 02/20/2025 11:17 AM CDT These images are for Reference purposes only and have not been reviewed by [facility]. There will be no report generated by a [facility] Radiologist. Narrative [facility] - 02/20/2025 11:17 AM CDT EXAMINATION: Images For Reference Purposes Only Erich Kern MD IMG CT PROCEDURES Fi nal Result [email or web address] * MRI Cervical Spine WO Contrast (02/20/2025 10:54 AM CDT) Anatomical Region Laterality Modality Spine N/A Magnetic Resonan ce Erich Kern MD IMG MRI PROCEDURES F inal Result * CT Cervical Spine WO Contrast (02/20/2025 10:00 AM CDT) Anatomical Region Laterality Modality Spine N/A Computed Tomogra phy Erich Kern MD IMG CT PROCEDURES Fi nal Result * XR Scoliosis Ap and Lateral (02/15/2025 [...] MD IMG XR PROCEDURES Fi nal Result from Last 3 Months Additional Health Concerns Active Problems Noted Date Diagnosed Date Autogenerated Problem 02/23/2025 Insurance MEDICARE [facility] MEDICARE ADVANTAGE [facility] MEDICARE [facility] Address: [address] [address] [place] [address] [facility] MEDICARE [facility] Address: [facility] [address] [place] [address] Advance Directives For more information, please contact: [phone] * Full Code (Latest Code Status on File) Date Activated Date Inactivated Comments 11/22/2024 6:34 PM 11/25/2024 8:45 PM * Full Code Date Activated Date Inactivated Comments 09/03/2021 6:51 PM 09/06/2021 5:05 PM * Full Code Date Activated Date Inactivated Comments 12/29/2017 10:54 AM 12/30/2017 2:41 AM Care Teams [employer] Relationship Specialty Start Date End Date Rico Lewis MD [address] [place] [address] PCP - General 02/09/18 Winter Sanchez, RAYA Registered Nurse 02/10/18 Jv Mathis MD [address] [place] [address] [address] Anesthesiologist Pain Management 07/17/22
--- OUTSIDE RECORDS SUMMARY | 2025-03-16 13:00 | XMS_ITS | Clinical Summary ---
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 12/07 DDD [...] Team Description 03/13/2025 11:45 AM CDT Lab [facility] [address] [place] [address] Preoperative testing; Hepatic cirrhosis, unspecified hepatic cirrhosis type, unspecified whether ascites present (HCC); Spinal stenosis in cervical region; Vitamin D deficiency; Other specified disorders of carbohydrate metabolism 03/13/2025 11:30 AM CDT Pre-Admission Testing [facility] Pre-Anesthesia Testing [address] [place] [address] Preoperative testing (Primary Dx); Hepatic cirrhosis, unspecified hepatic cirrhosis type, unspecified whether ascites present (HCC) 03/13/2025 6:22 AM CDT - 03/13/2025 11:59 PM CDT Hospital Encounter [address] [address] Preoperative testing Discharge Disposition: Discharge to home or self care 03/13/2025 Documentation [facility] [address] [place] [address] 4 [address] [place] [address] Bisi Bartlett RN 02/28/2025 Telephone [facility] [address] [place] [address] Building [address] [place] [address] Erich Kern MD 02/22/2025 Telephone [facility] [address] [place] [address] Office [facility] [address] [place] [address] Erich Kern MD 02/20/2025 11:18 AM CDT - 02/20/2025 11:59 PM CDT Hospital Encounter [facility] ([facility]) [address] [place] [address] Discharge Disposition: Discharge to home or self care 02/20/2025 11:17 AM CDT - 02/20/2025 11:59 PM CDT Hospital Encounter [facility] ([facility]) [address] [place] [address] Discharge Disposition: Discharge to home or self care 02/20/2025 Orders Only [facility] Erich Kern MD Degenerative cervical spinal stenosis 02/15/2025 11:20 AM CDT Office Visit [facility] [address] [place] [address] Office [facility] [address] [place] [address] Erich Kern MD S/P spinal fusion (Primary Dx); Degenerative cervical spinal stenosis 02/15/2025 11:00 AM CDT - 02/15/2025 11:59 PM CDT Hospital Encounter [facility] [address] [place] [address] [address] [place] [address] S/P spinal fusion Discharge Disposition: Discharge to home or self care 12/27/2024 Telephone [facility] [address] [place] [address] Office [facility] [address] [place] [address] Erich Kern MD 12/19/2024 11:26 AM CDT - 12/19/2024 11:59 PM CDT Hospital Encounter [facility] [address] [place] [address] [address] [place] [address] S/P spinal fusion Discharge Disposition: Discharge to home or self care 12/19/2024 11:20 AM CDT Office Visit [facility] [address] [facility] Building [address] [place] [address] Erich Kern MD S/P spinal fusion (Primary Dx) from Last 3 Months Immunizations Immunization Administration [...] Low back pain GERD (gastroesophageal reflux disease) Family History Medical History Relation Name Comments [...] Sister n/a ADD / ADHD Neg Hx Anxiety disorder Neg Hx Ataxia Neg Hx Autism Neg Hx Autoimmune disease Neg Hx Cerebral palsy Neg Hx Chorea Neg Hx Dementia Neg Hx Depression Neg Hx Dev Regression Neg Hx Developmental delay Neg Hx Diabetes Neg Hx Epilepsy Neg Hx Fainting Neg Hx Febrile seizures Neg Hx Fibromyalgia Neg Hx Intellectual Disability Neg Hx Malig Hyperthermia Neg Hx Migraines Neg Hx Multiple sclerosis Neg Hx Muscular dystrophy Neg Hx Myopathy Neg Hx Neurofibromatosis Neg Hx Neuropathy Neg Hx Parkinsonism Neg Hx Pseudochol deficiency Neg Hx Restless legs syndrome Neg Hx [...] drink = 0.6 oz pur e alcohol) [facility] Utilities Answer Date Recorded In the past 12 months has e electric, gas, oil, or water company [...] often do you attend chur ch or congregational services? Never 11/28/2024 Do you belong to any clubs o r organizations such as buddhist groups, unions, fraternal or athletic groups, or [...] any time in the past 12 [facility], were you homeless or living [...] on file Legal Sex Male 11:10 PM LAMINA SEARCHER Gender Identity Male 01/23/2021 2:22 PM CDT [...] Description 03/28/2025 7:30 AM CDT Hospital Encounter [facility] Operating Room [address] [place] [address] Erich Kern MD [address] [place] [address] 03/28/2025 7:30 AM CDT Anesthesia Event [facility] Operating [facility] [address] [place] [address] Gayle Boykin NP [address] [place] [address] 03/28/2025 7:30 AM CDT - 03/28/2025 12:25 PM CDT Surgery [facility] Operating Room [address] [place] [address] Erich Kern MD [address] [place] [address] FUSION CERVICAL ANTERIOR DISCECTOMY WITH INSTRUMENTATION- C4-7 anterior cervical discectomy and fusion with cage, autograft and spinal cord monitoring. Cut to close 180 minutes. Scheduled Procedures Name Priority Associated Diagnoses Date/Ti me FUSION CERVICAL ANTERIOR DISCECTOMY WITH INSTRUMENTATION Spinal stenosis in cervical region 03/28/2025 7:30 AM CDT SPINAL CORD MONITORING Spinal stenosis in cervical region 03/28/2025 7:30 AM CDT Health Maintenance Due Date [...] or PCV21) 09/02/2024 09/02/2019, 06/29/2015 Influenza Vaccine (#1) 2025 , 04/25/2021, 06/13/2020, Additional history exists Fall Risk Assessment 03/13/2026 03/13/2025 Goals Goal Patient Goal Type Associated Problems Recent Progress Patient-Stated? Author BH-Pain Behavioral Health Worsening( 2:10 PM CDT) No Zuleika George, RN Note: Patient will establish a comfort-function goal and identify the pain level that will allow the patient to perform desired activities and achieve an acceptable quality of life. <enter goal here> General On track(2018 1:14 PM LAMINA SEARCHER) Yes Vivian De La Vega, RAYA Note: Fishing Walking dogs Working around house Autogenerated Goal Care Plan Autogenerated Problem No Carli Hays RMA Medical Devices Implanted Type Area Fiscal Services Manager Device Identifier Shelf Expiration Date Model / Serial / Lot Hardware Right: Leg Medtronic Inc [id number] Cd Horizon 6mm 500mm Line Straight Diego Spinal Titanium Nonsterile - [id number] Implanted:Qty: 1 on 09/03/2021 by Erich Kern MD at [facility] N/A: Spine Lumbar Medtronic Inc [id number] / / Allosource [id number] Crushed Chip Frozen Graft 30ml Bone Cancellous - [id number] Implanted:Qty: 1 on 09/03/2021 by Erich Kern MD at [facility] N/A: Spine Lumbar Allosource 05/10/2026 [id number] / / [id number] Allosource [id number] Crushed Chip Frozen Graft 30ml Bone Cancellous - [id number] Implanted:Qty: 1 on 09/03/2021 by Erich Kern MD at [facility] N/A: Spine Lumbar Allosource 05/11/2026 [id number] / / [id number] Medtronic Sofamor Danek [id number] Infuse 20ga 2x1in Vial Absorbable Syringe Needle Medium Graft 5.6 - [id number] Implanted:Qty: 1 on 09/03/2021 by Erich Kern MD at [facility] N/A: Spine Lumbar Medtronic Inc [id number] / / Medtronic Sofamor [place] [id number] Solera Cd Horizon 7.5mm 50mm Multiaxial Spine Screw Bone Cocr - [id number] Implanted:Qty: 2 on 09/03/2021 by Erich Kern MD at [facility] N/A: Spine Lumbar Medtronic Inc [id number] / / Medtronic Sofamor Danek [id number] Solera Cd Horizon 7.5mm 55mm Multiaxial Spine Screw Bone Cocr - [id number] Implanted:Qty: 4 on 09/03/2021 by Erich Kern MD at [facility] N/A: Spine Lumbar Medtronic Inc [id number] / / Medtronic Sofamor [place] [id number] Solera Cd Horizon 7.5mm 60mm Multiaxial Spine Screw Bone Cocr - [id number] Implanted:Qty: 2 on 09/03/2021 by Erich Kern MD at [facility] N/A: Spine Lumbar Medtronic Inc [id number] / / Medtronic Sofamor Danek [id number] Cd Horizon Break Off Spinal Screw Set Titanium Nonsterile 5.5 Mm - [id number] Implanted:Qty: 8 on 09/03/2021 by Erich Kern MD at [facility] N/A: Spine Lumbar Medtronic Inc [id number] / / Medtronic Inc Kit Graft Bone Sponge Xlg Infuse 8cc Granules [id number] - [id number] Implanted:Qty: 1 on 11/22/2024 by Erich Kern MD at [facility] Medtronic Inc [id number] 01/05/2026 [id number] / / [id number] Marcus Spine Graft Bone Filler Gel Bio Dbm 10cc [id number] - [id number] Implanted:Qty: 1 on 11/22/2024 by Erich Kern MD at [facility] N/A: Spine Lumbar [place] Spine [id number] 03/26/2027 [id number] / / [id number] Allosource Crushed Chip Frozen Graft 30ml Bone Cancellous [id number] - [id number] Implanted:Qty: 1 on 11/22/2024 by Erich Kern MD at [facility] N/A: Spine Lumbar Allosource 01/12/2029 [id number] / / [id number] Medtronic Inc Solera Cd Horizon 6.5mm 60mm Multiaxial Spine Screw Bone Cocr [id number] - [id number] Implanted:Qty: 2 on 11/22/2024 by Erich Kern MD at [facility] N/A: Spine Lumbar Medtronic Inc [id number] / / Medtronic Inc Cd Horizon Break Off Spinal Screw Set Titanium Nonsterile 5.5 Mm [id number] - [id number] Implanted:Qty: 10 on 11/22/2024 by Erich Kern MD at [facility] N/A: Spine Lumbar Medtronic Inc [id number] / / Medtronic Inc Unid Exp [id number] 6.0 Ti Diego 4up L [id number] - [id number] Implanted:Qty: 2 on 11/22/2024 by Erich Kern MD at [facility] N/A: Spine Lumbar Medtronic Inc [id number] / / Medtronic Inc Screw Mod Assy Mas 5.5/6.0mm Sterile 2pk [id number] - [id number] Implanted:Qty: 1 on 11/22/2024 by Erich Kern MD at [facility] N/A: Spine Lumbar Medtronic Inc [id number] / / Medtronic Inc Screw Spinal 8.5x55mm Cd Horizon Osteogrip Thread Nonstrl [id number] - [id number] Implanted:Qty: 1 on 11/22/2024 by Erich Kern MD at [facility] Medtronic Inc [id number] / / Explanted Type Area Fiscal Services Manager Device Identifier Shelf Expiration Date Model / Serial / Lot Spinal Cord Stimulator-2007 Implanted:2007 (Quantity not on file) Explanted:2018 by Jared Lake (Quantity not on file) Back [id number] / [id number] / Description:Explanted by Dr. Jaime Wick Implanted by Heather Staples DO Physician's phone number [phone] ID Number [id number] ANS - A [employer] Medical Procedures Procedure Name Priority Date/Time Associated Diagnosis [...] ABO Rh A Negative Davi, indirect Negative [facility] Blood 03/13/2025 1:00 PM CDT 03/13/2025 4:29 PM CDT Narrative [facility] X[facility]IER - 03/13/2025 5:27 PM CDT Has the patient had Daratumumab or Isatuximab in the past 6 months?->Unknown Is this test being ordered in advance for a procedure?->Yes Expected date of procedure:->03/28/25 Has the patient been transfused in the past 3 months?->No us Gayle Boykin NP LAB BLOOD BANK TEST ORDERABLE S Final Result [facility] X[facility] Department [place] [address] * eGFR (03/13/2025 1:00 PM CDT) eGFR [...] Kern MD LAB BLOOD ORDERABLES Final Result [facility] [address] [facility]. [place] [address] * Differential, auto (03/13/2025 1:00 PM CDT) Neutrophil abs 3.21 1.50 - 6.50 K/cumm Imm gran abs 0.01 0.00 - 0.10 K/cumm [facility] Lymphocyte abs 1.41 0.80 - 3.30 K/cumm [facility] Monocyte abs 0.59 0.20 - 0.80 K/cumm [facility] Eosinophil abs 0.08 0.00 - 0.50 K/cumm [facility] Basophil abs 0.02 0.00 - 0.10 K/cumm [facility] Neutrophil pct 60.3 % [facility] Comment: Interpretive Data Percent cell count reference ranges are not reported, since discordance with absolute values may lead to misinterpretation of CBC data. Current Interpretive Data was last revised on 2017. Imm gran pct 0.2 % [facility] Comment: Interpretive Data Percent cell count reference ranges are not reported, since discordance with absolute values may lead to misinterpretation of CBC data. Current Interpretive Data was last revised on 2017. Lymphocyte pct 26.5 % [facility] Comment: Interpretive Data Percent cell count reference ranges are not reported, since discordance with absolute values may lead to misinterpretation of CBC data. Current Interpretive Data was last revised on 2017. Monocyte pct 11.1 % [facility] Comment: Interpretive Data Percent cell count reference ranges are not reported, since discordance with absolute values may lead to misinterpretation of CBC data. Current Interpretive Data was last revised on 2017. Eosinophil pct 1.5 % [facility] Comment: Interpretive Data Percent cell count reference ranges are not reported, since discordance with absolute values may lead to misinterpretation of CBC data. Current Interpretive Data was last revised on 2017. Basophil pct 0.4 % [facility] Comment: Interpretive Data Percent cell count reference ranges are not reported, since discordance with absolute values may lead to misinterpretation of CBC data. Current Interpretive Data was last revised on 2017. Blood 03/13/2025 1:00 PM CDT 03/13/2025 1:38 PM CDT Erich Kern MD LAB BLOOD ORDERABLES Final Result [facility] MAR[facility] [address] [facility] [employer]. [facility] Done In :[address] [place] [address] * Urinalysis reflex to microscopic and culture Urine, clean voided (03/13/2025 1:00 PM CDT) Color, ur Straw Yellow Clarity, ur Clear Clear [facility] Specific gravity, ur 1.008 1.003 - 1.030 [facility] pH, urine [...] tendency for uric acid stone formation. Source: [facility] Laboratories Current Interpretive Data was last [...] for microscopic UA and culture not met. [facility] Urine, clean voided 03/13/2025 1:00 PM CDT 03/13/2025 1:38 PM CDT Erich Kern MD LAB MICROBIOLOGY - G ENERAL ORDERABLES Final Result [facility] MAR[facility] [address] [facility] [employer] [facility]. [facility] Done In :[address] [place] [address] * CBC with auto differential (03/13/2025 1:00 PM CDT) WBC 5.32 3.80 - 9.90 K/cumm Hgb 14.2 13.0 - 17.5 g/dL [facility] BJ[facility] Hct 41.5 38.9 - 50.3 % [facility]CH Plt 218 150 - 400 K/cumm [facility] MPV 9.6 9.1 - 12.3 fL [facility] RBC 4.74 4.30 - 5.80 M/cumm [facility] MCV 87.6 81.3 - 96.4 fL [facility] MCH 30.0 27.1 - 33.3 pg [facility] MCHC 34.2 32.3 - 35.7 g/dL [facility]JW RDW CV 14.6 11.1 - 14.9 % [facility] RDW SD 47.0 35.7 - 48.1 fL [facility] NRBC abs 0.00 0.00 - 0.01 K/cumm [facility] Blood 03/13/2025 1:00 PM CDT 03/13/2025 1:38 PM CDT Erich Kern MD LAB BLOOD ORDERABLES Final Result Performing Organization Address [facility] Co de Phone Number [facility] [address] [address] [address] * Vitamin D 25 hydroxy (03/13/2025 1:00 PM CDT) Pathologist [facility] Vitamin D 25-OH 39 30 - 80 ng/mL Blood 03/13/2025 1:00 PM CDT 03/13/2025 1:38 PM CDT Erich Kern MD LAB BLOOD ORDERABLES Final Result Performing Organization Address City/[facility]/ZIP Co de Phone Number [facility] [address] [address] [address] * aPTT (03/13/2025 1:00 PM CDT) aPTT [...] ORDERABLES Final Re sult Performing Organization Address City/[facility]/ZIP Co de Phone Number [facility] [address] [facility] Done In :[address] [place] [address] * Erythrocyte sedimentation rate (03/13/2025 1:00 PM CDT) Pathologist [facility] Erythrocyte sedimentation rate 14 1 - 20 mm/hr Blood 03/13/2025 1:00 PM CDT 03/13/2025 1:38 PM CDT Erich Kern MD LAB BLOOD ORDERABLES Final Result Performing Organization Address [facility] Co de Phone Number [facility] [address] [facility]. [facility] Done In :[address] [place] [address] * Protime-INR (03/13/2025 1:00 PM CDT) PT 10.2 9.7 - 13.0 sec INR 0.95 0.90 - 1.20 [facility] Comment: Interpretive data Oral anticoagulant therapeutic ranges: Venous thromboembolism prophylaxis or treatment: 2.0-3.0 CARDIOLOGY Standard range: 2.0-3.0 High-intensity range: 2.5-3.5 Refer to indication-specific guidelines for appropriate target ranges for prosthetic heart valve replacement. Current interpretive data was last revised on 2019. Blood 03/13/2025 1:00 PM CDT 03/13/2025 1:38 PM CDT Gayle Boykin NP LAB BLOOD ORDERABLES Final Re sult Performing Organization Address [facility] Co de Phone Number [facility] [address] [facility] [facility] [place] [address] * CRP (acute phase) (03/13/2025 1:00 PM CDT) CRP <3.0 <=10.0 mg/L Blood 03/13/2025 1:00 PM CDT 03/13/2025 1:38 PM CDT Result [place] [facility] Erich Kern MD LAB BLOOD ORDERABLES Final Result Performing Organization Address [facility] Phone Number [facility] [address] [facility] [facility] [place] [address] * (ABNORMAL) Hemoglobin A1c (03/13/2025 1:00 PM CDT) Hgb A1C 5.7(H) 4.0 - 5.6 % Estimated Average Glucose 117 mg/dL K[facility]I MARKS Comment: The ADA recommends reporting an estimated Average Glucose (eAG) with all Hemoglobin A1c results using the equation derived from a study of 507 normal and diabetic adults. Minority populations were underrepresented and children were not included. (Diabetes Care 31:0876-6796, 2008). The eAG is not equivalent to a fasting glucose. Blood 03/13/2025 1:00 PM CDT 03/13/2025 1:38 PM CDT Erich Kern MD LAB BLOOD ORDERABLES Final Result Performing Organization Address [facility] de Phone Number [facility] [address] [facility] [facility] [place] [address] * Comprehensive metabolic panel (03/13/2025 1:00 PM CDT) Sodium 136 135 - 145 mmol/L Potassium, pl 4.4 3.3 - 4.9 mmol/L [facility] Chloride 98 97 - 110 mmol/L [facility] CO2 24 22 - 32 mmol/L [facility] Anion gap 14 2 - 15 mmol/L [facility] BUN 8 6 - 25 mg/dL [facility] Creatinine 0.82 0.80 - 1.30 mg/dL [facility] Glucose 88 70 - 199 mg/dL [facility] Comment: [...] LAB BLOOD ORDERABLES Final Result KAMI MARKS [address] [facility]. Department [place] [address] * Neuro MR Outside Reference (02/20/2025 11:18 AM CDT) Impressions [facility] - 02/20/2025 11:18 AM CDT These images are for Reference purposes only and have not been reviewed by [facility]. There will be no report generated by a [facility] Radiologist. Narrative [facility] - 02/20/2025 11:18 AM CDT EXAMINATION: Images For Reference Purposes Only Erich Kern MD IM MRI PROCEDURES F inal Result Performing Organization Address [facility] de Phone Number [email or web address] * Neuro CT Outside Reference (02/20/2025 11:17 AM CDT) Impressions [facility] - 02/20/2025 11:17 AM CDT These images are for Reference purposes only and have not been reviewed by [facility]. There will be no report generated by a [facility] Radiologist. Narrative [facility] - 02/20/2025 11:17 AM CDT EXAMINATION: Images For Reference Purposes Only Erich Kern MD IM CT PROCEDURES Fi nal Result Performing Organization Address [facility] de Phone Number [email or web address] * MRI Cervical Spine WO Contrast (02/20/2025 10:54 AM CDT) Anatomical Region Laterality Modality Spine N/A Magnetic Resonan ce Erich Kern MD IM MRI PROCEDURES F inal Result * CT Cervical Spine WO Contrast (02/20/2025 10:00 AM CDT) Anatomical Region Laterality Modality Spine N/A Computed Tomogra phy Erich Kern MD IM CT PROCEDURES Fi nal Result * XR [...] Diagnosed Date Autogenerated Problem 02/23/2025 Insurance MEDICARE [facility] MEDICARE ADVANTAGE [facility] MED[facility] Address: [address] [address] [place] [address] Advance Directives For more information, please contact: [phone] * Full Code (Latest Code Status on File) Date Activated Date Inactivated Comments 11/22/2024 6:34 PM 11/25/2024 8:45 PM * Full Code Date Activated Date Inactivated Comments 09/03/2021 6:51 PM 09/06/2021 5:05 PM * Full Code Date Activated Date Inactivated Comments 12/29/2017 10:54 AM 12/30/2017 2:41 AM Care Teams Health Diagnostics Teacher Relationship Specialty Start Date End Date Rico [place] MD [address] [place] [address] PCP - General 02/09/18 Winter Sanchez, RN Registered Nurse 02/10/18 Jv Mathis MD [address] [place] [address] [address] Anesthesiologist Pain Management 07/17/22
--- OUTSIDE RECORDS SUMMARY | 2025-03-16 13:00 | XMS_ITS | Clinical Summary ---
Author Organization [facility] Address [address] [place] [address] Phone Care Team Providers Care Solid Fiber Paster Operator Name Role Phone Rico Lewis MD [...] Comments Blood Pressure 110/66 09/14/2020 10:37 AM INGREDIENT SCALER HELPER Pulse 60 09/14/2020 10:37 AM INGREDIENT SCALER HELPER Temperature 36.1 C (97 F) 08/06/2020 9:00 AM INGREDIENT SCALER HELPER Respiratory Rate 14 08/06/2020 9:15 AM INGREDIENT SCALER HELPER Oxygen Saturation 98% 08/06/2020 9:15 AM INGREDIENT SCALER HELPER Inhaled Oxygen Concentration - - Weight 100.2 kg (221 lb) 09/14/2020 10:37 AM INGREDIENT SCALER HELPER Height 188 cm (6' 2) 09/14/2020 10:37 AM INGREDIENT SCALER HELPER Body Mass Index 28.37 09/14/2020 10:37 AM INGREDIENT SCALER HELPER Plan of Treatment Health Maintenance Due Date [...] GI ENDOSCOPY 08/06/2023 08/06/2020 INFLUENZA VACCINE (#1) 2025 COLORECTAL SCREENING 08/06/2027 08/06/2020, 08/06/20 20 Colorectal Cancer Screening 08/06/2027 Procedures Procedure Name Priority Date/Time Associated Diagnosis Comments COLONOSCOPY REPORT 08/06/2020 9: 12 AM INGREDIENT SCALER HELPER from Last 3 Months or Most Recently Relevant to Health Maintenance Results * COLONOSCOPY REPORT (08/06/2020 9:12 AM INGREDIENT SCALER HELPER) Narrative Procedure Note Benito Pablo MD - 08/06/2020 9:11 AM CST [facility] Endoscopy Patient Name: Marko Marti Procedure [...] of Addenda: [address]; [place] [address] Benito Pablo MD GI PROCEDURE ORDERABLES Final Result from Last 3 Months or Most Recently Relevant to Health Maintenance Insurance [facility] [id number] Care Teams Solid Fiber Paster Operator Relationship Specialty Start Date End Date Rico [place] MD [address] [place] [address] PCP - General Internal Medicine 06/21/20
--- OUTSIDE RECORDS SUMMARY | 2025-03-16 13:00 | XMS_ITS | Patient Health Record ---
Author Organization [facility] Address [address] [place] [address] Care Team Providers Care Research Technologist Name Role Phone Marko Barry Unavailable [phone] MARKO BARRY MD Unavailable Unavailable Medications Medication [...] CAPSULE 4 EMANUEL ES A DAY BY MOUTH; Duration: 30 Active Cyclobenzaprine HCl 10 MG 1 tablet Orall y Three times a day; Duration: 90 days 05/28/2012 Active Social History Tobacco Use/Smoking Question Answer Notes Are you a former smoker How long has it been since you last smoked? 1-5 years Problems Problem Type SNOMED Code ICD Code Onset Dates Problem Status W/U Status Risk Notes Problem Depressive disorder (52037746) Depressive disorder, not elsewhere classified (311) Active confirmed Problem Thoracic and lumbosacral neuritis (017651151) Thoracic or lumbosacral neuritis or radiculitis, unspecified (724.4) Active confirmed Problem Lumbago (948614314) Lumbago (724.2) Active confirmed Problem Cervicalgia (34723070) Cervicalgia (723.1) Active confirmed Problem Long-term current use of drug therapy (290423276) Encounter for long-term (current) use of other medications (V58.69) Active confirmed Plan Of Treatment Pending Test Test Name Order Date Testosterone,Free and Total 11/25/2013 PSA Total+ Free 11/25/2013 Inj Sing Cer/Thor 02/27/2012 Inj Sing Cer/Thor 05/28/2012 Urine Drug Screen- Medicare 05/28/2012 1_Custom Profile 06/09/2013 Insurance Providers Payer Name Payer Address Payer Phone Subscriber Number Group Number Insured Name Patient Relationship to Insured Coverage Start Date Coverage End Date Medicare Part B [address] [place] [address] [id number] MARKO TIDWELL Self - patient is the insured Medical (General) History Medical History History ICD Code brain encephalitis Surgical History Surgery Date(Month/Year) Back 1999 Hospitalization History Reason Date(Month/Year) Encephalitis of the brain - Admitted to [facility] and transferred [facility] in [place] -08/06/13 Oral surgery 10/17/13
== END 2025-03-16 12:56 | disposition home or self-care (01) ==
LOC: CHSIMG 12:58
PROVIDERS: PCP Internal Medicine; Visit Provider Internal Medicine
DX: M54.16 Radiculopathy, lumbar region (principal); Z98.890 Other specified postprocedural states; M43.06 Spondylolysis, lumbar region
CPT/HCPCS: 72131

== ENCOUNTER 2025-05-02 08:31 | Outpatient (CLI) | payer MEDICARE, SELFPAY ==
--- OUTSIDE RECORDS SUMMARY | 2025-05-02 08:39 | XMS_ITS | Encounter Summary ---
Author Organization [facility] Address [address] [place] [address] Care Team Providers Care Barrel Endshake Adjuster Name Role Phone Rico Lewis MD Primary Care Provider [phone] Winter Sanchez RN Unavailable Unavailabl e Jv Mathis MD Unavailable [phone] Alea Wing RN Unavailable [phone] Encounter Details Date Type Department Care Team (Late st Contact Info) Description 04/10/2020 Telephone [facility] [address] [facility], [facility] [address] [place] [address] Jv Mathis MD [address] [place] [address] [address] [place] [address] Social History Tobacco Use Types Packs/Day Years Used Date Smoking Tobacco: Every Day Cigarettes Smokeless Tobacco: Former Alcohol Use Standard Drinks/Week Comments No 0 (1 standard drink = 0.6 oz pur e alcohol) PHQ-2 Answer Date Recorded PHQ-2 Score 2 01/04/2020 Sex and Gender Information Value Date Recorded Sex Assigned at Not on file Legal Sex Male 11:10 PM PANTRY CHEF Gender Identity Male 01/23/2021 2:22 PM CDT [...] here> General On track( 019 1:14 PM PANTRY CHEF) Yes Vivian De La Vega, RAYA Note: [...] documented as of this encounter Care Teams Barrel Endshake Adjuster Relationship Specialty Start Date End Date Rico Lewis MD [address] [place] [address] PCP - General 02/09/18 Winter Sanchez, RN Registered Nurse 02/10/18 Jv Mathis MD [address] [place] [address] Anesthesiologist Pain Management 07/17/22 Alea Wing, RAYA [address] [facility] [address] [place] [address] [facility] Outpatient Environmental Laboratory Technician 11/28/24 12/08/24 documented as of this encounter
--- OUTSIDE RECORDS SUMMARY | 2025-05-02 08:39 | XMS_ITS | Clinical Summary ---
Author Organization [facility] Address [address] [place] [address] Phone Care Team Providers Care Design Studio Consultant Name Role Phone Rico Lewis MD Primary [...] Comments Blood Pressure 110/66 09/14/2020 10:37 AM PATROL MOTHER Pulse 60 09/14/2020 10:37 AM PATROL MOTHER Temperature 36.1 C (97 F) 08/06/2020 9:00 AM PATROL MOTHER Respiratory Rate 14 08/06/2020 9:15 AM PATROL MOTHER Oxygen Saturation 98% 08/06/2020 9:15 AM PATROL MOTHER Inhaled Oxygen Concentration - - Weight 100.2 kg (221 lb) 09/14/2020 10:37 AM PATROL MOTHER Height 188 cm (6' 2) 09/14/2020 10:37 AM PATROL MOTHER Body Mass Index 28.37 09/14/2020 10:37 AM PATROL MOTHER Plan of Treatment Health Maintenance Due Date [...] Comments COLONOSCOPY REPORT 08/06/2020 9: 12 AM PATROL MOTHER from Last 3 Months or Most Recently Relevant to Health Maintenance Results * COLONOSCOPY REPORT (08/06/2020 9:12 AM PATROL MOTHER) Narrative Procedure Note Benito Pablo MD - 08/06/2020 9:11 AM CST [facility] Patient Name: Marko Marti Procedure Date: [...] of Addenda: [address]; [place] [address] Benito Pablo MD GI PROCEDURE ORDERABLES Final Result from Last 3 Months or Most Recently Relevant to Health Maintenance Insurance [facility] [id number] Care Teams Design Studio Consultant Relationship Specialty Start Date End Date Rico Lewis MD [address] [place] [address] PCP - General Internal Medicine 06/21/20
--- OUTSIDE RECORDS SUMMARY | 2025-05-02 08:39 | XMS_ITS | Clinical Summary ---
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 City/[facility]/ZIP Co de Phone Number [facility] Department [place] [address] * eGFR (03/13/2025 1:00 PM CDT) eGFR [...] LAB BLOOD ORDERABLES Final Result [facility] [address] [facility]. [place] [address] * Differential, auto (03/13/2025 1:00 PM CDT) Neutrophil abs 3.21 1.50 - 6.50 K/cumm Imm gran abs 0.01 0.00 - 0.10 K/cumm [facility] Lymphocyte abs 1.41 0.80 - 3.30 K/cumm [facility] Monocyte abs 0.59 0.20 - 0.80 K/cumm [facility] Eosinophil abs 0.08 0.00 - 0.50 K/cumm [facility] Basophil abs 0.02 0.00 - 0.10 K/cumm [facility] Neutrophil pct 60.3 % K[facility]I MARTINE[facility] Comment: Interpretive Data Percent cell count reference ranges are not reported, since discordance with absolute values may lead to misinterpretation of CBC data. Current Interpretive Data was last revised on 2017. Imm gran pct 0.2 % K[facility]I M[facility] Comment: Interpretive Data Percent cell count reference ranges are not reported, since discordance with absolute values may lead to misinterpretation of CBC data. Current Interpretive Data was last revised on 2017. Lymphocyte pct 26.5 % K[facility]I M[facility]INE[facility] Comment: Interpretive Data Percent cell count reference ranges are not reported, since discordance with absolute values may lead to misinterpretation of CBC data. Current Interpretive Data was last revised on 2017. Monocyte pct 11.1 % K[facility]I M[facility]INE[facility] Comment: Interpretive Data Percent cell count reference ranges are not reported, since discordance with absolute values may lead to misinterpretation of CBC data. Current Interpretive Data was last revised on 2017. Eosinophil pct 1.5 % K[facility]I [facility] Comment: Interpretive Data Percent cell count reference ranges are not reported, since discordance with absolute values may lead to misinterpretation of CBC data. Current Interpretive Data was last revised on 2017. Basophil pct 0.4 % [facility]I M[facility]INE[facility] Comment: Interpretive Data Percent cell count reference ranges are not reported, since discordance with absolute values may lead to misinterpretation of CBC data. Current Interpretive Data was last revised on 2017. Blood 03/13/2025 1:00 PM CDT 03/13/2025 1:38 PM CDT us Erich Kern MD LAB BLOOD ORDERABLES Final Result [facility] [address] [facility]. Department [place] [address] * Urinalysis reflex to microscopic and culture [...] tendency for uric acid stone formation. Source: [facility] [employer] Current Interpretive Data was last revised on [...] - G ENERAL ORDERABLES Final Result [facility] [address] [facility] [place] [address] * CBC with auto differential (03/13/2025 1:00 PM CDT) WBC 5.32 3.80 - 9.90 K/cumm Hgb 14.2 13.0 - 17.5 g/dL [facility] Hct 41.5 38.9 - 50.3 % CERKAT [facility] Plt 218 150 - 400 K/cumm CERNER [facility] MPV 9.6 9.1 - 12.3 fL [facility]ER [facility] RBC 4.74 4.30 - 5.80 M/cumm KAMI MARKS MCV 87.6 81.3 - 96.4 fL KAMI MARKS MCH 30.0 27.1 - 33.3 pg KAMI MARKS MCHC 34.2 32.3 - 35.7 g/dL KAMI MARKS RDW CV 14.6 11.1 - 14.9 % KAMI MARKS RDW SD 47.0 35.7 - 48.1 fL KAMI MARKS NRBC abs 0.00 0.00 - 0.01 K/cumm [facility] Blood 03/13/2025 1:00 PM CDT 03/13/2025 1:38 PM CDT Erich Kern MD LAB BLOOD ORDERABLES Final Result [facility] [address] [facility] [place] [address] * Nicotine metabolite screen, urine (03/13/2025 1:00 PM CDT) [facility] Nicotine, ur <5.0 <5.0 ng/mL [facility] Cotinine, ur <5.0 <5.0 ng/mL [facility] Anabasine ur <2.0 <2.0 ng/mL [facility] Comment: ADDITIONAL INFORMATION This test was developed and its performance characteristics determined by [facility] in a manner consistent with CLIA requirements. This test has not been cleared or approved by the U.S. Food and Drug Administration. Test Performed by: [facility] - [address] [address] [employer] Machine: Mohamud Shelby Ph.D.; CLIA# [id number] Nornicotine, ur <2.0 <2.0 ng/mL [facility] Urine 03/13/2025 1:00 PM CDT 03/13/2025 1:38 PM CDT Erich Kern MD LAB URINE ORDERABLES Final Result Performing Organization Address [facility]/ZIP Co de Phone Number [facility] [address] [email or web address]. [facility] [place] [place], [place] [id number] [facility] * Vitamin D 25 hydroxy (03/13/2025 1:00 PM CDT) Vitamin D 25-OH 39 30 - 80 ng/mL Blood 03/13/2025 1:00 PM CDT 03/13/2025 1:38 PM CDT Erich Kern MD LAB BLOOD ORDERABLES Final Result Performing Organization Address [facility] Co de Phone Number [facility] [address] [address] [place] [address] * aPTT (03/13/2025 1:00 PM CDT) aPTT [...] ORDERABLES Final Re sult Performing Organization Address [facility] Co de Phone Number [facility] [address] [address]. [facility] [place] [address] * Erythrocyte sedimentation rate (03/13/2025 1:00 PM CDT) Erythrocyte sedimentation rate 14 1 - 20 mm/hr Blood 03/13/2025 1:00 PM CDT 03/13/2025 1:38 PM CDT Erich Kern MD LAB BLOOD ORDERABLES Final Result Performing Organization Address [facility] Co de Phone Number [facility] [address] [facility] [place] [address] * Protime-INR (03/13/2025 1:00 PM CDT) Pathologist [facility] PT 10.2 9.7 - 13.0 sec INR 0.95 0.90 - 1.20 [facility] Comment: Interpretive data Oral anticoagulant therapeutic ranges: Venous thromboembolism prophylaxis or treatment: 2.0-3.0 CARDIOLOGY Standard range: 2.0-3.0 High-intensity range: 2.5-3.5 Refer to indication-specific guidelines for appropriate target ranges for prosthetic heart valve replacement. Current interpretive data was last revised on 2019. Blood 03/13/2025 1:00 PM CDT 03/13/2025 1:38 PM CDT Gayle Boykin NP LAB BLOOD ORDERABLES Final Re sult Performing Organization Address [facility] de Phone Number [facility] [address] [facility]. [facility] [place] [address] * CRP (acute phase) (03/13/2025 1:00 PM CDT) [facility] CRP <3.0 <=10.0 mg/L Blood 03/13/2025 1:00 PM CDT 03/13/2025 1:38 PM CDT Erich Kern MD LAB BLOOD ORDERABLES Final Result Performing Organization Address [facility] Co de Phone Number [facility] [address] [facility]. [facility] [place] [address] * (ABNORMAL) Hemoglobin A1c (03/13/2025 1:00 PM CDT) Pathologist [facility] Hgb A1C 5.7(H) 4.0 - 5.6 % Estimated Average Glucose 117 mg/dL [facility] Comment: The ADA recommends reporting an estimated Average Glucose (eAG) with all Hemoglobin A1c results using the equation derived from a study of 507 normal and diabetic adults. Minority populations were underrepresented and children were not included. (Diabetes Care 31:2323-7436, 2008). The eAG is not equivalent to a fasting glucose. Blood 03/13/2025 1:00 PM CDT 03/13/2025 1:38 PM CDT us Erich Kern MD LAB BLOOD ORDERABLES Final Result [facility] [address] [facility]. [place] [address] * Comprehensive metabolic panel (03/13/2025 1:00 PM CDT) Pathologist [facility] Sodium 136 135 - 145 mmol/L Potassium, pl 4.4 3.3 - 4.9 mmol/L [facility] Chloride 98 97 - 110 mmol/L [facility] CO2 24 22 - 32 mmol/L [facility] Anion gap 14 2 - 15 mmol/L [facility] BUN 8 6 - 25 mg/dL [facility] Creatinine 0.82 0.80 - 1.30 mg/dL [facility] Glucose 88 70 - 199 mg/dL [facility] Comment: Interpretive Data Fasting glucose >/= [...] Result Performing Organization Address [facility] Co de Phone Number [facility] [address] [facility]. [place] [address] * Neuro MR Outside Reference (02/20/2025 11:18 AM CDT) Impressions RAD_PACS_[facility] - 02/20/2025 11:18 AM CDT These images are for Reference purposes only and have not been reviewed by [facility]. There will be no report generated by a [facility] Radiologist. Narrative RAD_PACS_[facility] - 02/20/2025 11:18 AM CDT EXAMINATION: Images For Reference Purposes Only Erich Kern MD IMG MRI PROCEDURES F inal Result Performing Organization Address [facility] Co de Phone Number [email or web address] * Neuro CT Outside Reference (02/20/2025 11:17 AM CDT) Impressions [facility]_PACS_[facility] - 02/20/2025 11:17 AM CDT These images are for Reference purposes only and have not been reviewed by [facility]. There will be no report generated by a [facility] Radiologist. Narrative RAD_PACS_[facility] - 02/20/2025 11:17 AM CDT EXAMINATION: Images [...] L4-S1. Instrumentation appears intact. Procedure Note Jaret Carabalol MD PhD - 02/15/2025 EXAMINATION: XR SCOLIOSIS [...] Result from Last 3 Months Insurance MEDICARE [facility] MEDICARE ADVANTAGE [facility] MEDICARE ADVANTAGE [facility] MEDICARE ADVANTAGE Advance Directives For more information, please contact: [phone] * Full Code (Latest Code Status on File) Date Activated Date Inactivated Comments 03/28/2025 3:31 PM 03/30/2025 3:31 PM * Full Code Date Activated Date Inactivated Comments 11/22/2024 6:34 PM 11/25/2024 8:45 PM * Full Code Date Activated Date Inactivated Comments 09/03/2021 6:51 PM 09/06/2021 5:05 PM * Full Code Date Activated Date Inactivated Comments 12/29/2017 10:54 AM 12/30/2017 2:41 AM Care Teams Digester Operator Helper Relationship Specialty Start Date End Date Rico Lewis MD [address] [place] [address] PCP - General 02/09/18 Winter Sanchez, RN Registered Nurse 02/10/18 Jv Mathis MD [address] [place] [address] DR ZUNIGA [address] [place] [address] Anesthesiologist Pain Management 07/17/22
--- OUTSIDE RECORDS SUMMARY | 2025-05-02 08:39 | XMS_ITS | Encounter Summary ---
Author Organization [facility] Address [address] [place] [address] Phone Care Team Providers Care Laborer Beam House Name Role Phone Rico Lewis MD Primary Care Provider + [phone] Winter Sanchez RN Unavailable Unavailabl Jv Bowden MD Unavailable Alea Wing RN Unavailable [phone] Encounter Details Date Type Department Care Team [...] on file Legal Sex Male 11:10 PM INFORMATION SYSTEMS SUPERVISOR Gender Identity Male 01/23/2021 2:22 PM CDT [...] here> General On track( 019 1:14 PM INFORMATION SYSTEMS SUPERVISOR) Yes Vivian De La Vega, RAYA Note: [...] on filedocumented in this encounter Care Teams Laborer Beam House Relationship Specialty Start Date End Date Rico Lewis MD [address] [place] [address] PCP - General 02/09/18 Winter Sanchez, RAYA Registered Nurse 02/10/18 Jv Mathis MD [address] [place] [address] [address] Anesthesiologist Pain Management 07/17/22 Alea Wing, RAYA [address] [facility] [address] [place] [address] SHOP Outpatient Production Trainer 11/28/24 12/08/24 documented as of this encounter
--- OUTSIDE RECORDS SUMMARY | 2025-05-02 08:39 | XMS_ITS | Clinical Summary ---
Author Organization [facility] Address [address] [facility] [place] [address] Care Team Providers Care Silversmith Apprentice Name Role Phone Rico Lewis MD Primary Care Provider [phone] Source Comments [facility],non-owned Affiliates and Associated Physician Practices is amultiple site organization consisting of ambulatory clinics and hospital sitesin [place], [place], [place] and [place]. This disclosure is being madepursuant to the Care Everywhere program and may not contain all information available regarding this patient. Last updated 18.[facility] Allergies No known active allergies Medications * [...] 7 - 26 mg/dL 02/28/2019 11:20 AM [facility] Creatinine 1.0 0.6 - 1.2 mg/dL 02/28/2019 11:20 AM [facility] Sodium 136 136 - 145 mmol/L 02/28/2019 11:20 AM [facility] Potassium 4.5 3.5 - 4.5 mmol/L 02/28/2019 11:20 AM [facility] Chloride 100 98 - 107 mmol/L 02/28/2019 11:20 AM [facility] CO2 25 22 - 29 mmol/L 02/28/2019 11:20 AM [facility] Glucose 85 70 - 115 mg/dL 02/28/2019 11:20 AM [facility] Calcium 9.4 8.4 - 10.2 mg/dL 02/28/2019 11:20 AM [facility] Anion Gap 16 8 - 18 02/28/2019 11:20 AM [facility] BUN/Creatinine Ratio 9 7 - 23 02/28/2019 11:20 AM [facility] Osmolality Calculated 280 270 - 300 mOsm/kg 02/28/2019 11:20 AM [facility] eGFR >60 >60 mL/min/1.7 3 m2 02/28/2019 11:20 AM [facility] Blood BLOOD SPECIMEN / Unknown Lab Venipuncture / Unknown 02/28/2019 10:42 AM CDT 02/28/2019 11:03 AM [facility] us Jacob Zaidi MD LAB - CHEMISTRY ORDERABLES F inal Result Performing Organization Address City/State/[place] Co de Phone Number [address] [phone] from Last 3 Months or Most Recently Relevant to Health Maintenance Insurance MEDICARE MEDICARE Care Teams Silversmith Apprentice Relationship Specialty Start Date End Date Rico Lewis MD PCP - General 12/15/18
[2025-05-02 08:58] LABS: Hematocrit 40.9 % (37.0-46.0); Hemoglobin 13.6 g/dL (12.4-15.3); Mean Corpuscular HGB Conc 33.3 g/dL (32-36); Mean Corpuscular Hemoglobin 29.5 pg (27.0-31.0); Mean Corpuscular Volume 88.7 fL (78.0-102.0); Platelet Count Result 187 K/mm3 (150-420); Red Blood Count 4.61 M/mm3 (4.70-6.10); White Blood Count 5.5 K/mm3 (4.8-10.8)
[2025-05-02 09:02] LABS: Add Urine Microscopic? YES; Appearance Urine Clear (Clear); Glucose Urine UA Negative (Negative); Leukocyte Esterase Ur Trace (Negative); Nitrate Urine Negative (Negative); Specific Grav Ur 1.010 (1.010-1.020)
[2025-05-02 09:34] LABS: Alanine Aminotransferase 20 U/L (6-50); Albumin Level 4.8 g/dL (3.5-5.1); Alkaline Phosphatase 75 U/L (38-126); Anion Gap 8 mmol/L (4-12); Aspartate Amino Transferase 33 U/L (17-59); Bilirubin,Total 0.7 mg/dL (0.2-1.3); Blood Urea Nitrogen 10 mg/dL (9-20); Calcium 9.4 mg/dL (8.4-10.2); Carbon Dioxide 31 mmol/L (22-30); Chloride 99 mmol/L (98-107); Cholesterol 189 mg/dL (0-200); Creatine Kinase 296 U/L (55-170); Estimated Glomerular Filt Rate > 60; Glucose 96 mg/dL (65-110); HDL Direct 59 mg/dL; Osmolality Calculated 285 mOsm/kg (285-295); Potassium 4.7 mmol/L (3.4-5.0); Sodium 138 mmol/L (137-145); Total Protein 7.4 g/dL (6.3-8.2); Triglycerides 119 mg/dL (<150)
[2025-05-02 09:41] LABS: Hemoglobin A1C 5.8 % (<5.7)
[2025-05-02 09:51] LABS: Free T3 4.34 pg/mL (2.18-3.98)
[2025-05-02 12:29] LABS: Free T4 Free Thyroxine 1.14 ng/dL (0.78-2.19)
[2025-05-02 12:43] LABS: Prostate Specific Antigen 1.1 ng/mL (< OR = 4.0); Thyroid Stimulating Hormone 1.980 uIU/mL (0.465-4.680)
[2025-05-02 13:02] LABS: Vitamin B12 821.0 pg/mL (239-931)
== END 2025-05-02 08:32 | disposition home or self-care (01) ==
LOC: CHSLAB 08:33
PROVIDERS: PCP Internal Medicine; Visit Provider Internal Medicine
DX: E78.2 Mixed hyperlipidemia (principal); I10 Essential (primary) hypertension; M60.9 Myositis, unspecified; R73.01 Impaired fasting glucose; Z12.5 Encounter for screening for malignant neoplasm of prostate; G60.3 Idiopathic progressive neuropathy
CPT/HCPCS: 36415; 80053; 80061; 81001; 82085; 82550; 82607; 83036; 84153; 84439; 84443; 84481; 85027; G0103

== ENCOUNTER 2025-07-28 08:58 | Outpatient (CLI) | payer MEDICARE, SELFPAY ==
--- NOTE | ~2025-07-28 | CT_ITS ---
EXAMINATION: CT abdomen pelvis w con DATE: 07/28/2025 10:06 INDICATION: Cirrhosis of the liver TECHNIQUE: Computed tomography (CT) of the abdomen and pelvis was performed with 100 mL Omnipaque-350 intravenous contrast. Automated exposure control and iterative reconstruction technique were employed. The dose-length product was 1372.45 mGy-cm. COMPARISON: 10/25/2024 FINDINGS: Visualized lower lungs are clear. Heart size is normal. No pericardial or pleural effusion. Again seen is a nodular liver surface consistent with provided history of cirrhosis. Multiple calcified gallstones in the dependent neck of the otherwise normal gallbladder with no wall thickening, dilation or p ericholecystic inflammatory stranding to suggest acute cholecystitis. No intra or extra hepatic biliary ductal dilation. Spleen, pancreas and bilateral adrenal glands are normal. Again seen are a few bilateral renal cysts the largest a 1.9 cm proteinaceous/hemorrhagic cyst at the left kidney with no change in the greater than simple fluid attenuation when compared with the prior noncontrast CT of the lumbar spine. Bladder is normal. No abnormal bowel wall thickening or obstruction. Change of partial hepatectomy with suture line versus surgical clips extend across the distal margin of a residual short appendiceal stump. No free intraperitoneal gas or fluid. No pathologically enlarged abdominal or pe lvic lymphadenopathy. L5 laminectomy and partial L3 and L4 laminectomies. L2-S1 instrumented posterior spinal fusion with bilateral vertical avila and pedicle screw fixations. Anterior spinal fusion with interbody bone graft cages at L4-L5 and L5-S1. IMPRESSION: 1. Cirrhotic liver. 2. Cholelithiasis. Reviewed, dictated and finalized at location A. ER MIXER
--- NOTE | ~2025-07-28 | CT_ITS ---
EXAMINATION: CT lumbar spine wo con COMPARISON: None HISTORY: Low back pain TECHNIQUE: Axial images were obtained through the spine without IV contrast. Coronal, sagittal reconstruction images were obtained from the axial views. CT scan performed using dose optimization techniques including the following automated exposure control; adjustment of mA and/or kV; use of iterative reconstruction technique. Automatic exposure control was used to reduce radiation dose. Permanent radiation dose record is archived to PACS. FINDINGS: No acute fracture or subluxation. There are bilateral pedicle screws and rods fixating S1 L5, L4, L3 and L2, the hardware is intact no lucency around the screws, disc prostheses noted at L4-5 and L5-S1. Posterior laminectomy noted at L5 with moderate loss of disc height at L2-3 and L3-4 with moderate canal and foraminal stenosis. Left kidney midpole there is a complex lesion measuring 1.5 and 1.6 cm incompletely assessed, ultrasound is recommended. Impression: 1. No acute fracture. Postsurgical and degenerative changes detailed above. 2. Complex left renal lesion. Ultrasound recommended Reviewed, dictated and finalized at location P. ICAL ENGINEERING TEACHER Impression: 1. No acute fracture. Postsurgical and degenerative changes detailed above. 2. Complex left renal lesion. Ultrasound recommended
--- OUTSIDE RECORDS SUMMARY | 2025-07-28 09:05 | XMS_ITS | Encounter Summary ---
Author Organization [facility] Address [address] [place] [address] Care Team Providers Care Armor Reconnaissance Vehicle Crewman Name Role Phone Rico Lewis MD Primary Care Provider + [phone] Winter Sanchez RN Unavailable Unavailabl e Jv Mathis MD Unavailable [phone] Alea Wing RN Unavailable [phone] Encounter Details Date Type Department Care Team (Late st Contact Info) Description 04/10/2020 Telephone [facility] [address] [place] [address] A, David[address] [place] [address] Jv Mathis MD [address] [facility] [address] [place] [address] Social History Tobacco Use Types Packs/Day Years Used Date Smoking Tobacco: Every Day Cigarettes Smokeless Tobacco: Former Alcohol Use Standard Drinks/Week Comments No 0 (1 standard drink = 0.6 oz pur e alcohol) PHQ-2 Answer Date Recorded PHQ-2 Score 2 01/04/2020 Sex and Gender Information Value Date Recorded Sex Assigned at Not on file Legal Sex Male 11:10 PM BAG TESTER Gender Identity Male 01/23/2021 2:22 PM CDT Sexual Orientation Straight 01/23/2021 2: 22 PM CDT Occupation Industry Job Start Date Job End Date disability Not on file Not on file Not on file documented as of this encounter Functional Status * BP Location Answer Date of Assessment Author Left arm 04/10/2020 8:27 AM CDT Kassandra Sanchez RN * BP Location Answer Date of Assessment Author Left arm 04/10/2020 8:27 AM CDT Kassandra Sanchez, RAYA documented as of this encounter Plan of [...] here> General On track( 019 1:14 PM BAG TESTER) Yes Vivian De La Vega, RAYA Note: Fishing Walking dogs Working around house documented as of this encounter Visit Diagnoses Not on filedocumented in this encounter Additional Health Concerns Infection Onset Date Last Indicated Resolved Time COVID: Recovered Comment:Pt tested COVID+ 05/27/21. Pt has been afebrile off antipyretics >24hrs. Results in media section Mini [place] 08/20/2021 06/06/2021 08/20/2021 09/26/2021 3:[address] documented as of this encounter Care Teams Armor Reconnaissance Vehicle Crewman Relationship Specialty Start Date End Date Rico Lewis MD [address] [place] [address] PCP - General 02/09/18 Winter Sanchez, RN Registered Nurse 02/10/18 Jv Matihs MD Anesthesiologist Pain Management 07/17/22 Alea Wing RN [address] [address] SHOP Outpatient Data Processing Mechanic 11/28/24 12/08/24 documented as of this encounter
--- OUTSIDE RECORDS SUMMARY | 2025-07-28 09:05 | XMS_ITS | Clinical Summary ---
Author Organization [facility] Address [address] [facility] [place] [address] Care Team Providers Care Rn Psych Name Role Phone Rico Lewis MD Primary Care Provider [phone] Source Comments [facility],non-owned Affiliates and Associated Physician Practices is amultiple site organization consisting of ambulatory clinics and hospital sitesin [place], [place], [place] and [place]. This disclosure is being madepursuant to the Care Everywhere program and may not contain all information available regarding this patient. Last updated 18.[facility] Allergies No known active allergies Medications * [...] SCREENING 2022 SCREENING FOR DIABETES 02/28/2022 02/28/2019 DEPRESSION SCREENING 09/07/2024 COVID-19 VACCINE (1 - 2024-2 6 season) 2025 INFLUENZA VACCINE (#1) 2025 Respiratory Syncytial Virus [...] 7 - 26 mg/dL 02/28/2019 11:20 AM [facility] Creatinine 1.0 0.6 - 1.2 mg/dL 02/28/2019 11:20 AM [facility] Sodium 136 136 - 145 mmol/L 02/28/2019 11:20 AM [facility] Potassium 4.5 3.5 - 4.5 mmol/L 02/28/2019 11:20 AM [facility] Chloride 100 98 - 107 mmol/L 02/28/2019 11:20 AM [facility] CO2 25 22 - 29 mmol/L 02/28/2019 11:20 AM [facility] Glucose 85 70 - 115 mg/dL 02/28/2019 11:20 AM [facility] Calcium 9.4 8.4 - 10.2 mg/dL 02/28/2019 11:20 AM [facility] Anion Gap 16 8 - 18 02/28/2019 11:20 AM [facility] BUN/Creatinine Ratio 9 7 - 23 02/28/2019 11:20 AM [facility] Osmolality Calculated 280 270 - 300 mOsm/kg 02/28/2019 11:20 AM [facility] eGFR >60 >60 mL/min/1.7 3 m2 02/28/2019 11:20 AM [facility] Blood BLOOD SPECIMEN / Unknown Lab Venipuncture / Unknown 02/28/2019 10:42 AM CDT 02/28/2019 11:03 [address] [facility] us Jacob Zaidi MD LAB - CHEMISTRY ORDERABLES F inal Result Performing Organization Address City/State/[facility] Co de Phone Number [address] [phone] from Last 3 Months or Most Recently Relevant to Health Maintenance Insurance MEDICARE MEDICARE Care Teams Rn Psych Relationship Specialty Start Date End Date Rico Lewis MD PCP - General 12/15/18
--- OUTSIDE RECORDS SUMMARY | 2025-07-28 09:05 | XMS_ITS | Encounter Summary ---
Author Organization [facility] Address [address] [place] [address] Phone Care Team Providers Care Furnace Worker Name Role Phone Rico Lewis MD Primary Care Provider + [phone] Winter Sanchez RN Unavailable Unavailabl Jv Bowden MD Unavailable [phone] Alea Wing RN Unavailable Encounter Details Date Type Department Care Team [...] on file Legal Sex Male 11:10 PM ELECTRICAL AND ELECTRONIC ASSEMBLER Gender Identity Male 01/23/2021 2:22 PM CDT [...] here> General On track( 019 1:14 PM ELECTRICAL AND ELECTRONIC ASSEMBLER) Yes Vivian De La Vega, RAYA Note: [...] on filedocumented in this encounter Care Teams Furnace Worker Relationship Specialty Start Date End Date Rico Lewis MD [address] [place] [address] PCP - General 02/09/18 Winter Sanchez, RAYA Registered Nurse 02/10/18 Jv Mathis MD Anesthesiologist Pain Management 07/17/22 Alea Wing, RAYA [address] [facility] [address] [place] [address] SHOP Outpatient Nurses' Aide 11/28/24 12/08/24 documented as of this encounter
--- OUTSIDE RECORDS SUMMARY | 2025-07-28 09:06 | XMS_ITS | Patient Health Record ---
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) Thoracic or lumbosacral neuritis or radiculitis, unspecified (724.4) Active confirmed Problem Lumbago (881808861) Lumbago (724.2) Active confirmed Problem Cervicalgia (74143801) Cervicalgia (723.1) Active confirmed Problem Long-term current use of drug therapy (711883931) Encounter for long-term (current) use of other [...] Date Medicare Part B [address] [place] [address] [id number] MARKO TIDWELL Self - patient is the insured Medical (General) History Medical History History ICD Code brain encephalitis Surgical History Surgery Date(Month/Year) Back 1999 Hospitalization History Reason Date(Month/Year) Encephalitis of the brain - Admitted to [facility] and transferred [facility] in [place] -08/06/13 Oral surgery 10/17/13
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
--- OUTSIDE RECORDS SUMMARY | 2025-07-28 09:06 | XMS_ITS | Clinical Summary ---
Author Organization 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 Name Role Phone Rico Lewis MD Primary [...] Comments Blood Pressure 110/66 09/14/2020 10:37 AM SHELL COREMAKER Pulse 60 09/14/2020 10:37 AM SHELL COREMAKER Temperature 36.1 C (97 F) 08/06/2020 9:00 AM SHELL COREMAKER Respiratory Rate 14 08/06/2020 9:15 AM SHELL COREMAKER Oxygen Saturation 98% 08/06/2020 9:15 AM SHELL COREMAKER Inhaled Oxygen Concentration - - Weight 100.2 kg (221 lb) 09/14/2020 10:37 AM SHELL COREMAKER Height 188 cm (6' 2) 09/14/2020 10:37 AM SHELL COREMAKER Body Mass Index 28.37 09/14/2020 10:37 AM SHELL COREMAKER Plan of Treatment Health Maintenance Due Date Last Done Comments DTAP/TDAP/TD VACCINES (1 - Tdap) 01/16/1976 PNEUMOCOCCAL VACCINE 50+ YEA RS (1 of 2 - PCV) 01/16/1976 FIT-DNA Q 3 years 2002 FIT/FOBT Q 1 year 2002 Flex Sig/CT Colonography Q 5 years 2002 RSV VACCINE (60+ or ) (1 - Risk 50-74 years 1-dose series) 2007 ZOSTER VACCINE (1 of 2) 2007 UPPER GI ENDOSCOPY 08/06/2023 08/06/2020 INFLUENZA VACCINE (#1) 2025 COLORECTAL SCREENING 08/06/2027 08/06/2020, 08/06/20 20 Colorectal Cancer Screening 08/06/2027 Procedures Procedure Name Priority Date/Time Associated Diagnosis Comments COLONOSCOPY REPORT 08/06/2020 9: 12 AM SHELL COREMAKER from Last 3 Months or Most Recently Relevant to Health Maintenance Results * COLONOSCOPY REPORT (08/06/2020 9:12 AM SHELL COREMAKER) Narrative Procedure Note Benito Pablo MD - 08/06/2020 9:11 AM CST [facility] Endoscopy Patient Name: Marko Marti [...] signed electronically. Number of Addenda: [phone] ; [place] [address] Benito Pablo MD GI PROCEDURE ORDERABLES Final Result from Last 3 Months or Most Recently Relevant to Health Maintenance Insurance [facility] [id number] Care Teams Cake Stripper Relationship Specialty Start Date End Date Rico Lewis MD [address] [place] [phone] PCP - General Internal Medicine 06/21/20
[2025-07-28 09:41] LABS: Estimated Glomerular Filt Rate > 60
== END 2025-07-28 08:59 | disposition home or self-care (01) ==
PROVIDERS: PCP Internal Medicine; Visit Provider Internal Medicine
DX: Z98.1 Arthrodesis status (principal); K74.60 Unspecified cirrhosis of liver; K80.20 Calculus of gallbladder without cholecystitis without obstruction; N28.9 Disorder of kidney and ureter, unspecified; Z98.890 Other specified postprocedural states
CPT/HCPCS: 72131; 74177; Q9967